=== PATIENT | male | born 1935 | race Caucasian/White ===

== ENCOUNTER 2018-08-07 18:49 | Inpatient (IN) | payer MEDICARE, OTHER ==
[2018-08-07] MEDS ORDERED: IPRATROPIUM/ALBUTEROL 0.5-2.5 MG/3 ML AMPUL NEB ONE (19:18)
--- NOTE | 2018-08-07 19:20 | ER Document Report ---
ED General - General Mode of Arrival: Ambulatory Information source: Patient TRAVEL OUTSIDE OF THE [place] IN LAST 30 DAYS: No <ZULMA NEW - Last Filed: 08/07/18 19:23> <HUGH CORTES - Last Filed: 08/07/18 23:58> - General Stated Complaint: DIFFICULTY BREATHING Time Seen by Provider: 08/07/18 19:13 Notes: Patient is an 83 year old male with COPD, CAD, hypertension, neurogenic bladder (self-cath) presents to the emergency department via EMS complaining of difficulty breathing onset a few days ago worsening yesterday. Patient also complains of a small amount of nonproductive coughing. EMS captured a fever of 101 en route to the emergency department and proceeded to give the patient Tylenol, Solu-Medrol and a DuoNeb. Patient states the DuoNeb has helped his breathing. (ZULMA NEW) - Related Data Allergies/Adverse Reactions: Daliresp Tabs Allergy (Uncoded 04/25/13 07:49) Past Medical History - General Information source: Patient, Emergency Med Personnel - Social History Smoking Status: Former Smoker Cigarette use (# per day): No Chew tobacco use (# tins/day): No Smoking Education Provided: No Frequency of alcohol use: None Family History: Reviewed & Not Pertinent - Past Medical History Cardiac Medical History: Reports: Hx Coronary Artery Disease, Hx Hypercholesterolemia, Hx Hypertension Pulmonary Medical History: Reports: Hx Asthma, Hx Bronchitis, Hx COPD, Hx Pneumonia, Hx Respiratory Failure Past Surgical History: Reports: Hx Herniorrhaphy - nov 2007 - Immunizations Hx Diphtheria, Pertussis, Tetanus Vaccination: Yes Hx Pneumococcal Vaccination: 11/12/11 <ZULMA NEW - Last Filed: 08/07/18 19:23> Review of Systems - Review of Systems Constitutional: No symptoms reported EENT: No symptoms reported Cardiovascular: No symptoms reported Respiratory: See HPI, Cough, Short of breath Gastrointestinal: No symptoms reported Genitourinary: No symptoms reported Male Genitourinary: No symptoms reported Musculoskeletal: No symptoms reported Skin: No symptoms reported Hematologic/Lymphatic: No symptoms reported Neurological/Psychological: No symptoms reported -: Yes All other systems reviewed and negative <ZULMA NEW - Last Filed: 08/07/18 19:23> Physical Exam <ZULMA NEW - Last Filed: 08/07/18 19:23> <HUGH CORTES - Last Filed: 08/07/18 23:58> - Vital signs Vitals: Pulse Ox 97 08/07/18 18:59 - Notes Notes: GENERAL: Alert, interacts well. No acute distress. HEAD: Normocephalic, atraumatic. EYES: Pupils equal, round, and reactive to light. Extraocular movements intact. ENT: Oral mucosa moist, tongue midline. NECK: Full range of motion. Supple. Trachea midline. LUNGS: Tachypneic, pursed lip breathing. No respiratory distress. HEART: Tachycardic. No murmurs, gallops, or rubs. ABDOMEN: Soft, non-tender. Non-distended. Bowel sounds present in all 4 quadrants. EXTREMITIES: Moves all 4 extremities spontaneously. Bilateral edema to the lower extremities, left greater than right however patient states that this is chronic. NEUROLOGICAL: Alert and oriented x3. Normal speech. PSYCH: Normal affect, normal mood. SKIN: Warm, dry, normal turgor. No rashes or lesions noted. (ZULMA NEW) Course - Laboratory Result Diagrams: 08/07/18 18:51 08/07/18 18:51 <[email or web address] - Last Filed: 08/07/18 19:23> - Laboratory Result Diagrams: 08/07/18 18:51 08/07/18 18:51 - Diagnostic Test Radiology reviewed: Image reviewed, Reports reviewed - Chest x-ray shows chronic lung changes with no acute infiltrates - EKG Interpretation by Ma EKG shows normal: Sinus rhythm, Tynan, Intervals, QRS Complexes. abnormal: ST-T Waves - Diffuse nonspecific T abnormalities Rate: Normal - 94 Rhythm: NSR Tynan/QRS: Right axis deviation Voltage: Decreased voltage When compared to previous EKG there are: Changes noted - Diffuse T-wave flattening which is new compared to 04/25/2013 - Consults Dr. Bowling Time consulted: 23:55 <HUGH CORTES - Last Filed: 08/07/18 23:58> - Vital Signs Vital signs: Temp Pulse Resp BP Pulse Ox 99.5 F 28 H 134/62 H 93 08/07/18 19:22 08/07/18 22:01 08/07/18 22:01 08/07/18 22:01 - Laboratory Laboratory results interpreted by me: 08/07/18 08/07/18 08/07/18 18:51 18:51 20:15 WBC 12.4 H Seg Neuts % (Manual) 91 H Lymphocytes % (Manual) 2 L Abs Neuts (Manual) 11.3 H Abs Lymphs (Manual) 0.2 L VBG pH VBG HCO3 Sodium 134.5 L Chloride 89 L Carbon Dioxide 38 H Glucose 128 H Direct Bilirubin 0.5 H Creatine Kinase 49 L Ur Leukocyte Esterase TRACE H 08/07/18 20:50 WBC Seg Neuts % (Manual) Lymphocytes % (Manual) Abs Neuts (Manual) Abs Lymphs (Manual) VBG pH 7.43 H VBG HCO3 33.9 H Sodium Chloride Carbon Dioxide Glucose Direct Bilirubin Creatine Kinase Ur Leukocyte Esterase Discharge <ZULMA NEW - Last Filed: 08/07/18 19:23> - Discharge Admitting Provider: Hospitalist Unit Admitted: Telemetry <HUGH CORTES - Last Filed: 08/07/18 23:58> - Discharge Clinical Impression: Acute exacerbation of chronic obstructive pulmonary disease (COPD) Fever Qualifiers: Fever type: unspecified Qualified Code(s): R50.9 - Fever, unspecified Condition: Stable Disposition: ADMITTED INPATIENT Referrals: LAYO GAMEZ MD [Primary Care Provider] - Follow up as needed Scribe Attestation: 08/07/18 19:46 I personally performed the services described in the documentation, reviewed and edited the documentation which was dictated to the scribe in my presence, and it accurately records my words and actions. (HUGH CORTES) Scribe Documentation - Scribe Written by Mercedesibe:: Anand Anderson, 08/07/2018 19:26 acting as scribe for :: Constantino <ZULMA NEW - Last Filed: 08/07/18 19:23>
[2018-08-07 19:22] LABS: HEMATOCRIT 43.5 % (37.9-51.0); HEMOGLOBIN 14.3 g/dL (13.5-17.0); MEAN CORPUSCULAR HEMOGLOBIN 30.7 pg (27.0-33.4); MEAN CORPUSCULAR HGB CONC 32.9 g/dL (32.0-36.0); MEAN CORPUSCULAR VOLUME 93 fl (80-97); PLATELET COUNT 217 10^3/uL (150-450); RED BLOOD COUNT 4.67 10^6/uL (4.35-5.55); RED CELL DISTRIBUTION WIDTH 13.9 % (11.5-14.0); WHITE BLOOD COUNT 12.4 10^3/uL (4.0-10.5)
[2018-08-07 19:25] LABS: INTERNATIONAL RATION (INR) 0.85
[2018-08-07 19:39] LABS: ABSOLUTE LYMPHOCYTES# (MANUAL) 0.2 10^3/uL (0.5-4.7); ABSOLUTE MONOCYTES # (MANUAL) 0.7 10^3/uL (0.1-1.4); ABSOLUTE NEUTROPHILS# (MANUAL) 11.3 10^3/uL (1.7-8.2); BASOPHILS % (MANUAL) 0 % (0-2); EOSINOPHILS % (MANUAL) 1 % (0-6); LYMPHOCYTES % (MANUAL) 2 % (13-45); MONOCYTES % (MANUAL) 6 % (3-13); SEGMENTED NEUTROPHILS % (MAN) 91 % (42-78); TOTAL CELLS COUNTED 100
[2018-08-07 19:40] LABS: PLATELET COMMENT ADEQUATE; RBC MORPHOLOGY COMMENT NORMO-CYTIC/CHROMIC
[2018-08-07] MEDS ORDERED: LEVOFLOXACIN 750 MG/D5W RTU 750 MG/150 ML RTUPB IV ONE (19:45)
[2018-08-07 19:55] LABS: ALANINE AMINOTRANSFERASE 30 U/L (21-72); ALBUMIN 4.3 g/dL (3.5-5.0); ALKALINE PHOSPHATASE 70 U/L (38-126); ANION GAP 8 (5-19); ASPARTATE AMINO TRANSFERASE 26 U/L (17-59); BILIRUBIN,DIRECT 0.5 mg/dL (0.0-0.4); BILIRUBIN,TOTAL 1.3 mg/dL (0.2-1.3); BLOOD UREA NITROGEN 20 mg/dL (7-20); CALCIUM 10.1 mg/dL (8.4-10.2); CARBON DIOXIDE 38 mmol/L (22-30); CHLORIDE 89 mmol/L (98-107); CREATINE KINASE 49 U/L (55-170); GLUCOSE 128 mg/dL (75-110); POTASSIUM 4.5 mmol/L (3.6-5.0); SODIUM 134.5 mmol/L (137-145)
[2018-08-07 20:02] LABS: CREATINE KINASE MB 1.12 ng/mL (<4.55)
[2018-08-07 20:11] LABS: TROPONIN I < 0.012 ng/mL
--- NOTE | 2018-08-07 20:11 | RADIOLOGY REPORT (SQ) ---
EXAM DESCRIPTION: CHEST SINGLE VIEW COMPLETED DATE/TIME: 08/07/2018 7:43 pm REASON FOR STUDY: bed 9 sob sepsis protocol COMPARISON: 04/25/2013 EXAM PARAMETERS: NUMBER OF VIEWS: One view. TECHNIQUE: Single frontal radiographic view of the chest acquired. RADIATION DOSE: NA LIMITATIONS: None. FINDINGS: LUNGS AND PLEURA: Emphysematous changes seen the upper lobes. Chronic interstitial change s are seen. No acute infiltrate or effusion. MEDIASTINUM AND HILAR STRUCTURES: No masses. Contour normal. HEART AND VASCULAR STRUCTURES: Heart normal in size. Normal vasculature. BONES: No acute findings. HARDWARE: None in the chest. OTHER: No other significant finding. IMPRESSION: Chronic lung changes with no acute cardiopulmonary disease. TECHNICAL DOCUMENTATION: JOB ID: [id number] [employer]- All Rights Reserved Reading location - IP/workstation name: [email or web address]
[2018-08-07 20:33] LABS: APPEARANCE,URINE CLEAR; BILIRUBIN,URINE NEGATIVE (NEGATIVE); COLOR,URINE YELLOW; GLUCOSE, URINE NEGATIVE (NEGATIVE); KETONES,URINE NEGATIVE (NEGATIVE); LEUKOCYTE ESTERASE,URINE TRACE (NEGATIVE); NITRITE,URINE NEGATIVE (NEGATIVE); PROTEIN,URINE NEGATIVE (NEGATIVE); URINE SPECIFIC GRAVITY 1.015; UROBILINOGEN,URINE NEGATIVE mg/dL (<2.0)
[2018-08-07] MEDS ORDERED: ALBUTEROL SULFATE 0.083% NEB 2.5 MG/3 ML AMPUL NEB ONE ×2 (20:52→22:34)
[2018-08-07 21:04] LABS: VENOUS BLOOD HCO3 33.9 mmol/L (20-32); VENOUS BLOOD PCO2 51.9 mmHg (35-63); VENOUS BLOOD PH 7.43 (7.30-7.42)
[2018-08-08] MEDS ORDERED: DILTIAZEM HCL 60 MG TABLET PO ONE (00:04)
[2018-08-08] MEDS ORDERED: IPRATROPIUM/ALBUTEROL 0.5-2.5 MG/3 ML AMPUL NEB PRN (00:15)
[2018-08-08] MEDS ORDERED: GUAIFENESIN SYRP 200 MG/10 ML UDC PO PRN (00:15)
[2018-08-08] MEDS ORDERED: ACETAMINOPHEN 325 MG TABLET PO PRN (00:15)
[2018-08-08] MEDS: LEVALBUTEROL HCL NEB 1.25 MG/3 ML AMPUL NEB SCH ×4 (02:10→20:47)
[2018-08-08] MEDS: IPRATROPIUM BROMIDE 0.02% NEB 0.5 MG/2.5 ML AMPUL NEB SCH ×4 (02:10→20:47)
[2018-08-08] MEDS: HEPARIN SOD (PORCINE) 5,000 UNIT/ML 1 ML SYRINGE SUBCUT SCH ×3 (05:41→21:43)
[2018-08-08 06:28] LABS: HEMATOCRIT 41.4 % (37.9-51.0); HEMOGLOBIN 13.8 g/dL (13.5-17.0); MEAN CORPUSCULAR HGB CONC 33.2 g/dL (32.0-36.0); MEAN CORPUSCULAR VOLUME 93 fl (80-97); PLATELET COUNT 181 10^3/uL (150-450); RED BLOOD COUNT 4.44 10^6/uL (4.35-5.55); RED CELL DISTRIBUTION WIDTH 13.8 % (11.5-14.0); WHITE BLOOD COUNT 7.4 10^3/uL (4.0-10.5)
[2018-08-08 06:41] LABS: ANION GAP 13 (5-19); BLOOD UREA NITROGEN 23 mg/dL (7-20); CALCIUM 10.4 mg/dL (8.4-10.2); CARBON DIOXIDE 30 mmol/L (22-30); CHLORIDE 91 mmol/L (98-107); GLUCOSE 189 mg/dL (75-110); POTASSIUM 4.5 mmol/L (3.6-5.0); SODIUM 133.6 mmol/L (137-145)
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
[2018-08-08 06:56] LABS: ABSOLUTE LYMPHOCYTES# (MANUAL) 0.1 10^3/uL (0.5-4.7); ABSOLUTE NEUTROPHILS# (MANUAL) 7.3 10^3/uL (1.7-8.2); BASOPHILS % (MANUAL) 0 % (0-2); EOSINOPHILS % (MANUAL) 0 % (0-6); LYMPHOCYTES % (MANUAL) 2 % (13-45); MONOCYTES % (MANUAL) 0 % (3-13); SEGMENTED NEUTROPHILS % (MAN) 98 % (42-78); TOTAL CELLS COUNTED 100
[2018-08-08 06:57] LABS: ANISOCYTOSIS SLIGHT; BURR CELLS 1+; OVALOCYTES 1+; PLATELET COMMENT ADEQUATE; POIKILOCYTOSIS 1+; SCHISTOCYTES SLIGHT; TOXIC GRANULATION SLIGHT
[2018-08-08] MEDS ORDERED: GUAIFENESIN 600 MG TABLET.SA PO SCH (10:00)
[2018-08-08] MEDS ORDERED: PREDNISONE 20 MG TABLET PO SCH (10:00)
[2018-08-08] MEDS ORDERED: DILTIAZEM HCL 240 MG CAPSULE.CR PO SCH (10:00)
[2018-08-08] MEDS ORDERED: ATORVASTATIN CALCIUM 10 MG TABLET PO SCH (10:00)
[2018-08-08] MEDS ORDERED: BUDESONIDE/FORMOTEROL 160-4.5 MCG 60 PUFF/6 GM MDI IH SCH ×2 (10:00)
[2018-08-08] MEDS: ASPIRIN 81 MG TABLET, ENT COATED PO SCH (10:04)
[2018-08-08] MEDS: GUAIFENESIN 600 MG TABLET.SA PO SCH ×2 (10:04→21:43)
[2018-08-08] MEDS: LORATADINE 10 MG TABLET PO SCH (10:04)
--- NOTE | 2018-08-08 14:39 | EKG REPORT ---
SEVERITY:- ABNORMAL ECG - SINUS RHYTHM RIGHT AXIS DEVIATION LOW VOLTAGE IN FRONTAL LEADS NONSPECIFIC T ABNORMALITIES, DIFFUSE LEADS : Confirmed by: Susan Munguia MD 08-Aug-2018 14:38:40
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
[2018-08-08] MEDS ORDERED: AZITHROMYCIN INJ 500 MG VIAL IV SCH (16:00)
[2018-08-08] MEDS ORDERED: LEVOFLOXACIN 750 MG/D5W RTU 750 MG/150 ML RTUPB IV SCH (18:00)
[2018-08-08] MEDS: AZITHROMYCIN 500 MG in DEXTROSE 5%-WATER 250 ML IV SCH (18:34)
[2018-08-08] MEDS: MONTELUKAST SODIUM 10 MG TABLET PO SCH (21:43)
[2018-08-08] MEDS: ATORVASTATIN CALCIUM 10 MG TABLET PO SCH (21:43)
[2018-08-08] MEDS: METHYLPREDNISOLONE INJ 40 MG/1 ML SDV IV SCH (21:44)
[2018-08-09] MEDS: IPRATROPIUM BROMIDE 0.02% NEB 0.5 MG/2.5 ML AMPUL NEB SCH ×4 (01:23→20:01)
[2018-08-09] MEDS: LEVALBUTEROL HCL NEB 1.25 MG/3 ML AMPUL NEB SCH ×4 (01:23→20:01)
[2018-08-09] MEDS: METHYLPREDNISOLONE INJ 40 MG/1 ML SDV IV SCH ×3 (05:32→22:08)
[2018-08-09] MEDS: HEPARIN SOD (PORCINE) 5,000 UNIT/ML 1 ML SYRINGE SUBCUT SCH ×3 (05:32→22:08)
[2018-08-09 06:58] LABS: HEMATOCRIT 37.6 % (37.9-51.0); HEMOGLOBIN 12.5 g/dL (13.5-17.0); MEAN CORPUSCULAR HEMOGLOBIN 30.8 pg (27.0-33.4); MEAN CORPUSCULAR HGB CONC 33.3 g/dL (32.0-36.0); MEAN CORPUSCULAR VOLUME 92 fl (80-97); PLATELET COUNT 187 10^3/uL (150-450); RED BLOOD COUNT 4.07 10^6/uL (4.35-5.55); RED CELL DISTRIBUTION WIDTH 13.7 % (11.5-14.0); WHITE BLOOD COUNT 13.9 10^3/uL (4.0-10.5)
[2018-08-09 07:20] LABS: ANION GAP 5 (5-19); BLOOD UREA NITROGEN 29 mg/dL (7-20); CALCIUM 9.3 mg/dL (8.4-10.2); CARBON DIOXIDE 37 mmol/L (22-30); CHLORIDE 95 mmol/L (98-107); GLUCOSE 154 mg/dL (75-110); POTASSIUM 4.4 mmol/L (3.6-5.0); SODIUM 136.7 mmol/L (137-145)
[2018-08-09 07:47] LABS: ABSOLUTE MONOCYTES # (MANUAL) 0.1 10^3/uL (0.1-1.4); ABSOLUTE NEUTROPHILS# (MANUAL) 13.8 10^3/uL (1.7-8.2); BASOPHILS % (MANUAL) 0 % (0-2); EOSINOPHILS % (MANUAL) 0 % (0-6); LYMPHOCYTES % (MANUAL) 0 % (13-45); MONOCYTES % (MANUAL) 1 % (3-13); SEGMENTED NEUTROPHILS % (MAN) 99 % (42-78); TOTAL CELLS COUNTED 100
[2018-08-09 07:49] LABS: OVALOCYTES 1+; PLATELET COMMENT ADEQUATE; POIKILOCYTOSIS 1+
[2018-08-09] MEDS ORDERED: (PENDING PHARMACY ID) (Diltiazem Hcl [Diltiazem 24hr Er] 360 MG) PO SCH (10:00)
[2018-08-09] MEDS: ASPIRIN 81 MG TABLET, ENT COATED PO SCH (10:44)
[2018-08-09] MEDS: GUAIFENESIN 600 MG TABLET.SA PO SCH ×2 (10:44→22:07)
[2018-08-09] MEDS: LORATADINE 10 MG TABLET PO SCH (10:44)
[2018-08-09] MEDS: DILTIAZEM HCL 180 MG CAPSULE.CR PO SCH (10:44)
--- NOTE | 2018-08-09 15:27 | PDOC PROGRESS REPORT ---
Subjective Progress Note for:: 08/09/18 Subjective:: 83-year-old with COPD. Patient's oxygen requirements now down to 3-4 L and is moving air better and having some wheezing still has conversational dyspnea and use of accessory muscles. Reason For Visit: COPD EXACERBATION ACUTE ON CHRONIC BRONCHITIS Physical Exam Vital Signs: Temp Pulse Resp BP Pulse Ox 98.0 F 76 14 131/56 H 96 08/09/18 11:25 08/09/18 14:16 08/09/18 14:16 08/09/18 11:25 08/09/18 14:16 Pulse Oximeter Continuous Start: 08/08/18 00: 15 Freq: RTQ4 Status: Active Document 08/09/18 14:16 [facility]Rec: 08/09/18 14:29 [facility] [id number] Pulse Oximetry Assessment Oxygen Saturation (92-100) 96 Oxygen Flow Rate (L/min) 4 Oxygen Delivery Method Nasal Cannula Fraction of Inspired Oxygen (FIO2) 36 Equipment Usage Equipment in Use Continuous SpO2 Machine # N 10 Intake & Output 08/08/18 08/09/18 08/10/18 06:59 06:59 06:59 Intake Total 320 1480 Output Total 300 1850 Balance 20 -370 Weight 70.3 kg 70.7 kg General appearance: PRESENT: no acute distress, well-developed, well-nourished Neck exam: ABSENT: carotid bruit, JVD, lymphadenopathy, thyromegaly Respiratory exam: PRESENT: accessory muscle use, clear to auscultation eboni, wheezes. ABSENT: rales, rhonchi Cardiovascular exam: PRESENT: RRR. ABSENT: diastolic murmur, rubs, systolic murmur GI/Abdominal exam: PRESENT: normal bowel sounds, soft. ABSENT: distended, guarding, mass, organolmegaly, rebound, tenderness Extremities exam: PRESENT: full ROM. ABSENT: calf tenderness, clubbing, pedal edema Results Laboratory Results: 08/09/18 06:41 08/09/18 06:41 08/09/18 08/09/18 06:41 06:41 WBC 13.9 H RBC 4.07 L Hgb 12.5 L Hct 37.6 L MCV 92 MCH 30.8 MCHC 33.3 RDW 13.7 Plt Count 187 Seg Neutrophils % Not Reportable Lymphocytes % Not Reportable Monocytes % Not Reportable Eosinophils % Not Reportable Basophils % Not Reportable Absolute Neutrophils Not Reportable Absolute Lymphocytes Not Reportable Absolute Monocytes Not Reportable Absolute Eosinophils Not Reportable Absolute Basophils Not Reportable Sodium 136.7 L Potassium 4.4 Chloride 95 L Carbon Dioxide 37 H Anion Gap 5 BUN 29 H Creatinine 0.94 Est GFR ( Amer) > 60 Est GFR (Non-Af Amer) > 60 Glucose 154 H Calcium 9.3 Impressions: Chest X-Ray 08/07/18 18:52 IMPRESSION: Chronic lung changes with no acute cardiopulmonary disease. Assessment & Plan - Diagnosis (1) Acute and chronic respiratory failure with hypoxia Is this a current diagnosis for this admission?: Yes Plan: Patient not actively wheezing but having some mild breathing. Continue IV Solu- Medrol for his acute on chronic exacerbation. (2) Acute exacerbation of chronic obstructive pulmonary disease (COPD) Is this a current diagnosis for this admission?: Yes Plan: As needed nebulizing treatments. Will transition back to his home inhalers at the time of discharge. (3) Bronchitis Is this a current diagnosis for this admission?: Yes Plan: We will transition to p.o. azithromycin and. (4) Hypertension Is this a current diagnosis for this admission?: Yes Plan: Normotensive continue present medications continue to monitor (5) Hyperlipidemia Is this a current diagnosis for this admission?: Yes Plan: Continue atorvastatin (6) CAD (coronary artery disease) Is this a current diagnosis for this admission?: Yes Plan: No anginal complaints stable - Time Time Spent with patient: 25-34 minutes
[2018-08-09] MEDS: AZITHROMYCIN 500 MG in DEXTROSE 5%-WATER 250 ML IV SCH (18:59)
[2018-08-09] MEDS ORDERED: MAG HYDROX/AL HYDROX/SIMETH SUSP 30 ML UDCUP PO PRN (19:05)
[2018-08-09] MEDS ORDERED: CALCIUM CARBONATE 500 MG TAB.CHEW PO PRN (20:13)
[2018-08-09] MEDS: FAMOTIDINE 20 MG TABLET PO SCH (22:07)
[2018-08-09] MEDS: MONTELUKAST SODIUM 10 MG TABLET PO SCH (22:07)
[2018-08-09] MEDS: ATORVASTATIN CALCIUM 10 MG TABLET PO SCH (22:07)
[2018-08-10] MEDS: IPRATROPIUM BROMIDE 0.02% NEB 0.5 MG/2.5 ML AMPUL NEB SCH ×4 (02:11→20:45)
[2018-08-10] MEDS: LEVALBUTEROL HCL NEB 1.25 MG/3 ML AMPUL NEB SCH ×4 (02:12→20:45)
[2018-08-10] MEDS: HEPARIN SOD (PORCINE) 5,000 UNIT/ML 1 ML SYRINGE SUBCUT SCH ×3 (06:28→21:28)
[2018-08-10] MEDS: METHYLPREDNISOLONE INJ 40 MG/1 ML SDV IV SCH ×2 (06:28→17:13)
[2018-08-10] MEDS: DILTIAZEM HCL 180 MG CAPSULE.CR PO SCH (10:06)
[2018-08-10] MEDS: ASPIRIN 81 MG TABLET, ENT COATED PO SCH (10:06)
[2018-08-10] MEDS: GUAIFENESIN 600 MG TABLET.SA PO SCH ×2 (10:06→21:28)
[2018-08-10] MEDS: LORATADINE 10 MG TABLET PO SCH (10:06)
[2018-08-10] MEDS: FAMOTIDINE 20 MG TABLET PO SCH ×2 (10:07→21:28)
--- NOTE | 2018-08-10 10:57 | PDOC PROGRESS REPORT ---
Subjective Progress Note for:: 08/10/18 Subjective:: 83-year-old with COPD. Patient's oxygen requirements now down to 3 L and is moving air better and having some wheezing still has no conversational dyspnea and no use of accessory muscles. Reason For Visit: COPD EXACERBATION ACUTE ON CHRONIC BRONCHITIS Physical Exam Vital Signs: Temp Pulse Resp BP Pulse Ox 97.9 F 87 20 136/61 H 95 08/10/18 08:47 08/10/18 08:47 08/10/18 08:47 08/10/18 08:47 08/10/18 08:47 Pulse Oximeter Continuous Start: 08/08/18 00: 15 Freq: RTQ4 Status: Active Document 08/10/18 07:45 TPO (Rec: 08/10/18 08:00 TPO [email or web address]) Pulse Oximetry Assessment Oxygen Saturation (92-100) 94 Oxygen Flow Rate (L/min) 3 Oxygen Delivery Method Nasal Cannula Fraction of Inspired Oxygen (FIO2) 32 Equipment Usage Equipment in Use Continuous SpO2 Machine # 10 Intake & Output 08/09/18 08/10/18 08/11/18 06:59 06:59 06:59 Intake Total 1730 1737 Output Total 1850 800 Balance -120 937 Weight 70.7 kg 70.5 kg General appearance: PRESENT: no acute distress, well-developed, well-nourished Neck exam: ABSENT: carotid bruit, JVD, lymphadenopathy, thyromegaly Respiratory exam: PRESENT: clear to auscultation eboni - Breath sounds throughout. ABSENT: accessory muscle use, rales, rhonchi, wheezes Cardiovascular exam: PRESENT: RRR. ABSENT: diastolic murmur, rubs, systolic murmur GI/Abdominal exam: PRESENT: normal bowel sounds, soft. ABSENT: distended, guarding, mass, organolmegaly, rebound, tenderness Extremities exam: PRESENT: full ROM. ABSENT: calf tenderness, clubbing, pedal edema Results Laboratory Results: 08/09/18 06:41 08/09/18 06:41 Impressions: Chest X-Ray 08/07/18 18:52 IMPRESSION: Chronic lung changes with no acute cardiopulmonary disease. Assessment & Plan - Diagnosis (1) Acute and chronic respiratory failure with hypoxia Is this a current diagnosis for this admission?: Yes Plan: Patient not actively wheezing no use of accessory muscles. Patient beginning to achieve his baseline respiratory status. Still on 3 L. Decrease Solu- Medrol to 40 mg every 12 hours change azithromycin to p.o. (2) Acute exacerbation of chronic obstructive pulmonary disease (COPD) Is this a current diagnosis for this admission?: Yes Plan: As needed nebulizing treatments. Will transition back to his home inhalers at the time of discharge. Decrease IV Solu-Medrol. (3) Bronchitis Is this a current diagnosis for this admission?: Yes Plan: We will transition to p.o. azithromycin (4) Hypertension Is this a current diagnosis for this admission?: Yes Plan: Normotensive continue present medications continue to monitor (5) Hyperlipidemia Is this a current diagnosis for this admission?: Yes Plan: Continue atorvastatin (6) CAD (coronary artery disease) Is this a current diagnosis for this admission?: Yes Plan: No anginal complaints stable - Time Time Spent with patient: 15-24 minutes Anticipated discharge: Home Within: within 48 hours
[2018-08-10] MEDS: MONTELUKAST SODIUM 10 MG TABLET PO SCH (21:28)
[2018-08-10] MEDS: ATORVASTATIN CALCIUM 10 MG TABLET PO SCH (21:28)
[2018-08-11] MEDS: IPRATROPIUM BROMIDE 0.02% NEB 0.5 MG/2.5 ML AMPUL NEB SCH ×4 (02:25→19:58)
[2018-08-11] MEDS: LEVALBUTEROL HCL NEB 1.25 MG/3 ML AMPUL NEB SCH ×4 (02:25→19:58)
[2018-08-11] MEDS: HEPARIN SOD (PORCINE) 5,000 UNIT/ML 1 ML SYRINGE SUBCUT SCH ×3 (06:31→21:21)
[2018-08-11] MEDS: METHYLPREDNISOLONE INJ 40 MG/1 ML SDV IV SCH (06:31)
--- NOTE | 2018-08-11 10:10 | PDOC PROGRESS REPORT ---
Subjective Progress Note for:: 08/11/18 Subjective:: 83-year-old with COPD. Patient's oxygen requirements now down to 3 L and is moving air better and having some wheezing still has no conversational dyspnea and no use of accessory muscles. Clinically improved over yesterday. Patient has better air movement today but has not been ambulating due to the severity of his bronchospasm. Patient has no new complaints feeling better close to baseline. Reason For Visit: COPD EXACERBATION ACUTE ON CHRONIC BRONCHITIS Physical Exam Vital Signs: Temp Pulse Resp BP Pulse Ox 97.6 F 75 18 125/60 96 08/11/18 07:30 08/11/18 07:56 08/11/18 07:56 08/11/18 07:30 08/11/18 07:56 Pulse Oximeter Continuous Start: 08/08/18 00: 15 Freq: RTQ4 Status: Active Document 08/11/18 07:56 TPO (Rec: 08/11/18 08:16 TPO [email or web address]) Pulse Oximetry Assessment Oxygen Saturation (92-100) 96 Oxygen Flow Rate (L/min) 3 Oxygen Delivery Method Nasal Cannula Fraction of Inspired Oxygen (FIO2) 32 Equipment Usage Equipment in Use Continuous Pulse Oximeter 24 Hour Charge Charge Now Continuous SpO2 Machine # 10 Intake & Output 08/10/18 08/11/18 08/12/18 06:59 06:59 06:59 Intake Total 1737 459 Output Total 800 500 Balance 937 -41 Weight 70.5 kg 71.2 kg General appearance: PRESENT: no acute distress Neck exam: ABSENT: carotid bruit, JVD, lymphadenopathy, thyromegaly Respiratory exam: PRESENT: clear to auscultation eboni - Breath sounds throughout. ABSENT: rales, rhonchi, wheezes Cardiovascular exam: PRESENT: RRR. ABSENT: diastolic murmur, rubs, systolic murmur GI/Abdominal exam: PRESENT: normal bowel sounds, soft. ABSENT: distended, guarding, mass, organolmegaly, rebound, tenderness Extremities exam: PRESENT: full ROM. ABSENT: calf tenderness, clubbing, pedal edema Results Laboratory Results: 08/09/18 06:41 08/09/18 06:41 Impressions: Chest X-Ray 08/07/18 18:52 IMPRESSION: Chronic lung changes with no acute cardiopulmonary disease. Assessment & Plan - Diagnosis (1) Acute and chronic respiratory failure with hypoxia Is this a current diagnosis for this admission?: Yes Plan: Continue to wean oxygen to his baseline of 2. Ambulate today on pulse oximetry to confirm patient's ambulatory oxygen requirements. Anticipate discharge in 24 hours (2) Acute exacerbation of chronic obstructive pulmonary disease (COPD) Is this a current diagnosis for this admission?: Yes Plan: Continue nebulizing treatments Taper steroids (3) Bronchitis Is this a current diagnosis for this admission?: Yes Plan: Continue p.o. azithromycin (4) Hypertension Is this a current diagnosis for this admission?: Yes Plan: Normotensive continue present medications continue to monitor (5) Hyperlipidemia Is this a current diagnosis for this admission?: Yes Plan: Continue atorvastatin (6) CAD (coronary artery disease) Is this a current diagnosis for this admission?: Yes Plan: No anginal complaints stable - Time Time Spent with patient: 15-24 minutes Anticipated discharge: Home Within: within 24 hours
[2018-08-11] MEDS: DILTIAZEM HCL 180 MG CAPSULE.CR PO SCH (10:15)
[2018-08-11] MEDS: AZITHROMYCIN 250 MG TABLET PO SCH (10:15)
[2018-08-11] MEDS: GUAIFENESIN 600 MG TABLET.SA PO SCH ×2 (10:16→21:21)
[2018-08-11] MEDS: LORATADINE 10 MG TABLET PO SCH (10:16)
[2018-08-11] MEDS: FAMOTIDINE 20 MG TABLET PO SCH ×2 (10:16→21:21)
[2018-08-11] MEDS: ASPIRIN 81 MG TABLET, ENT COATED PO SCH (10:16)
[2018-08-11] MEDS: PREDNISONE 20 MG TABLET PO SCH (17:55)
[2018-08-11] MEDS: ATORVASTATIN CALCIUM 10 MG TABLET PO SCH (21:21)
[2018-08-11] MEDS: MONTELUKAST SODIUM 10 MG TABLET PO SCH (21:22)
[2018-08-12] MEDS: IPRATROPIUM BROMIDE 0.02% NEB 0.5 MG/2.5 ML AMPUL NEB SCH ×3 (02:45→13:42)
[2018-08-12] MEDS: LEVALBUTEROL HCL NEB 1.25 MG/3 ML AMPUL NEB SCH ×3 (02:45→13:42)
[2018-08-12] MEDS: HEPARIN SOD (PORCINE) 5,000 UNIT/ML 1 ML SYRINGE SUBCUT SCH ×2 (05:38→15:02)
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
[2018-08-12] MEDS: GUAIFENESIN 600 MG TABLET.SA PO SCH (09:33)
[2018-08-12] MEDS: AZITHROMYCIN 250 MG TABLET PO SCH (09:33)
[2018-08-12] MEDS: ASPIRIN 81 MG TABLET, ENT COATED PO SCH (09:33)
[2018-08-12] MEDS: DILTIAZEM HCL 180 MG CAPSULE.CR PO SCH (09:33)
[2018-08-12] MEDS: FAMOTIDINE 20 MG TABLET PO SCH (09:34)
[2018-08-12] MEDS: LORATADINE 10 MG TABLET PO SCH (09:34)
[2018-08-12] MEDS: PREDNISONE 20 MG TABLET PO SCH ×2 (09:34→16:22)
[2018-08-12 15:46] VITALS: BP 126/67
== END 2018-08-12 17:32 | disposition home or self-care (01) | DRG 190 ==
LOC: ER 18:49 → EH 08-08 00:29 → 4S 08-08 01:50
PROVIDERS: ADMIT Internal Medicine; ATTEND Internal Medicine
PROC: 3E0F73Z Introduction of Anti-inflammatory into Respiratory Tract, Via Natural or Artificial Opening (ICD-10-PCS; principal; 2018-08-08)
DX: J44.1 Chronic obstructive pulmonary disease with (acute) exacerbation (principal); J96.21 Acute and chronic respiratory failure with hypoxia; J20.9 Acute bronchitis, unspecified; J44.0 Chronic obstructive pulmonary disease with (acute) lower respiratory infection; I10 Essential (primary) hypertension; E78.00 Pure hypercholesterolemia, unspecified; I25.10 Atherosclerotic heart disease of native coronary artery without angina pectoris; R33.9 Retention of urine, unspecified; X37.0XXA Hurricane, initial encounter; Z79.899 Other long term (current) drug therapy; Z99.81 Dependence on supplemental oxygen; Z87.891 Personal history of nicotine dependence; Z79.82 Long term (current) use of aspirin; Z88.8 Allergy status to other drugs, medicaments and biological substances; Z83.6 Family history of other diseases of the respiratory system; Z82.49 Family history of ischemic heart disease and other diseases of the circulatory system
CPT/HCPCS: 36415; 51701; 71045; 80048; 80053; 81001; 82550; 82553; 82803; 83605; 83880; 84484; 85025; 85610; 87040; 87086; 90471; 90686; 93005; 93010; 94640; 94667; 94762; 94799; 96365; 96366; 99285; C1758; G0008; J0456; J1644; J1956; J2920; J3490; J7060; J7512; J7620

== ENCOUNTER 2019-01-11 12:53 | Inpatient (IN) | payer MEDICARE, OTHER ==
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
[2019-01-11] MEDS ORDERED: ALBUTEROL SULFATE 0.083% NEB 2.5 MG/3 ML AMPUL NEB ONE (13:15)
[2019-01-11] MEDS ORDERED: METHYLPREDNISOLONE INJ 125 MG/2 ML SDV IV ONE (13:15)
[2019-01-11 13:33] LABS: APPEARANCE,URINE CLEAR; BILIRUBIN,URINE NEGATIVE (NEGATIVE); COLOR,URINE YELLOW; GLUCOSE, URINE NEGATIVE (NEGATIVE); KETONES,URINE NEGATIVE (NEGATIVE); LEUKOCYTE ESTERASE,URINE NEGATIVE (NEGATIVE); NITRITE,URINE NEGATIVE (NEGATIVE); PROTEIN,URINE NEGATIVE (NEGATIVE); URINE SPECIFIC GRAVITY 1.013; UROBILINOGEN,URINE NEGATIVE mg/dL (<2.0)
[2019-01-11 13:36] LABS: HEMATOCRIT 41.7 % (37.9-51.0); MEAN CORPUSCULAR HGB CONC 33.7 g/dL (32.0-36.0); MEAN CORPUSCULAR VOLUME 92 fl (80-97); PLATELET COUNT 164 10^3/uL (150-450); RED BLOOD COUNT 4.53 10^6/uL (4.35-5.55); RED CELL DISTRIBUTION WIDTH 13.8 % (11.5-14.0); WHITE BLOOD COUNT 7.8 10^3/uL (4.0-10.5)
--- NOTE | 2019-01-11 13:44 | RADIOLOGY REPORT (SQ) ---
EXAM DESCRIPTION: CHEST SINGLE VIEW COMPLETED DATE/TIME: 01/11/2019 1:34 pm REASON FOR STUDY: SOB COMPARISON: 08/07/2018. EXAM PARAMETERS: NUMBER OF VIEWS: One view. TECHNIQUE: Single frontal radiographic view of the chest acquired. RADIATION DOSE: NA LIMITATIONS: None. FINDINGS: LUNGS AND PLEURA: Diffuse interstitial changes. Focal density in the lateral right lung. No pleural effusion. No pneumothorax. MEDIASTINUM AND HILAR STRUCTURES: No masses. Contour normal. HEART AND VASCULAR STRUCTURES: Heart normal in size. Normal vasculature. BONES: No acute findings. HARDWARE: None in the chest. OTHER: No other significant finding. IMPRESSION: FOCAL DENSITY IN THE LATERAL RIGHT LUNG, POSSIBLY DUE TO PNEUMONIA. CANNOT EXCLUDE UNDE RLYING MASS. TECHNICAL DOCUMENTATION: JOB ID: [id number] [employer]- All Rights Reserved Reading location - IP/workstation name: [email or web address]
[2019-01-11 13:52] LABS: ALANINE AMINOTRANSFERASE 28 U/L (21-72); ALBUMIN 3.7 g/dL (3.5-5.0); ALKALINE PHOSPHATASE 56 U/L (38-126); ANION GAP 11 (5-19); ASPARTATE AMINO TRANSFERASE 26 U/L (17-59); BILIRUBIN,DIRECT 0.3 mg/dL (0.0-0.4); BILIRUBIN,TOTAL 1.2 mg/dL (0.2-1.3); BLOOD UREA NITROGEN 34 mg/dL (7-20); CALCIUM 9.3 mg/dL (8.4-10.2); CARBON DIOXIDE 32 mmol/L (22-30); CHLORIDE 94 mmol/L (98-107); CREATINE KINASE 46 U/L (55-170); GLUCOSE 138 mg/dL (75-110); POTASSIUM 4.8 mmol/L (3.6-5.0); SODIUM 136.8 mmol/L (137-145); TOTAL PROTEIN 6.1 g/dL (6.3-8.2)
[2019-01-11 14:03] LABS: CREATINE KINASE MB 1.74 ng/mL (<4.55); TROPONIN I 0.013 ng/mL
[2019-01-11 14:04] LABS: ABSOLUTE LYMPHOCYTES# (MANUAL) 1.4 10^3/uL (0.5-4.7); ABSOLUTE MONOCYTES # (MANUAL) 0.9 10^3/uL (0.1-1.4); ABSOLUTE NEUTROPHILS# (MANUAL) 5.5 10^3/uL (1.7-8.2); BASOPHILS % (MANUAL) 0 % (0-2); EOSINOPHILS % (MANUAL) 0 % (0-6); LYMPHOCYTES % (MANUAL) 18 % (13-45); MONOCYTES % (MANUAL) 12 % (3-13); SEGMENTED NEUTROPHILS % (MAN) 49 % (42-78); TOTAL CELLS COUNTED 100
[2019-01-11 14:07] LABS: PLATELET CLUMPS PRESENT; PLATELET COMMENT ADEQUATE; PLATELET GIANT PRESENT; PLATELET LARGE PRESENT; TOXIC GRANULATION 1+; TOXIC VACUOLATION PRESENT
[2019-01-11 14:08] LABS: BAND NEUTROPHILS % (MANUAL) 21 % (3-5)
[2019-01-11] MEDS ORDERED: AZITHROMYCIN INJ 500 MG VIAL IV ONE (14:33)
[2019-01-11] MEDS ORDERED: CEFTRIAXONE INJ 1000 MG VIAL IV ONE (14:33)
[2019-01-11 15:13] LABS: INTERNATIONAL RATION (INR) 1.11; PROTHROMBIN TIME 14.9 SEC (11.4-15.4)
[2019-01-11 15:13] LABS: ARTERIAL BLOOD BASE EXCESS 3.7 mmol/L; ARTERIAL BLOOD H2CO3 1.59 mmol/L (1.05-1.35); ARTERIAL BLOOD HCO3 30.2 mmol/L (20-24); ARTERIAL BLOOD O2 SATURATION 74.9 % (94-98); ARTERIAL BLOOD PCO2 52.7 mmHg (35-45); ARTERIAL BLOOD PH 7.38 (7.35-7.45); ARTERIAL BLOOD PO2 41.4 mmHg (80-100); ARTERIAL BLOOD TOTAL CO2 31.8 mmol/L (23-27)
[2019-01-11 15:14] LABS: ARTERIAL BLOOD FIO2 5L
[2019-01-11] MEDS ORDERED: ACETAMINOPHEN 325 MG TABLET PO PRN (15:23)
--- NOTE | 2019-01-11 15:36 | PDOC H&P ---
History of Present Illness Admission Date/PCP: LAYO GAMEZ MD Patient complains of: SOB, cough History of Present Illness: MARY HAWKINS is a 83 year old male with a PMH of COPD on 3 lpm of home O2, hypoactive urinary bladder-does intermittent self catheterizatons, and hyperlipidemia who presented with productive cough, fever and SOB. Daughter and (surrogate decision maker) are on bedside. Patient apparently has been having progressive SOB in the past 2 days. This was associated with productive cough with greenish sputum. Yesterday, he started having fever with a temp of 100.2. He had worsening SOB and EMS noted his sats went down to as low as 60% and he was noted to be very tachypneic. In the ER, he was placed on BIPAP and sats improved to 95% and his tachypnea did improve. He was noted to have decreased BS and wheezes in the ER. Chest x-ray shows possible right lung mass. 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 Past Medical History Cardiac Medical History: Reports: Coronary Artery Disease, Hyperlipidema, Hypertension Denies: Atrial Fibrillation, Congestive Heart Failure, Myocardial Infarction, Peripheral Vascular Disease, Pulmonary Embolism, Heart Murmur Pulmonary Medical History: Reports: Asthma, Bronchitis, Chronic Obstructive Pulmonary Disease (COPD), Pneumonia, Respiratory Failure Denies: Sleep Apnea, Tuberculosis Neurological Medical History: Denies: Seizures Renal/ Medical History: Denies: End Stage Renal Disease Malignancy Medical History: Denies: Lung Cancer GI Medical History: Denies: Hepatitis, Hiatal Hernia Musculoskeltal Medical History: Denies: Arthritis, Fibromyalgia Psychiatric Medical History: Denies: Depression Hematology: Denies: Anemia, Sickle Cell Disease Past Surgical History Past Surgical History: Reports: Herniorrhaphy - nov 2007 Denies: Appendectomy, Cholecystectomy, Coronary Artery Bypass Graft, Gastric Bypass Surgery, Pacemaker, Tonsillectomy Social History Lives with: Family Smoking Status: Unknown if Ever Smoked Frequency of Alcohol Use: None Hx Recreational Drug Use: No Hx Prescription Drug Abuse: No Family History Family History: COPD, Hypertension Parental Family History Reviewed: Yes - no premature CAD Children Family History Reviewed: No Sibling(s) Family History Reviewed.: No Medication/Allergy Home Medications: Aspirin [Aspirin EC] 81 mg PO DAILY 12/12/12 Atorvastatin Calcium [Lipitor 10 mg Tablet] 10 mg PO DAILY 12/12/12 Calcium Citrate/Vitamin D3 [Calcium Cit-Vit D 250-200 Tab] 1 each PO DAILY 12/12/12 Fexofenadine HCl [Catrachita Allergy] 180 mg PO DAILY 04/25/13 Guaifenesin [Mucinex] 600 mg PO BID 04/07/15 Albuterol Sulfate [Proair HFA Inhalation Aerosol 8.5 gm MDI] 2 puff IH Q4HP PRN 08/08/18 Albuterol Sulfate [Ventolin 0.083% Neb 2.5 mg/3 mL Ampul] 1 vial NEB DAILY@1400 08/08/18 Albuterol Sulfate [Ventolin 0.083% Neb 2.5 mg/3 mL Ampul] 1 vial NEB RTQ6HP PRN 08/08/18 Arformoterol Tartrate [Brovana Inhalation Solution 15 mcg/2 mL] 15 mcg IH BID 08/08/18 Budesonide [Pulmicort Neb 0.5 mg/2 ml Ampul] 0.5 mg NEB RTQ12 08/08/18 Diltiazem HCl [Diltiazem 24Hr ER] 360 mg PO DAILY 08/08/18 Ergocalciferol (Vitamin D2) [Drisdol 50,000 unit (1.25MG) Capsule] 50,000 unit PO . & 08/08/18 Furosemide [Lasix 20 mg Tablet] 20 mg PO QAM 08/08/18 Montelukast Sodium [Singulair 10 mg Tablet] 10 mg PO QHS 08/08/18 Nitrofurantoin Monohyd/M-Cryst [Nitrofurantoin [place]-Mcr 100 mg] 100 mg PO Q12 MDD FILLED 08/05 FOR 7 DAY SUPPLY 08/08/18 Acetaminophen [Tylenol 325 mg Tablet] 650 mg PO Q4HP PRN tablet 08/12/18 Prednisone [Deltasone 20 mg Tablet] 20 mg PO BID #8 tablet 08/12/18 Allergies/Adverse Reactions: roflumilast Allergy (Unknown, Verified 08/08/18 07:05) Review of Systems All systems: reviewed and no additional remarkable complaints except as stated - as mentioned in HPI Physical Exam Vital Signs: Temp Pulse Resp BP Pulse Ox 101.4 F H 38 H 135/59 H 95 01/11/19 13:04 01/11/19 14:35 01/11/19 13:20 01/11/19 14:35 Intake & Output 01/10/19 01/11/19 01/12/19 06:59 06:59 06:59 Weight 155 lb General appearance: PRESENT: no acute distress, well-developed, well-nourished Head exam: PRESENT: atraumatic, normocephalic Eye exam: PRESENT: conjunctiva pink, EOMI, PERRLA. ABSENT: scleral icterus Ear exam: PRESENT: normal external ear exam Mouth exam: PRESENT: moist, tongue midline Neck exam: ABSENT: carotid bruit, JVD, lymphadenopathy, thyromegaly Respiratory exam: PRESENT: rhonchi, wheezes. ABSENT: rales Cardiovascular exam: PRESENT: RRR. ABSENT: diastolic murmur, rubs, systolic murmur Pulses: PRESENT: normal dorsalis pedis pul GI/Abdominal exam: PRESENT: normal bowel sounds, soft. ABSENT: distended, guarding, mass, organolmegaly, rebound, tenderness Rectal exam: PRESENT: deferred Neurological exam: PRESENT: alert, awake, oriented to person, oriented to place, oriented to time, oriented to situation, CN II-XII grossly intact. ABSENT: mo tor sensory deficit Results Laboratory Results: 01/11/19 13:02 01/11/19 13:02 01/11/19 01/11/19 01/11/19 13:02 13:02 13:02 WBC 7.8 RBC 4.53 Hgb 14.0 Hct 41.7 MCV 92 MCH 31.0 MCHC 33.7 RDW 13.8 Plt Count 164 Seg Neutrophils % Not Reportable Lymphocytes % Not Reportable Monocytes % Not Reportable Eosinophils % Not Reportable Basophils % Not Reportable Absolute Neutrophils Not Reportable Absolute Lymphocytes Not Reportable Absolute Monocytes Not Reportable Absolute Eosinophils Not Reportable Absolute Basophils Not Reportable Carbonic Acid HCO3/H2CO3 Ratio ABG pH ABG pCO2 ABG pO2 ABG HCO3 ABG O2 Saturation ABG Base Excess FiO2 Sodium 136.8 L Potassium 4.8 Chloride 94 L Carbon Dioxide 32 H Anion Gap 11 BUN 34 H Creatinine 1.16 Est GFR ( Amer) > 60 Est GFR (Non-Af Amer) > 60 Glucose 138 H Lactic Acid 2.5 H Calcium 9.3 Total Bilirubin 1.2 AST 26 ALT 28 Alkaline Phosphatase 56 Total Protein 6.1 L Albumin 3.7 Urine Color Urine Appearance Urine pH Ur Specific Riner Urine Protein Urine Glucose (UA) Urine Ketones Urine Blood Urine Nitrite Ur Leukocyte Esterase Urine WBC (Auto) 01/11/19 01/11/19 13:02 14:40 WBC RBC Hgb Hct MCV MCH MCHC RDW Plt Count Seg Neutrophils % Lymphocytes % Monocytes % Eosinophils % Basophils % Absolute Neutrophils Absolute Lymphocytes Absolute Monocytes Absolute Eosinophils Absolute Basophils Carbonic Acid 1.59 H HCO3/H2CO3 Ratio 18:1 ABG pH 7.38 ABG pCO2 52.7 H ABG pO2 41.4 L ABG HCO3 30.2 H ABG O2 Saturation 74.9 L ABG Base Excess 3.7 FiO2 5L Sodium Potassium Chloride Carbon Dioxide Anion Gap BUN Creatinine Est GFR ( Amer) Est GFR (Non-Af Amer) Glucose Lactic Acid Calcium Total Bilirubin AST ALT Alkaline Phosphatase Total Protein Albumin Urine Color YELLOW Urine Appearance CLEAR Urine pH 6.0 Ur Specific Riner 1.013 Urine Protein NEGATIVE Urine Glucose (UA) NEGATIVE Urine Ketones NEGATIVE Urine Blood NEGATIVE Urine Nitrite NEGATIVE Ur Leukocyte Esterase NEGATIVE Urine WBC (Auto) 1 01/11/19 01/11/19 13:02 13:02 Creatine Kinase 46 L CK-MB (CK-2) 1.74 Troponin I 0.013 NT-Pro-B Natriuret Pep 2870 H Impressions: Chest X-Ray 01/11/19 13:04 IMPRESSION: FOCAL DENSITY IN THE LATERAL RIGHT LUNG, POSSIBLY DUE TO PNEUMONIA. CANNOT EXCLUDE UNDERLYING MASS. Assessment & Plan - Diagnosis (1) Acute on chronic respiratory failure with hypoxia and hypercapnia Is this a current diagnosis for this admission?: Yes Plan: Secondary to COPD exacerbation. Currently comfortable and saturating well on BIPAP. (2) Acute exacerbation of chronic obstructive pulmonary disease (COPD) Is this a current diagnosis for this admission?: Yes Plan: Start IV solumedrol. Scheduled breathing treatments and Levaquin. Will check for flu as well. (3) Pneumonia Is this a current diagnosis for this admission?: Yes Plan: Start IV Levaquin. Will order sputum culture. (4) Lactic acidosis Is this a current diagnosis for this admission?: Yes Plan: LA is mildly elevated. Will recheck lactic acid. (5) Mass of right lung Is this a current diagnosis for this admission?: Yes Plan: Chest CT ordered to further assess right lung lesion.
[2019-01-11] MEDS ORDERED: METHYLPREDNISOLONE INJ 40 MG/1 ML SDV IV ONE (16:00)
[2019-01-11] MEDS: IPRATROPIUM/ALBUTEROL 0.5-2.5 MG/3 ML AMPUL NEB SCH ×3 (16:31→23:41)
[2019-01-11 16:38] LABS: A TYPE INFLUENZA AG NEGATIVE (NEGATIVE); B INFLUENZA AG NEGATIVE (NEGATIVE)
[2019-01-11] MEDS: NORMAL SALINE 1000 ML 1,000 ML IV PRN (17:15)
[2019-01-11] MEDS: LEVOFLOXACIN 750 MG/D5W RTU 750 MG/150 ML RTUPB IV SCH (17:16)
--- NOTE | 2019-01-11 17:39 | Progress Note ---
Provider Note Provider Note: ACP Discussion: Discussed prison goals with patient including code status with his surrogate decision maker- on bedside. He says he is a Full Code at this time and wants full resuscitation for now if he needs it including chest compressions, defibrillation and mechanical intubation.
--- NOTE | 2019-01-11 19:17 | EKG REPORT ---
SEVERITY:- ABNORMAL ECG - SINUS RHYTHM PROBABLE ANTEROSEPTAL INFARCT, AGE INDETERM : Confirmed by: Demetrice Ontiveros 11-Jan-2019 19:16:54
[2019-01-11] MEDS: ATORVASTATIN CALCIUM 10 MG TABLET PO SCH (21:59)
[2019-01-12] MEDS: IPRATROPIUM/ALBUTEROL 0.5-2.5 MG/3 ML AMPUL NEB SCH ×6 (04:19→23:37)
[2019-01-12] MEDS: FONDAPARINUX SODIUM INJ 2.5 MG/0.5 ML DISP.SYRIN SUBCUT SCH (09:32)
[2019-01-12] MEDS: ASPIRIN 81 MG TABLET, ENT COATED PO SCH (09:33)
[2019-01-12] MEDS: NORMAL SALINE 1000 ML 1,000 ML IV PRN (12:27)
--- NOTE | 2019-01-12 15:33 | PDOC PROGRESS REPORT ---
Subjective Progress Note for:: 01/12/19 Subjective:: No adverse events overnight. No new complaints. Says he is feeling better. Still on BiPAP while he is on BiPAP he is able to be quite talkative. No fevers. No productive cough. Reason For Visit: ACUTE RESPIRATORY FAILURE,COPD EXACERBATION Physical Exam Vital Signs: Temp Pulse Resp BP Pulse Ox 97.7 F 93 35 H 119/68 94 01/12/19 12:06 01/12/19 15:13 01/12/19 15:13 01/12/19 12:06 01/12/19 15:13 Intake & Output 01/11/19 01/12/19 01/13/19 06:59 06:59 06:59 Intake Total 1060 960 Output Total 500 Balance 560 960 Weight 70.8 kg General appearance: PRESENT: no acute distress, cooperative, disheveled Respiratory exam: PRESENT: decreased breath sounds, prolonged expiratory phas, rhonchi, symmetrical, unlabored, wheezes. ABSENT: accessory muscle use, crackles, rales, tachypnea Cardiovascular exam: PRESENT: RRR, +S1, +S2 Pulses: PRESENT: normal carotid pulses Vascular exam: PRESENT: normal capillary refill GI/Abdominal exam: PRESENT: normal bowel sounds, soft. ABSENT: distended, guarding, rebound, tenderness Extremities exam: ABSENT: clubbing, pedal edema Musculoskeletal exam: PRESENT: normal inspection. ABSENT: deformity Neurological exam: PRESENT: alert, awake, oriented to person, oriented to place, oriented to situation Psychiatric exam: PRESENT: appropriate affect, normal mood Skin exam: PRESENT: dry, warm Results Laboratory Results: 01/11/19 13:02 01/11/19 13:02 01/11/19 18:55 Lactic Acid 2.4 H 01/11/19 01/11/19 13:02 13:02 Creatine Kinase 46 L CK-MB (CK-2) 1.74 Troponin I 0.013 NT-Pro-B Natriuret Pep 2870 H Impressions: Chest X-Ray 01/11/19 13:04 IMPRESSION: FOCAL DENSITY IN THE LATERAL RIGHT LUNG, POSSIBLY DUE TO PNEUMONIA. CANNOT EXCLUDE UNDERLYING MASS. Assessment & Plan - Diagnosis (1) Acute on chronic respiratory failure with hypoxia and hypercapnia Is this a current diagnosis for this admission?: Yes Plan: Continue BiPAP and supplemental O2 as needed. He said he is on 3 L at home per nasal cannula. (2) COPD (chronic obstructive pulmonary disease) Qualifiers: COPD type: COPD with acute lower respiratory infection Qualified Code(s): J44.0 - Chronic obstructive pulmonary disease with acute lower respiratory infection Is this a current diagnosis for this admission?: Yes Plan: Continue steroids and bronchodilators (3) Mass of right lung Is this a current diagnosis for this admission?: Yes Plan: We will follow-up outpatient with oncology. - Time Time Spent with patient: 25-34 minutes
[2019-01-12] MEDS: LEVOFLOXACIN 750 MG/D5W RTU 750 MG/150 ML RTUPB IV SCH (17:08)
[2019-01-12] MEDS: ATORVASTATIN CALCIUM 10 MG TABLET PO SCH (21:39)
--- NOTE | 2019-01-12 22:52 | EKG REPORT ---
SEVERITY:- ABNORMAL ECG - SINUS RHYTHM PROBABLE ANTEROSEPTAL INFARCT, AGE INDETERM : Confirmed by: Demetrice Ontiveros 12-Jan-2019 22:51:46
[2019-01-13] MEDS: IPRATROPIUM/ALBUTEROL 0.5-2.5 MG/3 ML AMPUL NEB SCH ×5 (04:00→19:26)
[2019-01-13] MEDS ORDERED: DILTIAZEM HCL/D5W 125 MG/125 ML RTUINJ IV PRN ×2 (05:37→05:47)
[2019-01-13] MEDS ORDERED: DILTIAZEM HCL INJ 25 MG/5 ML VIAL IV ONE ×2 (05:37→06:00)
[2019-01-13] MEDS ORDERED: DILTIAZEM HCL/D5W 125 MG/125 ML RTUINJ IV ONE (05:47)
--- NOTE | 2019-01-13 06:58 | EKG REPORT ---
SEVERITY:- ABNORMAL ECG - ATRIAL FIBRILLATION PROBABLE ANTEROSEPTAL INFARCT, AGE INDETERM : Confirmed by: Demetrice Ontiveros 13-Jan-2019 06:57:59
[2019-01-13 07:42] LABS: CREATINE KINASE MB 3.9 ng/mL (<4.55); TROPONIN I 0.013 ng/mL
[2019-01-13] MEDS: FONDAPARINUX SODIUM INJ 2.5 MG/0.5 ML DISP.SYRIN SUBCUT SCH (08:19)
[2019-01-13] MEDS ORDERED: VANCOMYCIN HCL 0 MG in DEXTROSE 5%-WATER 250 ML IV NR (08:45)
[2019-01-13] MEDS: BUDESONIDE NEB 0.5 MG/2 ML AMPUL NEB SCH ×2 (09:10→19:26)
[2019-01-13] MEDS ORDERED: FUROSEMIDE 20 MG TABLET PO SCH (09:30)
[2019-01-13] MEDS ORDERED: (PENDING PHARMACY ID) (Diltiazem Hcl [Diltiazem 24hr Er] 360 MG) PO SCH (10:00)
[2019-01-13] MEDS ORDERED: DILTIAZEM HCL 180 MG CAPSULE.CR PO SCH (10:30)
[2019-01-13] MEDS: ASPIRIN 81 MG TABLET, ENT COATED PO SCH (10:41)
[2019-01-13] MEDS ORDERED: FUROSEMIDE 40 MG TABLET PO ONE (10:45)
[2019-01-13] MEDS: NORMAL SALINE 1000 ML 1,000 ML IV PRN (11:19)
[2019-01-13] MEDS ORDERED: VANCOMYCIN HCL 1,500 MG in DEXTROSE 5%-WATER 250 ML IV SCH (12:00)
[2019-01-13 13:37] LABS: CREATINE KINASE MB 4.08 ng/mL (<4.55); TROPONIN I 0.012 ng/mL
[2019-01-13] MEDS: FLUTICASONE NASAL SPRAY 50 MCG/SPRY 120 SPRAY/16 GM NASL SCH ×2 (13:56→21:11)
[2019-01-13 15:36] LABS: PATH REVIEW PATHOLOGIST REVIEWED
--- NOTE | 2019-01-13 17:17 | PDOC PROGRESS REPORT ---
Subjective Progress Note for:: 01/13/19 Subjective:: Because he did not get his home Cardizem yesterday, and because he is acutely ill, his atrial fibrillation went into RVR overnight. He was well controlled on a Cardizem drip, and we restarted his home Cardizem this morning and his rate is now well controlled off the drip. He still on BiPAP, and his oxygen saturations drop into the mid 80s whenever he gets on the nasal cannula. Reason For Visit: ACUTE RESPIRATORY FAILURE,COPD EXACERBATION Physical Exam Vital Signs: Temp Pulse Resp BP Pulse Ox 98.5 F 80 22 H 116/61 92 01/13/19 15:24 01/13/19 16:00 01/13/19 16:00 01/13/19 15:24 01/13/19 16:03 Intake & Output 01/12/19 01/13/19 01/14/19 06:59 06:59 06:59 Intake Total 1060 2473 1375 Output Total 500 1900 1150 Balance 560 573 225 Weight 70.8 kg 71.9 kg General appearance: PRESENT: no acute distress, cooperative, disheveled Respiratory exam: PRESENT: decreased breath sounds, prolonged expiratory phas, rhonchi, symmetrical, unlabored, wheezes. ABSENT: accessory muscle use, crackles, rales, tachypnea Cardiovascular exam: PRESENT: Irregularly irregular, +S1, +S2 Pulses: PRESENT: normal carotid pulses Vascular exam: PRESENT: normal capillary refill GI/Abdominal exam: PRESENT: normal bowel sounds, soft. ABSENT: distended, guarding, rebound, tenderness Extremities exam: ABSENT: clubbing, pedal edema Musculoskeletal exam: PRESENT: normal inspection. ABSENT: deformity Neurological exam: PRESENT: alert, awake, oriented to person, oriented to place, oriented to situation Psychiatric exam: PRESENT: appropriate affect, normal mood Skin exam: PRESENT: dry, warm Results Laboratory Results: 01/11/19 13:02 01/11/19 13:02 01/12/19 03:55 Sputum Gram Stain - Final 01/12/19 03:55 Sputum Sputum Culture - Final 01/11/19 01/11/19 01/13/19 13:02 13:02 06:47 Creatine Kinase 46 L 420 H CK-MB (CK-2) 1.74 Troponin I 0.013 NT-Pro-B Natriuret Pep 2870 H 01/13/19 01/13/19 01/13/19 06:47 12:44 12:44 Creatine Kinase 372 H CK-MB (CK-2) 3.90 4.08 Troponin I 0.013 0.012 NT-Pro-B Natriuret Pep Impressions: Chest X-Ray 01/11/19 13:04 IMPRESSION: FOCAL DENSITY IN THE LATERAL RIGHT LUNG, POSSIBLY DUE TO PNEUMONIA. CANNOT EXCLUDE UNDERLYING MASS. Assessment & Plan - Diagnosis (1) Acute on chronic respiratory failure with hypoxia and hypercapnia Is this a current diagnosis for this admission?: Yes Plan: Continue BiPAP and supplemental O2 as needed. He said he is on 3 L at home per nasal cannula. Still BiPAP dependent. (2) Bacteremia due to Streptococcus pneumoniae Is this a current diagnosis for this admission?: Yes Plan: On Levaquin and vancomycin. Sensitivities are pending. (3) COPD (chronic obstructive pulmonary disease) Qualifiers: COPD type: COPD with acute lower respiratory infection Qualified Code(s): J44.0 - Chronic obstructive pulmonary disease with acute lower respiratory infection Is this a current diagnosis for this admission?: Yes Plan: Continue steroids and bronchodilators (4) Mass of right lung Is this a current diagnosis for this admission?: Yes Plan: We will follow-up outpatient with oncology. - Time Time Spent with patient: 25-34 minutes
[2019-01-13] MEDS: LEVOFLOXACIN 750 MG/D5W RTU 750 MG/150 ML RTUPB IV SCH (18:09)
[2019-01-13 18:34] LABS: CREATINE KINASE MB 3.16 ng/mL (<4.55); TROPONIN I 0.016 ng/mL
[2019-01-13] MEDS: GUAIFENESIN 600 MG TABLET.SA PO SCH (21:10)
[2019-01-13] MEDS: ATORVASTATIN CALCIUM 10 MG TABLET PO SCH (21:10)
[2019-01-14] MEDS: IPRATROPIUM/ALBUTEROL 0.5-2.5 MG/3 ML AMPUL NEB SCH ×7 (00:36→23:40)
[2019-01-14] MEDS: BUDESONIDE NEB 0.5 MG/2 ML AMPUL NEB SCH ×2 (07:49→19:42)
[2019-01-14] MEDS ORDERED: DIGOXIN INJ 0.5 MG/2 ML AMPULE ONE ×2 (08:42→08:53)
[2019-01-14] MEDS: FONDAPARINUX SODIUM INJ 2.5 MG/0.5 ML DISP.SYRIN SUBCUT SCH (08:47)
[2019-01-14] MEDS: FUROSEMIDE 40 MG TABLET PO SCH (08:47)
[2019-01-14 09:09] LABS: ANION GAP 10 (5-19); BLOOD UREA NITROGEN 36 mg/dL (7-20); CALCIUM 8.5 mg/dL (8.4-10.2); CARBON DIOXIDE 27 mmol/L (22-30); CHLORIDE 102 mmol/L (98-107); GLUCOSE 112 mg/dL (75-110); SODIUM 139.2 mmol/L (137-145)
[2019-01-14] MEDS ORDERED: DILTIAZEM HCL INJ 25 MG/5 ML VIAL IV ONE (09:30)
[2019-01-14] MEDS: GUAIFENESIN 600 MG TABLET.SA PO SCH ×2 (10:06→21:11)
[2019-01-14] MEDS: FLUTICASONE NASAL SPRAY 50 MCG/SPRY 120 SPRAY/16 GM NASL SCH ×2 (10:06→21:11)
[2019-01-14] MEDS: ASPIRIN 81 MG TABLET, ENT COATED PO SCH (10:06)
[2019-01-14] MEDS: DILTIAZEM HCL 90 MG TABLET PO SCH ×2 (12:30→18:32)
--- NOTE | 2019-01-14 13:09 | PDOC PROGRESS REPORT ---
Subjective Progress Note for:: 01/14/19 Subjective:: Patient still with a very congested cough. Staff reports tachycardia. Reason For Visit: ACUTE RESPIRATORY FAILURE,COPD EXACERBATION Atrial fibrillation with rapid ventricular response Physical Exam Vital Signs: Temp Pulse Resp BP Pulse Ox 97.8 F 102 H 26 H 113/69 95 01/14/19 11:30 01/14/19 11:44 01/14/19 11:44 01/14/19 11:30 01/14/19 11:44 Intake & Output 01/13/19 01/14/19 01/15/19 06:59 06:59 06:59 Intake Total 2473 1875 Output Total 1900 3050 100 Balance 573 -1175 -100 Weight 71.9 kg 70.7 kg Exam: Well-developed but frail-appearing 83-year-old patient with very congested cough. Currently on nasal cannula. Head exam: PRESENT: normocephalic Eye exam: PRESENT: conjunctiva pale. ABSENT: scleral icterus Mouth exam: PRESENT: moist Respiratory exam: PRESENT: rhonchi, symmetrical, other - Breath sounds altered by constant coughing. ABSENT: rales Cardiovascular exam: PRESENT: irregular rhythm GI/Abdominal exam: PRESENT: normal bowel sounds, soft. ABSENT: tenderness Rectal exam: PRESENT: deferred Extremities exam: ABSENT: pedal edema Neurological exam: PRESENT: alert, awake, oriented to person, oriented to place, oriented to situation Psychiatric exam: PRESENT: agitated - From the coughing, flat affect Focused psych exam: ABSENT: delusional, restlessness Results Laboratory Results: 01/11/19 13:02 01/14/19 06:05 01/14/19 01/14/19 06:05 06:05 Sodium 139.2 Cancelled Potassium 4.0 Cancelled Chloride 102 Cancelled Carbon Dioxide 27 Cancelled Anion Gap 10 Cancelled BUN 36 H Cancelled Creatinine 0.83 Cancelled Est GFR ( Amer) > 60 Cancelled Est GFR (Non-Af Amer) > 60 Cancelled Glucose 112 H Cancelled Calcium 8.5 Cancelled Magnesium 2.0 01/14/19 00:25 Sputum Gram Stain - Final 01/14/19 00:25 Sputum Sputum Culture - Final 01/11/19 13:02 Blood Blood Culture - Final Streptococcus Pneumoniae 01/11/19 13:02 Blood Blood Culture - Final Streptococcus Pneumoniae 01/12/19 03:55 Sputum Gram Stain - Final 01/12/19 03:55 Sputum Sputum Culture - Final 01/11/19 01/11/19 01/13/19 13:02 13:02 06:47 Creatine Kinase 46 L 420 H CK-MB (CK-2) 1.74 Troponin I 0.013 NT-Pro-B Natriuret Pep 2870 H 01/13/19 01/13/19 01/13/19 06:47 12:44 12:44 Creatine Kinase 372 H CK-MB (CK-2) 3.90 4.08 Troponin I 0.013 0.012 NT-Pro-B Natriuret Pep 01/13/19 01/13/19 01/14/19 17:45 17:45 06:05 Creatine Kinase 373 H CK-MB (CK-2) 3.16 Troponin I 0.016 NT-Pro-B Natriuret Pep 2490 H Impressions: Chest X-Ray 01/11/19 13:04 IMPRESSION: FOCAL DENSITY IN THE LATERAL RIGHT LUNG, POSSIBLY DUE TO PNEUMONIA. CANNOT EXCLUDE UNDERLYING MASS. Assessment & Plan - Diagnosis (1) Atrial fibrillation with rapid ventricular response Is this a current diagnosis for this admission?: Yes Plan: The patient was just weaned from a diltiazem drip. He is quite tachycardic this morning. Likely irritated by the cough. Instead of long-acting diltiazem I changed him to short acting 90 mg every 6 hours and also administer 10 mg of diltiazem IV x1 dose. We will need to monitor his medications closely and adjust his medications based on his clinical response. (2) Acute on chronic respiratory failure with hypoxia and hypercapnia Is this a current diagnosis for this admission?: Yes Plan: Continues to use BiPAP intermittently. He is also on inhaler/nebulizer treatments. He requires supplemental oxygen. (3) Pneumonia Qualifiers: Pneumonia type: due to Pneumococcus Laterality: right Lung location: lower lobe of lung Qualified Code(s): J13 - Pneumonia due to Streptococcus pneumoniae Is this a current diagnosis for this admission?: Yes Plan: Patient with positive blood cultures for strep pneumonia. A sputum culture was obtained and sent to the lab. It may likely be affected by the patient having been on antibiotics. With the Streptococcus pneumoniae in his blood it is most likely that the Streptococcus pneumoniae is the causative agent for his pneumon ia. (4) Bacteremia due to Streptococcus pneumoniae Is this a current diagnosis for this admission?: Yes Plan: Final culture results for the strep indicate sensitivity to all medications tested. I have discontinued vancomycin and will continue the levofloxacin as he is tolerating it without difficulty. - Time Time Spent with patient: 25-34 minutes Medications reviewed and adjusted accordingly: Yes
--- NOTE | 2019-01-14 14:21 | RADIOLOGY REPORT (SQ) ---
EXAM DESCRIPTION: CHEST SINGLE VIEW COMPLETED DATE/TIME: 01/14/2019 2:06 pm REASON FOR STUDY: pneumonia COMPARISON: Chest films 12/15/2012, 08/07/2018, 01/11/2019 EXAM PARAMETERS: NUMBER OF VIEWS: One view. TECHNIQUE: Single frontal radiographic view of the chest acquired. RADIATION DOSE: NA LIMITATIONS: None. FINDINGS: LUNGS AND PLEURA: Partial clearing of the right sided airspace disease along the right min or fissure. Remainder of the lungs demonstrate hyperinflation and hyperlucency from obstructive disease with reno-sparks ding of bronchovascular markings at both lung bases. No pleural effusion. No pneumothorax. MEDIASTINUM AND HILAR STRUCTURES: No masses. Contour normal. HEART AND VASCULAR STRUCTURES: No cardiomegaly BONES: No acute findings. HARDWARE: None in the chest. OTHER: No other significant finding. IMPRESSION: Partial clearing of the right-sided airspace disease along the right minor fissure Obstructive lung disease with crowded bronchovascular markings at both bases. TECHNICAL DOCUMENTATION: JOB ID: [id number] [employer]- All Rights Reserved Reading location - IP/workstation name: [email or web address]
[2019-01-14] MEDS: LEVOFLOXACIN 750 MG/D5W RTU 750 MG/150 ML RTUPB IV SCH (18:32)
[2019-01-14] MEDS: ATORVASTATIN CALCIUM 10 MG TABLET PO SCH (21:11)
[2019-01-15] MEDS: DILTIAZEM HCL 90 MG TABLET PO SCH ×4 (00:31→17:22)
[2019-01-15] MEDS: IPRATROPIUM/ALBUTEROL 0.5-2.5 MG/3 ML AMPUL NEB SCH ×6 (05:05→23:47)
[2019-01-15 05:52] LABS: HEMATOCRIT 36.6 % (37.9-51.0); HEMOGLOBIN 12.3 g/dL (13.5-17.0); MEAN CORPUSCULAR HEMOGLOBIN 30.5 pg (27.0-33.4); MEAN CORPUSCULAR HGB CONC 33.6 g/dL (32.0-36.0); MEAN CORPUSCULAR VOLUME 91 fl (80-97); PLATELET COUNT 158 10^3/uL (150-450); RED BLOOD COUNT 4.04 10^6/uL (4.35-5.55); RED CELL DISTRIBUTION WIDTH 13.6 % (11.5-14.0); WHITE BLOOD COUNT 14.8 10^3/uL (4.0-10.5)
[2019-01-15 06:06] LABS: ANION GAP 10 (5-19); BLOOD UREA NITROGEN 31 mg/dL (7-20); CALCIUM 9.2 mg/dL (8.4-10.2); CARBON DIOXIDE 30 mmol/L (22-30); CHLORIDE 98 mmol/L (98-107); GLUCOSE 127 mg/dL (75-110); POTASSIUM 3.9 mmol/L (3.6-5.0); SODIUM 138.2 mmol/L (137-145)
[2019-01-15 07:03] LABS: ABSOLUTE LYMPHOCYTES# (MANUAL) 0.4 10^3/uL (0.5-4.7); ABSOLUTE MONOCYTES # (MANUAL) 0.9 10^3/uL (0.1-1.4); ABSOLUTE NEUTROPHILS# (MANUAL) 13.5 10^3/uL (1.7-8.2); BAND NEUTROPHILS % (MANUAL) 2 % (3-5); BASOPHILS % (MANUAL) 0 % (0-2); EOSINOPHILS % (MANUAL) 0 % (0-6); LYMPHOCYTES % (MANUAL) 3 % (13-45); METAMYELOCYTES % (MANUAL) 1 % (0); MONOCYTES % (MANUAL) 6 % (3-13); SEGMENTED NEUTROPHILS % (MAN) 88 % (42-78); TOTAL CELLS COUNTED 100
[2019-01-15 07:06] LABS: TOXIC GRANULATION 2+
[2019-01-15 07:07] LABS: PLATELET CLUMPS PRESENT; PLATELET COMMENT ADEQUATE; RBC MORPHOLOGY COMMENT N; TOXIC VACUOLATION PRESENT
[2019-01-15] MEDS: BUDESONIDE NEB 0.5 MG/2 ML AMPUL NEB SCH ×2 (08:28→19:25)
[2019-01-15] MEDS: ASPIRIN 81 MG TABLET, ENT COATED PO SCH (09:25)
[2019-01-15] MEDS: FONDAPARINUX SODIUM INJ 2.5 MG/0.5 ML DISP.SYRIN SUBCUT SCH (09:26)
[2019-01-15] MEDS: FUROSEMIDE 40 MG TABLET PO SCH (09:26)
[2019-01-15] MEDS: FLUTICASONE NASAL SPRAY 50 MCG/SPRY 120 SPRAY/16 GM NASL SCH ×2 (09:26→21:35)
[2019-01-15] MEDS: GUAIFENESIN 600 MG TABLET.SA PO SCH ×2 (09:27→21:35)
[2019-01-15] MEDS: LEVOFLOXACIN 750 MG/D5W RTU 750 MG/150 ML RTUPB IV SCH (17:22)
--- NOTE | 2019-01-15 20:30 | PDOC PROGRESS REPORT ---
Subjective Progress Note for:: 01/15/19 Subjective:: Feelins better than yesterday. Better rate control regarding atrial fibrillation. Still with very congested cough. Reason For Visit: ACUTE RESPIRATORY FAILURE,COPD EXACERBATION Pneumonia Atrial fibrillation with rapid ventricular response Physical Exam Vital Signs: Temp Pulse Resp BP Pulse Ox 98.8 F 84 18 132/52 H 92 01/15/19 12:07 01/15/19 12:08 01/15/19 12:08 01/15/19 12:07 01/15/19 12:08 Intake & Output 01/14/19 01/15/19 01/16/19 06:59 06:59 06:59 Intake Total 2125 1150 Output Total 3050 1550 Balance -925 -400 Weight 70.7 kg 71.4 kg General appearance: PRESENT: cooperative, mild distress - With episodes of congested cough, well-developed - But frail appearing 83-year-old patient resting in the chair Head exam: PRESENT: normocephalic Eye exam: PRESENT: conjunctiva pink. ABSENT: scleral icterus Ear exam: PRESENT: normal external ear exam Mouth exam: PRESENT: moist, tongue midline Neck exam: ABSENT: carotid bruit, lymphadenopathy, tracheostomy Respiratory exam: PRESENT: prolonged expiratory phas, rhonchi - On the right, symmetrical. ABSENT: rales, unlabored - He does exhibit slightly labored breathing but he is tolerating nasal cannula, wheezes Cardiovascular exam: PRESENT: irregular rhythm GI/Abdominal exam: PRESENT: normal bowel sounds, soft. ABSENT: distended, tenderness Rectal exam: PRESENT: deferred Extremities exam: PRESENT: pedal edema Neurological exam: PRESENT: alert, awake, oriented to person, oriented to place, oriented to situation Psychiatric exam: PRESENT: appropriate affect. ABSENT: agitated - Apparently yesterday afternoon the patient was somewhat agitated., anxious Focused psych exam: ABSENT: delusional, restlessness Results Laboratory Results: 01/15/19 04:41 01/15/19 04:41 01/15/19 01/15/19 04:41 04:41 WBC 14.8 H RBC 4.04 L Hgb 12.3 L Hct 36.6 L MCV 91 MCH 30.5 MCHC 33.6 RDW 13.6 Plt Count 158 Seg Neutrophils % Not Reportable Lymphocytes % Not Reportable Monocytes % Not Reportable Eosinophils % Not Reportable Basophils % Not Reportable Absolute Neutrophils Not Reportable Absolute Lymphocytes Not Reportable Absolute Monocytes Not Reportable Absolute Eosinophils Not Reportable Absolute Basophils Not Reportable Sodium 138.2 Potassium 3.9 Chloride 98 Carbon Dioxide 30 Anion Gap 10 BUN 31 H Creatinine 0.98 Est GFR ( Amer) > 60 Est GFR (Non-Af Amer) > 60 Glucose 127 H Calcium 9.2 Magnesium 2.0 01/14/19 00:25 Sputum Gram Stain - Final 01/14/19 00:25 Sputum Sputum Culture - Final 01/11/19 01/11/19 01/13/19 13:02 13:02 06:47 Creatine Kinase 46 L 420 H CK-MB (CK-2) 1.74 Troponin I 0.013 NT-Pro-B Natriuret Pep 2870 H 01/13/19 01/13/19 01/13/19 06:47 12:44 12:44 Creatine Kinase 372 H CK-MB (CK-2) 3.90 4.08 Troponin I 0.013 0.012 NT-Pro-B Natriuret Pep 01/13/19 01/13/19 01/14/19 17:45 17:45 06:05 Creatine Kinase 373 H CK-MB (CK-2) 3.16 Troponin I 0.016 NT-Pro-B Natriuret Pep 2490 H Impressions: Chest X-Ray 01/14/19 00:00 IMPRESSION: Partial clearing of the right-sided airspace disease along the right minor fissure Obstructive lung disease with crowded bronchovascular markings at both bases. Assessment & Plan - Diagnosis (1) Atrial fibrillation with rapid ventricular response Is this a current diagnosis for this admission?: Yes Plan: He now exhibits much better control with multiple doses of short acting diltiazem. Currently receiving 90 mg of short acting diltiazem every 6 hours. Consider changing to long-acting tomorrow. (2) Acute on chronic respiratory failure with hypoxia and hypercapnia Is this a current diagnosis for this admission?: Yes Plan: Tolerating nasal cannula today. Continue to wean from BiPAP. He is still on 6 L of oxygen but is normally on approximately 2 L at home. (3) Pneumonia Qualifiers: Pneumonia type: due to Pneumococcus Laterality: right Lung location: lower lobe of lung Qualified Code(s): J13 - Pneumonia due to Streptococcus pne umoniae Is this a current diagnosis for this admission?: Yes Plan: Still with rhonchi on the right. Still with a productive cough. I observe that he still swallows mucus. I am trying to encourage expectoration. He is on guaifenesin. Complete levofloxacin as ordered. (4) Bacteremia due to Streptococcus pneumoniae Is this a current diagnosis for this admission?: Yes Plan: Sensitive to levofloxacin. Complete levofloxacin as ordered. (5) Physical deconditioning Is this a current diagnosis for this admission?: Yes Plan: Secondary to the acute illnesses. I have asked physical therapy to assess. He lives with his at home. Consideration for aggressive home health therapy versus group home placement. - Time Time Spent with patient: 25-34 minutes Medications reviewed and adjusted accordingly: Yes
[2019-01-15] MEDS: ATORVASTATIN CALCIUM 10 MG TABLET PO SCH (21:35)
[2019-01-16] MEDS: DILTIAZEM HCL 90 MG TABLET PO SCH ×5 (00:13→23:45)
[2019-01-16] MEDS: IPRATROPIUM/ALBUTEROL 0.5-2.5 MG/3 ML AMPUL NEB SCH ×5 (04:40→20:17)
[2019-01-16 05:49] LABS: HEMATOCRIT 35.1 % (37.9-51.0); HEMOGLOBIN 11.7 g/dL (13.5-17.0); MEAN CORPUSCULAR HGB CONC 33.4 g/dL (32.0-36.0); MEAN CORPUSCULAR VOLUME 90 fl (80-97); PLATELET COUNT 185 10^3/uL (150-450); RED BLOOD COUNT 3.91 10^6/uL (4.35-5.55); RED CELL DISTRIBUTION WIDTH 13.5 % (11.5-14.0); WHITE BLOOD COUNT 16.7 10^3/uL (4.0-10.5)
[2019-01-16 06:26] LABS: ABSOLUTE MONOCYTES # (MANUAL) 0.8 10^3/uL (0.1-1.4); ABSOLUTE NEUTROPHILS# (MANUAL) 14.9 10^3/uL (1.7-8.2); BASOPHILS % (MANUAL) 0 % (0-2); EOSINOPHILS % (MANUAL) 0 % (0-6); LYMPHOCYTES % (MANUAL) 6 % (13-45); MONOCYTES % (MANUAL) 5 % (3-13); SEGMENTED NEUTROPHILS % (MAN) 89 % (42-78); TOTAL CELLS COUNTED 100
[2019-01-16 06:27] LABS: ANISOCYTOSIS 1+; HYPOCHROMASIA SLIGHT; PLATELET COMMENT ADEQUATE
[2019-01-16] MEDS: BUDESONIDE NEB 0.5 MG/2 ML AMPUL NEB SCH ×2 (08:58→20:17)
[2019-01-16] MEDS: FONDAPARINUX SODIUM INJ 2.5 MG/0.5 ML DISP.SYRIN SUBCUT SCH (09:27)
[2019-01-16] MEDS: ASPIRIN 81 MG TABLET, ENT COATED PO SCH (09:33)
[2019-01-16] MEDS: FLUTICASONE NASAL SPRAY 50 MCG/SPRY 120 SPRAY/16 GM NASL SCH ×2 (09:33→21:12)
[2019-01-16] MEDS: GUAIFENESIN 600 MG TABLET.SA PO SCH ×2 (09:33→21:13)
[2019-01-16] MEDS: FUROSEMIDE 40 MG TABLET PO SCH (09:33)
[2019-01-16] MEDS: LEVOFLOXACIN 750 MG/D5W RTU 750 MG/150 ML RTUPB IV SCH (17:37)
[2019-01-16] MEDS: ATORVASTATIN CALCIUM 10 MG TABLET PO SCH (21:13)
--- NOTE | 2019-01-16 23:01 | PDOC PROGRESS REPORT ---
Subjective Progress Note for:: 01/16/19 Subjective:: Sleeping on BiPAP. Awakens with some verbal encouragement. Reason For Visit: ACUTE RESPIRATORY FAILURE,COPD EXACERBATION Physical Exam Vital Signs: Temp Pulse Resp BP Pulse Ox 99.7 F 75 18 124/58 L 90 L 01/16/19 19:41 01/16/19 20:17 01/16/19 20:17 01/16/19 19:41 01/16/19 20:17 Intake & Output 01/15/19 01/16/19 01/17/19 06:59 06:59 06:59 Intake Total 1150 1374 537 Output Total 1550 1875 300 Balance -400 -501 237 Weight 71.4 kg 72.7 kg General appearance: PRESENT: no acute distress, cooperative, other - On BiPAP Head exam: PRESENT: normocephalic Ear exam: PRESENT: normal external ear exam Mouth exam: PRESENT: other - Dentures are loose Respiratory exam: PRESENT: prolonged expiratory phas, rhonchi, symmetrical. ABSENT: rales, wheezes Cardiovascular exam: PRESENT: RRR, +S1, +S2 GI/Abdominal exam: PRESENT: normal bowel sounds, soft. ABSENT: distended, tenderness Extremities exam: ABSENT: pedal edema Neurological exam: PRESENT: alert, awake, oriented to person, oriented to place, oriented to situation Psychiatric exam: PRESENT: appropriate affect, normal mood. ABSENT: agitated, anxious Focused psych exam: ABSENT: delusional, restlessness Results Laboratory Results: 01/16/19 04:41 01/15/19 04:41 01/16/19 04:41 WBC 16.7 H RBC 3.91 L Hgb 11.7 L Hct 35.1 L MCV 90 MCH 30.0 MCHC 33.4 RDW 13.5 Plt Count 185 Seg Neutrophils % Not Reportable Lymphocytes % Not Reportable Monocytes % Not Reportable Eosinophils % Not Reportable Basophils % Not Reportable Absolute Neutrophils Not Reportable Absolute Lymphocytes Not Reportable Absolute Monocytes Not Reportable Absolute Eosinophils Not Reportable Absolute Basophils Not Reportable 01/11/19 01/11/19 01/13/19 13:02 13:02 06:47 Creatine Kinase 46 L 420 H CK-MB (CK-2) 1.74 Troponin I 0.013 NT-Pro-B Natriuret Pep 2870 H 01/13/19 01/13/19 01/13/19 06:47 12:44 12:44 Creatine Kinase 372 H CK-MB (CK-2) 3.90 4.08 Troponin I 0.013 0.012 NT-Pro-B Natriuret Pep 01/13/19 01/13/19 01/14/19 17:45 17:45 06:05 Creatine Kinase 373 H CK-MB (CK-2) 3.16 Troponin I 0.016 NT-Pro-B Natriuret Pep 2490 H Impressions: Chest X-Ray 01/14/19 00:00 IMPRESSION: Partial clearing of the right-sided airspace disease along the right minor fissure Obstructive lung disease with crowded bronchovascular markings at both bases. Assessment & Plan - Diagnosis (1) Atrial fibrillation with rapid ventricular response Is this a current diagnosis for this admission?: Yes Plan: Continue current regimen. Good rate control. (2) Acute on chronic respiratory failure with hypoxia and hypercapnia Is this a current diagnosis for this admission?: Yes Plan: White blood cell count is up slightly and the patient is requiring BiPAP. I will recheck a chest x-ray. (3) Pneumonia Qualifiers: Pneumonia type: due to Pneumococcus Laterality: right Lung location: lower lobe of lung Qualified Code(s): J13 - Pneumonia due to Streptococcus pneumoniae Is this a current diagnosis for this admission?: Yes Plan: 2 more days of levofloxacin. Check chest x-ray. (4) Bacteremia due to Streptococcus pneumoniae Is this a current diagnosis for this admission?: Yes Plan: 2 more days of antibiotic therapy. (5) Physical deconditioning Is this a current diagnosis for this admission?: Yes Plan: The patient may require a alf care after discharge considering his ongoing need for BiPAP. - Time Time Spent with patient: 15-24 minutes Medications reviewed and adjusted accordingly: Yes
[2019-01-17] MEDS: IPRATROPIUM/ALBUTEROL 0.5-2.5 MG/3 ML AMPUL NEB SCH ×6 (00:07→19:57)
[2019-01-17 05:49] LABS: HEMATOCRIT 33.6 % (37.9-51.0); HEMOGLOBIN 11.5 g/dL (13.5-17.0); MEAN CORPUSCULAR HEMOGLOBIN 30.6 pg (27.0-33.4); MEAN CORPUSCULAR HGB CONC 34.2 g/dL (32.0-36.0); MEAN CORPUSCULAR VOLUME 90 fl (80-97); PLATELET COUNT 213 10^3/uL (150-450); RED BLOOD COUNT 3.76 10^6/uL (4.35-5.55); RED CELL DISTRIBUTION WIDTH 13.4 % (11.5-14.0); WHITE BLOOD COUNT 16.6 10^3/uL (4.0-10.5)
[2019-01-17] MEDS ORDERED: DILTIAZEM HCL 90 MG TABLET ONE (06:01)
[2019-01-17] MEDS: DILTIAZEM HCL 90 MG TABLET PO SCH ×3 (06:11→19:40)
[2019-01-17] MEDS: BUDESONIDE NEB 0.5 MG/2 ML AMPUL NEB SCH ×2 (08:36→19:57)
[2019-01-17] MEDS: FONDAPARINUX SODIUM INJ 2.5 MG/0.5 ML DISP.SYRIN SUBCUT SCH (08:50)
[2019-01-17] MEDS: FUROSEMIDE 40 MG TABLET PO SCH (08:50)
--- NOTE | 2019-01-17 09:46 | RADIOLOGY REPORT (SQ) ---
EXAM DESCRIPTION: CHEST SINGLE VIEW COMPLETED DATE/TIME: 01/17/2019 9:27 am REASON FOR STUDY: Pneumonia COMPARISON: Chest films 04/25/2013, 08/07/2018, 01/11/2019, 01/14/2019 EXAM PARAMETERS: NUMBER OF VIEWS: One view. TECHNIQUE: Single frontal radiographic view of the chest acquired. RADIATION DOSE: NA LIMITATIONS: None. FINDINGS: LUNGS AND PLEURA: Partial clearing of the airspace disease in the lateral aspect right upp er lobe. Persistent increased interstitial markings at the bases, with crowded bronchovascular markings from u pper lobe hyperinflation. Bilateral Manuel lines are present. Trace bilateral pleural effusions. No pneumothorax. MEDIASTINUM AND HILAR STRUCTURES: No masses. Contour normal. HEART AND VASCULAR STRUCTURES: No cardiomegaly BONES: No acute findings. HARDWARE: None in the chest. OTHER: No other significant finding. IMPRESSION: Obstructive lung disease with crowded bronchovascular markings at the bases. There are trace bilateral pleural effusions with Manuel lines worrisome for mild fluid overload or co ngestive failure. Findings are more prominent than on 01/14/2019. TECHNICAL DOCUMENTATION: JOB ID: [id number] [employer]- All Rights Reserved Reading location - IP/workstation name: [email or web address]
[2019-01-17] MEDS: GUAIFENESIN 600 MG TABLET.SA PO SCH ×2 (10:00→21:53)
[2019-01-17] MEDS: FLUTICASONE NASAL SPRAY 50 MCG/SPRY 120 SPRAY/16 GM NASL SCH ×2 (10:00→21:51)
[2019-01-17] MEDS: ASPIRIN 81 MG TABLET, ENT COATED PO SCH (10:00)
--- NOTE | 2019-01-17 15:47 | Progress Note ---
Provider Note Provider Note: ID Consult Note Asked to review patient's chart by Pharmacy. Pt not seem or examined. Pt is a 83 year old man with PMH including CHF and COPD on home oxygen 3L who was admitted on 01/11/19 with acute onset fever, cough productive of purulent sputum, SOB over past 2 days. Found to have worsened hypoxia compared to baseline, tachypnea, fever 101.4 F on presentation. He was noted to have rhonchi and wheezing. Required Bipap. Pt had normal WBC count at presentation but with 21% bands. AP view CXR on presentation was read as showing diffuse interstitial changes but also a focal density in the R lateral lung. Pt received a dose of Rocpehin and azithromycin before being admitted and continued on levofloxacin instead. Blood culture grew Streptococcus pneumoniae. During his admission he also has had AF with RVR that required a Cardizem drip initially. WBC count was 15k on 01/15 and 17k yesterday and today. No fever since admission. O2 flow rate has been able to come down since admission. Over the past several days, pt still had congested cough but reported feeling better. Impression/Recommendations Sepsis due to bacteremic pneumococcal pneumonia - Although traditionally treated for 10-14 days, this is not always necessary for otherwise uncomplicated pneumococcal bacteremia. A number of studies that examined shorter vs longer duration of therapy for CAP included patients with bacteremia, and a similar percentage of bacteremic patients achieved clinical cure with shorter compared to longer durations of treatment. Generally, CAP can be treated with 7 days of antibiotics, irrespective of the presence of bacteremia. - If the patient has improved clinically, a short duration of treatment 7 days should be sufficient. Otherwise treatment could potentially be extended to 10 days. Johnathan Judd MD [facility] Infectious Diseases pager [phone]
[2019-01-17] MEDS: LEVOFLOXACIN 750 MG/D5W RTU 750 MG/150 ML RTUPB IV SCH (17:46)
--- NOTE | 2019-01-17 21:34 | PDOC PROGRESS REPORT ---
Subjective Progress Note for:: 01/17/19 Subjective:: Eating dinner on nasal cannula. The BiPAP is off. He still has a very congested cough. Reason For Visit: ACUTE RESPIRATORY FAILURE,COPD EXACERBATION Physical Exam Vital Signs: Temp Pulse Resp BP Pulse Ox 98.2 F 78 25 H 130/58 H 98 01/17/19 15:50 01/17/19 15:59 01/17/19 15:59 01/17/19 15:50 01/17/19 15:59 Intake & Output 01/16/19 01/17/19 01/18/19 06:59 06:59 06:59 Intake Total 1374 787 360 Output Total 1875 1300 400 Balance -501 -513 -40 Weight 72.7 kg 71.8 kg General appearance: PRESENT: no acute distress, cooperative Head exam: PRESENT: normocephalic Ear exam: PRESENT: normal external ear exam Respiratory exam: PRESENT: prolonged expiratory phas, rales - Faint, symmetrical. ABSENT: rhonchi, wheezes Cardiovascular exam: PRESENT: irregular rhythm GI/Abdominal exam: PRESENT: normal bowel sounds, soft. ABSENT: distended, tenderness Rectal exam: PRESENT: deferred Gentrourinary exam: PRESENT: indwelling catheter Neurological exam: PRESENT: alert, awake, oriented to person, oriented to place, oriented to situation Psychiatric exam: PRESENT: flat affect. ABSENT: agitated, anxious Results Laboratory Results: 01/17/19 04:43 01/15/19 04:41 01/17/19 04:43 WBC 16.6 H RBC 3.76 L Hgb 11.5 L Hct 33.6 L MCV 90 MCH 30.6 MCHC 34.2 RDW 13.4 Plt Count 213 01/11/19 01/11/19 01/13/19 13:02 13:02 06:47 Creatine Kinase 46 L 420 H CK-MB (CK-2) 1.74 Troponin I 0.013 NT-Pro-B Natriuret Pep 2870 H 01/13/19 01/13/19 01/13/19 06:47 12:44 12:44 Creatine Kinase 372 H CK-MB (CK-2) 3.90 4.08 Troponin I 0.013 0.012 NT-Pro-B Natriuret Pep 01/13/19 01/13/19 01/14/19 17:45 17:45 06:05 Creatine Kinase 373 H CK-MB (CK-2) 3.16 Troponin I 0.016 NT-Pro-B Natriuret Pep 2490 H Impressions: Chest X-Ray 01/17/19 06:00 IMPRESSION: Obstructive lung disease with crowded bronchovascular markings at the bases. There are trace bilateral pleural effusions with Manuel lines worrisome for mild fluid overload or congestive failure. Findings are more prominent than on 01/14/2019. Assessment & Plan - Diagnosis (1) Atrial fibrillation with rapid ventricular response Is this a current diagnosis for this admission?: Yes Plan: Good rate control on current regimen. Currently on aspirin. High risk for full anticoagulation. Very high full risk. (2) Acute on chronic respiratory failure with hypoxia and hypercapnia Is this a current diagnosis for this admission?: Yes Plan: Continue to try and wean off of BiPAP. (3) Pneumonia Qualifiers: Pneumonia type: due to Pneumococcus Laterality: right Lung location: lower lobe of lung Qualified Code(s): J13 - Pneumonia due to Streptococcus pneumoniae Is this a current diagnosis for this admission?: Yes Plan: Antibiotic therapy is finished tomorrow. (4) Bacteremia due to Streptococcus pneumoniae Is this a current diagnosis for this admission?: Yes Plan: Antibiotic therapy is finished tomorrow. (5) Physical deconditioning Is this a current diagnosis for this admission?: Yes Plan: The plan is for snf facility. The patient, although agreeable when his was present, now is reconsidering. He is far too ill to go directly home. - Time Time Spent with patient: 25-34 minutes Medications reviewed and adjusted accordingly: Yes Anticipated discharge: SNF Within: within 24 hours
[2019-01-17] MEDS: ATORVASTATIN CALCIUM 10 MG TABLET PO SCH (21:53)
[2019-01-18] MEDS: IPRATROPIUM/ALBUTEROL 0.5-2.5 MG/3 ML AMPUL NEB SCH ×7 (00:28→23:38)
[2019-01-18] MEDS: DILTIAZEM HCL 90 MG TABLET PO SCH ×4 (05:23→18:41)
[2019-01-18] MEDS: BUDESONIDE NEB 0.5 MG/2 ML AMPUL NEB SCH ×2 (08:14→19:36)
[2019-01-18] MEDS: GUAIFENESIN 600 MG TABLET.SA PO SCH ×2 (09:23→22:22)
[2019-01-18] MEDS: FUROSEMIDE 40 MG TABLET PO SCH (09:23)
[2019-01-18] MEDS: ASPIRIN 81 MG TABLET, ENT COATED PO SCH (09:23)
[2019-01-18] MEDS: FONDAPARINUX SODIUM INJ 2.5 MG/0.5 ML DISP.SYRIN SUBCUT SCH (09:24)
[2019-01-18] MEDS: FLUTICASONE NASAL SPRAY 50 MCG/SPRY 120 SPRAY/16 GM NASL SCH ×2 (09:24→22:22)
--- NOTE | 2019-01-18 19:09 | PDOC PROGRESS REPORT ---
Subjective Progress Note for:: 01/18/19 - Bed offered by [facility] this afternoon Subjective:: The patient actually looks quite comfortable. His daughter is visiting. He is in good spirits and very interactive. He still has a very congested cough. Reason For Visit: ACUTE RESPIRATORY FAILURE,COPD EXACERBATION Physical Exam Vital Signs: Temp Pulse Resp BP Pulse Ox 97.9 F 81 18 118/53 L 89 L 01/18/19 15:41 01/18/19 15:41 01/18/19 15:41 01/18/19 15:41 01/18/19 15:41 Intake & Output 01/17/19 01/18/19 01/19/19 06:59 06:59 07:59 Intake Total 787 910 Output Total 1300 1325 975 Balance -513 -415 -975 Weight 71.8 kg 71.1 kg General appearance: PRESENT: no acute distress, cooperative, well-developed - Frail 83-year-old patient Head exam: PRESENT: normocephalic, other - Foam dressings on the bridge of his nose and forehead Eye exam: PRESENT: conjunctiva pale Ear exam: PRESENT: normal external ear exam Mouth exam: PRESENT: moist, neck supple, tongue midline Respiratory exam: PRESENT: rhonchi - Still with slight rhonchi in the right, symmetrical, unlabored. ABSENT: rales, wheezes Cardiovascular exam: PRESENT: RRR, +S1, +S2 GI/Abdominal exam: PRESENT: normal bowel sounds, soft. ABSENT: distended, tenderness Rectal exam: PRESENT: deferred Neurological exam: PRESENT: alert, awake, oriented to person, oriented to place, oriented to situation Psychiatric exam: PRESENT: appropriate affect, normal mood. ABSENT: agitated, anxious Focused psych exam: ABSENT: delusional, restlessness Results Laboratory Results: 01/17/19 04:43 01/15/19 04:41 01/16/19 09:55 Sputum Gram Stain - Final 01/16/19 09:55 Sputum Sputum Culture - Final C.albicans/C.dubliniensis Normal [place] 01/11/19 01/11/19 01/13/19 13:02 13:02 06:47 Creatine Kinase 46 L 420 H CK-MB (CK-2) 1.74 Troponin I 0.013 NT-Pro-B Natriuret Pep 2870 H 03/02/2801/13/19 01/13/19 06:47 12:44 12:44 Creatine Kinase 372 H CK-MB (CK-2) 3.90 4.08 Troponin I 0.013 0.012 NT-Pro-B Natriuret Pep 01/13/19 01/13/19 01/14/19 17:45 17:45 06:05 Creatine Kinase 373 H CK-MB (CK-2) 3.16 Troponin I 0.016 NT-Pro-B Natriuret Pep 2490 H Impressions: Chest X-Ray 01/17/19 06:00 IMPRESSION: Obstructive lung disease with crowded bronchovascular markings at the bases. There are trace bilateral pleural effusions with Manuel lines worrisome for mild fluid overload or congestive failure. Findings are more prominent than on 01/14/2019. Assessment & Plan - Diagnosis (1) Atrial fibrillation with rapid ventricular response Is this a current diagnosis for this admission?: Yes Plan: He has been stable with good rate control. Anticipate transferring to the correction facility tomorrow so I will not change him to long-acting diltiazem yet. This is something they can start once he is there. Because he is frail and high risk for fall chronic anticoagulation would be a judgment tamar l. I will keep him on his aspirin for now. (2) Acute on chronic respiratory failure with hypoxia and hypercapnia Is this a current diagnosis for this admission?: Yes Plan: He has done well off of BiPAP for several days. He is still on more oxygen by nasal cannula than he is at home. I believe he is still on 5 L when at home he is on 2 L/min. He still has a congested cough. His daughter was present. Emphasized that he has to use the flutter valve multiple times a day and he needs to cough out the mucus and not swallow it. Eyes were sitting there he coughed and swallowed mucus so this is not quite registering. He is on Mucinex daily as well. Hopefully with increased activity, use of the flutter valve and more mobilization the secretions will clear soon. (3) Pneumonia Qualifiers: Pneumonia type: due to Pneumococcus Laterality: right Lung location: lower lobe of lung Qualified Code(s): J13 - Pneumonia due to Streptococcus pneumoniae Is this a current diagnosis for this admission?: Yes Plan: Antibiotic therapy completed. We discussed that after he graduates from the correction facility he should strongly consider a pulmonary rehab program. (4) Bacteremia due to Streptococcus pneumoniae Is this a current diagnosis for this admission?: Yes Plan: Resolved (5) Physical deconditioning Is this a current diagnosis for this admission?: Yes Plan: Transitioning to correction facility tomorrow. - Time Time Spent with patient: 15-24 minutes Medications reviewed and adjusted accordingly: Yes Anticipated discharge: SNF Within: within 24 hours
[2019-01-18] MEDS: ATORVASTATIN CALCIUM 10 MG TABLET PO SCH (22:22)
[2019-01-19] MEDS: IPRATROPIUM/ALBUTEROL 0.5-2.5 MG/3 ML AMPUL NEB SCH ×6 (03:08→23:56)
[2019-01-19] MEDS: DILTIAZEM HCL 90 MG TABLET PO SCH ×5 (03:11→23:14)
[2019-01-19] MEDS: BUDESONIDE NEB 0.5 MG/2 ML AMPUL NEB SCH ×2 (08:06→19:57)
[2019-01-19] MEDS: FONDAPARINUX SODIUM INJ 2.5 MG/0.5 ML DISP.SYRIN SUBCUT SCH (10:11)
[2019-01-19] MEDS: GUAIFENESIN 600 MG TABLET.SA PO SCH ×2 (10:11→21:41)
[2019-01-19] MEDS: ASPIRIN 81 MG TABLET, ENT COATED PO SCH (10:11)
[2019-01-19] MEDS: FUROSEMIDE 40 MG TABLET PO SCH (10:11)
[2019-01-19] MEDS: FLUTICASONE NASAL SPRAY 50 MCG/SPRY 120 SPRAY/16 GM NASL SCH ×2 (10:11→21:41)
--- NOTE | 2019-01-19 12:36 | PDOC PROGRESS REPORT ---
Subjective Progress Note for:: 01/19/19 Subjective:: The patient has a bed at [facility] but with hemoptysis discovered today I will delay transfer. Reason For Visit: ACUTE RESPIRATORY FAILURE,COPD EXACERBATION Physical Exam Vital Signs: Temp Pulse Resp BP Pulse Ox 98.3 F 81 22 H 129/51 H 89 L 01/19/19 11:28 01/19/19 11:28 01/19/19 11:28 01/19/19 11:28 01/19/19 11:28 Intake & Output 01/18/19 01/19/19 01/20/19 05:59 06:59 06:59 Intake Total Output Total 475 Balance -475 Weight General appearance: PRESENT: no acute distress, cooperative, well-developed - But frail 83-year-old patient resting comfortably in bed Head exam: PRESENT: other - Temporal wasting Eye exam: PRESENT: conjunctiva pink. ABSENT: scleral icterus Ear exam: PRESENT: normal external ear exam Mouth exam: PRESENT: moist, tongue midline Respiratory exam: PRESENT: prolonged expiratory phas, rales - Faint rales at bases. ABSENT: accessory muscle use, symmetrical, wheezes Cardiovascular exam: PRESENT: irregular rhythm GI/Abdominal exam: PRESENT: normal bowel sounds, soft. ABSENT: distended, tenderness Rectal exam: PRESENT: deferred Extremities exam: ABSENT: pedal edema Musculoskeletal exam: PRESENT: other - Decreased muscle mass Neurological exam: PRESENT: alert, awake, oriented to person, oriented to place, oriented to situation Psychiatric exam: PRESENT: appropriate affect, normal mood. ABSENT: agitated, anxious Focused psych exam: ABSENT: delusional, restlessness Skin exam: PRESENT: other - Multiple ecchymotic lesions on the upper extremities. Abrasion on the bridge of his nose from BiPAP mask. Results Laboratory Results: 01/17/19 04:43 01/15/19 04:41 01/16/19 09:55 Sputum Gram Stain - Final 01/16/19 09:55 Sputum Sputum Culture - Final C.albicans/C.dubliniensis Normal [place] 01/11/19 01/11/19 01/13/19 13:02 13:02 06:47 Creatine Kinase 46 L 420 H CK-MB (CK-2) 1.74 Troponin I 0.013 NT-Pro-B Natriuret Pep 2870 H 01/13/19 01/13/19 01/13/19 06:47 12:44 12:44 Creatine Kinase 372 H CK-MB (CK-2) 3.90 4.08 Troponin I 0.013 0.012 NT-Pro-B Natriuret Pep 01/13/19 01/13/19 01/14/19 17:45 17:45 06:05 Creatine Kinase 373 H CK-MB (CK-2) 3.16 Troponin I 0.016 NT-Pro-B Natriuret Pep 2490 H Impressions: Chest X-Ray 01/17/19 06:00 IMPRESSION: Obstructive lung disease with crowded bronchovascular markings at the bases. There are trace bilateral pleural effusions with Manuel lines worrisome for mild fluid overload or congestive failure. Findings are more prominent than on 01/14/2019. Assessment & Plan - Diagnosis (1) Atrial fibrillation with rapid ventricular response Is this a current diagnosis for this admission?: Yes Plan: Will convert to long-acting diltiazem tomorrow. Currently with hemoptysis so I will discontinue Arixtra. (2) Acute on chronic respiratory failure with hypoxia and hypercapnia Is this a current diagnosis for this admission?: Yes Plan: Continue nebulizer treatments with a goal of discontinuing BiPAP completely and weaning back to his 2 L nasal cannula oxygen that he uses at home. (3) Pneumonia Qualifiers: Pneumonia type: due to Pneumococcus Laterality: right Lung location: lower lobe of lung Qualified Code(s): J13 - Pneumonia due to Streptococcus pneumoniae Is this a current diagnosis for this admission?: Yes Plan: Antibiotic therapy completed. Most likely pneumococcus as that was the organism identified for his bacteremia. (4) Bacteremia due to Streptococcus pneumoniae Is this a current diagnosis for this admission?: Yes Plan: Treated with levofloxacin and resolved. (5) Physical deconditioning Is this a current diagnosis for this admission?: Yes Plan: [facility] for continued physical and occupational therapy. Consider pulmonary rehab after discharge from the penitentiary facility. (6) Mass of right lung Is this a current diagnosis for this admission?: Yes Plan: The patient has hemoptysis today. He reports it was red yesterday but evidently he did not notify the staff. With the question of mass in his right lung we will obtain a CT scan of the chest. - Time Time Spent with patient: 25-34 minutes Medications reviewed and adjusted accordingly: Yes Anticipated discharge: SNF
--- NOTE | 2019-01-19 15:40 | RADIOLOGY REPORT (SQ) ---
EXAM DESCRIPTION: CT CHEST WITH COMPLETED DATE/TIME: 01/19/2019 2:45 pm REASON FOR STUDY: New hemoptysis, possible mass right lung, pneumoni COMPARISON: None. TECHNIQUE: CT scan of the chest performed using helical scanning technique with dynamic intravenous contrast injection. Images reviewed with lung, soft tissue and bone windows. Reconstructed coronal and sagittal MPR and MIP images reviewed. All images stored on PACS. All CT scanners at this facility use dose modulation, iterative reconstruction, and/or weight based d osing when appropriate to reduce radiation dose to as low as reasonably achievable (ALARA). [facility]: Dose Right [facility]: CareDose [facility]: Dose Right [facility]: Teradose 4D [facility]: Last.fm CONTRAST TYPE AND DOSE: contrast/concentration: Isovue 350.00 mg/ml; Total Contrast Delivered: 80.0 ml; Total Saline Delivered: 55.0 ml RENAL FUNCTION: GFR > 60. RADIATION DOSE: CT Rad equipment meets quality standard of care and radiation dose reduction techniq ues were employed. CTDIvol: 13.4 mGy. DLP: 540 mGy-cm. . LIMITATIONS: Motion. FINDINGS: LUNGS AND PLEURA: Severe centrilobular and paraseptal emphysema. Segmental honeycombing i n the right lower lobe. Bilateral small pleural effusions. Consolidation in the right lower lobe. Dependent airspace disease left lower lobe. Subsegmental airspace disease in the lingula. At least 1 nodule in the left upper lobe measuring 5 mm on image 20. HILAR AND MEDIASTINAL STRUCTURES: No identified masses or abnormal nodes. HEART AND VASCULAR STRUCTURES: No aneurysm or dissection. No central pulmonary emboli. No pericardi al effusion. HARDWARE: None in the chest. UPPER ABDOMEN: Mild gastric distention. Cholelithiasis. Limited exam. THYROID AND OTHER SOFT TISSUES: Enlarged substernal right thyroid lobe. BONES: Nothing acute. OTHER: No other significant finding. IMPRESSION: COPD. Pulmonary nodules. Bilateral pneumonia. No obvious underlying mass. Follow-up to resolution is recommended. TECHNICAL DOCUMENTATION: JOB ID: [id number] Quality ID # [id number]: Final reports with documentation of one or more dose reduction techniques (e.g., Au tomated exposure control, adjustment of the mA and/or kV according to patient size, use of iterative reconstruction technique) 2010 [employer]- All Rights Reserved Reading location - IP/workstation name: [email or web address]
[2019-01-19] MEDS ORDERED: BISACODYL 10 MG SUPP.RECT PR PRN (19:05)
[2019-01-19] MEDS ORDERED: MAGNESIUM CITRATE 296 ML BOTTLE PO ONE (20:00)
[2019-01-19] MEDS: ATORVASTATIN CALCIUM 10 MG TABLET PO SCH (21:41)
[2019-01-20] MEDS: IPRATROPIUM/ALBUTEROL 0.5-2.5 MG/3 ML AMPUL NEB SCH ×4 (04:15→15:54)
[2019-01-20 04:58] LABS: HEMOGLOBIN 10.4 g/dL (13.5-17.0); MEAN CORPUSCULAR HEMOGLOBIN 30.4 pg (27.0-33.4); MEAN CORPUSCULAR HGB CONC 33.6 g/dL (32.0-36.0); MEAN CORPUSCULAR VOLUME 91 fl (80-97); PLATELET COUNT 298 10^3/uL (150-450); RED BLOOD COUNT 3.43 10^6/uL (4.35-5.55); RED CELL DISTRIBUTION WIDTH 13.6 % (11.5-14.0); WHITE BLOOD COUNT 18.8 10^3/uL (4.0-10.5)
[2019-01-20] MEDS: DILTIAZEM HCL 90 MG TABLET PO SCH (05:52)
[2019-01-20 06:11] LABS: ANION GAP 6 (5-19); BLOOD UREA NITROGEN 22 mg/dL (7-20); CALCIUM 9.2 mg/dL (8.4-10.2); CARBON DIOXIDE 35 mmol/L (22-30); CHLORIDE 92 mmol/L (98-107); GLUCOSE 106 mg/dL (75-110); POTASSIUM 3.6 mmol/L (3.6-5.0); SODIUM 132.5 mmol/L (137-145)
[2019-01-20] MEDS: BUDESONIDE NEB 0.5 MG/2 ML AMPUL NEB SCH (07:44)
[2019-01-20] MEDS: FUROSEMIDE 40 MG TABLET PO SCH (09:59)
[2019-01-20] MEDS: ASPIRIN 81 MG TABLET, ENT COATED PO SCH (09:59)
[2019-01-20] MEDS: GUAIFENESIN 600 MG TABLET.SA PO SCH (10:00)
[2019-01-20] MEDS: FLUTICASONE NASAL SPRAY 50 MCG/SPRY 120 SPRAY/16 GM NASL SCH (10:00)
[2019-01-20] MEDS ORDERED: DILTIAZEM HCL 180 MG CAPSULE.CR PO SCH (10:00)
--- NOTE | 2019-01-20 15:08 | PDOC TRANSFER SUMMARY ---
General - Admit/Disc Date/PCP Admission Date/Primary Care Provider: 01/11/19 15:38 LAYO GAMEZ MD Discharge Date: 01/20/19 - Discharge Diagnosis (1) Atrial fibrillation with rapid ventricular response Is this a current diagnosis for this admission?: Yes Summary: The patient has been doing much better. I will convert him to the long-acting 360 mg of extended release diltiazem. His rate has been well controlled. As he gets more active I would monitor his heart rate in the event that adjustments are needed. He will be quite unsteady on his feet initially. His age could also be a contraindication. Consider long-term anticoagulation based on his recovery. (2) Acute on chronic respiratory failure with hypoxia and hypercapnia Is this a current diagnosis for this admission?: Yes Summary: The patient is much improved and his pneumonia is resolved. We are trying to wean him from BiPAP. He still needs BiPAP occasionally. We are also weaning his nebulizer treatments in an effort to get him back on his baseline regimen at home. His home oxygen is 2 L/min and he does not use BiPAP at home. (3) Pneumonia Is this a current diagnosis for this admission?: Yes Summary: The patient completed his antibiotic therapy. The pneumonia was likely pneumococcal since he had pneumococcus in his blood. The most recent sputum culture showed normal pooja and 2 variance of Tiffany. Ongoing antibiotic therapy is not required. (4) Bacteremia due to Streptococcus pneumoniae Is this a current diagnosis for this admission?: Yes Summary: Treated with levofloxacin and resolved. (5) Physical deconditioning Is this a current diagnosis for this admission?: Yes Summary: The patient is markedly debilitated with critical illness myopathy. He will need physical therapy and likely occupational therapy. At the time of discharge also consider pulmonary rehab. (6) Mass of right lung Is this a current diagnosis for this admission?: Yes Summary: On initial chest x-ray there was question of a mass in the right lung versus just pneumonia. When the patient is improved and more stable consider CT scan of the chest. - Additional Information Resuscitation Status: Full Code Discharge Diet: Cardiac Discharge Activity: Activity As Tolerated - Patient will need physical therapy. Consider pulmonary rehab at discharge. Home Medications: Aspirin [Aspirin EC] 81 mg PO DAILY 12/12/12 Atorvastatin Calcium [Lipitor 10 mg Tablet] 10 mg PO DAILY 12/12/12 Calcium Citrate/Vitamin D3 [Calcium Cit-Vit D 250-200 Tab] 1 each PO DAILY 12/12/12 Arformoterol Tartrate [Brovana Inhalation Solution 15 mcg/2 mL] 15 mcg IH BID Diltiazem HCl [Diltiazem 24Hr ER] 360 mg PO DAILY 08/08/18 Ergocalciferol (Vitamin D2) [Drisdol 50,000 unit (1.25MG) Capsule] 50,000 unit PO . & 08/08/18 Furosemide [Lasix 20 mg Tablet] 40 mg PO QAM 08/08/18 Montelukast Sodium [Singulair 10 mg Tablet] 10 mg PO QHS 08/08/18 Guaifenesin [Mucinex] 1,200 mg PO BID 01/12/19 Multivitamin [Daily Multiple Vitamin] 1 tab PO DAILY 01/12/19 Acetaminophen [Tylenol 325 mg Tablet] 650 mg PO Q4HP PRN tablet 01/19/19 Budesonide [Pulmicort Neb 0.5 mg/2 ml Ampul] 0.5 mg NEB RTQ12 #0 01/19/19 Fluticasone Propionate [Flonase Nasal [place] 50 Mcg/[place] 16 gm] 2 spray NASL Q12 spray.pump 01/19/19 Ipratropium/Albuterol Sulfate [Duoneb 3 ml Ampul] 3 ml NEB RTQ4 vial.neb 01/19/19 Bisacodyl [Dulcolax 10 mg Supp.rect] 10 mg MS DAILYP PRN supp.rect 01/20/19 Diltiazem HCl [Cardizem Cd 180 mg Capsule] 360 mg PO DAILY capsule.cr 01/20/19 History of Present Illness Admission Date/PCP: 01/11/19 15:38 LAYO GAMEZ MD History of Present Illness: MARY HAWKINS is a 83 year old male Physical Exam Vital Signs: Temp Pulse Resp BP Pulse Ox 98.3 F 81 22 H 129/51 H 89 L 01/19/19 11:28 01/19/19 11:28 01/19/19 11:28 01/19/19 11:28 01/19/19 11:28 Intake & Output 01/18/19 01/19/19 01/20/19 05:59 06:59 06:59 Intake Total Output Total 475 Balance -475 Weight General appearance: PRESENT: no acute distress, cooperative, well-developed - Very frail-appearing 83-year-old patient resting comfortably in bed. Head exam: PRESENT: normocephalic Eye exam: PRESENT: conjunctiva pink. ABSENT: scleral icterus Ear exam: PRESENT: normal external ear exam Mouth exam: PRESENT: moist, tongue midline Neck exam: ABSENT: carotid bruit, lymphadenopathy Respiratory exam: PRESENT: prolonged expiratory phas, rhonchi - Possible faint rhonchi on the right, symmetrical. ABSENT: rales, stridor Cardiovascular exam: PRESENT: irregular rhythm GI/Abdominal exam: PRESENT: normal bowel sounds, soft. ABSENT: distended, tenderness Rectal exam: PRESENT: deferred Extremities exam: ABSENT: pedal edema Musculoskeletal exam: PRESENT: other - Decreased muscle mass Neurological exam: PRESENT: alert, awake, oriented to person, oriented to place, oriented to situation Psychiatric exam: PRESENT: appropriate affect, normal mood. ABSENT: agitated, anxious Focused psych exam: ABSENT: delusional, restlessness Skin exam: PRESENT: abrasion - On the bridge of the nose from the BiPAP mask. Results Laboratory Results: 01/17/19 04:43 01/15/19 04:41 01/16/19 09:55 Sputum Gram Stain - Final 01/16/19 09:55 Sputum Sputum Culture - Final C.albicans/C.dubliniensis Normal Pooja 01/11/19 01/11/19 01/13/19 13:02 13:02 06:47 Creatine Kinase 46 L 420 H CK-MB (CK-2) 1.74 Troponin I 0.013 NT-Pro-B Natriuret Pep 2870 H 01/13/19 01/13/19 01/13/19 06:47 12:44 12:44 Creatine Kinase 372 H CK-MB (CK-2) 3.90 4.08 Troponin I 0.013 0.012 NT-Pro-B Natriuret Pep 01/13/19 01/13/19 01/14/19 17:45 17:45 06:05 Creatine Kinase 373 H CK-MB (CK-2) 3.16 Troponin I 0.016 NT-Pro-B Natriuret Pep 2490 H Impressions: Chest X-Ray 01/17/19 06:00 IMPRESSION: Obstructive lung disease with crowded bronchovascular markings at the bases. There are trace bilateral pleural effusions with Manuel lines worrisome for mild fluid overload or congestive failure. Findings are more prominent than on 01/14/2019. Transfer Plan - Disposition Transfer Plan: The patient is extremely debilitated. He has not needed BiPAP today. Our goal is to wean him from BiPAP altogether. He is on oxygen 2 L/min continuously at home. He has a history of atrial fibrillation. He has had episodes of rapid ve ntricular response but is currently under good control. He is not on anticoagulation currently as he has had episodes of hemoptysis. These appear to be resolving. This is most likely from his pneumonia. A CT scan was obtained and he does have small pulmonary nodules (less than 1 cm) and should likely follow-up with a liquor runner. Upon discharge consider referral to outpatient pulmonary rehab as well. - Time Spent with Patient Time spent with patient: Greater than 30 Minutes Qualifiers - * PATIENT BEING DISCHARGED WITH ANY OF THE FOLLOWING DIAGNOSIS: No
[2019-01-20 16:15] VITALS: BP 130/51
== END 2019-01-20 18:07 | DRG 871 ==
LOC: ER 12:53 → EH 15:38 → 3N 17:00
PROVIDERS: ADMIT Internal Medicine; ATTEND Internal Medicine
DX: A40.3 Sepsis due to Streptococcus pneumoniae (principal); J13 Pneumonia due to Streptococcus pneumoniae; J96.21 Acute and chronic respiratory failure with hypoxia; J96.22 Acute and chronic respiratory failure with hypercapnia; J44.1 Chronic obstructive pulmonary disease with (acute) exacerbation; J44.0 Chronic obstructive pulmonary disease with (acute) lower respiratory infection; R04.2 Hemoptysis; Z99.81 Dependence on supplemental oxygen; I48.91 Unspecified atrial fibrillation; N31.9 Neuromuscular dysfunction of bladder, unspecified; R33.9 Retention of urine, unspecified; R91.8 Other nonspecific abnormal finding of lung field; I25.10 Atherosclerotic heart disease of native coronary artery without angina pectoris; E78.5 Hyperlipidemia, unspecified; I10 Essential (primary) hypertension; Z79.899 Other long term (current) drug therapy; Z79.82 Long term (current) use of aspirin; Z82.49 Family history of ischemic heart disease and other diseases of the circulatory system; Z83.6 Family history of other diseases of the respiratory system
CPT/HCPCS: 36415; 71045; 71260; 80048; 80053; 81001; 82550; 82553; 82803; 83605; 83735; 83880; 84484; 85025; 85027; 85610; 85730; 87040; 87070; 87077; 87186; 87205; 87804; 93005; 93010; 94660; 94667; 96365; 96368; 99285; C1758; J0456; J0696; J1160; J1652; J1956; J3370; J3490; J7030; J7060; J7620

== ENCOUNTER 2019-01-20 19:58 | Inpatient (IN) | payer MEDICARE, OTHER ==
[2019-01-20] MEDS ORDERED: IPRATROPIUM/ALBUTEROL 0.5-2.5 MG/3 ML AMPUL NEB ONE ×2 (20:15→20:40)
--- NOTE | 2019-01-20 20:36 | RADIOLOGY REPORT (SQ) ---
EXAM DESCRIPTION: XR CHEST 1 VIEW COMPLETED DATE/TME: 01/20/2019 20:01 CLINICAL HISTORY: 83 years, Male, shortness of breath Compared to chest radiograph dated 01/17/2019. Findings: Heart is mildly enlarged. No pneumothorax. Small bilateral pleural effusions. Right lower lobe airspace disease is noted. Appears worsened compared to prior study. Mild left basilar airspace disease/atelectatic changes. IMPRESSION: Findings consistent with CHF. Right lower lobe pneumonia is also suspected, appears worse.
[2019-01-20] MEDS ORDERED: METHYLPREDNISOLONE INJ 125 MG/2 ML SDV IV ONE (20:40)
--- NOTE | 2019-01-20 21:06 | ER Document Report ---
ED Respiratory Problem - General Chief Complaint: Shortness Of Breath Stated Complaint: SHORTNESS OF BREATH Time Seen by Provider: 01/20/19 21:05 Mode of Arrival: Medic Information source: Patient, Emergency Med Personnel Cannot obtain history due to: Other Notes: HISTORY OF PRESENT ILLNESS: Patient is a 83-year-old male with a past medical history of chronic conditions including COPD on 2 L of supplemental oxygen by nasal cannula at home and recent admission to the hospital for COPD exacerbation with pneumonia discharged today at approximately 6 PM who presents with worsening shortness of breath. Location: Chest Onset: 1 hour prior to arrival Alleviation: None Provocation: Unknown Quality: Tightness, cough, dyspneic Radiation: None Severity: Moderate to severe Timing: Constant History of CAD: Yes Associated symptoms: Increased cough with sputum production, no fever REVIEW OF SYSTEMS: CONSTITUTIONAL : Denies fever or chills, no sweats. Denies recent illness. EENT: Denies eye, ear, throat, or mouth pain or symptoms. Denies nasal or sinus congestion. CARDIOVASCULAR: Denies chest pain. Denies swelling of the legs. RESPIRATORY: Positive for productive cough and moderate shortness of breath. GASTROINTESTINAL: Denies abdominal pain. Denies nausea, vomiting, or diarrhea. Denies constipation. GENITOURINARY: Denies difficulty urinating, painful urination, burning, frequency, or blood in urine. MUSCULOSKELETAL: Denies neck or back pain or joint pain or swelling. SKIN: Denies rash or skin lesions. HEMATOLOGIC : Denies easy bruising or bleeding. LYMPHATIC: Denies swollen, enlarged glands. NEUROLOGICAL: Denies altered mental status or loss of consciousness. Denies headache. Denies weakness or paralysis or loss of use of either side. Denies problems with gait or speech. Denies sensory or motor loss. PSYCHIATRIC: Denies anxiety or stress or depression. All other systems reviewed and negative. PHYSICAL EXAMINATION: GENERAL: Tired and weak-appearing, well-nourished and in mild respiratory distress. HEAD: Atraumatic, normocephalic. No scalp deformity, depression, or crepitance. EYES: Pupils are 3 mm and equal/round/reactive to light, extraocular movements intact, sclera anicteric, conjunctiva are normal. ENT: Nares patent bilaterally, oropharynx. Moist mucous membranes. No tonsil hypertrophy. NECK: Normal range of motion, supple without lymphadenopathy. LUNGS: Breath sounds are distant but present bilaterally with faint crackles and wheezes bilaterally. HEART: Tachycardia without murmurs, rubs, or gallops. 2+ peripheral pulses. Normal capillary refill. ABDOMEN: Soft, nontender, nondistended. Normoactive bowel sounds. No guarding, no rebound. No masses appreciated. BACK: Normal contour, no midline tenderness. Rectal exam deferred. GENITAL/PELVIC: Deferred. EXTREMITIES: Normal range of motion, no pitting or edema. No cyanosis. NEUROLOGICAL: No focal neurological deficits. Moves all extremities spon taneously and on command. PSYCH: Normal mood, normal affect. No suicidal thoughts/ideations. No ho mocidal thoughts/ideations. No hallucinations. SKIN: Warm, dry, normal turgor, no rashes or lesions noted. ASSESSMENT AND PLAN: This patient is a 83-year-old male who presents with likely COPD exacerbation versus pneumonia versus acute MN versus CHF exacerbation. 1. Will obtain repeat labs, chest x-ray, EKG, cardiac enzymes, and placed on BiPAP. 2. Will give empiric antibiotics and admit to the hospital. TRAVEL OUTSIDE OF THE [place] IN LAST 30 DAYS: No - Related Data Allergies/Adverse Reactions: roflumilast Allergy (Unknown, Verified 08/08/18 07:05) Past Medical History - General Information source: Patient, Emergency Med Personnel - Social History Smoking Status: Former Smoker Chew tobacco use (# tins/day): No Frequency of alcohol use: None Drug Abuse: None Lives with: Family Family History: COPD, Hypertension - Past Medical History Cardiac Medical History: Reports: Hx Coronary Artery Disease, Hx Hypercholesterolemia, Hx Hypertension Denies: Hx Atrial Fibrillation, Hx Congestive Heart Failure, Hx Heart Attack, Hx Peripheral Vascular Disease, Hx Pulmonary Embolism, Hx Heart Murmur Pulmonary Medical History: Reports: Hx Asthma, Hx Bronchitis, Hx COPD, Hx Pneumonia, Hx Respiratory Failure Denies: Hx Sleep Apnea, Hx Tuberculosis EENT Medical History: Reports: None Neurological Medical History: Denies: Hx Cerebrovascular Accident - heat exhaustion in 1992, Hx Seizures Endocrine Medical History: Reports: None Renal/ Medical History: Reports: None. Denies: Hx Benign Prostatic Hyperplasia, Hx End Stage Renal Disease, Hx Kidney Stones, Hx Peritoneal Dialysis Malignancy Medical History: Reports None, Denies Hx Lung Cancer GI Medical History: Reports: None. Denies: Hx Hepatitis, Hx Hiatal Hernia, Hx Ulcer Musculoskeletal Medical History: Reports None, Denies Hx Arthritis, Denies Hx Fibromyalgia, Denies Hx Muscular Dystrophy Skin Medical History: Reports None Psychiatric Medical History: Reports: None Denies: Hx Depression Traumatic Medical History: Reports: None. Denies: Hx Fractures Infectious Medical History: Reports: None. Denies: Hx Hepatitis Past Surgical History: Reports: Hx Herniorrhaphy - nov 2007. Denies: Hx Appendectomy, Hx Bowel Surgery, Hx Cholecystectomy, Hx Coronary Artery Bypass Graft, Hx Gastric Bypass Surgery, Hx Open Heart Surgery, Hx Pacemaker, Hx Tonsillectomy - Immunizations Hx Diphtheria, Pertussis, Tetanus Vaccination: Yes Hx Pneumococcal Vaccination: 11/12/11 Physical Exam - Vital signs Vitals: Resp Pulse Ox 19 98 01/20/19 20:04 01/20/19 20:04 Course - Re-evaluation Re-evalutation: 01/20/19 23:05 Patient has likely worsening right-sided pneumonia with pulmonary edema on his chest x-ray. Patient is tolerating BiPAP well. He will be given empiric antibiotics and is admitted to the hospitalist. - Vital Signs Vital signs: Temp Pulse Resp BP Pulse Ox 98.0 F 86 22 H 126/55 H 94 01/21/19 01:36 01/21/19 02:54 01/21/19 01:36 01/21/19 01:36 01/21/19 01:36 - Laboratory Result Diagrams: 01/20/19 20:51 01/20/19 20:51 Laboratory results interpreted by me: 01/20/19 01/20/19 01/20/19 20:51 20:51 20:51 WBC 20.7 H RBC 3.69 L Hgb 11.2 L Hct 33.1 L Seg Neuts % (Manual) 96 H Lymphocytes % (Manual) 3 L Monocytes % (Manual) 0 L Abs Neuts (Manual) 19.9 H Abs Monocytes (Manual) 0.0 L Sodium 132.0 L Chloride 87 L Carbon Dioxide 39 H BUN 27 H Glucose 145 H NT-Pro-B Natriuret Pep 699 H Total Protein 5.0 L Albumin 2.7 L Urine Blood 01/20/19 23:07 WBC RBC Hgb Hct Seg Neuts % (Manual) Lymphocytes % (Manual) Monocytes % (Manual) Abs Neuts (Manual) Abs Monocytes (Manual) Sodium Chloride Carbon Dioxide BUN Glucose NT-Pro-B Natriuret Pep Total Protein Albumin Urine Blood MODERATE H - Diagnostic Test Radiology reviewed: Image reviewed, Reports reviewed - EKG Interpretation by Me EKG shows normal: Sinus rhythm Rate: Normal Rhythm: NSR [place]/QRS: No: Right axis deviation, Left axis deviation, RBBB, LBBB, IVCD, LAHB/LAFB, LPHB/LPFB, Bifasicular block Voltage: No: Increased voltage, Consistant with LVH, Decreased voltage, Throughout, Limb leads P Waves: No: EDWAR, LAE, Absent, AV Dissociation, Other Heart block present: No: 1st Degree, Mobitz 1, Mobitz 2, CHB (3rd degree block) When compared to previous EKG there are: No significant change - Consults Dr. Bowling Time consulted: 23:03 - will admit, give IV fluid bolus Consulted provider: will come to ER Discharge - Discharge Clinical Impression: COPD exacerbation Pneumonia Qualifiers: Pneumonia type: due to unspecified organism Laterality: right Lung location: lower lobe of lung Qualified Code(s): J18.1 - Lobar pneumonia, unspecified organism Condition: Stable Disposition: ADMITTED INPATIENT Unit Admitted: Telemetry
[2019-01-20 21:17] LABS: HEMATOCRIT 33.1 % (37.9-51.0); HEMOGLOBIN 11.2 g/dL (13.5-17.0); MEAN CORPUSCULAR HEMOGLOBIN 30.2 pg (27.0-33.4); MEAN CORPUSCULAR HGB CONC 33.7 g/dL (32.0-36.0); MEAN CORPUSCULAR VOLUME 90 fl (80-97); PLATELET COUNT 384 10^3/uL (150-450); RED BLOOD COUNT 3.69 10^6/uL (4.35-5.55); RED CELL DISTRIBUTION WIDTH 13.7 % (11.5-14.0); WHITE BLOOD COUNT 20.7 10^3/uL (4.0-10.5)
[2019-01-20] MEDS ORDERED: ONDANSETRON HCL INJ/PF 4 MG/2 ML SDV IV PRN (21:20)
[2019-01-20 21:35] LABS: ABSOLUTE LYMPHOCYTES# (MANUAL) 0.6 10^3/uL (0.5-4.7); ABSOLUTE NEUTROPHILS# (MANUAL) 19.9 10^3/uL (1.7-8.2); BASOPHILS % (MANUAL) 0 % (0-2); EOSINOPHILS % (MANUAL) 1 % (0-6); LYMPHOCYTES % (MANUAL) 3 % (13-45); MONOCYTES % (MANUAL) 0 % (3-13); PLATELET CLUMPS PRESENT; PLATELET COMMENT ADEQUATE; SEGMENTED NEUTROPHILS % (MAN) 96 % (42-78); TOTAL CELLS COUNTED 100
[2019-01-20 21:36] LABS: ALANINE AMINOTRANSFERASE 49 U/L (21-72); ALBUMIN 2.7 g/dL (3.5-5.0); ALKALINE PHOSPHATASE 89 U/L (38-126); ANION GAP 6 (5-19); ASPARTATE AMINO TRANSFERASE 37 U/L (17-59); BILIRUBIN,DIRECT 0.4 mg/dL (0.0-0.4); BILIRUBIN,TOTAL 0.8 mg/dL (0.2-1.3); BLOOD UREA NITROGEN 27 mg/dL (7-20); CALCIUM 10.1 mg/dL (8.4-10.2); CARBON DIOXIDE 39 mmol/L (22-30); CHLORIDE 87 mmol/L (98-107); GLUCOSE 145 mg/dL (75-110); POTASSIUM 4.5 mmol/L (3.6-5.0)
[2019-01-20] MEDS ORDERED: MAGNESIUM OXIDE 400 MG TABLET PO ONE (21:45)
[2019-01-20] MEDS: ALBUTEROL SULFATE 0.083% NEB 2.5 MG/3 ML AMPUL NEB SCH (22:18)
[2019-01-20] MEDS ORDERED: NORMAL SALINE 1000 ML 1,000 ML IV ONE (23:00)
[2019-01-20] MEDS ORDERED: IPRATROPIUM/ALBUTEROL 0.5-2.5 MG/3 ML AMPUL NEB PRN (23:08)
[2019-01-20] MEDS ORDERED: GUAIFENESIN SYRP 200 MG/10 ML UDC PO PRN (23:08)
[2019-01-20] MEDS ORDERED: ACETAMINOPHEN 325 MG TABLET PO PRN (23:11)
[2019-01-20] MEDS ORDERED: AZITHROMYCIN INJ 500 MG VIAL IV PRN (23:25)
[2019-01-20] MEDS ORDERED: FLUTICASONE NASAL SPRAY 50 MCG/SPRY 120 SPRAY/16 GM NASL ONE (23:59)
[2019-01-20] MEDS ORDERED: ATORVASTATIN CALCIUM 10 MG TABLET PO ONE (23:59)
[2019-01-21] MEDS ORDERED: CEFTRIAXONE 1 GM/D5W RTU 1 GM/50 ML RTUPB IV ONE
[2019-01-21 00:30] LABS: APPEARANCE,URINE CLEAR; BILIRUBIN,URINE NEGATIVE (NEGATIVE); COLOR,URINE YELLOW; GLUCOSE, URINE NEGATIVE (NEGATIVE); KETONES,URINE NEGATIVE (NEGATIVE); LEUKOCYTE ESTERASE,URINE NEGATIVE (NEGATIVE); NITRITE,URINE NEGATIVE (NEGATIVE); PROTEIN,URINE NEGATIVE (NEGATIVE); URINE SPECIFIC GRAVITY 1.012; UROBILINOGEN,URINE NEGATIVE mg/dL (<2.0)
[2019-01-21] MEDS ORDERED: ALBUTEROL SULFATE 0.083% NEB 2.5 MG/3 ML AMPUL NEB ONE (00:33)
[2019-01-21] MEDS: ALBUTEROL SULFATE 0.083% NEB 2.5 MG/3 ML AMPUL NEB SCH (00:39)
[2019-01-21] MEDS ORDERED: AZITHROMYCIN 500 MG in DEXTROSE 5%-WATER 250 ML IV ONE (01:00)
[2019-01-21] MEDS ORDERED: FLUTICASONE NASAL SPRAY 50 MCG/SPRY 120 SPRAY/16 GM ONE (02:38)
--- NOTE | 2019-01-21 04:33 | PDOC H&P ---
History of Present Illness Admission Date/PCP: 01/20/19 23:10 LAYO GAMEZ MD Patient complains of: Shortness of breath History of Present Illness: MARY HAWKINS is a 83 year old male With a past medical history of chronic respiratory failure, COPD, chronic bronchitis, dyslipidemia, atrial fibrillation without anticoagulation secondary to recurrent hemoptysis and neurogenic bladder requiring self-catheterization. He was just discharged 8 hours ago following an admission for Streptococcus pneumonia pneumonia with bacteremia, acute on chronic respiratory failure with hypoxia and hypercapnia, urinary tract infection and physical deconditioning complicated by a mass of the right lung. [facility] he is found to have an oxygen saturation of only 70% he is return to the emergency department where he does indeed have hypoxia of 76% on room air requiring BiPAP, leukocytosis and significant contraction alkalosis. Patient denies rhinorrhea sore throat acid reflux or fever. He complains of thirst. He receives empiric antibiotics, BiPAP and referred to the hospitalist for admission. Past Medical History Cardiac Medical History: Reports: Coronary Artery Disease, Hyperlipidema, Hypertension Denies: Atrial Fibrillation, Congestive Heart Failure, Myocardial Infarction, Peripheral Vascular Disease, Pulmonary Embolism, Heart Murmur Pulmonary Medical History: Reports: Asthma, Bronchitis, Chronic Obstructive Pulmonary Disease (COPD), Pneumonia, Respiratory Failure Denies: Sleep Apnea, Tuberculosis EENT Medical History: Reports: None Neurological Medical History: Denies: Seizures Endocrine Medical History: Reports: None Renal/ Medical History: Reports: None Denies: End Stage Renal Disease Malignancy Medical History: Reports: None Denies: Lung Cancer GI Medical History: Reports: None Denies: Hepatitis, Hiatal Hernia Musculoskeltal Medical History: Reports: None Denies: Arthritis, Fibromyalgia Skin Medical History: Reports: None Psychiatric Medical History: Reports: None Denies: Depression Traumatic Medical History: Reports: None Hematology: Denies: Anemia, Sickle Cell Disease Infectious Medical History: Reports: None Past Surgical History Past Surgical History: Reports: Herniorrhaphy - nov 2007 Denies: Appendectomy, Cholecystectomy, Coronary Artery Bypass Graft, Gastric Bypass Surgery, Pacemaker, Tonsillectomy Social History Information Source: Patient, Emergency Med Personnel, [facility] Records Lives with: Family Smoking Status: Former Smoker Frequency of Alcohol Use: None Hx Recreational Drug Use: No Drugs: None Hx Prescription Drug Abuse: No - Advance Directive Resuscitation Status: Full Code Family History Family History: COPD, Hypertension Parental Family History Reviewed: Yes Children Family History Reviewed: Yes Sibling(s) Family History Reviewed.: Yes Medication/Allergy Home Medications: Aspirin [Aspirin EC] 81 mg PO DAILY 12/12/12 Atorvastatin Calcium [Lipitor 10 mg Tablet] 10 mg PO DAILY 12/12/12 Calcium Citrate/Vitamin D3 [Calcium Cit-Vit D 250-200 Tab] 1 each PO DAILY 12/12 Arformoterol Tartrate [Brovana Inhalation Solution 15 mcg/2 mL] 15 mcg IH BID 08/08/18 Diltiazem HCl [Diltiazem 24Hr ER] 360 mg PO DAILY 08/08/18 Ergocalciferol (Vitamin D2) [Drisdol 50,000 unit (1.25MG) Capsule] 50,000 unit PO . & 08/08/18 Furosemide [Lasix 20 mg Tablet] 40 mg PO QAM 08/08/18 Montelukast Sodium [Singulair 10 mg Tablet] 10 mg PO QHS 08/08/18 Guaifenesin [Mucinex] 1,200 mg PO BID 01/12/19 Multivitamin [Daily Multiple Vitamin] 1 tab PO DAILY 01/12/19 Acetaminophen [Tylenol 325 mg Tablet] 650 mg PO Q4HP PRN tablet 01/19/19 Budesonide [Pulmicort Neb 0.5 mg/2 ml Ampul] 0.5 mg NEB RTQ12 #0 01/19/19 Fluticasone Propionate [Flonase Nasal Mears 50 Mcg/Mears 16 gm] 2 spray NASL Q12 spray.pump 01/19/19 Ipratropium/Albuterol Sulfate [Duoneb 3 ml Ampul] 3 ml NEB RTQ4 vial.neb 01/19/19 Bisacodyl [Dulcolax 10 mg Supp.rect] 10 mg AR DAILYP PRN supp.rect 01/20/19 Diltiazem HCl [Cardizem Cd 180 mg Capsule] 360 mg PO DAILY capsule.cr 01/20/19 Allergies/Adverse Reactions: roflumilast Allergy (Unknown, Verified 08/08/18 07:05) Review of Systems Constitutional: ABSENT: chills, fever(s), headache(s), weight gain, weight loss Eyes: ABSENT: visual disturbances Ears: ABSENT: hearing changes Cardiovascular: ABSENT: chest pain, dyspnea on exertion, edema, orthropnea, palpitations Respiratory: PRESENT: as per HPI, cough, dyspnea. ABSENT: hemoptysis, sputum Gastrointestinal: ABSENT: abdominal pain, constipation, diarrhea, hematemesis, hematochezia, nausea, vomiting Genitourinary: ABSENT: dysuria, hematuria Musculoskeletal: ABSENT: joint swelling Integumentary: ABSENT: rash, wounds Neurological: ABSENT: abnormal gait, abnormal speech, confusion, dizziness, focal weakness, syncope Psychiatric: ABSENT: anxiety, depression, homidical ideation, suicidal ideation Endocrine: ABSENT: cold intolerance, heat intolerance, polydipsia, polyuria Hematologic/Lymphatic: ABSENT: easy bleeding, easy bruising Physical Exam Vital Signs: Temp Pulse Resp BP Pulse Ox 98.0 F 86 22 H 126/55 H 94 01/21/19 01:36 01/21/19 02:54 01/21/19 01:36 01/21/19 01:36 01/21/19 01:36 Intake & Output 01/19/19 01/20/19 01/21/19 11:59 11:59 11:59 Intake Total 1050 Balance 1050 Weight 70.5 kg General appearance: PRESENT: cooperative, mild distress. ABSENT: hard of hearing Head exam: PRESENT: atraumatic, normocephalic Eye exam: PRESENT: conjunctiva pink, EOMI, PERRLA. ABSENT: scleral icterus Ear exam: PRESENT: normal external ear exam Mouth exam: PRESENT: moist, tongue midline Neck exam: ABSENT: carotid bruit, JVD, lymphadenopathy, thyromegaly Respiratory exam: PRESENT: accessory muscle use, decreased breath sounds, prolonged expiratory phas, retraction, symmetrical, tachypnea. ABSENT: rhonchi, stridor Cardiovascular exam: PRESENT: irregular rhythm, tachycardia. ABSENT: diastolic murmur, rubs, systolic murmur Pulses: PRESENT: normal dorsalis pedis pul Vascular exam: PRESENT: normal capillary refill GI/Abdominal exam: PRESENT: normal bowel sounds, soft. ABSENT: distended, guarding, mass, organolmegaly, rebound, tenderness Rectal exam: PRESENT: deferred Extremities exam: PRESENT: full ROM. ABSENT: calf tenderness, clubbing, pedal edema Neurological exam: PRESENT: alert, awake, oriented to person, oriented to place, oriented to time, oriented to situation, CN II-XII grossly intact. ABSENT: motor sensory deficit Psychiatric exam: PRESENT: appropriate affect, normal mood. ABSENT: homicidal ideation, suicidal ideation Skin exam: PRESENT: dry, intact, warm. ABSENT: cyanosis, rash Results Laboratory Results: 01/20/19 20:51 01/20/19 20:51 01/20/19 01/20/19 01/20/19 20:51 20:51 23:07 WBC 20.7 H RBC 3.69 L Hgb 11.2 L Hct 33.1 L MCV 90 MCH 30.2 MCHC 33.7 RDW 13.7 Plt Count 384 Seg Neutrophils % Not Reportable Lymphocytes % Not Reportable Monocytes % Not Reportable Eosinophils % Not Reportable Basophils % Not Reportable Absolute Neutrophils Not Reportable Absolute Lymphocytes Not Reportable Absolute Monocytes Not Reportable Absolute Eosinophils Not Reportable Absolute Basophils Not Reportable Sodium 132.0 L Potassium 4.5 Chloride 87 L Carbon Dioxide 39 H Anion Gap 6 BUN 27 H Creatinine 0.81 Est GFR ( Amer) > 60 Est GFR (Non-Af Amer) > 60 Glucose 145 H Calcium 10.1 Total Bilirubin 0.8 AST 37 ALT 49 Alkaline Phosphatase 89 Total Protein 5.0 L Albumin 2.7 L Urine Color YELLOW Urine Appearance CLEAR Urine pH 7.0 Ur Specific [place] 1.012 Urine Protein NEGATIVE Urine Glucose (UA) NEGATIVE Urine Ketones NEGATIVE Urine Blood MODERATE H Urine Nitrite NEGATIVE Ur Leukocyte Esterase NEGATIVE Urine WBC (Auto) 1 Urine RBC (Auto) 24 01/20/19 01/20/19 20:51 20:51 Troponin I 0.014 NT-Pro-B Natriuret Pep 699 H Impressions: Chest X-Ray 01/20/19 20:01 IMPRESSION: Findings consistent with CHF. Right lower lobe pneumonia is also suspected, appears worse. Assessment & Plan - Diagnosis (1) Streptococcal pneumonia Is this a current diagnosis for this admission?: Yes Plan: Given severity of recent streptococcal pneumonia with bacteremia and leukocytosis sensitive to Rocephin he is restarted on Rocephin. Incentive spirometry, flutter valve, oxygen and BiPAP support. Follow-up blood culture. (2) Alkalosis Is this a current diagnosis for this admission?: Yes Plan: Very likely contributing to acute hypoxia given evidence of volume contraction with hypochloremic alkalosis. Trial normal saline initiated. Follow-up mike pineda consider ABG (3) Acute exacerbation of chronic obstructive pulmonary disease (COPD) Is this a current diagnosis for this admission?: Yes Plan: Complicated by lung nodules and recent pneumonia, aggressive pulmonary toilet, PEEP with flutter valve, incentive spirometry - Time Time Spent: 50 to 70 Minutes - Inpatient Certification Medical Necessity: Need Close Monitoring Due to Risk of Patient Decompensation
[2019-01-21] MEDS ORDERED: AZITHROMYCIN INJ 500 MG VIAL IV ONE (04:47)
[2019-01-21] MEDS: NORMAL SALINE 1000 ML 1,000 ML IV PRN ×2 (05:21→09:29)
[2019-01-21 05:31] LABS: HEMATOCRIT 30.7 % (37.9-51.0); HEMOGLOBIN 10.4 g/dL (13.5-17.0); MEAN CORPUSCULAR HEMOGLOBIN 30.6 pg (27.0-33.4); MEAN CORPUSCULAR VOLUME 90 fl (80-97); PLATELET COUNT 317 10^3/uL (150-450); RED CELL DISTRIBUTION WIDTH 13.4 % (11.5-14.0); WHITE BLOOD COUNT 15.1 10^3/uL (4.0-10.5)
[2019-01-21 05:51] LABS: ANION GAP 6 (5-19); BLOOD UREA NITROGEN 26 mg/dL (7-20); CALCIUM 9.4 mg/dL (8.4-10.2); CARBON DIOXIDE 36 mmol/L (22-30); CHLORIDE 90 mmol/L (98-107); GLUCOSE 187 mg/dL (75-110); POTASSIUM 4.6 mmol/L (3.6-5.0); SODIUM 132.3 mmol/L (137-145)
[2019-01-21] MEDS ORDERED: HEPARIN SOD (PORCINE) 5,000 UNIT/ML 1 ML SYRINGE SUBCUT SCH (06:00)
[2019-01-21] MEDS: IPRATROPIUM/ALBUTEROL 0.5-2.5 MG/3 ML AMPUL NEB SCH ×4 (06:30→19:32)
[2019-01-21 06:35] LABS: ABSOLUTE LYMPHOCYTES# (MANUAL) 0.3 10^3/uL (0.5-4.7); ABSOLUTE MONOCYTES # (MANUAL) 0.2 10^3/uL (0.1-1.4); ABSOLUTE NEUTROPHILS# (MANUAL) 14.5 10^3/uL (1.7-8.2); BASOPHILS % (MANUAL) 1 % (0-2); EOSINOPHILS % (MANUAL) 0 % (0-6); LYMPHOCYTES % (MANUAL) 2 % (13-45); MONOCYTES % (MANUAL) 1 % (3-13); SEGMENTED NEUTROPHILS % (MAN) 96 % (42-78); TOTAL CELLS COUNTED 100
[2019-01-21 06:38] LABS: TOXIC GRANULATION 1+
[2019-01-21 06:39] LABS: POIKILOCYTOSIS 1+
[2019-01-21 06:41] LABS: OVALOCYTES 1+; PLATELET COMMENT ADEQUATE; SCHISTOCYTES 1+; TEAR DROP CELLS SLIGHT
--- NOTE | 2019-01-21 07:15 | EKG REPORT ---
SEVERITY:- ABNORMAL ECG - SINUS OR ECTOPIC ATRIAL RHYTHM LOW VOLTAGE IN FRONTAL LEADS BORDERLINE T ABNORMALITIES, DIFFUSE LEADS : Confirmed by: Daniel Roman MD 21-Jan-2019 07:14:21
[2019-01-21] MEDS: ASPIRIN 81 MG TABLET, ENT COATED PO SCH (09:25)
[2019-01-21] MEDS: DILTIAZEM HCL 180 MG CAPSULE.CR PO SCH (09:25)
[2019-01-21] MEDS: FLUTICASONE NASAL SPRAY 50 MCG/SPRY 120 SPRAY/16 GM NASL SCH ×2 (09:26→22:17)
[2019-01-21 11:00] LABS: ARTERIAL BLOOD BASE EXCESS 7.1 mmol/L; ARTERIAL BLOOD O2 SATURATION 89.8 % (94-98); ARTERIAL BLOOD PCO2 53.2 mmHg (35-45); ARTERIAL BLOOD PH 7.41 (7.35-7.45); ARTERIAL BLOOD PO2 57.7 mmHg (80-100); ARTERIAL BLOOD TOTAL CO2 34.7 mmol/L (23-27)
[2019-01-21 11:02] LABS: ARTERIAL BLOOD FIO2 3.5L
--- NOTE | 2019-01-21 13:41 | RADIOLOGY REPORT (SQ) ---
EXAM DESCRIPTION: CT CHEST WITHOUT COMPLETED DATE/TIME: 01/21/2019 1:21 pm REASON FOR STUDY: ?worsening PNA on cxr COMPARISON: 01/19/2019 TECHNIQUE: CT scan performed of the chest without intravenous contrast. Images reviewed with lung, soft tissue and bone windows. Reconstructed coronal and sagittal MPR images reviewed. All images st ored on PACS. All CT scanners at this facility use dose modulation, iterative reconstruction, and/or weight based d osing when appropriate to reduce radiation dose to as low as reasonably achievable (ALARA). [facility]: Dose Right [facility]: CareDose [facility]: Dose Right [facility]: Teradose 4D [facility]: Smart RPost RADIATION DOSE: CT Rad equipment meets quality standard of care and radiation dose reduction techniq ues were employed. CTDIvol: 7.0 mGy. DLP: 252 mGy-cm. mGy. LIMITATIONS: No technical limitations. FINDINGS: LUNGS AND PLEURA: Extensive centrilobular emphysematous changes. Moderate right pleural e ffusion. Larger left pleural effusion. Extensive airspace disease in the right lower lobe. What ap pear to be atelectatic changes is seen along the minor fissure. Mild atelectatic changes in the left lower lobe. HILAR AND MEDIASTINAL STRUCTURES: There are some nonspecific mediastinal nodes. No mediastinal clifton s. HEART AND VASCULAR STRUCTURES: No aneurysm. No pericardial effusion. UPPER ABDOMEN: No significant findings. Limited exam. THYROID AND OTHER SOFT TISSUES: Low-density lesion in the right lobe of the thyroid gland. BONES: Compression changes in the midthoracic spine. HARDWARE: None in the chest. OTHER: No other significant findings. IMPRESSION: Right lower lobe pneumonia. Bilateral pleural effusions. Pulmonary emphysema. Atelect atic changes bilaterally as described. Low-density lesion in the right lobe of the thyroid gland. TECHNICAL DOCUMENTATION: JOB ID: [id number] Quality ID # [id number]: Final reports with documentation of one or more dose reduction techniques (e.g., Au tomated exposure control, adjustment of the mA and/or kV according to patient size, use of iterative reconstruction technique) 2010 [employer]- All Rights Reserved Reading location - IP/workstation name: [email or web address]
[2019-01-21] MEDS: PREDNISONE 10 MG TABLET PO SCH ×2 (14:41→17:09)
--- NOTE | 2019-01-21 16:10 | PDOC PROGRESS REPORT ---
Subjective Progress Note for:: 01/21/19 Subjective:: MARY HAWKINS is a 83 year old male with a PMH of COPD on 3 lpm of home O2, hypoactive urinary bladder-does intermittent self catheterizatons, and hyperlipidemia who initially presented with productive cough, fever and SOB on 01/11/19 and was admitted for a right lower lobe pneumonia. He was found to be bacteremic with 2/2 bottles of blood cultures growing S. pneumonia. He was discharged yesterday 01/20/19 to [facility]. He reportedly had recurrence of SOB and hypoxia and was brought back to the hospital from the senior care. No acute event overnight. Upon encounter this morning, he denies worsening of his SOB. Per RN, he did have desaturation to 85-87% on 4 lpm via NC. He had blood tinged sputum but this has been less compared the day prior to discharge when he had more grossly bloody sputum. Reason For Visit: PNEUMOMNIA,CONTRACTION ALKALOSIS Physical Exam Vital Signs: Temp Pulse Resp BP Pulse Ox 97.5 F 83 18 120/59 L 95 01/21/19 08:00 01/21/19 08:30 01/21/19 08:30 01/21/19 08:00 01/21/19 08:30 Intake & Output 01/20/19 01/21/19 01/22/19 06:59 06:59 06:59 Intake Total 1300 1000 Balance 1300 1000 Weight 164 lb 0.383 oz General appearance: PRESENT: no acute distress, well-developed, well-nourished Head exam: PRESENT: atraumatic, normocephalic Eye exam: PRESENT: conjunctiva pink, EOMI, PERRLA. ABSENT: scleral icterus Ear exam: PRESENT: normal external ear exam Mouth exam: PRESENT: moist, tongue midline Neck exam: ABSENT: carotid bruit, JVD, lymphadenopathy, thyromegaly Respiratory exam: PRESENT: rales, rhonchi. ABSENT: wheezes Cardiovascular exam: PRESENT: RRR. ABSENT: diastolic murmur, rubs, systolic mur mur Pulses: PRESENT: normal dorsalis pedis pul GI/Abdominal exam: PRESENT: normal bowel sounds, soft. ABSENT: distended, guarding, mass, organolmegaly, rebound, tenderness Rectal exam: PRESENT: deferred - [id number] Neurological exam: PRESENT: alert, awake, oriented to person, oriented to place, oriented to time, CN II-XII grossly intact. ABSENT: motor sensory deficit Results Laboratory Results: 01/21/19 05:00 01/21/19 05:00 01/20/19 01/20/19 01/20/19 20:51 20:51 23:07 WBC 20.7 H RBC 3.69 L Hgb 11.2 L Hct 33.1 L MCV 90 MCH 30.2 MCHC 33.7 RDW 13.7 Plt Count 384 Seg Neutrophils % Not Reportable Lymphocytes % Not Reportable Monocytes % Not Reportable Eosinophils % Not Reportable Basophils % Not Reportable Absolute Neutrophils Not Reportable Absolute Lymphocytes Not Reportable Absolute Monocytes Not Reportable Absolute Eosinophils Not Reportable Absolute Basophils Not Reportable Sodium 132.0 L Potassium 4.5 Chloride 87 L Carbon Dioxide 39 H Anion Gap 6 BUN 27 H Creatinine 0.81 Est GFR ( Amer) > 60 Est GFR (Non-Af Amer) > 60 Glucose 145 H Calcium 10.1 Total Bilirubin 0.8 AST 37 ALT 49 Alkaline Phosphatase 89 Total Protein 5.0 L Albumin 2.7 L Urine Color YELLOW Urine Appearance CLEAR Urine pH 7.0 Ur Specific [place] 1.012 Urine Protein NEGATIVE Urine Glucose (UA) NEGATIVE Urine Ketones NEGATIVE Urine Blood MODERATE H Urine Nitrite NEGATIVE Ur Leukocyte Esterase NEGATIVE Urine WBC (Auto) 1 Urine RBC (Auto) 24 01/21/19 01/21/19 05:00 05:00 WBC 15.1 H RBC 3.40 L Hgb 10.4 L Hct 30.7 L MCV 90 MCH 30.6 MCHC 34.0 RDW 13.4 Plt Count 317 Seg Neutrophils % Not Reportable Lymphocytes % Not Reportable Monocytes % Not Reportable Eosinophils % Not Reportable Basophils % Not Reportable Absolute Neutrophils Not Reportable Absolute Lymphocytes Not Reportable Absolute Monocytes Not Reportable Absolute Eosinophils Not Reportable Absolute Basophils Not Reportable Sodium 132.3 L Potassium 4.6 Chloride 90 L Carbon Dioxide 36 H Anion Gap 6 BUN 26 H Creatinine 0.81 Est GFR ( Amer) > 60 Est GFR (Non-Af Amer) > 60 Glucose 187 H Calcium 9.4 Total Bilirubin AST ALT Alkaline Phosphatase Total Protein Albumin Urine Color Urine Appearance Urine pH Ur Specific [place] Urine Protein Urine Glucose (UA) Urine Ketones Urine Blood Urine Nitrite Ur Leukocyte Esterase Urine WBC (Auto) Urine RBC (Auto) 01/20/19 01/20/19 20:51 20:51 Troponin I 0.014 NT-Pro-B Natriuret Pep 699 H Impressions: Chest X-Ray 01/20/19 20:01 IMPRESSION: Findings consistent with CHF. Right lower lobe pneumonia is also suspected, appears worse. Assessment & Plan - Diagnosis (1) Acute on chronic respiratory failure with hypoxia and hypercapnia Is this a current diagnosis for this admission?: Yes Plan: Secondary to Streptococcal pneumonia. Currently on Rocephin. Will order a chest CT for further reassessment. (2) COPD exacerbation Is this a current diagnosis for this admission?: Yes Plan: Improved. Continue prednisone and breathing treatments. - Time Time Spent with patient: 15-24 minutes
[2019-01-21] MEDS: CEFTRIAXONE 1 GM/D5W RTU 1 GM/50 ML RTUPB IV SCH (17:09)
[2019-01-21] MEDS: ATORVASTATIN CALCIUM 10 MG TABLET PO SCH (22:17)
[2019-01-21] MEDS: AZITHROMYCIN 500 MG in DEXTROSE 5%-WATER 250 ML IV SCH (22:17)
[2019-01-22] MEDS: IPRATROPIUM/ALBUTEROL 0.5-2.5 MG/3 ML AMPUL NEB SCH ×4 (01:46→19:19)
[2019-01-22] MEDS: BISACODYL 10 MG SUPP.RECT PR PRN (03:10)
[2019-01-22 07:46] LABS: HEMATOCRIT 28.5 % (37.9-51.0); HEMOGLOBIN 9.6 g/dL (13.5-17.0); MEAN CORPUSCULAR HEMOGLOBIN 30.4 pg (27.0-33.4); MEAN CORPUSCULAR HGB CONC 33.7 g/dL (32.0-36.0); MEAN CORPUSCULAR VOLUME 90 fl (80-97); PLATELET COUNT 393 10^3/uL (150-450); RED BLOOD COUNT 3.15 10^6/uL (4.35-5.55); RED CELL DISTRIBUTION WIDTH 13.7 % (11.5-14.0)
[2019-01-22 08:12] LABS: ABSOLUTE LYMPHOCYTES# (MANUAL) 0.5 10^3/uL (0.5-4.7); ABSOLUTE MONOCYTES # (MANUAL) 0.9 10^3/uL (0.1-1.4); ABSOLUTE NEUTROPHILS# (MANUAL) 21.6 10^3/uL (1.7-8.2); BASOPHILS % (MANUAL) 0 % (0-2); EOSINOPHILS % (MANUAL) 0 % (0-6); LYMPHOCYTES % (MANUAL) 2 % (13-45); METAMYELOCYTES % (MANUAL) 1 % (0); MONOCYTES % (MANUAL) 4 % (3-13); SEGMENTED NEUTROPHILS % (MAN) 93 % (42-78); TOTAL CELLS COUNTED 100
[2019-01-22 08:13] LABS: OVALOCYTES 1+; PLATELET COMMENT ADEQUATE; POIKILOCYTOSIS 1+; TOXIC GRANULATION 1+
[2019-01-22 08:15] LABS: BLOOD UREA NITROGEN 26 mg/dL (7-20); CALCIUM 8.9 mg/dL (8.4-10.2); CARBON DIOXIDE 35 mmol/L (22-30); CHLORIDE 96 mmol/L (98-107); GLUCOSE 126 mg/dL (75-110); POTASSIUM 4.3 mmol/L (3.6-5.0); SODIUM 135.3 mmol/L (137-145)
[2019-01-22 08:17] LABS: ANION GAP 4 (5-19)
[2019-01-22] MEDS: DILTIAZEM HCL 180 MG CAPSULE.CR PO SCH (11:03)
[2019-01-22] MEDS: PREDNISONE 10 MG TABLET PO SCH ×2 (11:04→17:19)
[2019-01-22] MEDS: ASPIRIN 81 MG TABLET, ENT COATED PO SCH (11:04)
[2019-01-22] MEDS: FLUTICASONE NASAL SPRAY 50 MCG/SPRY 120 SPRAY/16 GM NASL SCH ×2 (11:05→21:13)
--- NOTE | 2019-01-22 16:49 | PDOC PROGRESS REPORT ---
Subjective Progress Note for:: 01/22/19 Subjective:: MARY HAWKINS is a 83 year old male with a PMH of COPD on 3 lpm of home O2, hypoactive urinary bladder-does intermittent self catheterizatons, and hyperlipidemia who initially presented with productive cough, fever and SOB on 01/11/19 and was admitted for a right lower lobe pneumonia. He was found to be bacteremic with 2/2 bottles of blood cultures growing S. pneumonia. He was discharged yesterday 01/20/19 to [facility]. He reportedly had recurrence of SOB and hypoxia and was brought back to the hospital from the long-term. 01/21: Upon encounter this morning, he denies worsening of his SOB. Per RN, he did have desaturation to 85-87% on 4 lpm via NC. He had blood tinged sputum but this has been less compared the day prior to discharge when he had more grossly bloody sputum. 01/22: Patient reportedly desaturated to the high 80s on 4 lpm via NC overnight. Upon encounter, he appears comfortable and is saturating well on BIPAP. Denies chest pain. He says there is less blood streak on the sputum now. Reason For Visit: PNEUMOMNIA,CONTRACTION ALKALOSIS Physical Exam Vital Signs: Temp Pulse Resp BP Pulse Ox 97.7 F 66 22 H 116/39 L 89 L 01/22/19 15:35 01/22/19 15:35 01/22/19 15:35 01/22/19 15:35 01/22/19 16:10 Pulse Oximeter Continuous Start: 01/21/19 09:22 Freq: RTQ4 Status: Active Protocol: Document 01/22/19 16:10 [facility] (Rec: 01/22/19 16:15 [facility] [id number]) Pulse Oximetry Assessment Oxygen Saturation (92-100) 89 Oxygen Flow Rate (L/min) 6 Oxygen Delivery Method Nasal Cannula Fraction of Inspired Oxygen (FIO2) 44 Equipment Usage Equipment in Use Continuous SpO2 Machine # 1 Intake & Output 01/21/19 01/22/19 01/23/19 06:59 06:59 06:59 Intake Total 1300 3388 799 Output Total 1125 400 Balance 1300 2263 399 Weight 164 lb 0.383 oz 167 lb 8.821 oz General appearance: PRESENT: no acute distress, well-developed, well-nourished Head exam: PRESENT: atraumatic, normocephalic Eye exam: PRESENT: conjunctiva pink, EOMI, PERRLA. ABSENT: scleral icterus Ear exam: PRESENT: normal external ear exam Mouth exam: PRESENT: moist, tongue midline Neck exam: ABSENT: carotid bruit, JVD, lymphadenopathy, thyromegaly Respiratory exam: PRESENT: decreased breath sounds - bases, rales, rhonchi. ABSENT: wheezes Cardiovascular exam: PRESENT: RRR. ABSENT: diastolic murmur, rubs, systolic murmur Pulses: PRESENT: normal dorsalis pedis pul GI/Abdominal exam: PRESENT: normal bowel sounds, soft. ABSENT: distended, guarding, mass, organolmegaly, rebound, tenderness Rectal exam: PRESENT: deferred Neurological exam: PRESENT: alert, awake, oriented to person, oriented to place, oriented to time, oriented to situation, CN II-XII grossly intact. ABSENT: motor sensory deficit Results Laboratory Results: 01/22/19 06:47 01/22/19 06:47 01/22/19 01/22/19 06:47 06:47 WBC 23.0 H RBC 3.15 L Hgb 9.6 L Hct 28.5 L MCV 90 MCH 30.4 MCHC 33.7 RDW 13.7 Plt Count 393 Seg Neutrophils % Not Reportable Lymphocytes % Not Reportable Monocytes % Not Reportable Eosinophils % Not Reportable Basophils % Not Reportable Absolute Neutrophils Not Reportable Absolute Lymphocytes Not Reportable Absolute Monocytes Not Reportable Absolute Eosinophils Not Reportable Absolute Basophils Not Reportable Sodium 135.3 L Potassium 4.3 Chloride 96 L Carbon Dioxide 35 H Anion Gap 4 L BUN 26 H Creatinine 0.78 Est GFR ( Amer) > 60 Est GFR (Non-Af Amer) > 60 Glucose 126 H Calcium 8.9 01/21/19 12:20 Sputum Gram Stain - Final 01/21/19 12:20 Sputum Sputum Culture - Final GREATLY REDUCED NORMAL JU 01/20/19 01/20/19 20:51 20:51 Troponin I 0.014 NT-Pro-B Natriuret Pep 699 H Impressions: Chest X-Ray 01/20/19 20:01 IMPRESSION: Findings consistent with CHF. Right lower lobe pneumonia is also suspected, appears worse. Chest CT 01/21/19 00:00 IMPRESSION: Right lower lobe pneumonia. Bilateral pleural effusions. Pulmon erwin emphysema. Atelectatic changes bilaterally as described. Low-density lesion in the right lobe of the thyroid gland. Assessment & Plan - Diagnosis (1) Acute on chronic respiratory failure with hypoxia and hypercapnia Is this a current diagnosis for this admission?: Yes Plan: Secondary to Streptococcal pneumonia. Currently on BIPAP. (2) Streptococcal pneumonia Is this a current diagnosis for this admission?: Yes Plan: Continue Rocephin. Chest CT shows persistent right lobe consolidation with bilateral effusions likely parapneumonic in nature. Discussed case with Dr. Solis who will evaluate the patient tomorrow morning. (3) COPD exacerbation Is this a current diagnosis for this admission?: Yes Plan: Improved. Continue prednisone and breathing treatments. - Time Time Spent with patient: 25-34 minutes
[2019-01-22] MEDS: CEFTRIAXONE 1 GM/D5W RTU 1 GM/50 ML RTUPB IV SCH (17:19)
[2019-01-22] MEDS: ATORVASTATIN CALCIUM 10 MG TABLET PO SCH (21:13)
[2019-01-22] MEDS: AZITHROMYCIN 500 MG in DEXTROSE 5%-WATER 250 ML IV SCH (21:13)
[2019-01-23] MEDS: IPRATROPIUM/ALBUTEROL 0.5-2.5 MG/3 ML AMPUL NEB SCH ×4 (02:16→19:26)
[2019-01-23] MEDS: DILTIAZEM HCL 180 MG CAPSULE.CR PO SCH (10:35)
[2019-01-23] MEDS: ASPIRIN 81 MG TABLET, ENT COATED PO SCH (10:35)
[2019-01-23] MEDS: PREDNISONE 10 MG TABLET PO SCH ×2 (10:35→17:12)
[2019-01-23] MEDS: FLUTICASONE NASAL SPRAY 50 MCG/SPRY 120 SPRAY/16 GM NASL SCH ×2 (10:36→22:58)
[2019-01-23 11:00] LABS: INTERNATIONAL RATION (INR) 0.97; PROTHROMBIN TIME 13.4 SEC (11.4-15.4)
[2019-01-23 11:01] LABS: HEMATOCRIT 27.9 % (37.9-51.0); HEMOGLOBIN 9.6 g/dL (13.5-17.0); MEAN CORPUSCULAR HEMOGLOBIN 30.8 pg (27.0-33.4); MEAN CORPUSCULAR HGB CONC 34.3 g/dL (32.0-36.0); MEAN CORPUSCULAR VOLUME 90 fl (80-97); PARTIAL THROMBOPLASTIN TIME 28.5 SEC (23.5-35.8); PLATELET COUNT 403 10^3/uL (150-450); RED CELL DISTRIBUTION WIDTH 14.1 % (11.5-14.0); WHITE BLOOD COUNT 16.9 10^3/uL (4.0-10.5)
[2019-01-23 11:23] LABS: ARTERIAL BLOOD BASE EXCESS 10.4 mmol/L; ARTERIAL BLOOD H2CO3 1.57 mmol/L (1.05-1.35); ARTERIAL BLOOD HCO3 35.7 mmol/L (20-24); ARTERIAL BLOOD O2 SATURATION 98.8 % (94-98); ARTERIAL BLOOD PH 7.46 (7.35-7.45); ARTERIAL BLOOD PO2 139.6 mmHg (80-100); ARTERIAL BLOOD TOTAL CO2 37.3 mmol/L (23-27)
[2019-01-23 11:25] LABS: ARTERIAL BLOOD FIO2 100%
[2019-01-23 11:42] LABS: ABSOLUTE LYMPHOCYTES# (MANUAL) 1.4 10^3/uL (0.5-4.7); ABSOLUTE MONOCYTES # (MANUAL) 0.2 10^3/uL (0.1-1.4); ABSOLUTE NEUTROPHILS# (MANUAL) 15.4 10^3/uL (1.7-8.2); BASOPHILS % (MANUAL) 0 % (0-2); EOSINOPHILS % (MANUAL) 0 % (0-6); LYMPHOCYTES % (MANUAL) 8 % (13-45); MONOCYTES % (MANUAL) 1 % (3-13); RBC MORPHOLOGY COMMENT NORMO-CYTIC/CHROMIC; SEGMENTED NEUTROPHILS % (MAN) 91 % (42-78); TOTAL CELLS COUNTED 100
[2019-01-23 11:43] LABS: PLATELET COMMENT ADEQUATE
--- NOTE | 2019-01-23 13:16 | PDOC CONSULTATION ---
Consultation Consult Date: 01/22/19 Attending physician:: ANGELA CRESPO Consult reason:: HEMOPTSIS/PNA/COPD/PLEURAL EFFUSIONS History of Present Illness Admission Date/PCP: 01/20/19 23:10 LAYO GAMEZ MD History of Present Illness: MARY HAWKINS is a 83 year old male, this is the first encounter from [facility] to the pulmonary associates for Mr. Hawknis who states multiple recurrent admissions for pneumonia dyspnea and hypoxia. 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 He sleeps on 2 pillows occasional PND but no edema. Aware of any snoring or restless sleep nocturia 1 time per night ; however he admits to restless sleep and daytime somnolence Past Medical History Cardiac Medical History: Reports: Coronary Artery Disease, Hyperlipidema, Hyp ertension Denies: Atrial Fibrillation, Congestive Heart Failure, Myocardial Infarction, Peripheral Vascular Disease, Pulmonary Embolism, Heart Murmur Pulmonary Medical History: Reports: Asthma, Bronchitis, Chronic Obstructive Pulmonary Disease (COPD), Pneumonia, Respiratory Failure Denies: Sleep Apnea, Tuberculosis EENT Medical History: Reports: None Neurological Medical History: Denies: Seizures Endocrine Medical History: Reports: None Renal/ Medical History: Reports: None Denies: End Stage Renal Disease Malignancy Medical History: Reports: None Denies: Lung Cancer GI Medical History: Reports: None Denies: Hepatitis, Hiatal Hernia Musculoskeltal Medical History: Reports: None Denies: Arthritis, Fibromyalgia Skin Medical History: Reports: None Psychiatric Medical History: Reports: None Denies: Depression Traumatic Medical History: Denies: Traumatic Brain Injury Hematology: Denies: Anemia, Sickle Cell Disease Infectious Medical History: Denies: HIV Past Surgical History Past Surgical History: Reports: Herniorrhaphy - nov 2007 Denies: Appendectomy, Cholecystectomy, Coronary Artery Bypass Graft, Gastric Bypass Surgery, Pacemaker, Tonsillectomy Social History Information Source: Patient, [facility] Records Lives with: Family Smoking Status: Former Smoker Cigarettes Packs Per Day: 2 Number of Years Smokin Passive smoke exposure as: Both Frequency of Alcohol Use: None Hx Recreational Drug Use: No Drugs: None Hx Prescription Drug Abuse: No Do you have pets?: Yes Have you had any respiratory illnesses as a child?: No Have you been exposed to any sick contacts recently?: No Have you had any recent respiratory illnesses?: No Have you travelled outside of [place] in the past 12 months?: No - Advance Directive Resuscitation Status: Full Code Family History Family History: COPD, Hypertension Parental Family History Reviewed: Yes Children Family History Reviewed: Yes Sibling(s) Family History Reviewed.: Yes Medication/Allergy Home Medications: Atorvastatin Calcium [Lipitor 10 mg Tablet] 10 mg PO DAILY 12/12/12 Arformoterol Tartrate [Brovana Inhalation Solution 15 mcg/2 mL] 1 puff IH BID 08/08/18 Diltiazem HCl [Diltiazem 24Hr ER] 360 mg PO DAILY 08/08/18 Furosemide [Lasix 20 mg Tablet] 40 mg PO BID 08/08/18 Montelukast Sodium [Singulair 10 mg Tablet] 10 mg PO QHS 08/08/18 Budesonide [Pulmicort Neb 0.5 mg/2 ml Ampul] 0.5 mg NEB RTQ12 #0 01/19/19 Albuterol Sulfate [Ventolin 0.083% Neb 2.5 mg/3 ml Ampul] 1 vial NEB RTDAILY 01/21/19 Aspirin [Ecotrin 81 mg EC Tablet] 81 mg PO DAILY 01/21/19 Calcium Carbonate/Vitamin D3 [Calcium 250-D Tablet] 2 tab PO DAILY 01/21/19 Cetirizine HCl [Zyrtec 10 mg Tablet] 10 mg PO DAILY 01/21/19 Guaifenesin [Mucinex] 600 mg PO DAILY 01/21/19 Potassium Chloride [Klor-Con 10 Meq Capsule ER] 10 meq PO DAILY 01/21/19 Allergies/Adverse Reactions: roflumilast Allergy (Unknown, Verified 08/08/18 07:05) Review of Systems Constitutional: PRESENT: anorexia, fatigue, weakness. ABSENT: chills, night sweats Eyes: ABSENT: visual disturbances Ears: ABSENT: hearing changes Nose, Mouth, and Throat: ABSENT: sore throat Cardiovascular: PRESENT: dyspnea on exertion. ABSENT: chest pain, orthropnea, palpitations Respiratory: PRESENT: cough, dyspnea, hemoptysis Gastrointestinal: ABSENT: abdominal pain, bloating, coffee ground emesis, constipation, dysphagia, heartburn, hematemesis, hematochezia, melena Genitourinary: ABSENT: dysuria, hematuria Musculoskeletal: ABSENT: deformity, joint swelling Integumentary: ABSENT: pruritus, rash Neurological: ABSENT: abnormal gait, abnormal movements, abnormal speech, confusion, focal weakness, frequent falls, lack of coordination, memory loss, numbness Psychiatric: ABSENT: hallucinations, homidical ideation, suicidal ideation Endocrine: ABSENT: cold intolerance, heat intolerance, polydipsia, polyuria Hematologic/Lymphatic: PRESENT: easy bruising Allergic/Immunologic: ABSENT: seasonal rhinorrhea Physical Exam Vital Signs: Temp Pulse Resp BP Pulse Ox 97.7 F 66 22 H 116/39 L 89 L 01/22/19 15:35 01/22/19 15:35 01/22/19 15:35 01/22/19 15:35 01/22/19 16:10 Pulse Oximeter Continuous Start: 01/21/19 09:22 Freq: RTQ4 Status: Active Protocol: Document 01/22/19 16:10 [facility] (Rec: 01/22/19 16:15 [facility] [id number]) Pulse Oximetry Assessment Oxygen Saturation (92-100) 89 Oxygen Flow Rate (L/min) 6 Oxygen Delivery Method Nasal Cannula Fraction of Inspired Oxygen (FIO2) 44 Equipment Usage Equipment in Use Continuous SpO2 Machine # 1 Intake & Output 01/21/19 01/22/19 01/23/19 06:59 06:59 06:59 Intake Total 1300 3388 799 Output Total 1125 400 Balance 1300 2263 399 Weight 74.4 kg 76 kg General appearance: PRESENT: no acute distress, cooperative, disheveled, obese Head exam: PRESENT: atraumatic, normocephalic Eye exam: PRESENT: conjunctiva pale, EOMI. ABSENT: nystagmus Mouth exam: PRESENT: dry mucosa, neck supple, tongue midline Teeth exam: PRESENT: edentulous Neck exam: ABSENT: carotid bruit, full ROM, JVD, lymphadenopathy, meningismus, tenderness, thyromegaly, tracheal deviation, tracheostomy, other Respiratory exam: PRESENT: decreased breath sounds, prolonged expiratory phas, rales, rhonchi, unlabored. ABSENT: retraction, stridor Cardiovascular exam: PRESENT: RRR, +S1, +S2 Pulses: PRESENT: normal radial pulses GI/Abdominal exam: PRESENT: soft. ABSENT: tenderness Extremities exam: PRESENT: pedal edema. ABSENT: calf tenderness, clubbing, joint swelling Musculoskeletal exam: ABSENT: deformity Neurological exam: PRESENT: alert, awake Psychiatric exam: PRESENT: appropriate affect Skin exam: PRESENT: dry, warm Results Laboratory Results: 01/22/19 06:47 01/22/19 06:47 01/22/19 01/22/19 06:47 06:47 WBC 23.0 H RBC 3.15 L Hgb 9.6 L Hct 28.5 L MCV 90 MCH 30.4 MCHC 33.7 RDW 13.7 Plt Count 393 Seg Neutrophils % Not Reportable Lymphocytes % Not Reportable Monocytes % Not Reportable Eosinophils % Not Reportable Basophils % Not Reportable Absolute Neutrophils Not Reportable Absolute Lymphocytes Not Reportable Absolute Monocytes Not Reportable Absolute Eosinophils Not Reportable Absolute Basophils Not Reportable Sodium 135.3 L Potassium 4.3 Chloride 96 L Carbon Dioxide 35 H Anion Gap 4 L BUN 26 H Creatinine 0.78 Est GFR ( Amer) > 60 Est GFR (Non-Af Amer) > 60 Glucose 126 H Calcium 8.9 01/21/19 12:20 Sputum Gram Stain - Final 01/21/19 12:20 Sputum Sputum Culture - Final GREATLY REDUCED NORMAL JU 01/20/19 01/20/19 20:51 20:51 Troponin I 0.014 NT-Pro-B Natriuret Pep 699 H Impressions: Chest X-Ray 01/20/19 20:01 IMPRESSION: Findings consistent with CHF. Right lower lobe pneumonia is also suspected, appears worse. Chest CT 01/21/19 00:00 IMPRESSION: Right lower lobe pneumonia. Bilateral pleural effusions. Pulmonary emphysema. Atelectatic changes bilaterally as described. Low-density lesion in the right lobe of the thyroid gland. Assessment & Plan - Diagnosis (1) Pleural effusion Is this a current diagnosis for this admission?: Yes Plan: chest tube pleural fluid for labs (2) Acute and chronic respiratory failure with hypoxia Is this a current diagnosis for this admission?: Yes Plan: Supplemental oxygen at home and in the hospital requires BiPAP (3) Atrial fibrillation with rapid ventricular response Is this a current diagnosis for this admission?: Yes Plan: stable at this time (4) Hypertension Is this a current diagnosis for this admission?: Yes Plan: stable
--- NOTE | 2019-01-23 13:21 | PDOC PROGRESS REPORT ---
Subjective Progress Note for:: 01/23/19 Subjective:: Short of breath Reason For Visit: PNEUMOMNIA,CONTRACTION ALKALOSIS Physical Exam Vital Signs: Temp Pulse Resp BP Pulse Ox 98.0 F 69 16 121/41 L 96 01/22/19 18:00 01/23/19 08:06 01/23/19 08:06 01/22/19 18:00 01/23/19 08:06 Pulse Oximeter Continuous Start: 01/21/19 09:22 Freq: RTQ4 Status: Active Protocol: Document 01/23/19 08:06 [facility] (Rec: 01/23/19 08:13 [facility] [id number]) Pulse Oximetry Assessment Oxygen Saturation (92-100) 96 Oxygen Delivery Method Partial-Rebreather Fraction of Inspired Oxygen (FIO2) 60 Equipment Usage Equipment in Use Continuous SpO2 Machine # 1 Intake & Output 01/22/19 01/23/19 01/24/19 06:59 06:59 06:59 Intake Total 3388 2301 Output Total 1125 1100 Balance 2263 1201 Weight 76 kg 76.9 kg General appearance: PRESENT: no acute distress, cooperative, disheveled, obese Head exam: PRESENT: atraumatic, normocephalic Eye exam: PRESENT: conjunctiva pale, EOMI. ABSENT: nystagmus Mouth exam: PRESENT: dry mucosa, neck supple, tongue midline Neck exam: ABSENT: carotid bruit, JVD, lymphadenopathy, thyromegaly, tracheal deviation, tracheostomy Respiratory exam: PRESENT: decreased breath sounds, prolonged expiratory phas, rhonchi, wheezes. ABSENT: retraction, stridor Cardiovascular exam: PRESENT: irregular rhythm Pulses: PRESENT: normal radial pulses GI/Abdominal exam: PRESENT: soft. ABSENT: tenderness Extremities exam: PRESENT: pedal edema. ABSENT: calf tenderness, clubbing, joint swelling Musculoskeletal exam: ABSENT: deformity, dislocation Neurological exam: PRESENT: alert, awake Psychiatric exam: PRESENT: appropriate affect Skin exam: PRESENT: dry, warm Results Laboratory Results: 01/22/19 06:47 01/22/19 06:47 01/21/19 12:20 Sputum Gram Stain - Final 01/21/19 12:20 Sputum Sputum Culture - Final GREATLY REDUCED NORMAL JU 01/20/19 01/20/19 20:51 20:51 Troponin I 0.014 NT-Pro-B Natriuret Pep 699 H Impressions: Chest X-Ray 01/20/19 20:01 IMPRESSION: Findings consistent with CHF. Right lower lobe pneumonia is also suspected, appears worse. Chest CT 01/21/19 00:00 IMPRESSION: Right lower lobe pneumonia. Bilateral pleural effusions. Pulmonary emphysema. Atelectatic changes bilaterally as described. Low-density lesion in the right lobe of the thyroid gland. Assessment & Plan - Diagnosis (1) Pleural effusion Is this a current diagnosis for this admission?: Yes Plan: Rather than thoracentesis will consult surgery for a right chest tube (2) Acute and chronic respiratory failure with hypoxia Is this a current diagnosis for this admission?: Yes Plan: Supplemental oxygen at home and in the hospital requires BiPAP (3) Atrial fibrillation with rapid ventricular response Is this a current diagnosis for this admission?: Yes Plan: stable at this time (4) COPD (chronic obstructive pulmonary disease) Qualifiers: COPD type: COPD with acute lower respiratory infection Qualified Code(s): J44.0 - Chronic obstructive pulmonary disease with acute lower respiratory infection Is this a current diagnosis for this admission?: Yes Plan: Generic Name Dose Route Start Last Admin Trade Name Freq PRN Reason Stop Dose Admin Albuterol/Ipratropium 3 ml 01/20/19 23:08 Duoneb 3 Ml Ampul NEB 02/19/19 23:07 [id number] PRN SHORTNESS OF BREATH Acetaminophen 650 mg 01/20/19 23:11 Tylenol 325 Mg Tablet PO 02/19/19 23:10 Q4HP PRN FOR PAIN OR TEMP Albuterol/Ipratropium 3 ml 01/21/19 02:00 01/23/19 08:00 Duoneb 3 Ml Ampul NEB 02/20/19 01:59 3 ml RTQ6 JIMMY Fluticasone Propionate 2 spray 01/21/19 10:00 01/23/19 10:36 Flonase Nasal [place] 50 Mcg/[place] 16 Gm NASL 02/20/19 09:59 2 spr Q12 JIMMY Guaifenesin 200 mg 01/20/19 23:08 Robitussin Syrup 200 Mg/10 Ml Ud Cup PO 02/19/19 23:07 Q4HP PRN COUGH
[2019-01-23] MEDS ORDERED: TUBERCULIN,PURIF.PROT.DERIV. 5 TU/0.1 ML TEST 1 ML VIAL ID ONE (14:30)
--- NOTE | 2019-01-23 15:33 | PDOC PROGRESS REPORT ---
Subjective Progress Note for:: 01/23/19 Subjective:: MARY HAWKINS is a 83 year old male with a PMH of COPD on 3 lpm of home O2, hypoactive urinary bladder-does intermittent self catheterizatons, and hyperlipidemia who initially presented with productive cough, fever and SOB on 01/11/19 and was admitted for a right lower lobe pneumonia. He was found to be bacteremic with 2/2 bottles of blood cultures growing S. pneumonia. He was discharged yesterday 01/20/19 to [facility]. He reportedly had recurrence of SOB and hypoxia and was brought back to the hospital from the senior living. 01/21: Upon encounter this morning, he denies worsening of his SOB. Per RN, he did have desaturation to 85-87% on 4 lpm via NC. He had blood tinged sputum but this has been less compared the day prior to discharge when he had more grossly bloody sputum. 01/22: Patient reportedly desaturated to the high 80s on 4 lpm via NC overnight. Upon encounter, he appears comfortable and is saturating well on BIPAP. Denies chest pain. He says there is less blood streak on the sputum now. 01/23: Patient had an episode of coughing out a bloody sputum. He was weaned off BIPAP last night, placed on 4 lpm of NC but had an episode of desaturation down to 82% and was put back on a nonrebreather. Upon encounter, he is not in distress. Discussed with pulmonology and reviewed recent CT which showed increasing pleural effusions. Pulm recommends chest tube insertion by surgery. Reason For Visit: PNEUMOMNIA,CONTRACTION ALKALOSIS Physical Exam Vital Signs: Temp Pulse Resp BP Pulse Ox 97.5 F 65 16 125/51 L 95 01/23/19 08:15 01/23/19 13:37 01/23/19 13:37 01/23/19 08:15 01/23/19 13:37 Pulse Oximeter Continuous Start: 01/21/19 09:22 Freq: RTQ4 Status: Active Protocol: Document 01/23/19 13:37 [facility] (Rec: 01/23/19 13:48 [facility] [id number]) Pulse Oximetry Assessment Oxygen Saturation (92-100) 94 Oxygen Flow Rate (L/min) 4 Oxygen Delivery Method Nasal Cannula Fraction of Inspired Oxygen (FIO2) 36 Equipment Usage Equipment in Use Continuous SpO2 Machine # 1 Intake & Output 01/22/19 01/23/19 01/24/19 06:59 06:59 06:59 Intake Total 3388 2301 300 Output Total 1125 1100 Balance 2263 1201 300 Weight 167 lb 8.821 oz 169 lb 8.568 oz General appearance: PRESENT: no acute distress, well-developed, well-nourished Head exam: PRESENT: atraumatic, normocephalic Eye exam: PRESENT: conjunctiva pink, EOMI, PERRLA. ABSENT: scleral icterus Ear exam: PRESENT: normal external ear exam Mouth exam: PRESENT: moist, tongue midline Neck exam: ABSENT: carotid bruit, JVD, lymphadenopathy, thyromegaly Respiratory exam: PRESENT: decreased breath sounds - on the bases, rhonchi. ABSENT: rales, wheezes Cardiovascular exam: PRESENT: RRR. ABSENT: diastolic murmur, rubs, systolic murmur Pulses: PRESENT: normal dorsalis pedis pul GI/Abdominal exam: PRESENT: normal bowel sounds, soft. ABSENT: distended, guarding, mass, organolmegaly, rebound, tenderness Neurological exam: PRESENT: alert, awake, oriented to person, oriented to place, CN II-XII grossly intact. ABSENT: motor sensory deficit Results Laboratory Results: 01/23/19 10:40 01/22/19 06:47 01/23/19 01/23/19 01/23/19 10:40 10:40 11:00 WBC 16.9 H RBC 3.10 L Hgb 9.6 L Hct 27.9 L MCV 90 MCH 30.8 MCHC 34.3 RDW 14.1 H Plt Count 403 Seg Neutrophils % Not Reportable Lymphocytes % Not Reportable Monocytes % Not Reportable Eosinophils % Not Reportable Basophils % Not Reportable Absolute Neutrophils Not Reportable Absolute Lymphocytes Not Reportable Absolute Monocytes Not Reportable Absolute Eosinophils Not Reportable Absolute Basophils Not Reportable Carbonic Acid 1.57 H HCO3/H2CO3 Ratio 22:1 ABG pH 7.46 H ABG pCO2 52.0 H ABG pO2 139.6 H ABG HCO3 35.7 H ABG O2 Saturation 98.8 H ABG Base Excess 10.4 FiO2 100% Total Protein 4.5 L 01/20/19 01/20/19 20:51 20:51 Troponin I 0.014 NT-Pro-B Natriuret Pep 699 H Impressions: Chest X-Ray 01/20/19 20:01 IMPRESSION: Findings consistent with CHF. Right lower lobe pneumonia is also suspected, appears worse. Chest CT 01/21/19 00:00 IMPRESSION: Right lower lobe pneumonia. Bilateral pleural effusions. Pulmonary emphysema. Atelectatic changes bilaterally as described. Low-density lesion in the right lobe of the thyroid gland. Assessment & Plan - Diagnosis (1) Acute on chronic respiratory failure with hypoxia and hypercapnia Is this a current diagnosis for this admission?: Yes Plan: Secondary to Streptococcal pneumonia. Currently on BIPAP. (2) Streptococcal pneumonia Is this a current diagnosis for this admission?: Yes Plan: Continue Rocephin. Chest CT shows persistent right lobe consolidation with bilateral effusions likely parapneumonic in nature. 01/22: Discussed case with Dr. Solis who will evaluate the patient tomorrow morning. 01/23: Discussed with pulmonology and reviewed recent chest CT results which showed increasing pleural effusions. Pulm recommends chest tube insertion by surgery. (3) COPD exacerbation Is this a current diagnosis for this admission?: Yes Plan: Improved. Continue prednisone and breathing treatments. - Time Time Spent with patient: 25-34 minutes
[2019-01-23] MEDS: CEFTRIAXONE 1 GM/D5W RTU 1 GM/50 ML RTUPB IV SCH (17:12)
[2019-01-23] MEDS: ATORVASTATIN CALCIUM 10 MG TABLET PO SCH (22:58)
[2019-01-23] MEDS: AZITHROMYCIN 500 MG in DEXTROSE 5%-WATER 250 ML IV SCH (22:58)
[2019-01-24] MEDS: IPRATROPIUM/ALBUTEROL 0.5-2.5 MG/3 ML AMPUL NEB SCH ×4 (02:20→20:17)
[2019-01-24 06:40] LABS: ARTERIAL BLOOD BASE EXCESS 11.8 mmol/L; ARTERIAL BLOOD H2CO3 1.75 mmol/L (1.05-1.35); ARTERIAL BLOOD HCO3 37.8 mmol/L (20-24); ARTERIAL BLOOD O2 SATURATION 92.1 % (94-98); ARTERIAL BLOOD PCO2 58.2 mmHg (35-45); ARTERIAL BLOOD PH 7.43 (7.35-7.45); ARTERIAL BLOOD PO2 62.9 mmHg (80-100); ARTERIAL BLOOD TOTAL CO2 39.6 mmol/L (23-27)
[2019-01-24 06:41] LABS: ARTERIAL BLOOD FIO2 40%
[2019-01-24 08:21] LABS: ABSOLUTE LYMPHOCYTES (AUTO) 0.8 10^3/uL (0.5-4.7); ABSOLUTE MONOCYTES (AUTO) 0.9 10^3/uL (0.1-1.4); ABSOLUTE NEUT (AUTO) 10.1 10^3/uL (1.7-8.2); BASOPHILS % (AUTO) 0.2 % (0-2); EOSINOPHILS % (AUTO) 0.2 % (0-6); HEMATOCRIT 27.9 % (37.9-51.0); HEMOGLOBIN 9.4 g/dL (13.5-17.0); LYMPHOCYTES % (AUTO) 6.9 % (13-45); MEAN CORPUSCULAR HEMOGLOBIN 30.2 pg (27.0-33.4); MEAN CORPUSCULAR HGB CONC 33.7 g/dL (32.0-36.0); MEAN CORPUSCULAR VOLUME 90 fl (80-97); PLATELET COUNT 428 10^3/uL (150-450); RED BLOOD COUNT 3.11 10^6/uL (4.35-5.55); RED CELL DISTRIBUTION WIDTH 13.8 % (11.5-14.0); SEGMENTED NEUTROPHILS % (AUTO) 84.7 % (42-78); TOTAL CELLS COUNTED % (AUTO) 100 %; WHITE BLOOD COUNT 11.9 10^3/uL (4.0-10.5)
[2019-01-24 08:37] LABS: ANION GAP 6 (5-19); BLOOD UREA NITROGEN 30 mg/dL (7-20); CARBON DIOXIDE 32 mmol/L (22-30); CHLORIDE 96 mmol/L (98-107); GLUCOSE 91 mg/dL (75-110); SODIUM 133.5 mmol/L (137-145)
[2019-01-24] MEDS: FLUTICASONE NASAL SPRAY 50 MCG/SPRY 120 SPRAY/16 GM NASL SCH ×2 (09:38→23:18)
[2019-01-24] MEDS: PREDNISONE 10 MG TABLET PO SCH ×2 (09:38→18:35)
[2019-01-24] MEDS: DILTIAZEM HCL 180 MG CAPSULE.CR PO SCH (09:40)
--- NOTE | 2019-01-24 12:43 | PDOC PROGRESS REPORT ---
Subjective Progress Note for:: 01/24/19 Subjective:: MARY HAWKINS is a 83 year old male with a PMH of COPD on 3 lpm of home O2, hypoactive urinary bladder-does intermittent self catheterizatons, and hyperlipidemia who initially presented with productive cough, fever and SOB on 01/11/19 and was admitted for a right lower lobe pneumonia. He was found to be bacteremic with 2/2 bottles of blood cultures growing S. pneumonia. He was discharged yesterday 01/20/19 to [place]. He reportedly had recurrence of SOB and hypoxia and was brought back to the hospital from the assisted. 01/21: Upon encounter this morning, he denies worsening of his SOB. Per RN, he did have desaturation to 85-87% on 4 lpm via NC. He had blood tinged sputum but this has been less compared the day prior to discharge when he had more grossly bloody sputum. 01/22: Patient reportedly desaturated to the high 80s on 4 lpm via NC overnight. Upon encounter, he appears comfortable and is saturating well on BIPAP. Denies chest pain. He says there is less blood streak on the sputum now. 01/23: Patient had an episode of coughing out a bloody sputum. He was weaned off BIPAP last night, placed on 4 lpm of NC but had an episode of desaturation down to 82% and was put back on a nonrebreather. Upon encounter, he is not in distress. Discussed with pulmonology and reviewed recent CT which showed increasing pleural effusions. Pulm recommends chest tube insertion by surgery. 01/24: No acute event overnight. No recurrence of hemoptysis so far. Currently saturating at 92% on 4 lpm via NC. Discussed with surgicalist this morning, Dr. Quiroz who has discussed with Dr. Strong and they have recommended with holding off on chest tube placement and pursuing thoracentesis by radiology first. Rediscussed with patient who requested undergoing the procedure at [facility]. Apparently, he is anxious as he was presented in the ER in 2012 with a pneumothorax, had a chest tube placed and was sent to [facility] from the ER. He claims he some complication from that chest tube. I did call [facility] who denied the transfer as they are not acknowledging transfer per patient request as they are at full capacity. Rediscussed with patient including indication, risks and benefits of thoracentesis and he is amenable now to pursuing thoracentesis here. Discussed with radiology who has scheduled patient for thoracentesis today. Reason For Visit: PNEUMOMNIA,CONTRACTION ALKALOSIS Physical Exam Vital Signs: Temp Pulse Resp BP Pulse Ox 97.6 F 72 22 H 109/43 L 91 L 01/24/19 12:30 01/24/19 12:30 01/24/19 12:30 01/24/19 12:30 01/24/19 12:30 Pulse Oximeter Continuous Start: 01/21/19 09:22 Freq: RTQ4 Status: Active Protocol: Document 01/24/19 08:23 NSM (Rec: 01/24/19 08:25 NSM [id number]) Pulse Oximetry Assessment Oxygen Saturation (92-100) 93 Oxygen Flow Rate (L/min) 5 Oxygen Delivery Method Nasal Cannula Fraction of Inspired Oxygen (FIO2) 40 Equipment Usage Equipment in Use Continuous SpO2 Machine # N1 Intake & Output 01/23/19 01/24/19 01/25/19 06:59 06:59 06:59 Intake Total 2301 1160 Output Total 1100 850 Balance 1201 310 Weight 169 lb 8.568 oz 171 lb 8.314 oz General appearance: PRESENT: no acute distress, well-developed, well-nourished Head exam: PRESENT: atraumatic, normocephalic Eye exam: PRESENT: conjunctiva pink, EOMI, PERRLA. ABSENT: scleral icterus Ear exam: PRESENT: normal external ear exam Mouth exam: PRESENT: moist, tongue midline Neck exam: ABSENT: carotid bruit, JVD, lymphadenopathy, thyromegaly Respiratory exam: PRESENT: decreased breath sounds - bases, rales, rhonchi. ABSENT: wheezes Pulses: PRESENT: normal dorsalis pedis pul GI/Abdominal exam: PRESENT: normal bowel sounds, soft. ABSENT: distended, guarding, mass, organolmegaly, rebound, tenderness Rectal exam: PRESENT: deferred Neurological exam: PRESENT: alert, awake, oriented to person, oriented to place, oriented to time, oriented to situation, CN II-XII grossly intact. ABSENT: motor sensory deficit Results Laboratory Results: 01/24/19 06:36 01/24/19 06:36 01/23/19 01/24/19 01/24/19 10:40 06:20 06:36 WBC 16.9 H 11.9 H RBC 3.10 L 3.11 L Hgb 9.6 L 9.4 L Hct 27.9 L 27.9 L MCV 90 90 MCH 30.8 30.2 MCHC 34.3 33.7 RDW 14.1 H 13.8 Plt Count 403 428 Seg Neutrophils % 84.7 H Lymphocytes % 6.9 L Monocytes % 8.0 Eosinophils % 0.2 Basophils % 0.2 Absolute Neutrophils 10.1 H Absolute Lymphocytes 0.8 Absolute Monocytes 0.9 Absolute Eosinophils 0.0 Absolute Basophils 0.0 Carbonic Acid 1.75 H HCO3/H2CO3 Ratio 21:1 ABG pH 7.43 ABG pCO2 58.2 H ABG pO2 62.9 L ABG HCO3 37.8 H ABG O2 Saturation 92.1 L ABG Base Excess 11.8 FiO2 40% Sodium Potassium Chloride Carbon Dioxide Anion Gap BUN Creatinine Est GFR ( Amer) Est GFR (Non-Af Amer) Glucose Calcium Magnesium 01/24/19 06:36 WBC RBC Hgb Hct MCV MCH MCHC RDW Plt Count Seg Neutrophils % Lymphocytes % Monocytes % Eosinophils % Basophils % Absolute Neutrophils Absolute Lymphocytes Absolute Monocytes Absolute Eosinophils Absolute Basophils Carbonic Acid HCO3/H2CO3 Ratio ABG pH ABG pCO2 ABG pO2 ABG HCO3 ABG O2 Saturation ABG Base Excess FiO2 Sodium 133.5 L Potassium 5.0 Chloride 96 L Carbon Dioxide 32 H Anion Gap 6 BUN 30 H Creatinine 0.63 Est GFR ( Amer) > 60 Est GFR (Non-Af Amer) > 60 Glucose 91 Calcium 9.0 Magnesium 2.5 H 01/20/19 01/20/19 20:51 20:51 Troponin I 0.014 NT-Pro-B Natriuret Pep 699 H Impressions: Chest X-Ray 01/20/19 20:01 IMPRESSION: Findings consistent with CHF. Right lower lobe pneumonia is also suspected, appears worse. Chest CT 01/21/19 00:00 IMPRESSION: Right lower lobe pneumonia. Bilateral pleural effusions. Pulmonary emphysema. Atelectatic changes bilaterally as described. Low-density lesion in the right lobe of the thyroid gland. Assessment & Plan - Diagnosis (1) Acute on chronic respiratory failure with hypoxia and hypercapnia Is this a current diagnosis for this admission?: Yes Plan: Secondary to Streptococcal pneumonia. On/off BIPAP. Currently saturating well on 4 lpm via NC. (2) Streptococcal pneumonia Is this a current diagnosis for this admission?: Yes Plan: Continue Rocephin. Chest CT shows persistent right lobe consolidation with bilateral effusions likely parapneumonic in nature. 01/22: Discussed case with Dr. Solis who will evaluate the patient tomorrow morning. 01/23: Discussed with pulmonology and reviewed recent chest CT results which domenic wed increasing pleural effusions. Pulm recommends chest tube insertion by surgery. 01/24: No recurrence of hemoptysis so far. Currently saturating at 92% on 4 lpm via NC. Discussed with surgicalist this morning, Dr. Quiroz who has discussed with Dr. Strong and they have recommended with holding off on chest tube placement and pursuing thoracentesis by radiology first. Rediscussed with patient who requested undergoing the procedure at [facility]. Apparently, he is anxious as he was presented in the ER in 2012 with a pneumothorax, had a chest tube placed and was sent to [facility] from the ER. I did call [facility] who denied the transfer as they are not acknowledging transfer per patient request as they are at full capacity. Rediscussed with patient including indication, risks and benefits of thoracentesis and he is amenable now to pursuing thoracentesis here. (3) Pleural effusion Is this a current diagnosis for this admission?: Yes Plan: As per number 2. (4) COPD exacerbation Is this a current diagnosis for this admission?: Yes Plan: Improved. Continue prednisone and breathing treatments.
--- NOTE | 2019-01-24 15:38 | RADIOLOGY REPORT (SQ) ---
EXAM DESCRIPTION: CHEST SINGLE VIEW COMPLETED DATE/TIME: 01/24/2019 3:28 pm REASON FOR STUDY: POST THORA BILATERAL PLEURAL EFFUSION COMPARISON: 01/20/2019. NUMBER OF VIEWS: One view. TECHNIQUE: Single frontal radiographic image of the chest acquired. LIMITATIONS: None. FINDINGS: LUNGS AND PLEURA: Interval placement of left pleural drainage catheter left costophrenic a ngle. No pneumothorax. Right lower lobe airspace disease not significantly changed. MEDIASTINUM AND HEART: Stable heart size and mediastinal structures. SUPPORT DEVICES: Appropriate location without change. BONY STRUCTURES: No acute findings. HARDWARE: None. OTHER: No other significant finding. IMPRESSION: No pneumothorax status post left thoracentesis. Reading location - IP/workstation name: [email or web address]
--- NOTE | 2019-01-24 16:17 | RADIOLOGY REPORT (SQ) ---
EXAM DESCRIPTION: U/S THORACENTESIS WITH IMAGING COMPLETED DATE/TIME: 01/24/2019 3:57 pm REASON FOR STUDY: bilateral pleural effusion COMPARISON: None FLUORO TIME: None. None. Images saved to PACS. TECHNIQUE: Image guided chest tube placement using sterile technique. LIMITATIONS: None FINDINGS: After written consent was obtained and explaining the risks and benefits of conscious edy tion , the patient was placed upright. A time out was then called for site verification. An entry si te was then marked using ultrasound guidance. The posterior left wall was then prepped and draped in a sterile fashion. The site was then anesthetized using 3.0 ml of 1% lidocaine solution. An 11 blad e scalpel was used to make a small skin incision. A 18g -7cm needle was advanced into the chest wall . A.038 guidewire was passed through the needle. The tract was then dilated using a 10 [place] dilat or. A 10 fraying fr drain was then placed over the wire. The catheter was then attached to the [employer] ection device. The entry site was covered with a sterile bandage. IMPRESSION: SUCCESSFUL PLACEMENT OF A LEFT SIDED CHEST TUBE USING ULTRASOUND GUIDANCE. COMMENT: Patient medication list reviewed: Yes- Quality ID# 130:Eligible professional attests to do cumenting in the medical record they obtained, updated, or reviewed the patient's current medications . Quality ID 145: Final reports for procedures using fluoroscopy that document radiation exposure roberta chen, or exposure time and number of fluorographic images (if radiation exposure indices are not avail able) TECHNICAL DOCUMENTATION: JOB ID: [id number] [email or web address]- All Rights Reserved rev Reading location - IP/workstation name: [email or web address]
[2019-01-24] MEDS: CEFTRIAXONE 1 GM/D5W RTU 1 GM/50 ML RTUPB IV SCH (18:36)
[2019-01-24] MEDS: ASPIRIN 81 MG TABLET, ENT COATED PO SCH (18:36)
[2019-01-24 18:44] LABS: FLUID APPEARANCE SLIGHTLY HAZY; FLUID COLOR YELLOW; FLUID SOURCE LUNG; FLUID TYPE PLEURAL; FLUID VISCOSITY SLIGHTLY VISCOUS
[2019-01-24] MEDS: ACETYLCYSTEINE 10% NEB 400 MG/4 ML VIAL NEB SCH (20:17)
[2019-01-24] MEDS: AZITHROMYCIN 500 MG in DEXTROSE 5%-WATER 250 ML IV SCH (23:17)
[2019-01-24] MEDS: ATORVASTATIN CALCIUM 10 MG TABLET PO SCH (23:17)
[2019-01-25] MEDS: IPRATROPIUM/ALBUTEROL 0.5-2.5 MG/3 ML AMPUL NEB SCH ×4 (02:00→19:58)
[2019-01-25] MEDS: ACETYLCYSTEINE 10% NEB 400 MG/4 ML VIAL NEB SCH ×4 (02:00→19:58)
[2019-01-25] MEDS: DILTIAZEM HCL 180 MG CAPSULE.CR PO SCH (10:12)
[2019-01-25] MEDS: ASPIRIN 81 MG TABLET, ENT COATED PO SCH (10:13)
[2019-01-25] MEDS: PREDNISONE 10 MG TABLET PO SCH ×2 (10:13→18:04)
[2019-01-25] MEDS: FLUTICASONE NASAL SPRAY 50 MCG/SPRY 120 SPRAY/16 GM NASL SCH ×2 (10:13→21:54)
--- NOTE | 2019-01-25 12:38 | PDOC PROGRESS REPORT ---
Subjective Progress Note for:: 01/25/19 Subjective:: MARY HAWKINS is a 83 year old male with a PMH of COPD on 3 lpm of home O2, hypoactive urinary bladder-does intermittent self catheterizatons, and hyperlipidemia who initially presented with productive cough, fever and SOB on 01/11/19 and was admitted for a right lower lobe pneumonia. He was found to be bacteremic with 2/2 bottles of blood cultures growing S. pneumonia. He was discharged yesterday 01/20/19 to [place]. He reportedly had recurrence of SOB and hypoxia and was brought back to the hospital from the senior living. 01/21: Upon encounter this morning, he denies worsening of his SOB. Per RN, he did have desaturation to 85-87% on 4 lpm via NC. He had blood tinged sputum but this has been less compared the day prior to discharge when he had more grossly bloody sputum. 01/22: Patient reportedly desaturated to the high 80s on 4 lpm via NC overnight. Upon encounter, he appears comfortable and is saturating well on BIPAP. Denies chest pain. He says there is less blood streak on the sputum now. 01/23: Patient had an episode of coughing out a bloody sputum. He was weaned off BIPAP last night, placed on 4 lpm of NC but had an episode of desaturation down to 82% and was put back on a nonrebreather. Upon encounter, he is not in distress. Discussed with pulmonology and reviewed recent CT which showed increasing pleural effusions. Pulm recommends chest tube insertion by surgery. 01/24: No recurrence of hemoptysis so far. Currently saturating at 92% on 4 lpm via NC. Discussed with surgicalist this morning, Dr. Quiroz who has discussed with Dr. Cruz and they have recommended with holding off on chest tube placement and pursuing thoracentesis by radiology first. Rediscussed with patient who requested undergoing the procedure at [facility]. Apparently, he is anxious as he presented in the ER in 2012 with a pneumothorax, had a chest tube placed and was sent to [facility] from the ER. He claims he some complication from that chest tube. I did call [facility] who denied the transfer as they are not acknowledging transfer per patient request as they are at full capacity. Rediscussed with patient including indication, risks and benefits of thoracentesis and he is amenable now to pursuing thoracentesis here. Discussed with radiology who has scheduled patient for thoracentesis today. 01/25: No acute event overnight. He underwent left sided chest tube placement yesterday by radiology which he tolerated well. Discussed with radiology, there is minimal right sided effusion and that it's mostly consolidation on the right. Patient did express he feels better placement of chest tube. He had 130 cc of output from the chest tube overnight. He has not required BIPAP overnight and has been saturating well on 4 lpm via NC. Pleural fluid studies are pending. Reason For Visit: PNEUMOMNIA,CONTRACTION ALKALOSIS Physical Exam Vital Signs: Temp Pulse Resp BP Pulse Ox 98.1 F 72 21 H 126/43 H 92 01/25/19 11:30 01/25/19 11:30 01/25/19 11:30 01/25/19 11:30 01/25/19 11:30 Pulse Oximeter Continuous Start: 01/21/19 0 9:22 Freq: RTQ4 Status: Active Protocol: Document 01/25/19 07:52 CBR (Rec: 01/25/19 09:48 CBR [id number]) Pulse Oximetry Assessment Oxygen Saturation (92-100) 96 Oxygen Flow Rate (L/min) 5 Oxygen Delivery Method Nasal Cannula Fraction of Inspired Oxygen (FIO2) 40 Equipment Usage Equipment in Use Continuous SpO2 Machine # 2 Intake & Output 01/24/19 01/25/19 01/26/19 06:59 06:59 06:59 Intake Total 1160 500 250 Output Total 850 75 Balance 310 425 250 Weight 171 lb 8.314 oz 162 lb 0.636 oz General appearance: PRESENT: no acute distress, well-developed, well-nourished Head exam: PRESENT: atraumatic, normocephalic Eye exam: PRESENT: conjunctiva pink, EOMI, PERRLA. ABSENT: scleral icterus Ear exam: PRESENT: normal external ear exam Mouth exam: PRESENT: moist, tongue midline Neck exam: ABSENT: carotid bruit, JVD, lymphadenopathy, thyromegaly Respiratory exam: PRESENT: decreased breath sounds, rales, rhonchi. ABSENT: wheezes Cardiovascular exam: PRESENT: RRR. ABSENT: diastolic murmur, rubs, systolic murmur Pulses: PRESENT: normal dorsalis pedis pul GI/Abdominal exam: PRESENT: normal bowel sounds, soft. ABSENT: distended, guarding, mass, organolmegaly, rebound, tenderness Rectal exam: PRESENT: deferred Neurological exam: PRESENT: alert, awake, oriented to person, oriented to place, oriented to time, oriented to situation, CN II-XII grossly intact. ABSENT: odessa r sensory deficit Results Laboratory Results: 01/24/19 06:36 01/24/19 06:36 01/24/19 15:30 Fluid Type PLEURAL Fluid Source LUNG Fluid Color YELLOW Fluid Appearance SLIGHTLY HAZY Fluid Viscosity SLIGHTLY VISCOUS Fluid WBC 272 Fluid RBC 848 01/20/19 01/20/19 20:51 20:51 Troponin I 0.014 NT-Pro-B Natriuret Pep 699 H Impressions: Chest CT 01/21/19 00:00 IMPRESSION: Right lower lobe pneumonia. Bilateral pleural effusions. Pulmonary emphysema. Atelectatic changes bilaterally as described. Low-density lesion in the right lobe of the thyroid gland. Thoracentesis Ultrasound 01/24/19 00:00 IMPRESSION: SUCCESSFUL PLACEMENT OF A LEFT SIDED CHEST TUBE USING ULTRASOUND GUIDANCE. Assessment & Plan - Diagnosis (1) Acute on chronic respiratory failure with hypoxia and hypercapnia Is this a current diagnosis for this admission?: Yes Plan: Secondary to Streptococcal pneumonia. On/off BIPAP. Currently saturating well on 4 lpm via NC. S/P left sided chest tube placement on 01/24. (2) Streptococcal pneumonia Is this a current diagnosis for this admission?: Yes Plan: Continue Rocephin. Chest CT shows persistent right lobe consolidation with bilateral effusions likely parapneumonic in nature. 01/22: Discussed case with Dr. Solis who will evaluate the patient tomorrow morning. 01/23: Discussed with pulmonology and reviewed recent chest CT results which showed increasing pleural effusions. Pulm recommends chest tube insertion by surgery. 01/24: No recurrence of hemoptysis so far. Currently saturating at 92% on 4 lpm via NC. Discussed with surgicalist this morning, Dr. Quiroz who has discussed with Dr. Strong and they have recommended with holding off on chest tube placement and pursuing thoracentesis by radiology first. Rediscussed with patient who requested undergoing the procedure at [facility]. Apparently, he is anxious as he was presented in the ER in 2012 with a pneumothorax, had a chest tube placed and was sent to [place] from the ER. I did call [facility] who denied the transfer as they are not acknowledging transfer per patient request as they are at full capacity. Rediscussed with patient including indication, risks and benef its of thoracentesis and he is amenable now to pursuing thoracentesis here. S/P left sided chest tube placement on 01/24. (3) Pleural effusion Is this a current diagnosis for this admission?: Yes Plan: As per number 2. S/P left sided chest tube placement on 01/24. Pleural fluid studies pending. (4) COPD exacerbation Is this a current diagnosis for this admission?: Yes Plan: Improved. Continue prednisone and breathing treatments. - Time Time Spent with patient: 25-34 minutes
--- NOTE | 2019-01-25 12:47 | RADIOLOGY REPORT (SQ) ---
EXAM DESCRIPTION: CHEST SINGLE VIEW COMPLETED DATE/TIME: 01/25/2019 7:22 am REASON FOR STUDY: POST THORA BILATERAL PLEURAL EFFUSION-DO ON 01/25/19 COMPARISON: 01/24/2019 EXAM PARAMETERS: NUMBER OF VIEWS: One view. TECHNIQUE: Single frontal radiographic view of the chest acquired. RADIATION DOSE: NA LIMITATIONS: None. FINDINGS: LUNGS AND PLEURA: Improved aeration of the right lung base. No new focal consolidation. Stable right-sided pleural effusion. No pneumothorax. MEDIASTINUM AND HILAR STRUCTURES: Stable. HEART AND VASCULAR STRUCTURES: Stable. BONES: No acute findings. HARDWARE: Left lung base pleural drain demonstrating appropriate positioning. OTHER: No other significant finding. IMPRESSION: Improved aeration of the right lung base. Otherwise stable radiographic appearance of t he chest. TECHNICAL DOCUMENTATION: JOB ID: [id number] [employer]- All Rights Reserved Reading location - IP/workstation name: [email or web address]
[2019-01-25] MEDS: CEFTRIAXONE 1 GM/D5W RTU 1 GM/50 ML RTUPB IV SCH (18:04)
[2019-01-25] MEDS: AZITHROMYCIN 500 MG in DEXTROSE 5%-WATER 250 ML IV SCH (21:54)
[2019-01-25] MEDS: ATORVASTATIN CALCIUM 10 MG TABLET PO SCH (21:54)
[2019-01-26] MEDS: IPRATROPIUM/ALBUTEROL 0.5-2.5 MG/3 ML AMPUL NEB SCH ×4 (01:24→20:31)
[2019-01-26] MEDS: ACETYLCYSTEINE 10% NEB 400 MG/4 ML VIAL NEB SCH ×4 (01:24→20:31)
[2019-01-26] MEDS: DILTIAZEM HCL 180 MG CAPSULE.CR PO SCH (10:57)
[2019-01-26] MEDS: PREDNISONE 10 MG TABLET PO SCH ×2 (10:58→19:02)
[2019-01-26] MEDS: ASPIRIN 81 MG TABLET, ENT COATED PO SCH (10:58)
[2019-01-26] MEDS: FLUTICASONE NASAL SPRAY 50 MCG/SPRY 120 SPRAY/16 GM NASL SCH ×2 (10:58→21:16)
--- NOTE | 2019-01-26 12:15 | PDOC PROGRESS REPORT ---
Subjective Progress Note for:: 01/26/19 Subjective:: MARY HAWKINS is a 83 year old male with a PMH of COPD on 3 lpm of home O2, hypoactive urinary bladder-does intermittent self catheterizatons, and hyperlipidemia who initially presented with productive cough, fever and SOB on 01/11/19 and was admitted for a right lower lobe pneumonia. He was found to be bacteremic with 2/2 bottles of blood cultures growing S. pneumonia. He was discharged yesterday 01/20/19 to [place]. He reportedly had recurrence of SOB and hypoxia and was brought back to the hospital from the long term. 01/21: Upon encounter this morning, he denies worsening of his SOB. Per RN, he did have desaturation to 85-87% on 4 lpm via NC. He had blood tinged sputum but this has been less compared the day prior to discharge when he had more grossly bloody sputum. 01/22: Patient reportedly desaturated to the high 80s on 4 lpm via NC overnight. Upon encounter, he appears comfortable and is saturating well on BIPAP. Denies chest pain. He says there is less blood streak on the sputum now. 01/23: Patient had an episode of coughing out a bloody sputum. He was weaned off BIPAP last night, placed on 4 lpm of NC but had an episode of desaturation down to 82% and was put back on a nonrebreather. Upon encounter, he is not in distress. Discussed with pulmonology and reviewed recent CT which showed increasing pleural effusions. Pulm recommends chest tube insertion by surgery. 01/24: No recurrence of hemoptysis so far. Currently saturating at 92% on 4 lpm via NC. Discussed with surgicalist this morning, Dr. Quiroz who has discussed with Dr. Cruz and they have recommended with holding off on chest tube placement and pursuing thoracentesis by radiology first. Rediscussed with patient who requested undergoing the procedure at [facility]. Apparently, he is anxious as he presented in the ER in 2012 with a pneumothorax, had a chest tube placed and was sent to [facility] from the ER. He claims he some complication from that chest tube. I did call [facility] who denied the transfer as they are not acknowledging transfer per patient request as they are at full capacity. Rediscussed with patient including indication, risks and benefits of thoracentesis and he is amenable now to pursuing thoracentesis here. Discussed with radiology who has scheduled patient for thoracentesis today. 01/25: He underwent left sided chest tube placement yesterday by radiology which he tolerated well. Discussed with radiology, there is minimal right sided effusion and that it's mostly consolidation on the right. Patient did express he feels better placement of chest tube. He had 135 cc of output from the chest tube overnight. He has not required BIPAP overnight and has been saturating well on 4 lpm via NC. Pleural fluid studies are pending. 01/26: No acute event overnight. No hemoptysis overnight. He is saturating at 92% on 4 lpm via NC. He had 100 cc of output from the chest tube overnight. Pleural fluid studies are still pending. Will repeat chest CT today. Reason For Visit: PNEUMOMNIA,CONTRACTION ALKALOSIS Physical Exam Vital Signs: Temp Pulse Resp BP Pulse Ox 97.6 F 91 20 117/57 L 97 01/26/19 03:45 01/26/19 08:32 01/26/19 08:32 01/26/19 03:45 01/26/19 08:32 Pulse Oximeter Continuous Start: 01/21/19 09:2 2 Freq: RTQ4 Status: Active Protocol: Document 01/26/19 08:32 CBR (Rec: 01/26/19 08:55 CBR [email or web address]) Pulse Oximetry Assessment Oxygen Saturation (92-100) 97 Oxygen Flow Rate (L/min) 5 Oxygen Delivery Method Nasal Cannula Fraction of Inspired Oxygen (FIO2) 40 Equipment Usage Equipment in Use Continuous SpO2 Machine # 2 Intake & Output 01/25/19 01/26/19 01/27/19 06:59 06:59 06:59 Intake Total 500 550 Output Total 75 3160 100 Balance 425 -2610 -100 Weight 162 lb 0.636 oz 162 lb 11.218 oz General appearance: PRESENT: no acute distress, well-developed, well-nourished Head exam: PRESENT: atraumatic, normocephalic Eye exam: PRESENT: conjunctiva pink, EOMI, PERRLA. ABSENT: scleral icterus Ear exam: PRESENT: normal external ear exam Mouth exam: PRESENT: moist, tongue midline Neck exam: ABSENT: carotid bruit, JVD, lymphadenopathy, thyromegaly Respiratory exam: PRESENT: decreased breath sounds, rhonchi. ABSENT: rales, wheezes Cardiovascular exam: PRESENT: RRR. ABSENT: diastolic murmur, rubs, systolic murmur Pulses: PRESENT: normal dorsalis pedis pul GI/Abdominal exam: PRESENT: normal bowel sounds, soft. ABSENT: distended, guarding, mass, organolmegaly, rebound, tenderness Rectal exam: PRESENT: deferred Neurological exam: PRESENT: alert, awake, oriented to person, oriented to place, oriented to time, oriented to situation, CN II-XII grossly intact. ABSENT: mot or sensory deficit Results Laboratory Results: 01/24/19 06:36 01/24/19 06:36 01/21/19 10:55 Blood Blood Culture - Final NO GROWTH IN 5 DAYS 01/21/19 11:08 Blood Blood Culture - Final NO GROWTH IN 5 DAYS 01/20/19 01/20/19 20:51 20:51 Troponin I 0.014 NT-Pro-B Natriuret Pep 699 H Impressions: Chest CT 01/21/19 00:00 IMPRESSION: Right lower lobe pneumonia. Bilateral pleural effusions. Pulmonary emphysema. Atelectatic changes bilaterally as described. Low-density lesion in the right lobe of the thyroid gland. Thoracentesis Ultrasound 01/24/19 00:00 IMPRESSION: SUCCESSFUL PLACEMENT OF A LEFT SIDED CHEST TUBE USING ULTRASOUND GUIDANCE. Chest X-Ray 01/25/19 00:00 IMPRESSION: Improved aeration of the right lung base. Otherwise stable radiographic appearance of the chest. Assessment & Plan - Diagnosis (1) Acute on chronic respiratory failure with hypoxia and hypercapnia Is this a current diagnosis for this admission?: Yes Plan: Secondary to Streptococcal pneumonia. On/off BIPAP. Currently saturating well on 4 lpm via NC. S/P left sided chest tube placement on 01/24. (2) Streptococcal pneumonia Is this a current diagnosis for this admission?: Yes Plan: Continue Rocephin. Chest CT shows persistent right lobe consolidation with bilateral effusions likely parapneumonic in nature. 01/22: Discussed case with Dr. Solis who will evaluate the patient tomorrow morning. 01/23: Discussed with pulmonology and reviewed recent chest CT results which showed increasing pleural effusions. Pulm recommends chest tube insertion by surgery. 01/24: No recurrence of hemoptysis so far. Currently saturating at 92% on 4 lpm via NC. Discussed with surgicalist this morning, Dr. Quiroz who has discussed w ith Dr. Strong and they have recommended with holding off on chest tube placement and pursuing thoracentesis by radiology first. Rediscussed with patient who requested undergoing the procedure at [facility]. Apparently, he is anxious as he was presented in the ER in 2012 with a pneumothorax, had a chest tube placed and was sent to [facility] from the ER. I did call [facility] who denied the transfer as they are not acknowledging transfer per patient request as they are at full capacity. Rediscussed with patient including indication, risks and benefits of thoracentesis and he is amenable now to pursuing thoracentesis here. S/P left sided chest tube placement on 01/24. (3) Pleural effusion Is this a current diagnosis for this admission?: Yes Plan: As per number 2. S/P left sided chest tube placement on 01/24. Pleural fluid studies pending. 01/25: He had 135 cc of output from the chest tube overnight. He has not required BIPAP overnight and has been saturating well on 4 lpm via NC. Pleural fluid studies are pending. 01/26: He is saturating at 92% on 4 lpm via NC. He had 100 cc of output from the chest tube overnight. Pleural fluid studies are still pending. Will repeat chest CT today. (4) COPD exacerbation Is this a current diagnosis for this admission?: Yes Plan: Improved. Continue prednisone and breathing treatments. - Time Time Spent with patient: 25-34 minutes
--- NOTE | 2019-01-26 17:23 | RADIOLOGY REPORT (SQ) ---
EXAM DESCRIPTION: CT CHEST WITHOUT COMPLETED DATE/TIME: 01/26/2019 5:06 pm REASON FOR STUDY: reassess consolidation, effusion COMPARISON: 01/21/2019 and 01/19/2019 TECHNIQUE: CT scan performed of the chest without intravenous contrast. Images reviewed with lung, soft tissue and bone windows. Reconstructed coronal and sagittal MPR images reviewed. All images st ored on PACS. All CT scanners at this facility use dose modulation, iterative reconstruction, and/or weight based d osing when appropriate to reduce radiation dose to as low as reasonably achievable (ALARA). [facility]: Dose Right [facility]: CareDose [facility]: Dose Right [facility]: Teradose 4D [facility]: Smart Pollen - [employer] Platform RADIATION DOSE: CT Rad equipment meets quality standard of care and radiation dose reduction techniq ues were employed. CTDIvol: 10.6 mGy. DLP: 447 mGy-cm. mGy. LIMITATIONS: No technical limitations. FINDINGS: LUNGS AND PLEURA: Again seen are extensive centrilobular emphysematous changes throughout. Significant improvement of the bilateral pleural effusions with small right greater than left resid ual pleural effusions. Interval improvement in airspace consolidation in the right lower lobe when c ompared to prior exam. Some residual atelectatic changes are still present within the bilateral lowe r lobes as well as the right middle lobe. No obvious pulmonary mass at this time. HILAR AND MEDIASTINAL STRUCTURES: No identified masses or abnormal nodes. No obvious aneurysm. HEART AND VASCULAR STRUCTURES: No aneurysm. No pericardial effusion. UPPER ABDOMEN: There is a low-density mass lesion within the superior pole of the left kidney that is not completely evaluated on this noncontrast examination but measures at least 4 cm in diameter. Th ere is a smaller hyperdense lesion exophytic from the superior pole right kidney that likely represen ts a cyst, but again is not completely evaluated on this noncontrast examination. THYROID AND OTHER SOFT TISSUES: Again seen is a low-density lesion in the inferior pole of the right lobe of the thyroid. BONES: Stable compression deformity in the midthoracic spine. HARDWARE: None in the chest. OTHER: There is a small pigtail catheter within the pleural space in the base of the left lung. IMPRESSION: 1. Significant improvement of bilateral pleural effusions with small residual right gre ater than left pleural effusions. 2. Significant improvement in the right lower lobe airspace consolidation/ pneumonia seen on prior e xam. No definite mass lesions are identified, however recommend follow-up to resolution to ensure no underlying mass is present. 3. Mass lesion within the superior pole of the left kidney. This is incompletely evaluated on this examination but neoplasm is not excluded. Recommend clinical correlation and comparison with any rianna or imaging if available. 4. Extensive centrilobular emphysematous changes TECHNICAL DOCUMENTATION: JOB ID: [id number] Quality ID # [id number]: Final reports with documentation of one or more dose reduction techniques (e.g., Au tomated exposure control, adjustment of the mA and/or kV according to patient size, use of iterative reconstruction technique) 2010 [email or web address]- All Rights Reserved Reading location - IP/workstation name: [email or web address]
[2019-01-26] MEDS: CEFTRIAXONE 1 GM/D5W RTU 1 GM/50 ML RTUPB IV SCH (19:03)
--- NOTE | 2019-01-26 19:33 | RADIOLOGY REPORT (SQ) ---
EXAM DESCRIPTION: CHEST SINGLE VIEW COMPLETED DATE/TIME: 01/26/2019 7:06 pm REASON FOR STUDY: Accidental Removal of Chest Tube COMPARISON: 01/25/2018 and earlier EXAM PARAMETERS: NUMBER OF VIEWS: One view. TECHNIQUE: Single frontal radiographic view of the chest acquired. RADIATION DOSE: NA LIMITATIONS: None. FINDINGS: LUNGS AND PLEURA: Unchanged left basilar opacity with associated left pleural effusion. I mproved right basilar opacity with associated right pleural effusion. No pneumothorax visualized on this exam. MEDIASTINUM AND HILAR STRUCTURES: Unchanged narrowing of the superior thoracic trachea due to the sub sternal thyroid. HEART AND VASCULAR STRUCTURES: Heart normal in size. Normal vasculature. BONES: No acute findings. HARDWARE: Interval removal of the left-sided pigtail chest tube. OTHER: No other significant finding. IMPRESSION: 1. Interval removal of the left-sided chest tube. Unchanged small left basilar opacity with associat ed trace left pleural effusion. 2. Improved appearance of the right basilar opacity with associated pleural effusion. TECHNICAL DOCUMENTATION: JOB ID: [id number] [employer]- All Rights Reserved Reading location - IP/workstation name: [email or web address]
--- NOTE | 2019-01-26 21:13 | EKG REPORT ---
SEVERITY:- ABNORMAL ECG - SINUS RHYTHM RIGHT AXIS DEVIATION LOW VOLTAGE IN FRONTAL LEADS CONSIDER ANTEROSEPTAL INFARCT NONSPECIFIC T ABNORMALITIES, LATERAL LEADS , UNCHANGED : Confirmed by: Daniel Roman MD 26-Jan-2019 21:13:26
[2019-01-26] MEDS: ATORVASTATIN CALCIUM 10 MG TABLET PO SCH (21:16)
[2019-01-26] MEDS: AZITHROMYCIN 500 MG in DEXTROSE 5%-WATER 250 ML IV SCH (21:16)
[2019-01-27] MEDS: ACETYLCYSTEINE 10% NEB 400 MG/4 ML VIAL NEB SCH ×4 (02:11→19:36)
[2019-01-27] MEDS: IPRATROPIUM/ALBUTEROL 0.5-2.5 MG/3 ML AMPUL NEB SCH ×4 (02:12→19:36)
[2019-01-27 05:10] LABS: HEMATOCRIT 27.2 % (37.9-51.0); HEMOGLOBIN 9.2 g/dL (13.5-17.0); MEAN CORPUSCULAR HEMOGLOBIN 30.6 pg (27.0-33.4); MEAN CORPUSCULAR HGB CONC 33.9 g/dL (32.0-36.0); MEAN CORPUSCULAR VOLUME 90 fl (80-97); PLATELET COUNT 406 10^3/uL (150-450); RED BLOOD COUNT 3.01 10^6/uL (4.35-5.55); RED CELL DISTRIBUTION WIDTH 13.8 % (11.5-14.0); WHITE BLOOD COUNT 11.2 10^3/uL (4.0-10.5)
[2019-01-27 05:33] LABS: ABSOLUTE LYMPHOCYTES# (MANUAL) 0.8 10^3/uL (0.5-4.7); ABSOLUTE MONOCYTES # (MANUAL) 0.6 10^3/uL (0.1-1.4); ABSOLUTE NEUTROPHILS# (MANUAL) 9.9 10^3/uL (1.7-8.2); BASOPHILS % (MANUAL) 0 % (0-2); EOSINOPHILS % (MANUAL) 0 % (0-6); LYMPHOCYTES % (MANUAL) 7 % (13-45); MONOCYTES % (MANUAL) 5 % (3-13); SEGMENTED NEUTROPHILS % (MAN) 88 % (42-78); TOTAL CELLS COUNTED 100
[2019-01-27 05:35] LABS: PLATELET COMMENT ADEQUATE; SCHISTOCYTES SLIGHT
[2019-01-27 05:36] LABS: BLOOD UREA NITROGEN 28 mg/dL (7-20); GLUCOSE 122 mg/dL (75-110); POTASSIUM 4.7 mmol/L (3.6-5.0)
[2019-01-27 05:42] LABS: CARBON DIOXIDE 36 mmol/L (22-30); CHLORIDE 96 mmol/L (98-107); SODIUM 134.9 mmol/L (137-145)
[2019-01-27 06:12] LABS: ANION GAP 3 (5-19)
[2019-01-27] MEDS: DILTIAZEM HCL 180 MG CAPSULE.CR PO SCH (10:30)
[2019-01-27] MEDS: PREDNISONE 10 MG TABLET PO SCH ×2 (10:31→17:33)
[2019-01-27] MEDS: ASPIRIN 81 MG TABLET, ENT COATED PO SCH (10:31)
[2019-01-27] MEDS: FLUTICASONE NASAL SPRAY 50 MCG/SPRY 120 SPRAY/16 GM NASL SCH ×2 (10:31→21:58)
--- NOTE | 2019-01-27 14:12 | PDOC PROGRESS REPORT ---
Subjective Progress Note for:: 01/27/19 Subjective:: MARY HAWKINS is a 83 year old male with a PMH of COPD on 3 lpm of home O2, hypoactive urinary bladder-does intermittent self catheterizatons, and hyperlipidemia who initially presented with productive cough, fever and SOB on 01/11/19 and was admitted for a right lower lobe pneumonia. He was found to be bacteremic with 2/2 bottles of blood cultures growing S. pneumonia. He was discharged yesterday 01/20/19 to [facility]. He reportedly had recurrence of SOB and hypoxia and was brought back to the hospital from the custodial. 01/21: Upon encounter this morning, he denies worsening of his SOB. Per RN, he did have desaturation to 85-87% on 4 lpm via NC. He had blood tinged sputum but this has been less compared the day prior to discharge when he had more grossly bloody sputum. 01/22: Patient reportedly desaturated to the high 80s on 4 lpm via NC overnight. Upon encounter, he appears comfortable and is saturating well on BIPAP. Denies chest pain. He says there is less blood streak on the sputum now. 01/23: Patient had an episode of coughing out a bloody sputum. He was weaned off BIPAP last night, placed on 4 lpm of NC but had an episode of desaturation down to 82% and was put back on a nonrebreather. Upon encounter, he is not in distress. Discussed with pulmonology and reviewed recent CT which showed increasing pleural effusions. Pulm recommends chest tube insertion by surgery. 01/24: No recurrence of hemoptysis so far. Currently saturating at 92% on 4 lpm via NC. Discussed with surgicalist this morning, Dr. Quiroz who has discussed with Dr. Cruz and they have recommended with holding off on chest tube placement and pursuing thoracentesis by radiology first. Rediscussed with patient who requested undergoing the procedure at [facility]. Apparently, he is anxious as he presented in the ER in 2012 with a pneumothorax, had a chest tube placed and was sent to [facility] from the ER. He claims he had some complication from that chest tube then. I did call [facility] who denied the transfer as they are not acknowledging transfer per patient request as they are at full capacity. Rediscussed with patient including indication, risks and benefits of thor acentesis and he is amenable now to pursuing thoracentesis here. Discussed with radiology who has scheduled patient for thoracentesis today. 01/25: He underwent left sided chest tube placement yesterday by radiology which he tolerated well. Discussed with radiology, there is minimal right sided effu bladimir and that it's mostly consolidation on the right. Patient did express he feels better placement of chest tube. He had 135 cc of output from the chest tube overnight. He has not required BIPAP overnight and has been saturating well on 4 lpm via NC. Pleural fluid studies are pending. 01/26: No hemoptysis overnight. He is saturating at 92% on 4 lpm via NC. He had 100 cc of output from the chest tube overnight. Pleural fluid studies are still pending. Will repeat chest CT today. 01/27: Patient's chest tube was accidentally pulled out last night down in radiology when he went for a chest CT. Chest x-ray was negative for pneumothorax. No recurrence of hemoptysis. He says his breathing continues to improve. He has not required BIPAP in the past 48 hrs and has been saturating well on 5 lpm via NC. No indication for reinsertion of chest tube at this time. Repeat chest CT last night shows significant improvement of pleural effusions and also improvement of the right lobe consolidation. Plan to continue aggressive pulmonary toilette (mucomist nebs and CPT) IV antibiotics in the next 2-3 days before switching to oral antibiotics. Patient is anticipated to be discharged to [facility] if he continues to show clinical improvement. Reason For Visit: PNEUMOMNIA,CONTRACTION ALKALOSIS Physical Exam Vital Signs: Temp Pulse Resp BP Pulse Ox 98.1 F 63 17 111/53 L 96 01/27/19 11:11 01/27/19 11:11 01/27/19 11:11 01/27/19 11:11 01/27/19 11:32 Pulse Oximeter Continuous Start: 01/21/19 09:22 Freq: RTQ4 Status: Active Protocol: Document 01/27/19 11:32 DBE (Rec: 01/27/19 11:34 DBE [id number]) Pulse Oximetry Assessment Oxygen Saturation (92-100) 96 Oxygen Flow Rate (L/min) 5 Oxygen Delivery Method Nasal Cannula Fraction of Inspired Oxygen (FIO2) 40 Equipment Usage Equipment in Use Continuous SpO2 Machine # 2 Intake & Output 01/26/19 01/27/19 01/28/19 06:59 06:59 06:59 Intake Total 550 566 Output Total 3163 8591 Balance -2610 -1764 Weight 162 lb 11.218 oz 160 lb 7.944 oz General appearance: PRESENT: no acute distress, well-developed, well-nourished Head exam: PRESENT: atraumatic, normocephalic Eye exam: PRESENT: conjunctiva pink, EOMI, PERRLA. ABSENT: scleral icterus Ear exam: PRESENT: normal external ear exam Mouth exam: PRESENT: moist, tongue midline Neck exam: ABSENT: carotid bruit, JVD, lymphadenopathy, thyromegaly Respiratory exam: PRESENT: rales, rhonchi. ABSENT: wheezes Cardiovascular exam: PRESENT: RRR. ABSENT: diastolic murmur, rubs, systolic murmur Pulses: PRESENT: normal dorsalis pedis pul GI/Abdominal exam: PRESENT: normal bowel sounds, soft. ABSENT: distended, guarding, mass, organolmegaly, rebound, tenderness Rectal exam: PRESENT: deferred Neurological exam: PRESENT: alert, awake, oriented to person, oriented to place, oriented to time, oriented to situation, CN II-XII grossly intact. ABSENT: motor sensory deficit Results Laboratory Results: 01/27/19 04:13 01/27/19 04:13 01/24/19 01/24/19 01/24/19 15:30 15:30 15:30 WBC RBC Hgb Hct MCV MCH MCHC RDW Plt Count Seg Neutrophils % Lymphocytes % Monocytes % Eosinophils % Basophils % Absolute Neutrophils Absolute Lymphocytes Absolute Monocytes Absolute Eosinophils Absolute Basophils Sodium Potassium Chloride Carbon Dioxide Anion Gap BUN Creatinine Est GFR ( Amer) Est GFR (Non-Af Amer) Glucose Calcium TSH Fluid Total Protein 1.4 Fluid LDH 70 Fluid Amylase 14 01/27/19 01/27/19 01/27/19 04:13 04:13 04:13 WBC 11.2 H RBC 3.01 L Hgb 9.2 L Hct 27.2 L MCV 90 MCH 30.6 MCHC 33.9 RDW 13.8 Plt Count 406 Seg Neutrophils % Not Reportable Lymphocytes % Not Reportable Monocytes % Not Reportable Eosinophils % Not Reportable Basophils % Not Reportable Absolute Neutrophils Not Reportable Absolute Lymphocytes Not Reportable Absolute Monocytes Not Reportable Absolute Eosinophils Not Reportable Absolute Basophils Not Reportable Sodium 134.9 L Potassium 4.7 Chloride 96 L Carbon Dioxide 36 H Anion Gap 3 L BUN 28 H Creatinine 0.70 Est GFR ( Amer) > 60 Est GFR (Non-Af Amer) > 60 Glucose 122 H Calcium 9.0 TSH 0.99 Fluid Total Protein Fluid LDH Fluid Amylase 01/24/19 15:30 Pleural Fluid - Left Pleural Effusion Gram Stain - Final 01/21/19 10:55 Blood Blood Culture - Final NO GROWTH IN 5 DAYS 01/21/19 11:08 Blood Blood Culture - Final NO GROWTH IN 5 DAYS 01/20/19 01/20/19 20:51 20:51 Troponin I 0.014 NT-Pro-B Natriuret Pep 699 H Impressions: Thoracentesis Ultrasound 01/24/19 00:00 IMPRESSION: SUCCESSFUL PLACEMENT OF A LEFT SIDED CHEST TUBE USING ULTRASOUND GUIDANCE. Chest X-Ray 01/26/19 00:00 IMPRESSION: 1. Interval removal of the left-sided chest tube. Unchanged small left basilar opacity with associated trace left pleural effusion. 2. Improved appearance of the right basilar opacity with associated pleural effusion. Chest CT 01/26/19 10:52 IMPRESSION: 1. Significant improvement of bilateral pleural effusions with sma ll residual right greater than left pleural effusions. 2. Significant improvement in the right lower lobe airspace consolidation/ pneumonia seen on prior exam. No definite mass lesions are identified, however recommend follow-up to resolution to ensure no underlying mass is present. 3. Mass lesion within the superior pole of the left kidney. This is incompletely evaluated on this examination but neoplasm is not excluded. Recommend clinical correlation and comparison with any prior imaging if available. 4. Extensive centrilobular emphysematous changes Assessment & Plan - Diagnosis (1) Acute on chronic respiratory failure with hypoxia and hypercapnia Is this a current diagnosis for this admission?: Yes Plan: Secondary to Streptococcal pneumonia. On/off BIPAP. Currently saturating well on 4 lpm via NC. S/P left sided chest tube placement on 01/24. 01/27: Patient's chest tube was accidentally pulled out last night down in radiology when he went for a chest CT. Chest x-ray was negative for pneumothorax. No recurrence of hemoptysis. He says his breathing continues to improve. He has not required BIPAP in the past 48 hrs and has been saturating well on 5 lpm via NC. No indication for reinsertion of chest tube at this time. Repeat chest CT last night shows significant improvement of pleural effusions and also improvement of the right lobe consolidation. Plan to continue IV antibiotics, aggressive pulmonary toilette in the next 2-3 days before switching to oral antibiotics. Patient is anticipated to be discharged to [facility] if he continues to show clinical improvement. (2) Streptococcal pneumonia Is this a current diagnosis for this admission?: Yes Plan: Continue Rocephin. Chest CT shows persistent right lobe consolidation with bilateral effusions likely parapneumonic in nature. 01/22: Discussed case with Dr. Solis who will evaluate the patient tomorrow morning. 01/23: Discussed with pulmonology and reviewed recent chest CT results which showed increasing pleural effusions. Pulm recommends chest tube insertion by surgery. 01/24: No recurrence of hemoptysis so far. Currently saturating at 92% on 4 lpm via NC. Discussed with surgicalist this morning, Dr. Quiroz who has discussed with Dr. Strong and they have recommended with holding off on chest tube placement and pursuing thoracentesis by radiology first. Rediscussed with patient who requested undergoing the procedure at [facility]. Apparently, he is anxious as he was presented in the ER in 2012 with a pneumothorax, had a chest tube placed and was sent to [facility] from the ER. I did call [facility] who denied the transfer as they are not acknowledging transfer per patient request as they are at full capacity. Rediscussed with patient including indication, risks and benefits of thoracentesis and he is amenable now to pursuing thoracentesis here. S/P left sided chest tube placement on 01/24. (3) Pleural effusion Is this a current diagnosis for this admission?: Yes Plan: As per number 2. S/P left sided chest tube placement on 01/24. Pleural fluid studies pending. 01/25: He had 135 cc of output from the chest tube overnight. He has not required BIPAP overnight and has been saturating well on 4 lpm via NC. Pleural fluid studies are pending. 01/26: He is saturating at 92% on 4 lpm via NC. He had 100 cc of output from the chest tube overnight. Pleural fluid studies are still pending. Will repeat chest CT today. (4) COPD exacerbation Is this a current diagnosis for this admission?: Yes Plan: Improved. Continue prednisone and breathing treatments. (5) Neurogenic bladder Is this a current diagnosis for this admission?: Yes Plan: Patient does self catheterizations at home and says he has been doing it for 4 years now. As he is showing clinical improvement respiratory-chappell now, will discontinue Ramirez cath and continue intermittent straight catheterizations. - Time Time Spent with patient: 25-34 minutes
[2019-01-27] MEDS: CEFTRIAXONE 1 GM/D5W RTU 1 GM/50 ML RTUPB IV SCH (17:33)
[2019-01-27] MEDS: ATORVASTATIN CALCIUM 10 MG TABLET PO SCH (21:58)
[2019-01-27] MEDS: AZITHROMYCIN 500 MG in DEXTROSE 5%-WATER 250 ML IV SCH (21:59)
[2019-01-28] MEDS: ACETYLCYSTEINE 10% NEB 400 MG/4 ML VIAL NEB SCH ×4 (02:06→19:36)
[2019-01-28] MEDS: IPRATROPIUM/ALBUTEROL 0.5-2.5 MG/3 ML AMPUL NEB SCH ×4 (02:06→19:36)
[2019-01-28] MEDS: DILTIAZEM HCL 180 MG CAPSULE.CR PO SCH (11:05)
[2019-01-28] MEDS: FLUTICASONE NASAL SPRAY 50 MCG/SPRY 120 SPRAY/16 GM NASL SCH ×2 (11:05→21:57)
[2019-01-28] MEDS: PREDNISONE 10 MG TABLET PO SCH ×2 (11:05→17:52)
[2019-01-28] MEDS: ASPIRIN 81 MG TABLET, ENT COATED PO SCH (11:05)
[2019-01-28] MEDS: ATORVASTATIN CALCIUM 10 MG TABLET PO SCH (21:56)
--- NOTE | 2019-01-28 22:45 | PDOC PROGRESS REPORT ---
Subjective Progress Note for:: 01/28/19 Subjective:: MARY HAWKINS is a 83 year old male with a PMH of COPD on 3 lpm of home O2, hypoactive urinary bladder-does intermittent self catheterizatons, and hyperlipidemia who initially presented with productive cough, fever and SOB on 01/11/19 and was admitted for a right lower lobe pneumonia. He was found to be bacteremic with 2/2 bottles of blood cultures growing S. pneumonia. He was discharged 01/20/19 to [facility]. He reportedly had recurrence of SOB and hypoxia and was brought right back to the hospital from the senior care that same day. The patient was seen this afternoon on rounds. He stated he 'wasnt breathing good,'tachypnea ~40s. Placed on BIPAP. Lungs were clear, diminished in the bases. Reason For Visit: PNEUMOMNIA,CONTRACTION ALKALOSIS Physical Exam Vital Signs: Temp Pulse Resp BP Pulse Ox 98.4 F 62 16 118/51 L 96 01/28/19 19:00 01/28/19 19:36 01/28/19 19:36 01/28/19 19:00 01/28/19 19:36 Pulse Oximeter Continuous Start: 01/21/19 09:22 Freq: RTQ4 Status: Active Protocol: Document 01/28/19 19:36 LDA (Rec: 01/28/19 19:41 LDA [id number]) Pulse Oximetry Assessment Oxygen Saturation (92-100) 96 Oxygen Flow Rate (L/min) 5 Oxygen Delivery Method Nasal Cannula Fraction of Inspired Oxygen (FIO2) 40 Equipment Usage Equipment in Use Continuous SpO2 Machine # 2 Intake & Output 01/27/19 01/28/19 01/29/19 06:59 06:59 06:59 Intake Total 566 300 Output Total 2330 1300 Balance -1764 -1000 Weight 72.8 kg 72.4 kg Results Laboratory Results: 01/27/19 04:13 01/27/19 04:13 01/24/19 15:30 Pleural Fluid - Left Pleural Effusion Gram Stain - Final 01/24/19 15:30 Pleural Fluid - Left Pleural Effusion Body Fluid Culture - Final NO AEROBIC OR ANAEROBIC ORGANISMS RECOVERED 01/20/19 01/20/19 20:51 20:51 Troponin I 0.014 NT-Pro-B Natriuret Pep 699 H Impressions: Thoracentesis Ultrasound 01/24/19 00:00 IMPRESSION: SUCCESSFUL PLACEMENT OF A LEFT SIDED CHEST TUBE USING ULTRASOUND GUIDANCE. Chest X-Ray 01/26/19 00:00 IMPRESSION: 1. Interval removal of the left-sided chest tube. Unchanged small left basilar opacity with associated trace left pleural effusion. 2. Improved appearance of the right basilar opacity with associated pleural ef fusion. Chest CT 01/26/19 10:52 IMPRESSION: 1. Significant improvement of bilateral pleural effusions with small residual right greater than left pleural effusions. 2. Significant improvement in the right lower lobe airspace consolidation/ pneumonia seen on prior exam. No definite mass lesions are identified, however recommend follow-up to resolution to ensure no underlying mass is present. 3. Mass lesion within the superior pole of the left kidney. This is in completely evaluated on this examination but neoplasm is not excluded. Recommend clinical correlation and comparison with any prior imaging if available. 4. Extensive centrilobular emphysematous changes Assessment and Plan - Diagnosis (1) Acute and chronic respiratory failure with hypoxia Is this a current diagnosis for this admission?: Yes Plan: Secondary to Streptococcal pneumonia. On/off BIPAP. Currently saturating well on 4 lpm via NC. S/P left sided chest tube placement on 01/24. On 01/27Patient's chest tube was accidentally pulled out last night down in radiology when he went for a chest CT. No re-accumulation of pleural effusion Plan for CXR in AM (2) Pleural effusion Is this a current diagnosis for this admission?: Yes Plan: Continue Rocephin. Chest CT shows persistent right lobe consolidation with bilateral effusions likely parapneumonic in nature. Chest tube insertion on 01/24, unexpectedly removed on 01/27 - follow up assessments since then have been fine (3) Neurogenic bladder Is this a current diagnosis for this admission?: Yes Plan: Patient does self catheterizations at home and says he has been doing it for 4 y ears now. As he is showing clinical improvement respiratory-chappell now, will discontinue Ramirez cath and continue intermittent straight catheterizations. - Time Time Spent with patient: 15-24 minutes Medications reviewed and adjusted accordingly: Yes Anticipated discharge: Home Within: within 24 hours - Inpatient Certification Based on my medical assessment, after consideration of the patient's comorbidities, presenting symptoms, or acuity I expect that the services needed warrant INPATIENT care.: Yes I certify that my determination is in accordance with my understanding of Medicare's requirements for reasonable and necessary INPATIENT services [42 CFR 412.3e].: Yes Medical Necessity: Need for IV Antibiotics
[2019-01-29] MEDS: ACETYLCYSTEINE 10% NEB 400 MG/4 ML VIAL NEB SCH ×4 (01:52→19:49)
[2019-01-29] MEDS: IPRATROPIUM/ALBUTEROL 0.5-2.5 MG/3 ML AMPUL NEB SCH ×4 (01:52→19:49)
[2019-01-29] MEDS: FLUTICASONE NASAL SPRAY 50 MCG/SPRY 120 SPRAY/16 GM NASL SCH ×2 (09:05→22:28)
[2019-01-29] MEDS: ASPIRIN 81 MG TABLET, ENT COATED PO SCH (09:06)
[2019-01-29] MEDS: PREDNISONE 10 MG TABLET PO SCH ×2 (09:06→17:22)
[2019-01-29] MEDS: DILTIAZEM HCL 180 MG CAPSULE.CR PO SCH (09:06)
[2019-01-29] MEDS: ATORVASTATIN CALCIUM 10 MG TABLET PO SCH (22:28)
[2019-01-30] MEDS: IPRATROPIUM/ALBUTEROL 0.5-2.5 MG/3 ML AMPUL NEB SCH ×4 (01:49→20:30)
[2019-01-30] MEDS: ACETYLCYSTEINE 10% NEB 400 MG/4 ML VIAL NEB SCH ×4 (02:32→20:30)
--- NOTE | 2019-01-30 09:23 | RADIOLOGY REPORT (SQ) ---
EXAM DESCRIPTION: CHEST SINGLE VIEW COMPLETED DATE/TIME: 01/30/2019 8:44 am REASON FOR STUDY: EVAL PNA COMPARISON: Chest films 12/01/2011, 12/12/2012, 04/25/2013, 01/11/2019 EXAM PARAMETERS: NUMBER OF VIEWS: One view. TECHNIQUE: Single frontal radiographic view of the chest acquired. RADIATION DOSE: NA LIMITATIONS: None. FINDINGS: LUNGS AND PLEURA: No pneumothorax. No acute infiltrates. No pleural effusion. Lung pare nchyma is hyperlucent from obstructive disease. There is bandlike scarring in the right upper lobe along the minor fissure, stable. Bandlike scarrin g is present in the left retrocardiac region, stable. MEDIASTINUM AND HILAR STRUCTURES: No masses. Contour normal. HEART AND VASCULAR STRUCTURES: Heart normal in size. Normal vasculature. BONES: No acute findings. HARDWARE: None in the chest. OTHER: No other significant finding. IMPRESSION: COPD with chronic bandlike scarring in the right upper lobe near the minor fissure and l eft retrocardiac region. TECHNICAL DOCUMENTATION: JOB ID: [id number] [employer]- All Rights Reserved Reading location - IP/workstation name: [email or web address]
[2019-01-30] MEDS: ASPIRIN 81 MG TABLET, ENT COATED PO SCH (10:21)
[2019-01-30] MEDS: PREDNISONE 10 MG TABLET PO SCH (10:21)
[2019-01-30] MEDS: FLUTICASONE NASAL SPRAY 50 MCG/SPRY 120 SPRAY/16 GM NASL SCH ×2 (10:21→21:19)
[2019-01-30] MEDS: DILTIAZEM HCL 180 MG CAPSULE.CR PO SCH (10:21)
[2019-01-30] MEDS ORDERED: LEVALBUTEROL HCL NEB 1.25 MG/3 ML AMPUL NEB PRN (12:52)
[2019-01-30] MEDS: BUDESONIDE NEB 0.5 MG/2 ML AMPUL NEB SCH ×2 (13:58→20:30)
[2019-01-30] MEDS ORDERED: METHYLPREDNISOLONE INJ 125 MG/2 ML SDV IV ONE (14:00)
[2019-01-30] MEDS: BISACODYL 10 MG SUPP.RECT PR PRN (14:59)
--- NOTE | 2019-01-30 15:58 | PDOC PROGRESS REPORT ---
Subjective Progress Note for:: 01/30/19 Subjective:: MARY HAWKINS is a 83 year old male with a PMH of COPD on 3 lpm of home O2, hypoactive urinary bladder-does intermittent self catheterizatons, and hyperlipidemia who initially presented with productive cough, fever and SOB on 01/11/19 and was admitted for a right lower lobe pneumonia. He was found to be bacteremic with 2/2 bottles of blood cultures growing S. pneumonia. He was discharged 01/20/19 to [facility]. He reportedly had recurrence of SOB and hypoxia and was brought right back to the hospital from the snf that same day. The patient was seen this afternoon on rounds. Resting in bed on supplemental O2 via nasal cannula. He is able to speak in full sentences but needs to pause frequently to catch his breath. Patient endorses dyspnea at rest. Lungs are clear, no adventitious sounds. No peripheral or central cyanosis. SPO2 on nasal cannula was >93%. Notified by RT that the patient's SPO2 dropped to the low 80s this morning during chest PT. Unfortunately, the patient has not improved despite a week and a half of inpatient treatment. Plan to increase steroids and nebulizer treatments. Will consult pulmonary. Reason For Visit: PNEUMOMNIA,CONTRACTION ALKALOSIS Physical Exam Vital Signs: Temp Pulse Resp BP Pulse Ox 97.9 F 67 24 H 125/51 L 95 01/30/19 15:27 01/30/19 15:27 01/30/19 15:27 01/30/19 15:27 01/30/19 15:27 Pulse Oximeter Continuous Start: 01/21/19 09:22 Freq: RTQ4 Status: Active Protocol: Document 01/30/19 12:00 [facility] (Rec: 01/30/19 12:02 [facility] [id number]) Pulse Oximetry Assessment Oxygen Saturation (92-100) 88 Oxygen Flow Rate (L/min) 4 Oxygen Delivery Method Nasal Cannula Equipment Usage Equipment in Use Continuous SpO2 Machine # 1 Intake & Output 01/29/19 01/30/19 01/31/19 06:59 06:59 06:59 Intake Total 840 1029 Output Total 2400 1100 Balance -2400 -260 1029 Weight 72.7 kg 70.9 kg General appearance: PRESENT: mild distress Eye exam: PRESENT: conjunctiva pink, PERRLA Mouth exam: PRESENT: moist, tongue midline Neck exam: PRESENT: full ROM Respiratory exam: PRESENT: clear to auscultation eboni, symmetrical, tachypnea. ABSENT: rhonchi, wheezes Cardiovascular exam: PRESENT: RRR Pulses: PRESENT: normal radial pulses GI/Abdominal exam: PRESENT: soft. ABSENT: distended, tenderness Rectal exam: PRESENT: deferred Extremities exam: PRESENT: full ROM. ABSENT: pedal edema Musculoskeletal exam: PRESENT: full ROM, normal inspection. ABSENT: ambulatory - PATIENT BECOMES VERY SOB. TOO MUCH TO AMBULATE Neurological exam: PRESENT: alert, awake, oriented to person, oriented to place, oriented to time, oriented to situation Psychiatric exam: PRESENT: appropriate affect Skin exam: PRESENT: dry, erythema, normal color Results Laboratory Results: 01/27/19 04:13 01/27/19 04:13 01/20/19 01/20/19 20:51 20:51 Troponin I 0.014 NT-Pro-B Natriuret Pep 699 H Impressions: Thoracentesis Ultrasound 01/24/19 00:00 IMPRESSION: SUCCESSFUL PLACEMENT OF A LEFT SIDED CHEST TUBE USING ULTRASOUND GUIDANCE. Chest CT 01/26/19 10:52 IMPRESSION: 1. Significant improvement of bilateral pleural effusions with small residual right greater than left pleural effusions. 2. Significant improvement in the right lower lobe airspace consolidation/ pneumonia seen on prior exam. No definite mass lesions are identified, however recommend follow-up to resolution to ensure no underlying mass is present. 3. Mass lesion within the superior pole of the left kidney. This is incompletely evaluated on this examination but neoplasm is not excluded. Recommend clinical correlation and comparison with any prior imaging if available. 4. Extensive centrilobular emphysematous changes Chest X-Ray 01/30/19 07:00 IMPRESSION: COPD with chronic bandlike scarring in the right upper lobe near the minor fissure and left retrocardiac region. Status: Imported from PACS Assessment and Plan - Diagnosis (1) Acute and chronic respiratory failure with hypoxia Is this a current diagnosis for this admission?: Yes Plan: Secondary to Streptococcal pneumonia. On/off BIPAP. Currently saturating well on 4 lpm via NC. S/P left sided chest tube placement on 01/24. On 01/27 Patient's chest tube was accidentally pulled out while in radiology for a chest CT. No re-accumulation of pleural effusion CXR this AM shows COPD with band like scarring along the RUL minor fissue and L retrocardiac region Consult pulmonary, appreciate their expertise (2) COPD (chronic obstructive pulmonary disease) Qualifiers: COPD type: COPD with acute lower respiratory infection Qualified Code(s): J44.0 - Chronic obstructive pulmonary disease with acute lower respiratory infection Is this a current diagnosis for this admission?: Yes Plan: see plan above (3) Pleural effusion Is this a current diagnosis for this admission?: Yes Plan: Completed Rocephin. Chest CT shows persistent right lobe consolidation with bilateral effusions likely parapneumonic in nature. Chest tube insertion on 01/24, unexpectedly removed on 01/27 - follow up assessments since then have been fine (4) Neurogenic bladder Is this a current diagnosis for this admission?: Yes Plan: Patient does self catheterizations at home and says he has been doing it for 4 years now. Patient is requesting NOT to d/c the Ramirez catheter, it is easier to maintain t zamna to constantly self-cath or ask nursing staff to I&O cath - Time Time Spent with patient: 15-24 minutes Medications reviewed and adjusted accordingly: Yes Anticipated discharge: SNF - Inpatient Certification Based on my medical assessment, after consideration of the patient's co morbidities, presenting symptoms, or acuity I expect that the services needed warrant INPATIENT care.: Yes I certify that my determination is in accordance with my understanding of Medicare's requirements for reasonable and necessary INPATIENT services [42 CFR 412.3e].: Yes Medical Necessity: Risk of Complication if Not Cared For in Hospital
[2019-01-30] MEDS: MONTELUKAST SODIUM 10 MG TABLET PO SCH (21:19)
[2019-01-30] MEDS: GUAIFENESIN 600 MG TABLET.SA PO SCH (21:19)
[2019-01-30] MEDS: METHYLPREDNISOLONE INJ 40 MG/1 ML SDV IV SCH (21:19)
[2019-01-30] MEDS: ATORVASTATIN CALCIUM 10 MG TABLET PO SCH (21:19)
[2019-01-31] MEDS: IPRATROPIUM/ALBUTEROL 0.5-2.5 MG/3 ML AMPUL NEB SCH ×6 (00:04→20:06)
[2019-01-31] MEDS: MAG HYDROX/AL HYDROX/SIMETH SUSP 30 ML UDCUP PO PRN ×2 (01:22→05:47)
[2019-01-31] MEDS: ACETYLCYSTEINE 10% NEB 400 MG/4 ML VIAL NEB SCH ×3 (01:59→14:22)
[2019-01-31] MEDS: METHYLPREDNISOLONE INJ 40 MG/1 ML SDV IV SCH ×3 (05:47→22:43)
[2019-01-31] MEDS: BUDESONIDE NEB 0.5 MG/2 ML AMPUL NEB SCH ×2 (08:31→20:05)
[2019-01-31] MEDS: POTASSIUM CHLORIDE 10 MEQ CAPSULE.ER PO SCH (11:19)
[2019-01-31] MEDS: CALCIUM CARBONATE 250 MG/VITAMIN D3 125 UNIT TABLET PO SCH (11:19)
[2019-01-31] MEDS: DILTIAZEM HCL 180 MG CAPSULE.CR PO SCH (11:19)
[2019-01-31] MEDS: ASPIRIN 81 MG TABLET, ENT COATED PO SCH (11:20)
[2019-01-31] MEDS: CETIRIZINE 10 MG TABLET PO SCH (11:20)
[2019-01-31] MEDS: FLUTICASONE NASAL SPRAY 50 MCG/SPRY 120 SPRAY/16 GM NASL SCH ×2 (11:20→22:44)
[2019-01-31] MEDS: GUAIFENESIN 600 MG TABLET.SA PO SCH ×2 (11:20→22:43)
--- NOTE | 2019-01-31 18:01 | PDOC PROGRESS REPORT ---
Subjective Progress Note for:: 01/31/19 Subjective:: MARY HAWKINS is a 83 year old male with a PMH of COPD on 3 lpm of home O2, hypoactive urinary bladder-does intermittent self catheterizatons, and hyperlipidemia who initially presented with productive cough, fever and SOB on 01/11/19 and was admitted for a right lower lobe pneumonia. He was found to be bacteremic with 2/2 bottles of blood cultures growing S. pneumonia. He was discharged 01/20/[facility]. He reportedly had recurrence of SOB and hypoxia and was [facility] The patient was seen this afternoon on rounds. Resting in bed on supplemental O2 via nasal cannula. He is able to speak in full sentences but needs to pause frequently to catch his breath. The patient appears to be more comfortable today compared to previous 72 hours. He states that he feels better today compared to the previous days. Lungs are clear, no adventitious sounds. No peripheral or central cyanosis. SPO2 on nasal cannula was >93%. Mucomyst nebulizer treatments d/c'd, non-productive cough. If patient continues to improve, will consider discharge home with home health. Reason For Visit: PNEUMOMNIA,CONTRACTION ALKALOSIS Physical Exam Vital Signs: Temp Pulse Resp BP Pulse Ox 98.1 F 83 17 126/56 H 94 01/31/19 15:23 01/31/19 16:00 01/31/19 16:00 01/31/19 15:23 01/31/19 16:00 Pulse Oximeter Continuous Start: 01/21/19 09:22 Freq: RTQ4 Status: Active Protocol: Document 01/31/19 16:00 [facility]: 01/31/19 16:08 [id number] Pulse Oximetry Assessment Oxygen Saturation (92-100) 94 Oxygen Flow Rate (L/min) 4 Oxygen Delivery Method Nasal Cannula Fraction of Inspired Oxygen (FIO2) 36 Equipment Usage Equipment in Use Continuous SpO2 Machine # N 1 Intake & Output 01/30/19 01/31/19 02/01/19 06:59 06:59 06:59 Intake Total 840 2423 Output Total 1100 1530 875 Balance -260 893 -875 Weight 70.9 kg 71.2 kg General appearance: PRESENT: well-developed, well-nourished Eye exam: PRESENT: conjunctiva pink, PERRLA Mouth exam: PRESENT: moist, tongue midline Neck exam: PRESENT: full ROM Respiratory exam: PRESENT: clear to auscultation eboni, symmetrical, unlabored, wheezes, other - Requires 2 pause and take a breath in between sentences Cardiovascular exam: PRESENT: RRR Pulses: PRESENT: normal radial pulses, normal dorsalis pedis pul Vascular exam: PRESENT: normal capillary refill GI/Abdominal exam: PRESENT: soft. ABSENT: tenderness Rectal exam: PRESENT: deferred Extremities exam: PRESENT: full ROM Musculoskeletal exam: PRESENT: ambulatory - Can ambulate from bed to bathroom. Patient endorses SANCHEZ, full ROM Neurological exam: PRESENT: alert, awake, oriented to person, oriented to place, oriented to time, oriented to situation Psychiatric exam: PRESENT: appropriate affect Skin exam: PRESENT: dry, intact, normal color Results Laboratory Results: 01/27/19 04:13 01/27/19 04:13 01/20/19 01/20/19 20:51 20:51 Troponin I 0.014 NT-Pro-B Natriuret Pep 699 H Impressions: Thoracentesis Ultrasound 01/24/19 00:00 IMPRESSION: SUCCESSFUL PLACEMENT OF A LEFT SIDED CHEST TUBE USING ULTRASOUND GUIDANCE. Chest CT 01/26/19 10:52 IMPRESSION: 1. Significant improvement of bilateral pleural effusions with small residual right greater than left pleural effusions. 2. Significant improvement in the right lower lobe airspace consolidation/ pneumonia seen on prior exam. No definite mass lesions are identified, however recommend follow-up to resolution to ensure no underlying mass is present. 3. Mass lesion within the superior pole of the left kidney. This is incompletely evaluated on this examination but neoplasm is not excluded. Recommend clinical correlation and comparison with any prior imaging if available. 4. Extensive centrilobular emphysematous changes Chest X-Ray 01/30/19 07:00 IMPRESSION: COPD with chronic bandlike scarring in the right upper lobe near the minor fissure and left retrocardiac region. Status: Imported from PACS Assessment and Plan - Diagnosis (1) Acute and chronic respiratory failure with hypoxia Is this a current diagnosis for this admission?: Yes Plan: Improving Patient states he feels better today Secondary to Streptococcal pneumonia. On/off BIPAP. Currently saturating well on 4 lpm via NC. S/P left sided chest tube placement on 01/24. On 01/27 Patient's chest tube was accidentally pulled out while in radiology for a chest CT. No re-accumulation of pleural effusion CXR this AM shows COPD with band like scarring along the RUL minor fissue and L retrocardiac region Supplemental oxygen via nasal cannula for SPO2>90% Consult pulmonary, appreciate their expertise (2) COPD (chronic obstructive pulmonary disease) Qualifiers: COPD type: COPD with acute lower respiratory infection Qualified Code(s): J44.0 - Chronic obstructive pulmonary disease with acute lower respiratory infection Is this a current diagnosis for this admission?: Yes Plan: Scheduled and as needed nebulizer treatments Scheduled Solu-Medrol IV Twice daily Mucinex (3) Pleural effusion Is this a current diagnosis for this admission?: Yes Plan: Completed Rocephin. Chest CT shows persistent right lobe consolidation with bilateral effusions likely parapneumonic in nature. Chest tube insertion on 01/24, unexpectedly removed on 01/27 - follow up assessments since then have been fine (4) Neurogenic bladder Is this a current diagnosis for this admission?: Yes Plan: Patient does self catheterizations at home and says he has been doing it for 4 years now. Patient is requesting NOT to d/c the Ramirez catheter, it is easier to maintain than to constantly self-cath or ask nursing staff to I&O cath - Time Time Spent with patient: 15-24 minutes Medications reviewed and adjusted accordingly: Yes Anticipated discharge: Home with Homehealth Within: within 36 hours - Inpatient Certification Based on my medical assessment, after consideration of the patient's comor bidities, presenting symptoms, or acuity I expect that the services needed warrant INPATIENT care.: Yes I certify that my determination is in accordance with my understanding of Medicare's requirements for reasonable and necessary INPATIENT services [42 CFR 412.3e].: Yes Medical Necessity: Need for Nebulizer Therapy and Monitoring of Response, Risk of Complication if Not Cared For in Hospital - Plan Summary Plan Summary: If patient continues to improve, consider discharge home with home health in the next 48-72 hours
[2019-01-31] MEDS: FAMOTIDINE 20 MG TABLET PO SCH (22:43)
[2019-01-31] MEDS: ATORVASTATIN CALCIUM 10 MG TABLET PO SCH (22:43)
[2019-01-31] MEDS: MONTELUKAST SODIUM 10 MG TABLET PO SCH (22:43)
[2019-02-01] MEDS: IPRATROPIUM/ALBUTEROL 0.5-2.5 MG/3 ML AMPUL NEB SCH ×6 (00:05→20:15)
[2019-02-01] MEDS: METHYLPREDNISOLONE INJ 40 MG/1 ML SDV IV SCH ×3 (05:44→22:07)
[2019-02-01] MEDS: BUDESONIDE NEB 0.5 MG/2 ML AMPUL NEB SCH ×2 (08:25→20:15)
[2019-02-01] MEDS: DILTIAZEM HCL 180 MG CAPSULE.CR PO SCH (10:38)
[2019-02-01] MEDS: CALCIUM CARBONATE 250 MG/VITAMIN D3 125 UNIT TABLET PO SCH (10:38)
[2019-02-01] MEDS: POTASSIUM CHLORIDE 10 MEQ CAPSULE.ER PO SCH (10:39)
[2019-02-01] MEDS: CETIRIZINE 10 MG TABLET PO SCH (10:39)
[2019-02-01] MEDS: GUAIFENESIN 600 MG TABLET.SA PO SCH ×2 (10:39→22:07)
[2019-02-01] MEDS: FAMOTIDINE 20 MG TABLET PO SCH ×2 (10:39→22:07)
[2019-02-01] MEDS: ASPIRIN 81 MG TABLET, ENT COATED PO SCH (10:39)
[2019-02-01] MEDS: FLUTICASONE NASAL SPRAY 50 MCG/SPRY 120 SPRAY/16 GM NASL SCH ×2 (10:39→22:08)
--- NOTE | 2019-02-01 21:42 | PDOC PROGRESS REPORT ---
Subjective Progress Note for:: 02/01/19 Subjective:: MARY HAWKINS is a 83 year old male with a PMH of COPD on 3 lpm of home O2, hypoactive urinary bladder-does intermittent self catheterizatons, and hyperlipidemia who initially presented with productive cough, fever and SOB on 01/11/19 and was admitted for a right lower lobe pneumonia. He was found to be bacteremic with 2/2 bottles of blood cultures growing S. pneumonia. He was discharged 01/20/19 to [place]. He reportedly had recurrence of SOB and hypoxia and was brought right back to the hospital from the longterm that same day. The patient was seen this afternoon on rounds. Resting in bed on supplemental O2 via nasal cannula. He is able to speak in full sentences, pauses intermittently to catch his breath. The patient appears to be more comfortable today compared to previous days. He states that he feels like he is "slowly getting better" Lungs are clear, no adventitious sounds. No peripheral or central cyanosis. SPO2 on nasal cannula was >93%. Plan to get patient OOB today. He has not been mobilized in 3 days. If patient continues to improve and he can ambulate (somewhat) close to his baseline, will consider discharge home with home health. Reason For Visit: PNEUMOMNIA,CONTRACTION ALKALOSIS Physical Exam Vital Signs: Temp Pulse Resp BP Pulse Ox 97.9 F 70 16 117/46 L 92 02/01/19 19:34 02/01/19 20:15 02/01/19 20:15 02/01/19 19:34 02/01/19 20:15 Pulse Oximeter Continuous Start: 01/21/19 09 :22 Freq: RTQ4 Status: Active Protocol: Document 02/01/19 20:15 [facility] (Rec: 02/01/19 21:32 [facility] [id number]) Pulse Oximetry Assessment Oxygen Saturation (92-100) 92 Oxygen Flow Rate (L/min) 4 Oxygen Delivery Method Nasal Cannula Fraction of Inspired Oxygen (FIO2) 36 Equipment Usage Equipment in Use Continuous SpO2 Machine # 1 Intake & Output 01/31/19 02/01/19 02/02/19 06:59 06:59 06:59 Intake Total 8099 332 945 Output Total 4574 1190 430 Balance 893 -6281 515 Weight 71.2 kg 71.2 kg General appearance: PRESENT: well-developed, well-nourished Head exam: PRESENT: atraumatic Eye exam: PRESENT: conjunctiva pink, PERRLA Mouth exam: PRESENT: moist, tongue midline Neck exam: PRESENT: full ROM Respiratory exam: PRESENT: clear to auscultation eboni, decreased breath sounds - bilaterally lower lobes, symmetrical, other - pausing between sentences to catch breath Cardiovascular exam: PRESENT: RRR Pulses: PRESENT: normal radial pulses, normal dorsalis pedis pul Vascular exam: PRESENT: normal capillary refill GI/Abdominal exam: PRESENT: soft. ABSENT: distended, tenderness Rectal exam: PRESENT: deferred Extremities exam: ABSENT: pedal edema Musculoskeletal exam: PRESENT: ambulatory - with assistance, normal inspection Neurological exam: PRESENT: alert, awake, oriented to person, oriented to place, oriented to time, oriented to situation Psychiatric exam: PRESENT: appropriate affect Skin exam: PRESENT: dry, intact, normal color Results Laboratory Results: 01/27/19 04:13 01/27/19 04:13 01/20/19 01/20/19 20:51 20:51 Troponin I 0.014 NT-Pro-B Natriuret Pep 699 H Impressions: Thoracentesis Ultrasound 01/24/19 00:00 IMPRESSION: SUCCESSFUL PLACEMENT OF A LEFT SIDED CHEST TUBE USING ULTRASOUND GUIDANCE. Chest CT 01/26/19 10:52 IMPRESSION: 1. Significant improvement of bilateral pleural effusions with small residual right greater than left pleural effusions. 2. Significant improvement in the right lower lobe airspace consolidation/ pneumonia seen on prior exam. No definite mass lesions are identified, however recommend follow-up to resolution to ensure no underlying mass is present. 3. Mass lesion within the superior pole of the left kidney. This is incompletely evaluated on this examination but neoplasm is not excluded. Recommend clinical correlation and comparison with any prior imaging if available. 4. Extensive centrilobular emphysematous changes Chest X-Ray 01/30/19 07:00 IMPRESSION: COPD with chronic bandlike scarring in the right upper lobe near the minor fissure and left retrocardiac region. Status: Imported from PACS Assessment and Plan - Diagnosis (1) Acute and chronic respiratory failure with hypoxia Is this a current diagnosis for this admission?: Yes Plan: Improving Patient states he feels better today Secondary to Streptococcal pneumonia. On/off BIPAP. Currently saturating well on 4 lpm via NC. S/P left sided chest tube placement on 01/24. On 01/27 Patient's chest tube was accidentally pulled out while in radiology for a chest CT. No re-accumulation of pleural effusion Recent CXR shows COPD with band like scarring along the RUL minor fissue and L retrocardiac region Supplemental oxygen via nasal cannula for SPO2>90% Consult pulmonary, appreciate their expertise (2) COPD (chronic obstructive pulmonary disease) Qualifiers: COPD type: COPD with acute lower respiratory infection Qualified Code(s): J44.0 - Chronic obstructive pulmonary disease with acute lower respiratory infection Is this a current diagnosis for this admission?: Yes Plan: Scheduled and as needed nebulizer treatments Scheduled Solu-Medrol IV Twice daily Mucinex (3) Pleural effusion Is this a current diagnosis for this admission?: Yes Plan: Completed Rocephin. Chest CT shows persistent right lobe consolidation with bilateral effusions likely parapneumonic in nature. Chest tube insertion on 01/24, unexpectedly removed on 01/27 - follow up assessments since then have been fine (4) Neurogenic bladder Is this a current diagnosis for this admission?: Yes Plan: Patient does self catheterizations at home and says he has been doing it for 4 years now. Patient is requesting NOT to d/c the Ramirez catheter, it is easier to maintain than to constantly self-cath or ask nursing staff to I&O cath - Time Time Spent with patient: 15-24 minutes Medications reviewed and adjusted accordingly: Yes Anticipated discharge: Home with Homehealth, Acute Rehab - Inpatient Certification Based on my medical assessment, after consideration of the patient's comorbidities, presenting symptoms, or acuity I expect that the services needed warrant INPATIENT care.: Yes I certify that my determination is in accordance with my understanding of Medicare's requirements for reasonable and necessary INPATIENT services [42 CFR 412.3e].: Yes Medical Necessity: Need For Continuous Telemetry Monitoring, Need for Nebulizer Therapy and Monitoring of Response, Risk of Complication if Not Cared For in Hospital
[2019-02-01] MEDS: ATORVASTATIN CALCIUM 10 MG TABLET PO SCH (22:07)
[2019-02-01] MEDS: MONTELUKAST SODIUM 10 MG TABLET PO SCH (22:07)
[2019-02-02] MEDS: IPRATROPIUM/ALBUTEROL 0.5-2.5 MG/3 ML AMPUL NEB SCH ×6 (00:32→19:45)
[2019-02-02 05:36] LABS: HEMOGLOBIN 10.4 g/dL (13.5-17.0); MEAN CORPUSCULAR HEMOGLOBIN 30.6 pg (27.0-33.4); MEAN CORPUSCULAR HGB CONC 33.4 g/dL (32.0-36.0); MEAN CORPUSCULAR VOLUME 91 fl (80-97); PLATELET COUNT 306 10^3/uL (150-450); RED BLOOD COUNT 3.39 10^6/uL (4.35-5.55); RED CELL DISTRIBUTION WIDTH 14.6 % (11.5-14.0); WHITE BLOOD COUNT 17.7 10^3/uL (4.0-10.5)
[2019-02-02] MEDS: METHYLPREDNISOLONE INJ 40 MG/1 ML SDV IV SCH ×3 (05:37→21:59)
[2019-02-02 05:56] LABS: ALANINE AMINOTRANSFERASE 29 U/L (21-72); ALKALINE PHOSPHATASE 88 U/L (38-126); ANION GAP 7 (5-19); ASPARTATE AMINO TRANSFERASE 25 U/L (17-59); BILIRUBIN,DIRECT 0.3 mg/dL (0.0-0.4); BILIRUBIN,TOTAL 0.7 mg/dL (0.2-1.3); BLOOD UREA NITROGEN 65 mg/dL (7-20); CALCIUM 9.5 mg/dL (8.4-10.2); CARBON DIOXIDE 33 mmol/L (22-30); CHLORIDE 96 mmol/L (98-107); GLUCOSE 173 mg/dL (75-110); SODIUM 136.1 mmol/L (137-145); TOTAL PROTEIN 5.3 g/dL (6.3-8.2)
[2019-02-02] MEDS: BUDESONIDE NEB 0.5 MG/2 ML AMPUL NEB SCH ×2 (07:52→19:45)
[2019-02-02] MEDS: DILTIAZEM HCL 180 MG CAPSULE.CR PO SCH (10:29)
[2019-02-02] MEDS: ASPIRIN 81 MG TABLET, ENT COATED PO SCH (10:29)
[2019-02-02] MEDS: GUAIFENESIN 600 MG TABLET.SA PO SCH ×2 (10:29→21:59)
[2019-02-02] MEDS: FAMOTIDINE 20 MG TABLET PO SCH ×2 (10:29→21:59)
[2019-02-02] MEDS: CALCIUM CARBONATE 250 MG/VITAMIN D3 125 UNIT TABLET PO SCH (10:29)
[2019-02-02] MEDS: CETIRIZINE 10 MG TABLET PO SCH (10:30)
[2019-02-02] MEDS: POTASSIUM CHLORIDE 10 MEQ CAPSULE.ER PO SCH (10:30)
[2019-02-02] MEDS: FLUTICASONE NASAL SPRAY 50 MCG/SPRY 120 SPRAY/16 GM NASL SCH ×2 (10:30→21:58)
--- NOTE | 2019-02-02 21:25 | PDOC PROGRESS REPORT ---
Subjective Progress Note for:: 02/02/19 Subjective:: MARY HAWKINS is a 83 year old male with a PMH of COPD on 3 lpm of home O2, hypoactive urinary bladder-does intermittent self catheterizatons, and hyperlipidemia who initially presented with productive cough, fever and SOB on 01/11/19 and was admitted for a right lower lobe pneumonia. He was found to be bacteremic with 2/2 bottles of blood cultures growing S. pneumonia. He was discharged 01/20/19 to [place]. He reportedly had recurrence of SOB and hypoxia and was brought right back to the hospital from the senior care that same day. The patient was seen this afternoon on rounds. Resting in bedside recliner on supplemental O2 via nasal cannula. He is able to speak in full sentences, pauses intermittently to catch his breath. He states that he would like to go to acute rehab once [facility]. Agree with this plan, PT recommends SNF/Rehab. SPO2 on nasal cannula was >93%. Discharge planning aware of patient's wishes. Reason For Visit: PNEUMOMNIA,CONTRACTION ALKALOSIS Physical Exam Vital Signs: Temp Pulse Resp BP Pulse Ox 98.0 F 80 24 H 153/55 H 90 L 02/02/19 15:59 02/02/19 19:45 02/02/19 19:45 02/02/19 15:59 02/02/19 19:45 Pulse Oximeter Continuous Start: 01/21/19 09:22 Freq: RTQ4 Status: Active Protocol: Document 02/02/19 19:45 [facility] (Rec: 02/02/19 19:57 [facility] [id number]) Pulse Oximetry Assessment Oxygen Saturation (92-100) 90 Oxygen Flow Rate (L/min) 4 Oxygen Delivery Method Nasal Cannula Fraction of Inspired Oxygen (FIO2) 36 Equipment Usage Equipment in Use Continuous SpO2 Machine # 1 Intake & Output 02/01/19 02/02/19 02/03/19 06:59 06:59 06:59 Intake Total 437 1315 772 Output Total 3953 7180 440 Balance -1962 - 332 Weight 71.2 kg 68 kg General appearance: PRESENT: well-developed, well-nourished Head exam: PRESENT: atraumatic Eye exam: PRESENT: conjunctiva pink, PERRLA Mouth exam: PRESENT: moist, tongue midline Respiratory exam: PRESENT: clear to auscultation eboni, decreased breath sounds - bases bilaterally, symmetrical. ABSENT: rhonchi, wheezes Cardiovascular exam: PRESENT: RRR Pulses: PRESENT: normal radial pulses, normal dorsalis pedis pul Vascular exam: PRESENT: normal capillary refill GI/Abdominal exam: PRESENT: normal bowel sounds, soft. ABSENT: distended, tenderness Rectal exam: PRESENT: deferred Gentrourinary exam: PRESENT: indwelling catheter Musculoskeletal exam: PRESENT: ambulatory Neurological exam: PRESENT: alert, awake, oriented to person, oriented to place, oriented to time, oriented to situation Psychiatric exam: PRESENT: appropriate affect Skin exam: PRESENT: dry, intact, normal color Results Laboratory Results: 02/02/19 05:28 02/02/19 05:28 02/02/19 02/02/19 05:28 05:28 WBC 17.7 H RBC 3.39 L Hgb 10.4 L Hct 31.0 L MCV 91 MCH 30.6 MCHC 33.4 RDW 14.6 H Plt Count 306 Sodium 136.1 L Potassium 5.0 Chloride 96 L Carbon Dioxide 33 H Anion Gap 7 BUN 65 H Creatinine 0.85 Est GFR ( Amer) > 60 Est GFR (Non-Af Amer) > 60 Glucose 173 H Calcium 9.5 Magnesium 2.6 H Total Bilirubin 0.7 AST 25 ALT 29 Alkaline Phosphatase 88 Total Protein 5.3 L Albumin 3.0 L 01/20/19 01/20/19 02/02/19 20:51 20:51 05:28 Troponin I 0.014 NT-Pro-B Natriuret Pep 699 H 480 H Impressions: Thoracentesis Ultrasound 01/24/19 00:00 IMPRESSION: SUCCESSFUL PLACEMENT OF A LEFT SIDED CHEST TUBE USING ULTRASOUND GUIDANCE. Chest CT 01/26/19 10:52 IMPRESSION: 1. Significant improvement of bilateral pleural effusions with small residual right greater than left pleural effusions. 2. Significant improvement in the right lower lobe airspace consolidation/ pneumonia seen on prior exam. No definite mass lesions are identified, however recommend follow-up to resolution to ensure no underlying mass is present. 3. Mass lesion within the superior pole of the left kidney. This is incompletely evaluated on this examination but neoplasm is not excluded. Recommend clinical correlation and comparison with any prior imaging if available. 4. Extensive centrilobular emphysematous changes Chest X-Ray 01/30/19 07:00 IMPRESSION: COPD with chronic bandlike scarring in the right upper lobe near the minor fissure and left retrocardiac region. Status: Imported from PACS Assessment and Plan - Diagnosis (1) Acute and chronic respiratory failure with hypoxia Is this a current diagnosis for this admission?: Yes Plan: Improving Patient states he feels better today Secondary to Streptococcal pneumonia. On/off BIPAP. Currently saturating well on 4 lpm via NC. S/P left sided chest tube placement on 01/24. On 01/27 Patient's chest tube was accidentally pulled out while in radiology for a chest CT. No re-accumulation of pleural effusion Recent CXR shows COPD with band like scarring along the RUL minor fissue and L retrocardiac region Supplemental oxygen via nasal cannula for SPO2>90% (2) COPD (chronic obstructive pulmonary disease) Qualifiers: COPD type: COPD with acute lower respiratory infection Qualified Code(s): J44.0 - Chronic obstructive pulmonary disease with acute lower respiratory infection Is this a current diagnosis for this admission?: Yes Plan: Scheduled and as needed nebulizer treatments Scheduled Solu-Medrol IV Twice daily Mucinex, wean from q8 to q12 (3) Pleural effusion Is this a current diagnosis for this admission?: Yes Plan: resolved Completed Rocephin. Chest CT shows persistent right lobe consolidation with bilateral effusions likely parapneumonic in nature. Chest tube insertion on 01/24, unexpectedly removed on 01/27 - follow up assessments since then have been fine (4) Neurogenic bladder Is this a current diagnosis for this admission?: Yes Plan: Patient does self catheterizations at home and says he has been doing it for 4 years now. Patient is requesting NOT to d/c the Ramirez catheter, it is easier to maintain than to constantly self-cath or ask nursing staff to I&O cath - Time Time Spent with patient: 15-24 minutes Medications reviewed and adjusted accordingly: Yes Anticipated discharge: Home - Inpatient Certification Based on my medical assessment, after consideration of the patient's comorbidities, presenting symptoms, or acuity I expect that the services needed warrant INPATIENT care.: Yes I certify that my determination is in accordance with my understanding of Medicare's requirements for reasonable and necessary INPATIENT services [42 CFR 412.3e].: Yes Medical Necessity: Risk of Complication if Not Cared For in Hospital
[2019-02-02] MEDS: ATORVASTATIN CALCIUM 10 MG TABLET PO SCH (21:58)
[2019-02-02] MEDS: MONTELUKAST SODIUM 10 MG TABLET PO SCH (21:59)
[2019-02-03] MEDS: IPRATROPIUM/ALBUTEROL 0.5-2.5 MG/3 ML AMPUL NEB SCH ×6 (00:55→20:14)
[2019-02-03] MEDS: METHYLPREDNISOLONE INJ 40 MG/1 ML SDV IV SCH ×3 (05:12→22:48)
[2019-02-03] MEDS: BUDESONIDE NEB 0.5 MG/2 ML AMPUL NEB SCH ×2 (08:39→20:14)
[2019-02-03] MEDS: FLUTICASONE NASAL SPRAY 50 MCG/SPRY 120 SPRAY/16 GM NASL SCH ×2 (10:20→22:48)
[2019-02-03] MEDS: GUAIFENESIN 600 MG TABLET.SA PO SCH ×2 (10:21→22:48)
[2019-02-03] MEDS: POTASSIUM CHLORIDE 10 MEQ CAPSULE.ER PO SCH (10:21)
[2019-02-03] MEDS: CALCIUM CARBONATE 250 MG/VITAMIN D3 125 UNIT TABLET PO SCH (10:21)
[2019-02-03] MEDS: CETIRIZINE 10 MG TABLET PO SCH (10:21)
[2019-02-03] MEDS: FAMOTIDINE 20 MG TABLET PO SCH ×2 (10:21→22:48)
[2019-02-03] MEDS: ASPIRIN 81 MG TABLET, ENT COATED PO SCH (10:21)
[2019-02-03] MEDS: DILTIAZEM HCL 180 MG CAPSULE.CR PO SCH (10:21)
--- NOTE | 2019-02-03 17:30 | PDOC TRANSFER SUMMARY ---
General - Admit/Disc Date/PCP Admission Date/Primary Care Provider: 01/20/19 23:10 LAYO GAMEZ MD Discharge Date: 02/03/19 - Discharge Diagnosis (1) Acute and chronic respiratory failure with hypoxia Is this a current diagnosis for this admission?: Yes Summary: Secondary to Streptococcal pneumonia. Was initially on/off BIPAP. weaned to 3-4 lpm via NC. Able to tolerate well. Patient was diagnosed with a left-sided loculated pleural effusion, left sided chest tube placement on 01/24. On 01/27 Patient's chest tube was accidentally pulled out while in radiology for a chest CT. No re-accumulation of pleural effusion Follow up CXR showed COPD with band like scarring along the RUL minor fissue and L retrocardiac region No further re-accumulation of effusion. (2) COPD (chronic obstructive pulmonary disease) Is this a current diagnosis for this admission?: Yes Summary: As needed nebulizer treatments Prednisone taper Twice daily Mucinex as needed Spiriva and Serevent Patient currently sees a quality control auditor and [place], would like to switch to Dr. Solis of [place], [place] (3) Pleural effusion Is this a current diagnosis for this admission?: Yes Summary: Patient was diagnosed with a left-sided loculated pleural effusion, left sided chest tube placement on 01/24. On 01/27 Patient's chest tube was accidentally pulled out while in radiology for a chest CT. No re-accumulation of pleural effusion Completed course of Rocephin. Follow up assessments since then have been fine (4) Neurogenic bladder Is this a current diagnosis for this admission?: Yes Summary: Patient does self catheterizations at home and says he has been doing it for 4 years now. Patient had Ramirez catheter while inpatient, states it is easier to maintain than to constantly self-cath or ask nursing staff to I&O cath Ramirez removed prior to discharge, verified that patient could void prior to discharge - Additional Information Resuscitation Status: Full Code Home Medications: Atorvastatin Calcium [Lipitor 10 mg Tablet] 10 mg PO DAILY 12/12/12 Arformoterol Tartrate [Brovana Inhalation Solution 15 mcg/2 mL] 1 puff IH BID 08/08/18 Diltiazem HCl [Diltiazem 24Hr ER] 360 mg PO DAILY 08/08/18 Furosemide [Lasix 20 mg Tablet] 40 mg PO BID 08/08/18 Montelukast Sodium [Singulair 10 mg Tablet] 10 mg PO QHS 08/08/18 Budesonide [Pulmicort Neb 0.5 mg/2 ml Ampul] 0.5 mg NEB RTQ12 #0 01/19/19 Albuterol Sulfate [Ventolin 0.083% Neb 2.5 mg/3 ml Ampul] 1 vial NEB RTDAILY 01/21/19 Aspirin [Ecotrin 81 mg EC Tablet] 81 mg PO DAILY 01/21/19 Calcium Carbonate/Vitamin D3 [Calcium 250-D Tablet] 2 tab PO DAILY 01/21/19 Cetirizine HCl [Zyrtec 10 mg Tablet] 10 mg PO DAILY 01/21/19 Guaifenesin [Mucinex] 600 mg PO DAILY 01/21/19 Potassium Chloride [Klor-Con 10 Meq Capsule ER] 10 meq PO DAILY 01/21/19 History of Present Illness Admission Date/PCP: 01/20/19 23:10 LAYO GAMEZ MD History of Present Illness: MARY HAWKINS is a 83 year old male With a past medical history of chronic re spiratory failure, COPD, chronic bronchitis, dyslipidemia, atrial fibrillation without anticoagulation secondary to recurrent hemoptysis and neurogenic bladder requiring self-catheterization. He was just discharged 8 hours ago following an admission for Streptococcus pneumonia pneumonia with bacteremia, acute on chronic respiratory failure with hypoxia and hypercapnia, urinary tract infection and physical deconditioning complicated by a mass of the right lung. [facility] he is found to have an oxygen saturation of only 70% he is return to the emergency department where he does indeed have hypoxia of 76% on room air requiring BiPAP, leukocytosis and significant contraction alkalosis. Patient denies rhinorrhea sore throat acid reflux or fever. He complains of thirst. He receives empiric antibiotics, BiPAP and referred to the hospitalist for admission. Hospital Course Hospital Course: MARY HAWKINS is a 83 year old male with a PMH of COPD on 3 lpm of home O2, hypoactive urinary bladder-does intermittent self catheterizatons, and hyperlipidemia who initially presented with productive cough, fever and SOB on and was admitted for a right lower lobe pneumonia. He was found to be bacteremic with 2/2 bottles of blood cultures growing S. pneumonia. He was discharged 01/20/19 to [place]. He reportedly had recurrence of SOB and hypoxia and was brought right back to the hospital from the custodial that same day. Remaining plan listed above Physical Exam Vital Signs: Temp Pulse Resp BP Pulse Ox 98.0 F 81 20 151/56 H 92 02/03/19 16:00 02/03/19 16:00 02/03/19 16:00 02/03/19 16:00 02/03/19 16:00 Pulse Oximeter Continuous Start: 01/21/19 09:22 Freq: RTQ4 Status: Active Protocol: Document 02/03/19 12:41 JDR (Rec: 02/03/19 12:51 J [id number]) Pulse Oximetry Assessment Oxygen Saturation (92-100) 99 Oxygen Flow Rate (L/min) 4 Oxygen Delivery Method Nasal Cannula Fraction of Inspired Oxygen (FIO2) 36 Equipment Usage Equipment in Use Continuous SpO2 Machine # 1 Intake & Output 02/02/19 02/03/19 02/04/19 06:59 06:59 06:59 Intake Total 1315 772 Output Total 1330 440 Balance -15 332 Weight 68 kg 68 kg General appearance: PRESENT: no acute distress, well-developed, well-nourished Head exam: PRESENT: atraumatic, normocephalic Eye exam: PRESENT: conjunctiva pink, EOMI, PERRLA. ABSENT: scleral icterus Ear exam: PRESENT: normal external ear exam Mouth exam: PRESENT: moist, tongue midline Neck exam: ABSENT: carotid bruit, JVD, lymphadenopathy, thyromegaly Respiratory exam: PRESENT: clear to auscultation eboni, tachypnea - MILD TACHYPNEA AT BASELINE. ABSENT: rales, rhonchi, wheezes Cardiovascular exam: PRESENT: RRR. ABSENT: diastolic murmur, rubs, systolic murmur Pulses: PRESENT: normal dorsalis pedis pul Vascular exam: PRESENT: normal capillary refill GI/Abdominal exam: PRESENT: normal bowel sounds, soft. ABSENT: distended, guarding, mass, organolmegaly, rebound, tenderness Rectal exam: PRESENT: deferred Extremities exam: PRESENT: full ROM. ABSENT: calf tenderness, clubbing, pedal edema Neurological exam: PRESENT: alert, awake, oriented to person, oriented to place, oriented to time, oriented to situation Psychiatric exam: PRESENT: appropriate affect, normal mood. ABSENT: homicidal ideation, suicidal ideation Skin exam: PRESENT: dry, intact, warm. ABSENT: cyanosis, rash Results Laboratory Results: 02/02/19 05:28 02/02/19 05:28 01/20/19 01/20/19 02/02/19 20:51 20:51 05:28 Troponin I 0.014 NT-Pro-B Natriuret Pep 699 H 480 H Impressions: Thoracentesis Ultrasound 01/24/19 00:00 IMPRESSION: SUCCESSFUL PLACEMENT OF A LEFT SIDED CHEST TUBE USING ULTRASOUND GUIDANCE. Chest CT 01/26/19 10:52 IMPRESSION: 1. Significant improvement of bilateral pleural effusions with small residual right greater than left pleural effusions. 2. Significant improvement in the right lower lobe airspace consolidation/ pneumonia seen on prior exam. No definite mass lesions are identified, however recommend follow-up to resolution to ensure no underlying mass is present. 3. Mass lesion within the superior pole of the left kidney. This is incompletely evaluated on this examination but neoplasm is not excluded. Recommend clinical correlation and comparison with any prior imaging if available. 4. Extensive centrilobular emphysematous changes Chest X-Ray 01/30/19 07:00 IMPRESSION: COPD with chronic bandlike scarring in the right upper lobe near the minor fissure and left retrocardiac region. Status: Imported from PACS Transfer Plan - Time Spent with Patient Time spent with patient: Greater than 30 Minutes Qualifiers - * PATIENT BEING DISCHARGED WITH ANY OF THE FOLLOWING DIAGNOSIS: No Plan Discharge Plan: PATIENT REQUIRED A GREAT DEAL OF ASSISTANCE GETTING OOB AND AMBULATING. PHYSICAL THERAPY RECOMMENDED SNF/REHAB.
[2019-02-03] MEDS: MONTELUKAST SODIUM 10 MG TABLET PO SCH (22:48)
[2019-02-03] MEDS: ATORVASTATIN CALCIUM 10 MG TABLET PO SCH (22:48)
[2019-02-04] MEDS: IPRATROPIUM/ALBUTEROL 0.5-2.5 MG/3 ML AMPUL NEB SCH ×6 (01:02→20:25)
[2019-02-04] MEDS: METHYLPREDNISOLONE INJ 40 MG/1 ML SDV IV SCH (06:05)
[2019-02-04] MEDS: BUDESONIDE NEB 0.5 MG/2 ML AMPUL NEB SCH ×2 (07:39→20:25)
[2019-02-04] MEDS: DILTIAZEM HCL 180 MG CAPSULE.CR PO SCH (09:07)
[2019-02-04] MEDS: FLUTICASONE NASAL SPRAY 50 MCG/SPRY 120 SPRAY/16 GM NASL SCH ×2 (09:07→22:30)
[2019-02-04] MEDS: CETIRIZINE 10 MG TABLET PO SCH (09:08)
[2019-02-04] MEDS: ASPIRIN 81 MG TABLET, ENT COATED PO SCH (09:08)
[2019-02-04] MEDS: FAMOTIDINE 20 MG TABLET PO SCH ×2 (09:08→22:25)
[2019-02-04] MEDS: POTASSIUM CHLORIDE 10 MEQ CAPSULE.ER PO SCH ×2 (09:08→09:13)
[2019-02-04] MEDS: GUAIFENESIN 600 MG TABLET.SA PO SCH ×2 (09:08→22:25)
[2019-02-04] MEDS: CALCIUM CARBONATE 250 MG/VITAMIN D3 125 UNIT TABLET PO SCH (09:08)
[2019-02-04] MEDS ORDERED: LEVALBUTEROL HCL NEB 1.25 MG/3 ML AMPUL NEB PRN (09:30)
--- NOTE | 2019-02-04 12:31 | PDOC PROGRESS REPORT ---
Subjective Progress Note for:: 02/04/19 Subjective:: The patient was scheduled to be transferred back to a skilled facility for subacute rehabilitation today. There were some concerns on the patient's part about removing his Ramirez catheter. I went in to talk to the patient and noted that his oxygen saturations were only about 86-87% on the oxygen he was receiving. He had increased work of breathing. I discussed with the patient the pros and cons of leaving the Ramirez catheter in. For now we will going to leave it and he is going to think about this. I am not going to discharge him today as I want to look further into his respiratory failure. My thoughts will be outlined below. Overall the patient states that he just feels weak. No fever or shaking chills. He is quite short of breath this morning and thinks it is worse than it has been for the past day or 2. No nausea, vomiting or diarrhea. He states he has not eaten a full meal since he has been here because he just does not have any appetite. He remains with a Ramirez catheter in place. Reason For Visit: PNEUMOMNIA,CONTRACTION ALKALOSIS Physical Exam Vital Signs: Temp Pulse Resp BP Pulse Ox 98.5 F 82 21 H 165/70 H 93 02/04/19 08:00 02/04/19 08:00 02/04/19 08:00 02/04/19 08:00 02/04/19 08:00 Pulse Oximeter Continuous Start: 01/21/19 09:22 Freq: RTQ4 Status: Active Protocol: Document 02/04/19 07:40 [facility] (Rec: 02/04/19 07:53 [facility] [id number]) Pulse Oximetry Assessment Oxygen Saturation (92-100) 98 Oxygen Flow Rate (L/min) 4 Oxygen Delivery Method Nasal Cannula Fraction of Inspired Oxygen (FIO2) 36 Equipment Usage Equipment in Use Continuous SpO2 Machine # 1 Intake & Output 02/03/19 02/04/19 02/05/19 06:59 06:59 06:59 Intake Total 772 1632 Output Total 440 3100 Balance 332 -1468 Weight 68 kg 61.2 kg General appearance: PRESENT: no acute distress, other - Chronically ill- appearing Head exam: PRESENT: atraumatic, normocephalic Mouth exam: PRESENT: moist, tongue midline Respiratory exam: PRESENT: accessory muscle use, other - Significantly diminished bilaterally. He seems to have some fine crackles in the lower bases. Cardiovascular exam: PRESENT: RRR. ABSENT: diastolic murmur, rubs, systolic murmur GI/Abdominal exam: PRESENT: normal bowel sounds, soft. ABSENT: distended, guarding, mass, organolmegaly, rebound, tenderness Rectal exam: PRESENT: deferred Extremities exam: PRESENT: full ROM. ABSENT: calf tenderness, clubbing, pedal edema Neurological exam: PRESENT: alert, awake, oriented to person, oriented to place, oriented to time, oriented to situation, CN II-XII grossly intact. ABSENT: motor sensory deficit Psychiatric exam: PRESENT: appropriate affect, normal mood. ABSENT: homicidal ideation, suicidal ideation Skin exam: PRESENT: dry, intact, warm. ABSENT: cyanosis, rash Results Laboratory Results: 02/02/19 05:28 02/02/19 05:28 01/20/19 01/20/19 02/02/19 20:51 20:51 05:28 Troponin I 0.014 NT-Pro-B Natriuret Pep 699 H 480 H Impressions: Thoracentesis Ultrasound 01/24/19 00:00 IMPRESSION: SUCCESSFUL PLACEMENT OF A LEFT SIDED CHEST TUBE USING ULTRASOUND GUIDANCE. Chest CT 01/26/19 10:52 IMPRESSION: 1. Significant improvement of bilateral pleural effusions with small residual right greater than left pleural effusions. 2. Significant improvement in the right lower lobe airspace consolidation/ pneumonia seen on prior exam. No definite mass lesions are identified, however recommend follow-up to resolution to ensure no underlying mass is present. 3. Mass lesion within the superior pole of the left kidney. This is incompletely evaluated on this examination but neoplasm is not excluded. Recommend clinical correlation and comparison with any prior imaging if available. 4. Extensive centrilobular emphysematous changes Chest X-Ray 01/30/19 07:00 IMPRESSION: COPD with chronic bandlike scarring in the right upper lobe near the minor fissure and left retrocardiac region. Assessment and Plan - Diagnosis (1) Acute and chronic respiratory failure with hypoxia Is this a current diagnosis for this admission?: Yes Plan: The patient has been treated for a pneumonia and a COPD exacerbation. Currently he still receiving IV Solu-Medrol. I am going to change him over to prednisone here in the hospital to make sure that he does not decompensate. He is completed a course of therapy for his pneumonia. At this point in regards to his pleural effusion I am quite concerned the patient may have some underlying heart failure. In reviewing the records he has never had an echocardiogram performed. I am going to give him a one-time dose of IV Lasix today. He has not had any labs for 2 days so I am going to obtain labs and be sure to get a BNP. I am going to repeat a chest x-ray. He will continue aggressive breathing treatments. He had to be bumped up to 6 L of oxygen after getting on the bed kent. (2) Acute exacerbation of chronic obstructive pulmonary disease (COPD) Is this a current diagnosis for this admission?: Yes Plan: He really is not wheezing. He has been on IV Solu-Medrol. I will change him over to p.o. prednisone today. Continue bronchodilators and scheduled breathing treatments. (3) Streptococcal pneumonia Is this a current diagnosis for this admission?: Yes Plan: He is completed a course of treatment at this point. I am going to repeat a chest x-ray today in light of his worsening respiratory status. (4) Pleural effusion Is this a current diagnosis for this admission?: Yes Plan: He had a chest x-ray on 01/30/2019 that revealed improvement of his pleural effusions. Pleural fluid analysis by light's criteria is negative for an exudative effusion. It appears to be a transudate which would make me more worried about heart failure. I am going to get a 2D echocardiogram and add a BNP onto his labs. I am going to empirically give him 20 mg of IV Lasix and will see if that helps his respiratory status at all. I will have the nursing staff keep up with strict I's and O's. (5) Hemoptysis Is this a current diagnosis for this admission?: Yes Plan: He has not had this in quite some time. Dr. Solis saw him earlier in the hospitalization. (6) Hyponatremia Is this a current diagnosis for this admission?: Yes Plan: This will be rechecked this morning. (7) Anemia Is this a current diagnosis for this admission?: Yes Plan: This is an anemia of chronic disease and has been stable. (8) Ambulatory dysfunction Is this a current diagnosis for this admission?: Yes Plan: If we can get his respiratory status stabilized he will need to go to a skilled facility for rehabilitation. (9) Full code status Is this a current diagnosis for this admission?: Yes - Time Time Spent with patient: 35 or more minutes - Inpatient Certification Medical Necessity: Other - Inpatient hospitalization remains necessary. The patient is once again acutely hypoxic. I am going to do a quick workup on his heart to see if there is anything we could do to help his respiratory status such as aggressive IV diuresis. We will follow-up with these results. Clearly he is not stable to go to a skilled facility because they would just send him right back if he drops down to 80% just getting on the bedpan. He would not be able to participate with therapy. He has not had a cardiac workup and I believe before we just attributed this to end-stage COPD that we make sure that there is not any heart failure that would be treatable complicating his picture. Timing of disposition will be determined by his clinical course. When I get some of these results back tomorrow I will sit down and discuss goals of care with the patient and we will make some decisions about how to proceed going forward.
[2019-02-04] MEDS ORDERED: FUROSEMIDE INJ/PF 20 MG/2 ML SDV IV ONE (12:45)
--- NOTE | 2019-02-04 12:55 | RADIOLOGY REPORT (SQ) ---
EXAM DESCRIPTION: CHEST SINGLE VIEW COMPLETED DATE/TIME: 02/04/2019 12:45 pm REASON FOR STUDY: sob, f/u pleural effusion COMPARISON: 01/30/2019 NUMBER OF VIEWS: One view. TECHNIQUE: Single frontal radiographic image of the chest acquired. LIMITATIONS: None. FINDINGS: LUNGS AND PLEURA: Stable appearance. MEDIASTINUM AND HILAR STRUCTURES: Stable heart size and mediastinal structures. HEART AND VASCULAR STRUCTURES: Stable appearance. BONES: No acute findings. HARDWARE: None in the chest. OTHER: No other significant finding. IMPRESSION: STABLE APPEARANCE OF THE CHEST. TECHNICAL DOCUMENTATION: JOB ID: [id number] [employer]- All Rights Reserved Reading location - IP/workstation name: [email or web address]
[2019-02-04 13:01] LABS: HEMATOCRIT 31.4 % (37.9-51.0); HEMOGLOBIN 10.6 g/dL (13.5-17.0); MEAN CORPUSCULAR HEMOGLOBIN 30.5 pg (27.0-33.4); MEAN CORPUSCULAR HGB CONC 33.7 g/dL (32.0-36.0); MEAN CORPUSCULAR VOLUME 91 fl (80-97); PLATELET COUNT 231 10^3/uL (150-450); RED BLOOD COUNT 3.47 10^6/uL (4.35-5.55); RED CELL DISTRIBUTION WIDTH 15.1 % (11.5-14.0); WHITE BLOOD COUNT 18.1 10^3/uL (4.0-10.5)
[2019-02-04] MEDS: PREDNISONE 20 MG TABLET PO SCH (13:16)
[2019-02-04 13:23] LABS: ABSOLUTE LYMPHOCYTES# (MANUAL) 0.4 10^3/uL (0.5-4.7); ABSOLUTE MONOCYTES # (MANUAL) 0.4 10^3/uL (0.1-1.4); ABSOLUTE NEUTROPHILS# (MANUAL) 17.4 10^3/uL (1.7-8.2); BASOPHILS % (MANUAL) 0 % (0-2); EOSINOPHILS % (MANUAL) 0 % (0-6); LYMPHOCYTES % (MANUAL) 2 % (13-45); MONOCYTES % (MANUAL) 2 % (3-13); SEGMENTED NEUTROPHILS % (MAN) 96 % (42-78); TOTAL CELLS COUNTED 100
[2019-02-04 13:26] LABS: ANISOCYTOSIS SLIGHT; OVALOCYTES SLIGHT; POIKILOCYTOSIS SLIGHT
[2019-02-04 13:27] LABS: PLATELET COMMENT ADEQUATE
[2019-02-04] MEDS: ATORVASTATIN CALCIUM 10 MG TABLET PO SCH (22:25)
[2019-02-04] MEDS: MONTELUKAST SODIUM 10 MG TABLET PO SCH (22:25)
[2019-02-05] MEDS: IPRATROPIUM/ALBUTEROL 0.5-2.5 MG/3 ML AMPUL NEB SCH ×7 (03:47→23:03)
[2019-02-05 06:06] LABS: ALBUMIN 2.8 g/dL (3.5-5.0); ANION GAP 6 (5-19); BLOOD UREA NITROGEN 57 mg/dL (7-20); CALCIUM 9.2 mg/dL (8.4-10.2); CARBON DIOXIDE 35 mmol/L (22-30); CHLORIDE 94 mmol/L (98-107); GLUCOSE 175 mg/dL (75-110); PHOSPHORUS 3.3 mg/dL (2.5-4.5); POTASSIUM 4.3 mmol/L (3.6-5.0); SODIUM 135.2 mmol/L (137-145)
[2019-02-05] MEDS: BUDESONIDE NEB 0.5 MG/2 ML AMPUL NEB SCH ×2 (08:23→20:07)
[2019-02-05] MEDS: DILTIAZEM HCL 180 MG CAPSULE.CR PO SCH (10:36)
[2019-02-05] MEDS: CALCIUM CARBONATE 250 MG/VITAMIN D3 125 UNIT TABLET PO SCH (10:36)
[2019-02-05] MEDS: PREDNISONE 20 MG TABLET PO SCH (10:37)
[2019-02-05] MEDS: ASPIRIN 81 MG TABLET, ENT COATED PO SCH (10:37)
[2019-02-05] MEDS: FAMOTIDINE 20 MG TABLET PO SCH ×2 (10:37→22:33)
[2019-02-05] MEDS: POTASSIUM CHLORIDE 10 MEQ CAPSULE.ER PO SCH (10:37)
[2019-02-05] MEDS: GUAIFENESIN 600 MG TABLET.SA PO SCH ×2 (10:37→22:33)
[2019-02-05] MEDS: CETIRIZINE 10 MG TABLET PO SCH (10:37)
[2019-02-05] MEDS: FLUTICASONE NASAL SPRAY 50 MCG/SPRY 120 SPRAY/16 GM NASL SCH ×2 (10:37→22:32)
--- NOTE | 2019-02-05 13:48 | PDOC PROGRESS REPORT ---
Subjective Progress Note for:: 02/05/19 Subjective:: The patient was scheduled to be transferred back to a skilled facility for subacute rehabilitation yesterday. There were some concerns on the patient's part about removing his Ramirez catheter. I went in to talk to the patient and noted that his oxygen saturations were only about 86-87% on the oxygen he was receiving. He had increased work of breathing. I discussed with the patient the pros and cons of leaving the Ramirez catheter in. For now we will going to le ave it and he is going to think about this. I am not going to discharge him today as I want to look further into his respiratory failure. My thoughts will be outlined below. Yesterday he was placed on the bed kent and his oxygen saturations dropped into the low 80s. He received 20 mg of IV Lasix today and while he is still short of breath he is improved. 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 His creatinine remained stable. Overall the patient states that he just feels weak. No fever or shaking chills. He is quite short of breath this morning and thinks it is worse than it has been for the past day or 2. No nausea, vomiting or diarrhea. He states he has not eaten a full meal since he has been here because he just does not have any appetite. He remains with a Ramirez catheter in place. Reason For Visit: PNEUMOMNIA,CONTRACTION ALKALOSIS Physical Exam Vital Signs: Temp Pulse Resp BP Pulse Ox 99.1 F 92 19 159/58 H 89 L 02/05/19 11:44 02/05/19 11:44 02/05/19 11:44 02/05/19 11:44 02/05/19 11:44 Pulse Oximeter Continuous Start: 01/21/19 09:22 Freq: RTQ4 Status: Active Protocol: Document 02/05/19 11:11 [facility] (Rec: 02/05/19 11:17 [facility] [id number]) Pulse Oximetry Assessment Oxygen Saturation (92-100) 92 Oxygen Flow Rate (L/min) 4 Oxygen Delivery Method Nasal Cannula Equipment Usage Equipment in Use Continuous SpO2 Machine # 1 Intake & Output 02/04/19 02/05/19 02/06/19 06:59 06:59 06:59 Intake Total 1632 1040 Output Total 3100 2360 Balance -1468 -1320 Weight 61.2 kg 59.1 kg General appearance: PRESENT: other - Chronically ill-appearing Head exam: PRESENT: atraumatic, normocephalic Eye exam: PRESENT: conjunctiva pink, EOMI, PERRLA. ABSENT: scleral icterus Mouth exam: PRESENT: moist, tongue midline Respiratory exam: PRESENT: decreased breath sounds - He is significantly diminished bilaterally and really not moving air well. ABSENT: rales, rhonchi, wheezes Cardiovascular exam: PRESENT: RRR. ABSENT: diastolic murmur, rubs, systolic murmur GI/Abdominal exam: PRESENT: normal bowel sounds, soft. ABSENT: distended, guarding, mass, organolmegaly, rebound, tenderness Rectal exam: PRESENT: deferred Extremities exam: PRESENT: full ROM. ABSENT: calf tenderness, clubbing, pedal edema Neurological exam: PRESENT: alert, awake, oriented to person, oriented to place, oriented to time, oriented to situation, CN II-XII grossly intact. ABSENT: motor sensory deficit Psychiatric exam: PRESENT: appropriate affect, normal mood. ABSENT: homicidal ideation, suicidal ideation Skin exam: PRESENT: dry, intact, warm. ABSENT: cyanosis, rash Results Laboratory Results: 02/04/19 12:48 02/05/19 04:20 02/05/19 02/05/19 04:20 04:20 Sodium 135.2 L Potassium 4.3 Chloride 94 L Carbon Dioxide 35 H Anion Gap 6 BUN 57 H Creatinine 0.76 Est GFR ( Amer) > 60 Est GFR (Non-Af Amer) > 60 Glucose 175 H Calcium 9.2 Phosphorus 3.3 Magnesium 2.4 H Albumin 2.8 L 01/20/19 01/20/19 02/02/19 20:51 20:51 05:28 Troponin I 0.014 NT-Pro-B Natriuret Pep 699 H 480 H 02/04/19 12:48 Troponin I NT-Pro-B Natriuret Pep 763 H Impressions: Thoracentesis Ultrasound 01/24/19 00:00 IMPRESSION: SUCCESSFUL PLACEMENT OF A LEFT SIDED CHEST TUBE USING ULTRASOUND GUIDANCE. Chest CT 01/26/19 10:52 IMPRESSION: 1. Significant improvement of bilateral pleural effusions with small residual right greater than left pleural effusions. 2. Significant improvement in the right lower lobe airspace consolidation/ pneumonia seen on prior exam. No definite mass lesions are identified, however recommend follow-up to resolution to ensure no underlying mass is present. 3. Mass lesion within the superior pole of the left kidney. This is incompletely evaluated on this examination but neoplasm is not excluded. Recommend clinical correlation and comparison with any prior imaging if available. 4. Extensive centrilobular emphysematous changes Chest X-Ray 02/04/19 00:00 IMPRESSION: STABLE APPEARANCE OF THE CHEST. Assessment and Plan - Diagnosis (1) Acute and chronic respiratory failure with hypoxia Is this a current diagnosis for this admission?: Yes Plan: The patient has been treated for a pneumonia and a COPD exacerbation. He was changed from Solu-Medrol to prednisone yesterday and he is not significantly worsened. He has completed a course of therapy for his pneumonia. At this point in regards to his pleural effusion I am quite concerned the patient may have some underlying heart failure. In reviewing the records he has never had an echocardiogram performed. I am going to give him another dose of IV Lasix today. We will add a BNP onto his blood work. I am going to repeat a chest x- ray. He will continue aggressive breathing treatments. He had to be bumped up to 6 L of oxygen after getting on the bed kent yesterday. Today he is able to sit in a chair and his oxygen saturations are above 88% sitting in the chair which is a big improvement. (2) Acute exacerbation of chronic obstructive pulmonary disease (COPD) Is this a current diagnosis for this admission?: Yes Plan: He really is not wheezing. He was transitioned to prednisone yesterday and has not significantly worsened. Continue 60 mg of p.o. Lasix today. (3) Streptococcal pneumonia Is this a current diagnosis for this admission?: Yes Plan: He has completed a course of treatment at this point. Repeat chest x-ray yesterday was stable. (4) Pleural effusion Is this a current diagnosis for this admission?: Yes Plan: He had a chest x-ray on 01/30/2019 that revealed improvement of his pleural effusions. Pleural fluid analysis by light's criteria is negative for an exudative effusion. It appears to be a transudate which would make me more worried about heart failure. A 2D echocardiogram was performed yesterday but has not yet been read I am going to add a BNP onto his morning's labs. He did receive 20 mg of IV Lasix and is able to sit up in a chair today which is an improvement. His renal function stayed normal and I am going to try giving him 40 mg of IV Lasix this morning. Hopefully we can follow up with echocardiogram results. (5) Hemoptysis Is this a current diagnosis for this admission?: Yes Plan: He has not had this in quite some time. Dr. Solis saw him earlier in the hospitalization. (6) Hyponatremia Is this a current diagnosis for this admission?: Yes Plan: This will be rechecked this morning. (7) Anemia Is this a current diagnosis for this admission?: Yes Plan: This is an anemia of chronic disease and has been stable. (8) Ambulatory dysfunction Is this a current diagnosis for this admission?: Yes Plan: If we can get his respiratory status stabilized he will need to go to a skilled facility for rehabilitation. He does have a bed in place. I believe they will send him right back if he drops into the low 80s with any sort of exertion. He is responding to Lasix. We cannot fix his underlying COPD but if we could diurese him with Lasix and improve his respiratory status it might make a difference. (9) Full code status Is this a current diagnosis for this admission?: Yes - Time Time Spent with patient: 35 or more minutes - Inpatient Certification Medical Necessity: Other - Inpatient hospitalization remains necessary. I need to get the echocardiograms back and I want to try a trial of parenteral Lasix today. Timing of disposition will be determined by his clinical course
[2019-02-05] MEDS ORDERED: FUROSEMIDE INJ/PF 20 MG/2 ML SDV IV ONE (15:00)
--- NOTE | 2019-02-05 21:24 | EKG REPORT ---
SEVERITY:- ABNORMAL ECG - SINUS RHYTHM VENTRICULAR PREMATURE COMPLEX BORDERLINE RIGHT AXIS DEVIATION LOW VOLTAGE IN FRONTAL LEADS NONSPECIFIC T ABNORMALITIES, ANT-LAT LEADS : Confirmed by: Susan Munguia MD 05-Feb-2019 21:23:21
--- NOTE | 2019-02-05 21:51 | XCELERA REPORT ---
[address] [address] Transthoracic Echocardiogram Report Name: MARY HAWKINS Age: 83 yrs Gender: Male : 1935 Patient Status: Inpatient Patient Location: [address] [place] [address] Study Date: 02/04/2019 06:05 PM Height: 60 in Weight: 134 lb BSA: 1.6 m2 Procedure: A two-dimensional transthoracic echocardiogram with color flow Doppler was performed. Study Quality: Poor. The study was technically difficult with many images being suboptimal in quality. Reason For Study: sob, elevated bnp History: sob, elevated bnp. Ordering Physician: CESARIO OSMAN Performed By: Charissa Martell Interpretation Summary The left ventricle is normal in size. The left ventricular ejection fraction is within normal limits. There is normal left ventricular wall thickness. LV EF is 65% Doppler measurements suggest impaired left ventricular relaxation, which is associated with grade I/IV or mild diastolic dysfunction The left ventricular wall motion is normal. There is no thrombus. The right ventricle is moderately dilated. There is mild right ventricular hypertrophy. The right ventricular systolic function is normal. The right atrium is borderline dilated. The left atrial size is normal. The interatrial septum is intact with no evidence for an atrial septal defect. There is no Doppler evidence for an interatrial shunt The mitral valve is not well visualized. There is no evidence of mitral valve prolapse. There is no mitral valve stenosis. Probably trace MR. There is no aortic valve stenosis No aortic regurgitation is present. There is no tricuspid stenosis. There is a trace to mild amount of tricuspid regurgitation There is moderate pulmonary hypertension by echo RVSp is 50 to 55 mm of Hg , with RA mean of 5 to 10. There is no pulmonic valvular regurgitation. There is no pulmonic valvular stenosis. The inferior vena cava appeared normal and decreased > 50% with respiration (RAP 5-10 mmHg) There is no pericardial effusion. MMode/2D Measurements & Calculations RVDd: 3.4 cm LVIDd: 4.4 cm FS: 36.6 % Ao root diam: 3.3 cm IVSd: 0.92 cm LVIDs: 2.8 cm EDV(Teich): 87.7 ml Ao root area: 8.3 cm2 LVPWd: 0.89 cm ESV(Teich): 29.3 ml LA dimension: 3.3 cm EF(Teich): 66.6 % Doppler Measurements & Calculations MV E max smita: MV P1/2t max smita: Ao V2 max: LV V1 max P.6 cm/sec 71.6 cm/sec 153.4 cm/sec 5.0 mmHg MV A max smita: MV P1/2t: 55.7 msec Ao max P.4 mmHgLV V1 max: 89.3 cm/sec MVA(P1/2t): 3.9 cm2 112.0 cm/sec MV E/A: 0.81 MV dec slope: 376.1 cm/sec2 MV dec time: 0.25 sec PA V2 max: TR max smita: MV P1/2t-pr_phl: 115.0 cm/sec 334.5 cm/sec 83.8 msec PA max P.3 mmHgTR max P.8 mmHg Left Ventricle The left ventricle is normal in size. There is normal left ventricular wall thickness. The left ventricular ejection fraction is within normal limits. LV EF is 65%. Doppler measurements suggest impaired left ventricular relaxation, which is associated with grade I/IV or mild diastolic dysfunction. The left ventricular wall motion is normal. There is no thrombus. Right Ventricle The right ventricle is moderately dilated. There is mild right ventricular hypertrophy. The right ventricular systolic function is normal. Atria The right atrium is borderline dilated. The left atrial size is normal. The interatrial septum is intact with no evidence for an atrial septal defect. There is no Doppler evidence for an interatrial shunt. Mitral Valve The mitral valve is not well visualized. There is no evidence of mitral valve prolapse. There is no mitral valve stenosis. Probably trace MR. Aortic Valve There is no aortic valve stenosis. No aortic regurgitation is present. Tricuspid Valve There is no tricuspid stenosis. There is a trace to mild amount of tricuspid regurgitation. There is moderate pulmonary hypertension by echo. RVSp is 50 to 55 mm of Hg , with RA mean of 5 to 10. Pulmonic Valve There is no pulmonic valvular stenosis. There is no pulmonic valvular regurgitation. Great Vessels The aortic root is not well visualized. The inferior vena cava appeared normal and decreased > 50% with respiration (RAP 5-10 mmHg). Effusions There is no pericardial effusion. : CESARIO OSMAN > Susan Munguia
[2019-02-05] MEDS: MONTELUKAST SODIUM 10 MG TABLET PO SCH (22:33)
[2019-02-05] MEDS: ATORVASTATIN CALCIUM 10 MG TABLET PO SCH (22:33)
[2019-02-06] MEDS: IPRATROPIUM/ALBUTEROL 0.5-2.5 MG/3 ML AMPUL NEB SCH ×5 (04:19→22:29)
[2019-02-06 05:49] LABS: HEMATOCRIT 30.1 % (37.9-51.0); MEAN CORPUSCULAR HEMOGLOBIN 30.4 pg (27.0-33.4); MEAN CORPUSCULAR HGB CONC 33.1 g/dL (32.0-36.0); MEAN CORPUSCULAR VOLUME 92 fl (80-97); PLATELET COUNT 156 10^3/uL (150-450); RED BLOOD COUNT 3.28 10^6/uL (4.35-5.55); RED CELL DISTRIBUTION WIDTH 15.3 % (11.5-14.0); WHITE BLOOD COUNT 15.1 10^3/uL (4.0-10.5)
[2019-02-06 06:13] LABS: ABSOLUTE LYMPHOCYTES# (MANUAL) 0.6 10^3/uL (0.5-4.7); ABSOLUTE MONOCYTES # (MANUAL) 1.2 10^3/uL (0.1-1.4); ABSOLUTE NEUTROPHILS# (MANUAL) 13.3 10^3/uL (1.7-8.2); BASOPHILS % (MANUAL) 0 % (0-2); EOSINOPHILS % (MANUAL) 0 % (0-6); LYMPHOCYTES % (MANUAL) 4 % (13-45); MONOCYTES % (MANUAL) 8 % (3-13); SEGMENTED NEUTROPHILS % (MAN) 88 % (42-78); TOTAL CELLS COUNTED 100
[2019-02-06 06:14] LABS: ANISOCYTOSIS 1+; PLATELET COMMENT ADEQUATE; TOXIC VACUOLATION PRESENT
[2019-02-06 06:33] LABS: ALBUMIN 2.6 g/dL (3.5-5.0); BLOOD UREA NITROGEN 57 mg/dL (7-20); CALCIUM 8.7 mg/dL (8.4-10.2); GLUCOSE 149 mg/dL (75-110); PHOSPHORUS 3.6 mg/dL (2.5-4.5); POTASSIUM 4.2 mmol/L (3.6-5.0)
[2019-02-06 06:39] LABS: CARBON DIOXIDE 38 mmol/L (22-30); CHLORIDE 94 mmol/L (98-107); SODIUM 135.8 mmol/L (137-145)
[2019-02-06 06:48] LABS: ANION GAP 3 (5-19)
[2019-02-06] MEDS: BUDESONIDE NEB 0.5 MG/2 ML AMPUL NEB SCH ×2 (08:21→22:29)
[2019-02-06] MEDS: CETIRIZINE 10 MG TABLET PO SCH (09:26)
[2019-02-06] MEDS: CALCIUM CARBONATE 250 MG/VITAMIN D3 125 UNIT TABLET PO SCH (09:26)
[2019-02-06] MEDS: PREDNISONE 20 MG TABLET PO SCH (09:26)
[2019-02-06] MEDS: POTASSIUM CHLORIDE 10 MEQ CAPSULE.ER PO SCH (09:26)
[2019-02-06] MEDS: BISACODYL 10 MG SUPP.RECT PR PRN (09:26)
[2019-02-06] MEDS: GUAIFENESIN 600 MG TABLET.SA PO SCH ×2 (09:27→22:48)
[2019-02-06] MEDS: FAMOTIDINE 20 MG TABLET PO SCH ×2 (09:27→22:49)
[2019-02-06] MEDS: ASPIRIN 81 MG TABLET, ENT COATED PO SCH (09:27)
[2019-02-06] MEDS: DILTIAZEM HCL 180 MG CAPSULE.CR PO SCH (09:27)
[2019-02-06] MEDS: FLUTICASONE NASAL SPRAY 50 MCG/SPRY 120 SPRAY/16 GM NASL SCH ×2 (09:31→22:47)
[2019-02-06] MEDS: ATORVASTATIN CALCIUM 10 MG TABLET PO SCH (22:47)
[2019-02-06] MEDS: MONTELUKAST SODIUM 10 MG TABLET PO SCH (22:49)
[2019-02-07] MEDS: IPRATROPIUM/ALBUTEROL 0.5-2.5 MG/3 ML AMPUL NEB SCH ×5 (00:42→16:16)
[2019-02-07] MEDS: BUDESONIDE NEB 0.5 MG/2 ML AMPUL NEB SCH (09:02)
[2019-02-07] MEDS ORDERED: ASPIRIN 81 MG TABLET, ENT COATED PO SCH (10:00)
[2019-02-07] MEDS: FLUTICASONE NASAL SPRAY 50 MCG/SPRY 120 SPRAY/16 GM NASL SCH (10:54)
[2019-02-07] MEDS: GUAIFENESIN 600 MG TABLET.SA PO SCH (10:57)
[2019-02-07] MEDS: CETIRIZINE 10 MG TABLET PO SCH (10:58)
[2019-02-07] MEDS: FAMOTIDINE 20 MG TABLET PO SCH (10:58)
[2019-02-07] MEDS: POTASSIUM CHLORIDE 10 MEQ CAPSULE.ER PO SCH (10:58)
[2019-02-07] MEDS: CALCIUM CARBONATE 250 MG/VITAMIN D3 125 UNIT TABLET PO SCH (10:58)
[2019-02-07] MEDS: PREDNISONE 20 MG TABLET PO SCH (10:58)
[2019-02-07] MEDS: DILTIAZEM HCL 180 MG CAPSULE.CR PO SCH (10:58)
--- NOTE | 2019-02-07 11:49 | PDOC TRANSFER SUMMARY ---
General - Admit/Disc Date/PCP Admission Date/Primary Care Provider: 01/20/19 23:10 LAYO GAMEZ MD Discharge Date: 02/07/19 - Discharge Diagnosis (1) Ambulatory dysfunction Is this a current diagnosis for this admission?: Yes (2) Anemia Is this a current diagnosis for this admission?: Yes (3) COPD exacerbation Is this a current diagnosis for this admission?: Yes (4) Neurogenic bladder Is this a current diagnosis for this admission?: Yes (5) Pleural effusion Is this a current diagnosis for this admission?: Yes (6) Streptococcal pneumonia Is this a current diagnosis for this admission?: Yes (7) Acute on chronic respiratory failure with hypoxia and hypercapnia Is this a current diagnosis for this admission?: Yes (10) Hypertension Is this a current diagnosis for this admission?: Yes (12) Hyponatremia Is this a current diagnosis for this admission?: Yes Summary: Resolved - Additional Information Resuscitation Status: Full Code Discharge Diet: Regular Discharge Activity: Activity As Tolerated, Balance Activity w/Rest Prescriptions: Prednisone [Deltasone 20 mg Tablet] 20 mg PO DAILY #9 tablet Home Medications: Atorvastatin Calcium [Lipitor 10 mg Tablet] 10 mg PO DAILY 12/12/12 Arformoterol Tartrate [Brovana Inhalation Solution 15 mcg/2 mL] 1 puff IH BID 08/08/18 Diltiazem HCl [Diltiazem 24Hr ER] 360 mg PO DAILY 08/08/18 Furosemide [Lasix 20 mg Tablet] 40 mg PO BID 08/08/18 Montelukast Sodium [Singulair 10 mg Tablet] 10 mg PO QHS 08/08/18 Budesonide [Pulmicort Neb 0.5 mg/2 ml Ampul] 0.5 mg NEB RTQ12 #0 01/19/19 Albuterol Sulfate [Ventolin 0.083% Neb 2.5 mg/3 mL Ampul] 1 vial NEB RTDAILY 01/21/19 Aspirin [Ecotrin 81 mg EC Tablet] 81 mg PO DAILY 01/21/19 Calcium Carbonate/Vitamin D3 [Calcium 250-D Tablet] 2 tab PO DAILY 01/21/19 Cetirizine HCl [Zyrtec 10 mg Tablet] 10 mg PO DAILY 01/21/19 Potassium Chloride [Klor-Con 10 Meq Capsule ER] 10 meq PO DAILY 01/21/19 Acetaminophen [Tylenol 325 mg Tablet] 650 mg PO Q4HP PRN tablet 02/03/19 Aspirin [Ecotrin 81 mg EC Tablet] 81 mg PO DAILY tabec 02/03/19 Bisacodyl [Dulcolax 10 mg Supp.rect] 10 mg WI DAILYP PRN supp.rect 02/03/19 Diltiazem HCl [Cardizem Cd 180 mg Capsule] 360 mg PO DAILY capsule.cr 02/03/19 Fluticasone Propionate [Flonase Nasal [place] 50 Mcg/[place] 16 gm] 2 spray NASL Q12 spray.pump 02/03/19 Guaifenesin [Robitussin Syrup 200 mg/10 ml Ud Cup] 200 mg PO Q4HP PRN udc 02/03/19 Ipratropium/Albuterol Sulfate [Duoneb 3 ml Ampul] 3 ml NEB [id number] PRN vial.neb 02/03/19 Levalbuterol HCl [Xopenex Neb 1.25 mg/3 ml Ampul] 1.25 mg NEB RTQ4HP PRN vial.neb 02/03/19 Prednisone [Deltasone 20 mg Tablet] 20 mg PO DAILY #9 tablet 02/03/19 History of Present Illness Admission Date/PCP: 01/20/19 23:10 LAYO GAMEZ MD Patient complains of: Shortness of breath and fever History of Present Illness: MARY HAWKINS is a 83 year old male With a past medical history of chronic respiratory failure, COPD, chronic bronchitis, dyslipidemia, atrial fibrillation without anticoagulation secondary to recurrent hemoptysis and neurogenic bladder requiring self-catheterization. He was just discharged 8 hours ago following an admission for Streptococcus pneumonia pneumonia with bacteremia, acute on chronic respiratory failure with hypoxia and hypercapnia, urinary tract infection and physical deconditioning complicated by a mass of the right lung. Upon arrival to custodial facility he is found to have an oxygen saturation of only 70% he is return to the emergency department where he does indeed have hypoxia of 76% on room air requiring BiPAP, leukocytosis and significant contraction alkalosis. Patient denies rhinorrhea sore throat acid reflux or fever. He complains of thirst. He received empiric antibiotics, BiPAP and referred to the hospitalist for admission. Hospital Course Hospital Course: MARY HAWKINS is a 83 year old male with a PMH of COPD on 3 lpm of home O2, hypoactive urinary bladder-does intermittent self catheterizatons, and hyperlipidemia who initially presented with productive cough, fever and SOB on 01/11/19 and was admitted for a right lower lobe pneumonia. He was found to be bacteremic with 2/2 bottles of blood cultures growing S. pneumonia. He was discharged 01/20/19 to [facility]. He reportedly had recurrence of SOB and hypoxia and was brought right back to the hospital from the retirement that same day. Physical Exam Vital Signs: Temp Pulse Resp BP Pulse Ox 98.3 F 78 118 H 139/60 H 93 02/07/19 07:45 02/07/19 09:04 02/07/19 09:04 02/07/19 07:45 02/07/19 09:04 Pulse Oximeter Continuous Start: 01/21/19 09:22 Freq: RTQ4 Status: Active Protocol: Document 02/07/19 09:04 [facility] (Rec: 02/07/19 09:18 [facility] [id number]) Pulse Oximetry Assessment Oxygen Saturation (92-100) 93 Oxygen Flow Rate (L/min) 6 Oxygen Delivery Method Nasal Cannula Fraction of Inspired Oxygen (FIO2) 40 Equipment Usage Equipment in Use Continuous SpO2 Machine # N 1 Intake & Output 02/06/19 02/07/19 02/08/19 06:59 06:59 06:59 Intake Total 1043 1299 Output Total 1900 2000 Balance -857 -705 Weight 61.1 kg 61.5 kg General appearance: PRESENT: no acute distress, well-developed, well-nourished Head exam: PRESENT: atraumatic, normocephalic Eye exam: PRESENT: conjunctiva pink, EOMI, PERRLA. ABSENT: scleral icterus Ear exam: PRESENT: normal external ear exam Mouth exam: PRESENT: moist, tongue midline Neck exam: ABSENT: carotid bruit, JVD, lymphadenopathy, thyromegaly Respiratory exam: PRESENT: decreased breath sounds, prolonged expiratory phas, symmetrical, unlabored Cardiovascular exam: PRESENT: RRR. ABSENT: diastolic murmur, rubs, systolic murmur Pulses: PRESENT: normal carotid pulses, normal radial pulses Vascular exam: PRESENT: normal capillary refill GI/Abdominal exam: PRESENT: normal bowel sounds, soft. ABSENT: distended, guarding, mass, organolmegaly, rebound, tenderness Rectal exam: PRESENT: deferred Extremities exam: PRESENT: full ROM. ABSENT: calf tenderness, clubbing, pedal edema Musculoskeletal exam: PRESENT: ambulatory, full ROM, tenderness Neurological exam: PRESENT: alert, awake, oriented to person, oriented to place, oriented to time, oriented to situation, CN II-XII grossly intact. ABSENT: motor sensory deficit Psychiatric exam: PRESENT: appropriate affect, normal mood. ABSENT: homicidal ideation, suicidal ideation Skin exam: PRESENT: dry, intact, warm. ABSENT: cyanosis, rash Results Laboratory Results: 02/06/19 04:58 02/06/19 04:58 01/20/19 01/20/19 02/02/19 20:51 20:51 05:28 Troponin I 0.014 NT-Pro-B Natriuret Pep 699 H 480 H 02/04/19 02/05/19 12:48 04:20 Troponin I NT-Pro-B Natriuret Pep 763 H 716 H Impressions: Thoracentesis Ultrasound 01/24/19 00:00 IMPRESSION: SUCCESSFUL PLACEMENT OF A LEFT SIDED CHEST TUBE USING ULTRASOUND GUIDANCE. Chest CT 01/26/19 10:52 IMPRESSION: 1. Significant improvement of bilateral pleural effusions with small residual right greater than left pleural effusions. 2. Significant improvement in the right lower lobe airspace consolidation/ pneumonia seen on prior exam. No definite mass lesions are identified, however recommend follow-up to resolution to ensure no underlying mass is present. 3. Mass lesion within the superior pole of the left kidney. This is incompletely evaluated on this examination but neoplasm is not excluded. Recommend clinical correlation and comparison with any prior imaging if available. 4. Extensive centrilobular emphysematous changes Chest X-Ray 02/04/19 00:00 IMPRESSION: STABLE APPEARANCE OF THE CHEST. Transfer Plan - Disposition Transfer Plan: [facility] - Time Spent with Patient Time spent with patient: Less than 30 Minutes Qualifiers - * PATIENT BEING DISCHARGED WITH ANY OF THE FOLLOWING DIAGNOSIS: No Plan Discharge Plan: SNF at [facility]. He will need BIPAP qhs and prn Time Spent: Less than 30 Minutes
[2019-02-07 12:06] VITALS: BP 126/89
== END 2019-02-07 18:28 | DRG 193 ==
LOC: ER 19:58 → EH 23:10 → 4N 01-21 02:53
PROVIDERS: ADMIT Internal Medicine; ATTEND Internal Medicine
PROC: 5A09357 Assistance with Respiratory Ventilation, Less than 24 Consecutive Hours, Continuous Positive Airway Pressure (ICD-10-PCS; 2019-01-20)
PROC: 3E0F3GC Introduction of Other Therapeutic Substance into Respiratory Tract, Percutaneous Approach (ICD-10-PCS; 2019-01-20)
PROC: 0W9B30Z Drainage of Left Pleural Cavity with Drainage Device, Percutaneous Approach (ICD-10-PCS; principal; 2019-01-24)
DX: J15.4 Pneumonia due to other streptococci (principal); J96.22 Acute and chronic respiratory failure with hypercapnia; J96.21 Acute and chronic respiratory failure with hypoxia; J44.0 Chronic obstructive pulmonary disease with (acute) lower respiratory infection; J91.8 Pleural effusion in other conditions classified elsewhere; E87.1 Hypo-osmolality and hyponatremia; E87.3 Alkalosis; J44.1 Chronic obstructive pulmonary disease with (acute) exacerbation; Z99.81 Dependence on supplemental oxygen; I48.91 Unspecified atrial fibrillation; N31.9 Neuromuscular dysfunction of bladder, unspecified; D63.8 Anemia in other chronic diseases classified elsewhere; R26.9 Unspecified abnormalities of gait and mobility; E78.5 Hyperlipidemia, unspecified; R91.8 Other nonspecific abnormal finding of lung field; I25.10 Atherosclerotic heart disease of native coronary artery without angina pectoris; I10 Essential (primary) hypertension; Z79.82 Long term (current) use of aspirin; Z79.51 Long term (current) use of inhaled steroids; Z79.52 Long term (current) use of systemic steroids; Z87.891 Personal history of nicotine dependence; Z88.8 Allergy status to other drugs, medicaments and biological substances; Z82.49 Family history of ischemic heart disease and other diseases of the circulatory system; Z83.6 Family history of other diseases of the respiratory system
CPT/HCPCS: 32555; 36415; 36600; 71045; 71250; 80048; 80053; 80069; 81001; 82150; 82803; 83615; 83735; 83880; 84155; 84157; 84443; 84484; 85025; 85027; 85610; 85730; 87015; 87040; 87070; 87075; 87101; 87116; 87205; 87206; 89050; 93005; 93010; 93306; 94640; 94660; 94667; 94668; 94762; 94799; 96374; 99285; J0456; J0696; J1644; J1940; J2920; J2930; J3490; J7030; J7060; J7512; J7620

== ENCOUNTER 2019-02-26 11:40 | Inpatient (IN) | payer MEDICARE ==
[2019-02-26] MEDS ORDERED: IPRATROPIUM/ALBUTEROL 0.5-2.5 MG/3 ML AMPUL NEB ONE (12:45)
[2019-02-26 12:55] LABS: ABSOLUTE EOSINOPHILS # (AUTO) 0.1 10^3/uL (0.0-0.6); ABSOLUTE LYMPHOCYTES (AUTO) 1.1 10^3/uL (0.5-4.7); ABSOLUTE MONOCYTES (AUTO) 1.1 10^3/uL (0.1-1.4); ABSOLUTE NEUT (AUTO) 5.6 10^3/uL (1.7-8.2); BASOPHILS % (AUTO) 0.3 % (0-2); EOSINOPHILS % (AUTO) 0.8 % (0-6); HEMATOCRIT 30.2 % (37.9-51.0); HEMOGLOBIN 10.5 g/dL (13.5-17.0); LYMPHOCYTES % (AUTO) 13.7 % (13-45); MEAN CORPUSCULAR HEMOGLOBIN 31.3 pg (27.0-33.4); MEAN CORPUSCULAR HGB CONC 34.7 g/dL (32.0-36.0); MEAN CORPUSCULAR VOLUME 90 fl (80-97); RED BLOOD COUNT 3.34 10^6/uL (4.35-5.55); SEGMENTED NEUTROPHILS % (AUTO) 71.2 % (42-78); TOTAL CELLS COUNTED % (AUTO) 100 %; WHITE BLOOD COUNT 7.9 10^3/uL (4.0-10.5)
[2019-02-26 13:08] LABS: PLATELET COUNT 377 10^3/uL (150-450)
[2019-02-26 13:11] LABS: ALANINE AMINOTRANSFERASE 42 U/L (21-72); ALBUMIN 2.9 g/dL (3.5-5.0); ALKALINE PHOSPHATASE 90 U/L (38-126); ANION GAP 6 (5-19); ASPARTATE AMINO TRANSFERASE 28 U/L (17-59); BILIRUBIN,DIRECT 0.3 mg/dL (0.0-0.4); BILIRUBIN,TOTAL 0.6 mg/dL (0.2-1.3); BLOOD UREA NITROGEN 25 mg/dL (7-20); CALCIUM 8.8 mg/dL (8.4-10.2); CARBON DIOXIDE 38 mmol/L (22-30); CHLORIDE 90 mmol/L (98-107); CREATINE KINASE 28 U/L (55-170); GLUCOSE 135 mg/dL (75-110); POTASSIUM 3.8 mmol/L (3.6-5.0); SODIUM 133.8 mmol/L (137-145); TOTAL PROTEIN 5.4 g/dL (6.3-8.2)
[2019-02-26 13:27] LABS: CREATINE KINASE MB 0.86 ng/mL (<4.55); TROPONIN I 0.015 ng/mL
--- NOTE | 2019-02-26 14:00 | RADIOLOGY REPORT (SQ) ---
EXAM DESCRIPTION: CHEST SINGLE VIEW COMPLETED DATE/TIME: 02/26/2019 1:47 pm REASON FOR STUDY: COPD exacerbation COMPARISON: None. EXAM PARAMETERS: NUMBER OF VIEWS: One view. TECHNIQUE: Single frontal radiographic view of the chest acquired. RADIATION DOSE: NA LIMITATIONS: None. FINDINGS: LUNGS AND PLEURA: Extensive emphysematous and chronic interstitial changes, not significan tly changed from prior. No definite superimposed airspace disease. Bilateral blunting of the costop hrenic angles, likely pleural thickening and stable. No pneumothorax. MEDIASTINUM AND HILAR STRUCTURES: Linear right suprahilar opacities, unchanged and likely scarring. HEART AND VASCULAR STRUCTURES: Normal heart size. Aortic atherosclerosis. BONES: No acute findings. HARDWARE: None in the chest. OTHER: No other significant finding. IMPRESSION: Extensive emphysematous change and parenchymal scarring without definite superimposed ca rdiopulmonary process. TECHNICAL DOCUMENTATION: JOB ID: [id number] [employer]- All Rights Reserved Reading location - IP/workstation name: [email or web address]
[2019-02-26 15:02] LABS: APPEARANCE,URINE CLEAR; BILIRUBIN,URINE NEGATIVE (NEGATIVE); COLOR,URINE YELLOW; GLUCOSE, URINE NEGATIVE (NEGATIVE); KETONES,URINE NEGATIVE (NEGATIVE); LEUKOCYTE ESTERASE,URINE SMALL (NEGATIVE); NITRITE,URINE NEGATIVE (NEGATIVE); PROTEIN,URINE NEGATIVE (NEGATIVE); URINE SPECIFIC GRAVITY 1.008; UROBILINOGEN,URINE NEGATIVE mg/dL (<2.0)
[2019-02-26] MEDS ORDERED: ALBUTEROL SULFATE 0.083% NEB 2.5 MG/3 ML AMPUL NEB ONE (15:02)
[2019-02-26 15:04] LABS: ARTERIAL BLOOD BASE EXCESS 11.5 mmol/L; ARTERIAL BLOOD HCO3 36.5 mmol/L (20-24); ARTERIAL BLOOD O2 SATURATION 93.2 % (94-98); ARTERIAL BLOOD PCO2 49.8 mmHg (35-45); ARTERIAL BLOOD PH 7.48 (7.35-7.45); ARTERIAL BLOOD PO2 62.6 mmHg (80-100)
[2019-02-26 15:06] LABS: ARTERIAL BLOOD FIO2 6L
[2019-02-26] MEDS ORDERED: ONDANSETRON HCL INJ/PF 4 MG/2 ML SDV IV PRN (16:29)
[2019-02-26] MEDS ORDERED: ACETAMINOPHEN 325 MG TABLET PO PRN (16:29)
--- NOTE | 2019-02-26 16:56 | PDOC H&P ---
History of Present Illness Patient complains of: Shortness of breath History of Present Illness: MARY HAWKINS is a 84 year old male with history of COPD on 4 L oxygen at [facility], chronic respiratory failure, chronic bronchitis, atrial fibrillation not on anticoagulation, history of neurogenic bladder requiring ilana f-catheterization brought from the [facility] with acute respiratory distress. Patient was felt found to be in severe respiratory distress EMS was called as per the EMS report pulse ox is 82% on 6 L of oxygen. He was brought to the emergency room for further evaluation in the ER his breathing is improved with oxygen but pulse ox is still around 90-92% on 6 L. Medical consult was called for admission. On examination patient denies any other symptoms except for shortness of breath is also given the history of chronic cough without expectoration. Denies any fever denies any headaches dizzy spells denies any nausea vomiting diarrhea abdominal pains. He wants to be DNR/DNI. pt did agree to be in the hospital for further management. Past Medical History Cardiac Medical History: Reports: Coronary Artery Disease, Hyperlipidema, Hypertension Denies: Atrial Fibrillation, Congestive Heart Failure, Myocardial Infarction, Peripheral Vascular Disease, Pulmonary Embolism, Heart Murmur Pulmonary Medical History: Reports: Asthma, Bronchitis, Chronic Obstructive Pulmonary Disease (COPD), Pneumonia, Respiratory Failure Denies: Sleep Apnea, Tuberculosis Neurological Medical History: Denies: Seizures Renal/ Medical History: Denies: End Stage Renal Disease Malignancy Medical History: Denies: Lung Cancer GI Medical History: Denies: Hepatitis, Hiatal Hernia Musculoskeltal Medical History: Denies: Arthritis, Fibromyalgia Psychiatric Medical History: Denies: Depression Traumatic Medical History: Denies: Traumatic Brain Injury Hematology: Denies: Anemia, Sickle Cell Disease Infectious Medical History: Denies: HIV Past Surgical History Past Surgical History: Reports: Herniorrhaphy - nov 2007 Denies: Appendectomy, Cholecystectomy, Coronary Artery Bypass Graft, Gastric Bypass Surgery, Pacemaker, Tonsillectomy Social History Lives with: Longterm Smoking Status: Former Smoker Frequency of Alcohol Use: None Hx Recreational Drug Use: No Drugs: None Hx Prescription Drug Abuse: No - Advance Directive Resuscitation Status: Do Not Resuscitate Family History Family History: COPD, Hypertension Parental Family History Reviewed: Yes - Family history of heart disease and hypertension. Children Family History Reviewed: Yes Sibling(s) Family History Reviewed.: Yes Medication/Allergy Allergies/Adverse Reactions: roflumilast Allergy (Unknown, Verified 08/08/18 07:05) Review of Systems Constitutional: ABSENT: fatigue, fever(s), headache(s), night sweats, weakness Eyes: ABSENT: visual disturbances Ears: ABSENT: hearing changes Nose, Mouth, and Throat: ABSENT: sore throat Cardiovascular: ABSENT: edema, orthropnea, palpitations Respiratory: PRESENT: cough, dyspnea Gastrointestinal: ABSENT: abdominal pain, constipation, nausea, vomiting Genitourinary: ABSENT: dysuria, hematuria Musculoskeletal: ABSENT: back pain, deformity Neurological: ABSENT: abnormal gait, abnormal speech, confusion, dizziness, focal weakness, syncope Psychiatric: ABSENT: anxiety, depression, homidical ideation, suicidal ideation Physical Exam Vital Signs: Temp Pulse Resp BP Pulse Ox 98.8 F 20 112/59 L 93 02/26/19 15:29 02/26/19 15:01 02/26/19 15:00 02/26/19 15:01 Intake & Output 02/25/19 02/26/19 02/27/19 06:59 06:59 06:59 Weight 70.5 kg General appearance: PRESENT: mild distress, thin Head exam: PRESENT: atraumatic Eye exam: PRESENT: PERRLA Ear exam: PRESENT: normal external ear exam Mouth exam: PRESENT: moist, tongue midline Neck exam: ABSENT: carotid bruit, JVD, lymphadenopathy, thyromegaly Respiratory exam: PRESENT: decreased breath sounds Cardiovascular exam: PRESENT: irregular rhythm, systolic murmur, tachycardia GI/Abdominal exam: PRESENT: normal bowel sounds, soft. ABSENT: distended, guarding, mass, organolmegaly, rebound, tenderness Gentrourinary exam: PRESENT: indwelling catheter Neurological exam: PRESENT: alert, awake, oriented to person, oriented to place, oriented to time, oriented to situation, CN II-XII grossly intact. ABSENT: motor sensory deficit Psychiatric exam: PRESENT: appropriate affect, normal mood. ABSENT: homicidal ideation, suicidal ideation Results Laboratory Results: 02/26/19 12:15 02/26/19 12:15 02/26/19 02/26/19 02/26/19 12:15 12:15 12:15 WBC 7.9 RBC 3.34 L Hgb 10.5 L Hct 30.2 L MCV 90 MCH 31.3 MCHC 34.7 RDW 15.0 H Plt Count 377 Seg Neutrophils % 71.2 Lymphocytes % 13.7 Monocytes % 14.0 H Eosinophils % 0.8 Basophils % 0.3 Absolute Neutrophils 5.6 Absolute Lymphocytes 1.1 Absolute Monocytes 1.1 Absolute Eosinophils 0.1 Absolute Basophils 0.0 Carbonic Acid HCO3/H2CO3 Ratio ABG pH ABG pCO2 ABG pO2 ABG HCO3 ABG O2 Saturation ABG Base Excess FiO2 Sodium 133.8 L Potassium 3.8 Chloride 90 L Carbon Dioxide 38 H Anion Gap 6 BUN 25 H Creatinine 0.72 Est GFR ( Amer) > 60 Est GFR (Non-Af Amer) > 60 Glucose 135 H Lactic Acid 1.5 Calcium 8.8 Total Bilirubin 0.6 AST 28 ALT 42 Alkaline Phosphatase 90 Total Protein 5.4 L Albumin 2.9 L Urine Color Urine Appearance Urine pH Ur Specific [place] Urine Protein Urine Glucose (UA) Urine Ketones Urine Blood Urine Nitrite Ur Leukocyte Esterase Urine WBC (Auto) Urine RBC (Auto) 02/26/19 02/26/19 14:29 14:29 WBC RBC Hgb Hct MCV MCH MCHC RDW Plt Count Seg Neutrophils % Lymphocytes % Monocytes % Eosinophils % Basophils % Absolute Neutrophils Absolute Lymphocytes Absolute Monocytes Absolute Eosinophils Absolute Basophils Carbonic Acid 1.50 H HCO3/H2CO3 Ratio 24:1 ABG pH 7.48 H ABG pCO2 49.8 H ABG pO2 62.6 L ABG HCO3 36.5 H ABG O2 Saturation 93.2 L ABG Base Excess 11.5 FiO2 6L Sodium Potassium Chloride Carbon Dioxide Anion Gap BUN Creatinine Est GFR ( Amer) Est GFR (Non-Af Amer) Glucose Lactic Acid Calcium Total Bilirubin AST ALT Alkaline Phosphatase Total Protein Albumin Urine Color YELLOW Urine Appearance CLEAR Urine pH 8.0 Ur Specific [place] 1.008 Urine Protein NEGATIVE Urine Glucose (UA) NEGATIVE Urine Ketones NEGATIVE Urine Blood NEGATIVE Urine Nitrite NEGATIVE Ur Leukocyte Esterase SMALL H Urine WBC (Auto) 7 Urine RBC (Auto) 1 02/26/19 02/26/19 12:15 12:15 Creatine Kinase 28 L CK-MB (CK-2) 0.86 Troponin I 0.015 Impressions: Chest X-Ray 02/26/19 12:44 IMPRESSION: Extensive emphysematous change and parenchymal scarring without definite superimposed cardiopulmonary process. Assessment and Plan - Diagnosis (1) Acute and chronic respiratory failure with hypoxia Is this a current diagnosis for this admission?: Yes Plan: 02/26/[id number]-old male [facility] with history of worsening shortness of breath. He has chronic respiratory failure on 4-6 L of oxygen at [facility]. EMS recorded the pulse oxes of 82%. Emergency room with oxygen supplementation and breathing treatments pulse ox is improved to 90-90% on 6 L of oxygen. Medical consult was called for admission he wants to be DNR/DNI. Plan to put him in telemetry. Restarted home medications. To start an IV Solu- Medrol 40 mg every 12 hours, Xopenex nebulizations every 6 as needed. GI prophylaxis DVT prophylaxis was provided. To repeat the chest x-ray and ABG tomorrow. Chest physical therapy was requested. X-ray was personally reviewed by me that shows emphysema no evidence of pneumonia. BiPAP requested placed on as-needed basis. Patient was presently on 6 L of oxygen plan to continue the present management. Antibiotics is initiated because of no evidence of any infection or sepsis. (2) Neurogenic bladder Is this a current diagnosis for this admission?: No Plan: 02/26/2019-patient has a neurogenic bladder uses self-catheterization. plan is to continue the management here in the hospital. (3) Atrial fibrillation Qualifiers: Atrial fibrillation type: chronic Qualified Code(s): I48.2 - Chronic atrial fibrillation Is this a current diagnosis for this admission?: No Plan: 02/26/2019-patient has history of chronic atrial fibrillation. He is on dil tiazem 360 mg p.o. daily at [facility]. Which was restarted. Patient is only on aspirin not on anticoagulation. He was placed on Lovenox 40 mg subcu was daily and aspirin is restarted. (4) Anemia Is this a current diagnosis for this admission?: No Plan: 02/26/2019-patient has history of anemia of chronic disease. Hemoglobin is 10.5 stable. Plan is to check the labs on daily basis. (5) CHF (congestive heart failure) Is this a current diagnosis for this admission?: No Plan: 02/26/2019-patient has echocardiogram was done on 02/04/2019 suggested normal left ventricular ejection fraction but the patient has a grade 1/grade 4 mild diastolic dysfunction. Patient on Lasix 40 mg twice daily in the [facility] plan is to resume the medication here in the hospital. Patient is not in fluid overload. (6) Hypertension Is this a current diagnosis for this admission?: No Plan: 02/26/2019-patient has history of hypertension blood pressure is 112/60. Plan is to continue his [facility] medications in the hospital. (7) Hyponatremia Is this a current diagnosis for this admission?: No Plan: 02/26/2019-patient serum sodium level today is 133.8. Hyponatremia may be secondary to diuretics. Recheck the labs tomorrow. (8) DNR (do not resuscitate) Is this a current diagnosis for this admission?: Yes Plan: 02/26/2019-patient wants to be DNR/DNI. Order was placed. - Time Time Spent with patient: 25-34 minutes Medications reviewed and adjusted accordingly: Yes Anticipated discharge: SNF
--- NOTE | 2019-02-26 17:07 | ADVANCED CARE ---
- Diagnosis (2) Neurogenic bladder Diagnosis Current: Yes (3) Atrial fibrillation Diagnosis Current: Yes (4) Anemia Diagnosis Current: Yes (5) CHF (congestive heart failure) Diagnosis Current: Yes (6) Hypertension Diagnosis Current: Yes (7) Hyponatremia Diagnosis Current: Yes (8) DNR (do not resuscitate) Diagnosis Current: Yes Resuscitation Status: Do Not Resuscitate Discussion: Discussed living. Patient states he has a living will. He also wants to be DNR/DNI. Care Planning Goals: Once he gets better [facility] for short stay and he has plans to go back home. Document(s) Completed: DNR/DNI order was placed. Time Spent: More than 20 minutes
[2019-02-26] MEDS: LEVALBUTEROL HCL NEB 0.63 MG/3 ML AMPUL NEB SCH ×3 (17:11→23:49)
[2019-02-26] MEDS: METHYLPREDNISOLONE INJ 40 MG/1 ML SDV IV SCH (17:41)
[2019-02-26] MEDS: FAMOTIDINE 20 MG TABLET PO SCH (17:42)
[2019-02-26] MEDS: DOCUSATE SODIUM 100 MG CAPSULE PO SCH (17:42)
[2019-02-26] MEDS: DILTIAZEM HCL 180 MG CAPSULE.CR PO SCH (17:42)
[2019-02-26] MEDS: ASPIRIN 81 MG TABLET, CHEWABLE PO SCH (17:43)
[2019-02-26] MEDS: FUROSEMIDE 20 MG TABLET PO SCH (17:43)
[2019-02-26] MEDS: BUDESONIDE NEB 0.5 MG/2 ML AMPUL NEB SCH (17:53)
[2019-02-26] MEDS: ENOXAPARIN SODIUM INJ 40 MG/0.4 ML DISP.SYRIN SUBCUT SCH (17:53)
--- NOTE | 2019-02-26 18:22 | ER Document Report ---
Entered by LUPIS REES SCRIBE 02/26/19 1500 Acting as scribe for:HUGH CORTES MD ED Respiratory Problem - General Chief Complaint: Shortness Of Breath Stated Complaint: RESPIRATORY DISTRESS Time Seen by Provider: 02/26/19 12:29 Mode of Arrival: Ambulatory Information source: Patient Notes: 84-year-old male COPD patient sent from [facility] for shortness of breath that is acutely worse this morning. He did spend 28 days in January in the hospital for COPD and pneumonia. I am told he is back at the senior care on 6 L nasal cannula. By history it sounds like his nasal cannula came off and he was found in respiratory distress because there was a pulse ox reading of 82% on room air reported by EMS. He reports that his chronic cough is nonproductive. He is better now on oxygen and following breathing treatments, but still reports that his breathing is much more difficult than normal. His oxygen saturations in the emergency room on 6 L nasal cannula is only 90-92% at its best. He does do a fair amount of mouth breathing. TRAVEL OUTSIDE OF THE [place] IN LAST 30 DAYS: No - Related Data Allergies/Adverse Reactions: roflumilast Allergy (Unknown, Verified 08/08/18 07:05) Past Medical History - General Information source: Patient - Social History Smoking Status: Former Smoker Cigarette use (# per day): No Frequency of alcohol use: None Drug Abuse: None Lives with: Family Family History: Reviewed & Not Pertinent, COPD, Hypertension - Past Medical History Cardiac Medical History: Reports: Hx Coronary Artery Disease, Hx Hypercholesterolemia, Hx Hypertension Pulmonary Medical History: Reports: Hx Asthma, Hx Bronchitis, Hx COPD, Hx Pneumonia, Hx Respiratory Failure Past Surgical History: Reports: Hx Herniorrhaphy - nov 2007 - Immunizations Hx Diphtheria, Pertussis, Tetanus Vaccination: Yes Hx Pneumococcal Vaccination: 11/12/11 Review of Systems - Review of Systems Constitutional: No symptoms reported EENT: No symptoms reported Cardiovascular: No symptoms reported Respiratory: See HPI, Cough, Short of breath, Wheezing Gastrointestinal: No symptoms reported Genitourinary: No symptoms reported Male Genitourinary: No symptoms reported Musculoskeletal: No symptoms reported Skin: No symptoms reported Hematologic/Lymphatic: No symptoms reported Neurological/Psychological: No symptoms reported -: Yes All other systems reviewed and negative Physical Exam - Vital signs Vitals: Resp Pulse Ox 18 94 02/26/19 12:01 02/26/19 12:01 - Notes Notes: Physical Exam: General: Alert, appears in moderate respiratory distress. HEENT: Normocephalic. Atraumatic. PERRL. Extraocular movements intact. Oropharynx clear. Neck: Supple. Non-tender. Respiratory: Moderate respiratory distress. Wheezing and rhonchi bilaterally. R etracting. Open mouth breathing. Cardiovascular: Regular rate and rhythm. Abdominal: Normal Inspection. Non-tender. No distension. Normal Bowel Sounds. Back: Non-tender. No deformity or step off. Extremities: Moves all four extremities. Upper extremities: Normal inspection. Normal ROM. Lower extremities: Normal inspection. No edema. Normal ROM. Neurological: Normal cognition. AAOx4. Normal speech. Psychological: Normal affect. Normal Mood. Skin: Warm. Dry. Normal color. Course - Vital Signs Vital signs: Temp Pulse Resp BP Pulse Ox 98.8 F 20 112/59 L 93 02/26/19 15:29 02/26/19 15:01 02/26/19 15:00 02/26/19 15:01 - Laboratory Result Diagrams: 02/26/19 12:15 02/26/19 12:15 Laboratory results interpreted by me: 02/26/19 02/26/19 02/26/19 12:15 12:15 14:29 RBC 3.34 L Hgb 10.5 L Hct 30.2 L RDW 15.0 H Monocytes % 14.0 H Carbonic Acid 1.50 H ABG pH 7.48 H ABG pCO2 49.8 H ABG pO2 62.6 L ABG HCO3 36.5 H ABG Total CO2 38.0 H ABG O2 Saturation 93.2 L Sodium 133.8 L Chloride 90 L Carbon Dioxide 38 H BUN 25 H Glucose 135 H Creatine Kinase 28 L Total Protein 5.4 L Albumin 2.9 L Ur Leukocyte Esterase 02/26/19 14:29 RBC Hgb Hct RDW Monocytes % Carbonic Acid ABG pH ABG pCO2 ABG pO2 ABG HCO3 ABG Total CO2 ABG O2 Saturation Sodium Chloride Carbon Dioxide BUN Glucose Creatine Kinase Total Protein Albumin Ur Leukocyte Esterase SMALL H - Diagnostic Test Radiology reviewed: Image reviewed, Reports reviewed - Chest x-ray shows extensive events of this edematous change with bilateral pleural thickening - EKG Interpretation by Tx EKG shows normal: Sinus rhythm, [place], Intervals, QRS Complexes. abnormal: ST-T Waves - Borderline anterior T abnormalities Rate: Normal - 75 Rhythm: NSR [place]/QRS: Right axis deviation Voltage: Decreased voltage - Consults Dr. Rod Time consulted: 15:55 Consulted provider: will come to ER Critical Care Note - Critical Care Note Total time excluding time spent on procedures (mins): 35 Discharge - Discharge Clinical Impression: Acute on chronic respiratory failure with hypoxia and hypercapnia, COPD with exacerbation Condition: Good Disposition: ADMITTED INPATIENT Admitting Provider: Viola (Hospitalist) Unit Admitted: Telemetry Scribe Attestation: 02/26/19 12:40 I personally performed the services described in the documentation, reviewed and edited the documentation which was dictated to the scribe in my presence, and it accurately records my words and actions. I personally performed the services described in the documentation, reviewed and edited the documentation which was dictated to the scribe in my presence, and it accurately records my words and actions.
[2019-02-26] MEDS: ATORVASTATIN CALCIUM 10 MG TABLET PO SCH (21:18)
--- NOTE | 2019-02-26 21:50 | EKG REPORT ---
SEVERITY:- ABNORMAL ECG - ACCELERATED JUNCTIONAL RHYTHM BORDERLINE RIGHT AXIS DEVIATION LOW VOLTAGE IN FRONTAL LEADS BORDERLINE T ABNORMALITIES, ANTERIOR LEADS : Confirmed by: uSsan Munguia MD 26-Feb-2019 21:50:23
[2019-02-26] MEDS ORDERED: BUDESONIDE NEB 0.5 MG/2 ML AMPUL NEB SCH (22:00)
[2019-02-26 22:14] LABS: CREATINE KINASE MB 0.67 ng/mL (<4.55); TROPONIN I 0.018 ng/mL
[2019-02-27 03:58] LABS: ABSOLUTE LYMPHOCYTES (AUTO) 0.3 10^3/uL (0.5-4.7); ABSOLUTE MONOCYTES (AUTO) 0.2 10^3/uL (0.1-1.4); ABSOLUTE NEUT (AUTO) 4.1 10^3/uL (1.7-8.2); BASOPHILS % (AUTO) 0.1 % (0-2); HEMATOCRIT 26.4 % (37.9-51.0); HEMOGLOBIN 9.2 g/dL (13.5-17.0); LYMPHOCYTES % (AUTO) 6.8 % (13-45); MEAN CORPUSCULAR HEMOGLOBIN 31.5 pg (27.0-33.4); MEAN CORPUSCULAR HGB CONC 34.7 g/dL (32.0-36.0); MEAN CORPUSCULAR VOLUME 91 fl (80-97); MONOCYTES % (AUTO) 3.3 % (3-13); PLATELET COUNT 349 10^3/uL (150-450); RED BLOOD COUNT 2.91 10^6/uL (4.35-5.55); RED CELL DISTRIBUTION WIDTH 14.6 % (11.5-14.0); SEGMENTED NEUTROPHILS % (AUTO) 89.8 % (42-78); TOTAL CELLS COUNTED % (AUTO) 100 %; WHITE BLOOD COUNT 4.5 10^3/uL (4.0-10.5)
[2019-02-27] MEDS: LEVALBUTEROL HCL NEB 0.63 MG/3 ML AMPUL NEB SCH ×6 (04:18→23:31)
[2019-02-27 04:25] LABS: ALANINE AMINOTRANSFERASE 27 U/L (21-72); ALBUMIN 2.7 g/dL (3.5-5.0); ALKALINE PHOSPHATASE 76 U/L (38-126); ANION GAP 9 (5-19); ASPARTATE AMINO TRANSFERASE 22 U/L (17-59); BILIRUBIN,DIRECT 0.2 mg/dL (0.0-0.4); BILIRUBIN,TOTAL 0.4 mg/dL (0.2-1.3); BLOOD UREA NITROGEN 30 mg/dL (7-20); CALCIUM 8.5 mg/dL (8.4-10.2); CARBON DIOXIDE 31 mmol/L (22-30); CHLORIDE 92 mmol/L (98-107); CHOLESTEROL 92.48 mg/dL (0-200); CREATINE KINASE 34 U/L (55-170); GLUCOSE 259 mg/dL (75-110); POTASSIUM 4.5 mmol/L (3.6-5.0); SODIUM 131.5 mmol/L (137-145); TOTAL PROTEIN 4.9 g/dL (6.3-8.2); TRIGLYCERIDES 58 mg/dL (<150)
[2019-02-27 04:34] LABS: CREATINE KINASE MB 0.68 ng/mL (<4.55); TROPONIN I 0.013 ng/mL
[2019-02-27 04:35] LABS: DIRECT LDL 46 mg/dL (<100)
[2019-02-27] MEDS: FAMOTIDINE 20 MG TABLET PO SCH ×2 (05:28→21:06)
[2019-02-27] MEDS: BUDESONIDE NEB 0.5 MG/2 ML AMPUL NEB SCH ×2 (08:19→22:44)
[2019-02-27 10:47] LABS: CREATINE KINASE MB 0.8 ng/mL (<4.55); TROPONIN I 0.012 ng/mL
--- NOTE | 2019-02-27 11:33 | PDOC PROGRESS REPORT ---
Subjective Progress Note for:: 02/27/19 Subjective:: 84 year old male with history of COPD on 4 L oxygen at retirement, chronic respiratory failure, chronic bronchitis, atrial fibrillation not on anticoagulation, history of neurogenic bladder requiring self-catheterization brought from the retirement with acute respiratory distress. Patient was felt found to be in severe respiratory distress EMS was called as per the EMS report pulse ox is 82% on 6 L of oxygen. He was brought to the emergency room for further evaluation in the ER his breathing is improved with oxygen but pulse ox is still around 90-92% on 6 L. Medical consult was called for admission. On examination patient denies any other symptoms except for shortness of breath is also given the history of chronic cough without expectoration. Denies any fever denies any headaches dizzy spells denies any nausea vomiting diarrhea abdominal pains. He wants to be DNR/DNI. pt did agree to be in the hospital for further management. 02/27/[id number]-uzcj-old male with history of COPD and emphysema admitted for worsening shortness of breath. Chest x-ray was negative for pneumonia. Pulse ox is 92% on 5 L. Patient is still shortness of breath. No acute events in the last 24 hours. Letter of equal oriented communicating well. She does not want to go back to [facility]. He wants to go home tomorrow to stay with his . Reason For Visit: COPD EXACERBATION Physical Exam Vital Signs: Temp Pulse Resp BP Pulse Ox 97.7 F 71 21 H 113/56 L 92 02/27/19 08:20 02/27/19 08:20 02/27/19 08:20 02/27/19 08:20 02/27/19 08:20 Intake & Output 02/26/19 02/27/19 02/28/19 06:59 06:59 06:59 Weight 70.5 kg General appearance: PRESENT: mild distress, thin Head exam: PRESENT: atraumatic Eye exam: PRESENT: PERRLA Mouth exam: PRESENT: moist, tongue midline Teeth exam: PRESENT: edentulous Neck exam: ABSENT: carotid bruit, JVD, lymphadenopathy, thyromegaly Respiratory exam: PRESENT: decreased breath sounds GI/Abdominal exam: PRESENT: normal bowel sounds, soft. ABSENT: distended, guarding, mass, organolmegaly, rebound, tenderness Extremities exam: PRESENT: full ROM. ABSENT: calf tenderness, clubbing, pedal edema Neurological exam: PRESENT: alert, awake, oriented to person, oriented to place, oriented to time, oriented to situation, CN II-XII grossly intact. ABSENT: motor sensory deficit Psychiatric exam: PRESENT: appropriate affect, normal mood. ABSENT: homicidal ideation, suicidal ideation Results Laboratory Results: 02/27/19 03:40 02/27/19 03:40 02/26/19 02/26/19 02/26/19 12:15 12:15 12:15 WBC 7.9 RBC 3.34 L Hgb 10.5 L Hct 30.2 L MCV 90 MCH 31.3 MCHC 34.7 RDW 15.0 H Plt Count 377 Seg Neutrophils % 71.2 Lymphocytes % 13.7 Monocytes % 14.0 H Eosinophils % 0.8 Basophils % 0.3 Absolute Neutrophils 5.6 Absolute Lymphocytes 1.1 Absolute Monocytes 1.1 Absolute Eosinophils 0.1 Absolute Basophils 0.0 Carbonic Acid HCO3/H2CO3 Ratio ABG pH ABG pCO2 ABG pO2 ABG HCO3 ABG O2 Saturation ABG Base Excess FiO2 Sodium 133.8 L Potassium 3.8 Chloride 90 L Carbon Dioxide 38 H Anion Gap 6 BUN 25 H Creatinine 0.72 Est GFR ( Amer) > 60 Est GFR (Non-Af Amer) > 60 Glucose 135 H Lactic Acid 1.5 Calcium 8.8 Magnesium Total Bilirubin 0.6 AST 28 ALT 42 Alkaline Phosphatase 90 Total Protein 5.4 L Albumin 2.9 L Triglycerides Cholesterol LDL Cholesterol Direct VLDL Cholesterol HDL Cholesterol TSH Urine Color Urine Appearance Urine pH Ur Specific [place] Urine Protein Urine Glucose (UA) Urine Ketones Urine Blood Urine Nitrite Ur Leukocyte Esterase Urine WBC (Auto) Urine RBC (Auto) 02/26/19 02/26/19 02/27/19 14:29 14:29 03:40 WBC RBC Hgb Hct MCV MCH MCHC RDW Plt Count Seg Neutrophils % Lymphocytes % Monocytes % Eosinophils % Basophils % Absolute Neutrophils Absolute Lymphocytes Absolute Monocytes Absolute Eosinophils Absolute Basophils Carbonic Acid 1.50 H HCO3/H2CO3 Ratio 24:1 ABG pH 7.48 H ABG pCO2 49.8 H ABG pO2 62.6 L ABG HCO3 36.5 H ABG O2 Saturation 93.2 L ABG Base Excess 11.5 FiO2 6L Sodium 131.5 L Potassium 4.5 Chloride 92 L Carbon Dioxide 31 H Anion Gap 9 BUN 30 H Creatinine 0.77 Est GFR ( Amer) > 60 Est GFR (Non-Af Amer) > 60 Glucose 259 H Lactic Acid Calcium 8.5 Magnesium 2.1 Total Bilirubin 0.4 AST 22 ALT 27 Alkaline Phosphatase 76 Total Protein 4.9 L Albumin 2.7 L Triglycerides 58 Cholesterol 92.48 LDL Cholesterol Direct 46 VLDL Cholesterol 12.0 HDL Cholesterol 43 TSH Urine Color YELLOW Urine Appearance CLEAR Urine pH 8.0 Ur Specific [place] 1.008 Urine Protein NEGATIVE Urine Glucose (UA) NEGATIVE Urine Ketones NEGATIVE Urine Blood NEGATIVE Urine Nitrite NEGATIVE Ur Leukocyte Esterase SMALL H Urine WBC (Auto) 7 Urine RBC (Auto) 1 02/27/19 02/27/19 03:40 03:40 WBC 4.5 RBC 2.91 L Hgb 9.2 L Hct 26.4 L MCV 91 MCH 31.5 MCHC 34.7 RDW 14.6 H Plt Count 349 Seg Neutrophils % 89.8 H Lymphocytes % 6.8 L Monocytes % 3.3 Eosinophils % 0.0 Basophils % 0.1 Absolute Neutrophils 4.1 Absolute Lymphocytes 0.3 L Absolute Monocytes 0.2 Absolute Eosinophils 0.0 Absolute Basophils 0.0 Carbonic Acid HCO3/H2CO3 Ratio ABG pH ABG pCO2 ABG pO2 ABG HCO3 ABG O2 Saturation ABG Base Excess FiO2 Sodium Potassium Chloride Carbon Dioxide Anion Gap BUN Creatinine Est GFR ( Amer) Est GFR (Non-Af Amer) Glucose Lactic Acid Calcium Magnesium Total Bilirubin AST ALT Alkaline Phosphatase Total Protein Albumin Triglycerides Cholesterol LDL Cholesterol Direct VLDL Cholesterol HDL Cholesterol TSH 0.21 L Urine Color Urine Appearance Urine pH Ur Specific [place] Urine Protein Urine Glucose (UA) Urine Ketones Urine Blood Urine Nitrite Ur Leukocyte Esterase Urine WBC (Auto) Urine RBC (Auto) 02/26/19 02/26/19 02/26/19 12:15 12:15 21:26 Creatine Kinase 28 L 38 L CK-MB (CK-2) 0.86 Troponin I 0.015 NT-Pro-B Natriuret Pep 02/26/19 02/27/19 02/27/19 21:26 03:40 03:40 Creatine Kinase 34 L CK-MB (CK-2) 0.67 0.68 Troponin I 0.018 0.013 NT-Pro-B Natriuret Pep 462 H 02/27/19 02/27/19 09:33 09:33 Creatine Kinase 32 L CK-MB (CK-2) 0.80 Troponin I 0.012 NT-Pro-B Natriuret Pep Impressions: Chest X-Ray 02/26/19 12:44 IMPRESSION: Extensive emphysematous change and parenchymal scarring without definite superimposed cardiopulmonary process. Assessment and Plan - Diagnosis (1) Acute and chronic respiratory failure with hypoxia Is this a current diagnosis for this admission?: Yes Plan: 02/26/[id number]-mbxw-old male came from the retirement with history of worsening shortness of breath. He has chronic respiratory failure on 4-6 L of oxygen at retirement. EMS recorded the pulse oxes of 82%. Emergency room with oxygen supplementation and breathing treatments pulse ox is improved to 90-90% on 6 L of oxygen. Medical consult was called for admission he wants to be DNR/DNI. Plan to put him in telemetry. Restarted home medications. To start an IV Solu- Medrol 40 mg every 12 hours, Xopenex nebulizations every 6 as needed. GI prophylaxis DVT prophylaxis was provided. To repeat the chest x-ray and ABG tomorrow. Chest physical therapy was requested. X-ray was personally reviewed by me that shows emphysema no evidence of pneumonia. BiPAP requested placed on as-needed basis. Patient was presently on 6 L of oxygen plan to continue the present management. Antibiotics is initiated because of no evidence of any infection or sepsis. 02/27/2019-no acute events in the last 24 hours. Pulse ox is 92% on 5 L oxygen. Presently on IV Solu-Medrol 40 mg every 8 hours Xopenex nebulizations and albuterol nebulizations also on Pulmicort. Plan is to continue the present management probably discharge back home tomorrow. (2) Neurogenic bladder Is this a current diagnosis for this admission?: No Plan: 02/26/2019-patient has a neurogenic bladder uses self-catheterization. plan is to continue the management here in the hospital. (3) Atrial fibrillation Qualifiers: Atrial fibrillation type: chronic Qualified Code(s): I48.2 - Chronic atrial fibrillation Is this a current diagnosis for this admission?: No Plan: 02/26/2019-patient has history of chronic atrial fibrillation. He is on diltiazem 360 mg p.o. daily at retirement. Which was restarted. Patient is only on aspirin not on anticoagulation. He was placed on Lovenox 40 mg subcu was daily and aspirin is restarted. 02/27/2019-patient has history of atrial fibrillation heart rate is 71 rate controlled. Patient is presently on aspirin and Lovenox for DVT prophylaxis. (4) Anemia Is this a current diagnosis for this admission?: No Plan: 02/26/2019-patient has history of anemia of chronic disease. Hemoglobin is 10.5 stable. Plan is to check the labs on daily basis. 02/27/2019-patient has history of anemia of chronic disease. Hemoglobin is 9.2. Plan is to recheck labs tomorrow. (5) CHF (congestive heart failure) Is this a current diagnosis for this admission?: No Plan: 02/26/2019-patient has echocardiogram was done on 02/04/2019 suggested normal left ventricular ejection fraction but the patient has a grade 1/grade 4 mild diastolic dysfunction. Patient on Lasix 40 mg twice daily in the retirement plan is to resume the medication here in the hospital. Patient is not in fluid overload. 02/27/2019-patient has history of congestive heart failure. Latest echocardiogram suggestive of chronic mild diastolic heart failure. Presently on Lasix 40 mg IV twice a day and no signs of any fluid overload. Pressure is 113/56 plan is to decrease the Lasix to 20 mg twice a day today. (6) Hypertension Is this a current diagnosis for this admission?: No Plan: 02/26/2019-patient has history of hypertension blood pressure is 112/60. Plan is to continue his retirement medications in the hospital. 02/27/2019-patient blood pressure today is 113/56 with heart rate of 71. Stable. Presently on Lasix 40mg p.o. twice a day and the dose is decreased to 20 mg p.o. twice daily. (7) Hyponatremia Is this a current diagnosis for this admission?: No Plan: 02/26/2019-patient serum sodium level today is 133.8. Hyponatremia may be secondary to diuretics. Recheck the labs tomorrow. 02/27/2019-serum sodium is 131.5 today. With the blood sugars of 259. Corrected serum sodium is probably around 134. Borderline hyponatremia may be secondary to diuretic use. (8) DNR (do not resuscitate) Is this a current diagnosis for this admission?: Yes - Time Time Spent with patient: 15-24 minutes Medications reviewed and adjusted accordingly: Yes Anticipated discharge: Home with Homehealth
[2019-02-27] MEDS: ALBUTEROL SULFATE 0.083% NEB 2.5 MG/3 ML AMPUL NEB SCH (12:44)
[2019-02-27] MEDS: ENOXAPARIN SODIUM INJ 40 MG/0.4 ML DISP.SYRIN SUBCUT SCH (13:34)
[2019-02-27] MEDS: METHYLPREDNISOLONE INJ 40 MG/1 ML SDV IV SCH ×2 (13:35→21:06)
[2019-02-27] MEDS: ASPIRIN 81 MG TABLET, CHEWABLE PO SCH (13:35)
[2019-02-27] MEDS: CETIRIZINE 10 MG TABLET PO SCH (13:35)
[2019-02-27] MEDS: DILTIAZEM HCL 180 MG CAPSULE.CR PO SCH (13:36)
[2019-02-27] MEDS: DOCUSATE SODIUM 100 MG CAPSULE PO SCH ×2 (13:36→21:06)
[2019-02-27] MEDS: FUROSEMIDE 20 MG TABLET PO SCH ×3 (13:42→22:09)
--- NOTE | 2019-02-27 15:34 | EKG REPORT ---
SEVERITY:- BORDERLINE ECG - SINUS RHYTHM ATRIAL PREMATURE COMPLEX LOW VOLTAGE IN FRONTAL LEADS BORDERLINE T ABNORMALITIES, ANTERIOR LEADS : Confirmed by: Susan Munguia MD 27-Feb-2019 15:32:52
[2019-02-27] MEDS: ATORVASTATIN CALCIUM 10 MG TABLET PO SCH (22:09)
[2019-02-28] MEDS: LEVALBUTEROL HCL NEB 0.63 MG/3 ML AMPUL NEB SCH ×5 (04:22→20:10)
[2019-02-28] MEDS: FAMOTIDINE 20 MG TABLET PO SCH ×2 (06:23→19:03)
[2019-02-28 07:02] LABS: ABSOLUTE LYMPHOCYTES (AUTO) 0.6 10^3/uL (0.5-4.7); ABSOLUTE MONOCYTES (AUTO) 0.4 10^3/uL (0.1-1.4); ABSOLUTE NEUT (AUTO) 7.8 10^3/uL (1.7-8.2); BASOPHILS % (AUTO) 0.3 % (0-2); HEMATOCRIT 25.4 % (37.9-51.0); HEMOGLOBIN 8.7 g/dL (13.5-17.0); LYMPHOCYTES % (AUTO) 6.8 % (13-45); MEAN CORPUSCULAR HEMOGLOBIN 30.9 pg (27.0-33.4); MEAN CORPUSCULAR HGB CONC 34.4 g/dL (32.0-36.0); MEAN CORPUSCULAR VOLUME 90 fl (80-97); MONOCYTES % (AUTO) 4.7 % (3-13); PLATELET COUNT 369 10^3/uL (150-450); RED BLOOD COUNT 2.83 10^6/uL (4.35-5.55); RED CELL DISTRIBUTION WIDTH 14.7 % (11.5-14.0); SEGMENTED NEUTROPHILS % (AUTO) 88.2 % (42-78); TOTAL CELLS COUNTED % (AUTO) 100 %; WHITE BLOOD COUNT 8.8 10^3/uL (4.0-10.5)
[2019-02-28 07:22] LABS: ALANINE AMINOTRANSFERASE 38 U/L (21-72); ALBUMIN 2.6 g/dL (3.5-5.0); ALKALINE PHOSPHATASE 63 U/L (38-126); ANION GAP 5 (5-19); ASPARTATE AMINO TRANSFERASE 30 U/L (17-59); BILIRUBIN,DIRECT 0.2 mg/dL (0.0-0.4); BILIRUBIN,TOTAL 0.5 mg/dL (0.2-1.3); BLOOD UREA NITROGEN 42 mg/dL (7-20); CALCIUM 8.3 mg/dL (8.4-10.2); CARBON DIOXIDE 33 mmol/L (22-30); CHLORIDE 93 mmol/L (98-107); GLUCOSE 162 mg/dL (75-110); POTASSIUM 4.1 mmol/L (3.6-5.0); SODIUM 131.2 mmol/L (137-145); TOTAL PROTEIN 4.9 g/dL (6.3-8.2)
[2019-02-28] MEDS: ALBUTEROL SULFATE 0.083% NEB 2.5 MG/3 ML AMPUL NEB SCH (08:33)
[2019-02-28] MEDS: BUDESONIDE NEB 0.5 MG/2 ML AMPUL NEB SCH ×2 (09:09→20:10)
[2019-02-28] MEDS: DOCUSATE SODIUM 100 MG CAPSULE PO SCH ×2 (11:06→19:03)
[2019-02-28] MEDS: DILTIAZEM HCL 180 MG CAPSULE.CR PO SCH (11:06)
[2019-02-28] MEDS: ASPIRIN 81 MG TABLET, CHEWABLE PO SCH (11:07)
[2019-02-28] MEDS: FUROSEMIDE 20 MG TABLET PO SCH ×2 (11:07→19:03)
[2019-02-28] MEDS: ENOXAPARIN SODIUM INJ 40 MG/0.4 ML DISP.SYRIN SUBCUT SCH (11:11)
[2019-02-28] MEDS: METHYLPREDNISOLONE INJ 40 MG/1 ML SDV IV SCH (11:11)
[2019-02-28] MEDS: CETIRIZINE 10 MG TABLET PO SCH (11:13)
--- NOTE | 2019-02-28 12:10 | PDOC PROGRESS REPORT ---
Subjective Progress Note for:: 02/28/19 Subjective:: 84 year old male with history of COPD on 4 L oxygen at skilled nursing, chronic respiratory failure, chronic bronchitis, atrial fibrillation not on anticoagulation, history of neurogenic bladder requiring self-catheterization brought from the skilled nursing with acute respiratory distress. Patient was felt found to be in severe respiratory distress EMS was called as per the EMS report pulse ox is 82% on 6 L of oxygen. He was brought to the emergency room for further evaluation in the ER his breathing is improved with oxygen but pulse ox is still around 90-92% on 6 L. Medical consult was called for admission. On examination patient denies any other symptoms except for shortness of breath is also given the history of chronic cough without expectoration. Denies any fever denies any headaches dizzy spells denies any nausea vomiting diarrhea abdominal pains. He wants to be DNR/DNI. pt did agree to be in the hospital for further management. 02/27/[id number]-oiwz-old male with history of COPD and emphysema admitted for worsening shortness of breath. Chest x-ray was negative for pneumonia. Pulse ox is 92% on 5 L. Patient is still shortness of breath. No acute events in the last 24 hours. Letter of equal oriented communicating well. She does not want to go back to [facility] skilled nursing. He wants to go home tomorrow to stay with his . 02/28/2019-no acute events in the last 24 hours. Patient is afebrile. Denies any complaints. He said [facility] is supposed to set up everything at home including oxygen bled his machine and other stuff. He is waiting to hear from them before he goes home. He prefers to stay until tomorrow so that everything is in place. Reason For Visit: COPD EXACERBATION Physical Exam Vital Signs: Temp Pulse Resp BP Pulse Ox 97.5 F 77 20 104/55 L 90 L 02/28/19 07:40 02/28/19 09:10 02/28/19 09:10 02/28/19 07:40 02/28/19 09:10 Intake & Output 02/27/19 02/28/19 03/01/19 06:59 06:59 06:59 Intake Total 829 237 Output Total 800 Balance 29 237 Weight 70.5 kg 66.8 kg General appearance: PRESENT: mild distress, thin Head exam: PRESENT: atraumatic Eye exam: PRESENT: PERRLA Mouth exam: PRESENT: moist, tongue midline Teeth exam: PRESENT: poor dentation Neck exam: ABSENT: carotid bruit, JVD, lymphadenopathy, thyromegaly Respiratory exam: PRESENT: decreased breath sounds Cardiovascular exam: PRESENT: tachycardia GI/Abdominal exam: PRESENT: normal bowel sounds, soft. ABSENT: distended, guarding, mass, organolmegaly, rebound, tenderness Extremities exam: PRESENT: full ROM. ABSENT: calf tenderness, clubbing, pedal edema Neurological exam: PRESENT: alert, awake, oriented to person, oriented to place, oriented to time, oriented to situation, CN II-XII grossly intact. ABSENT: mot or sensory deficit Psychiatric exam: PRESENT: appropriate affect, normal mood. ABSENT: homicidal ideation, suicidal ideation Results Laboratory Results: 02/28/19 06:40 02/28/19 06:40 02/28/19 02/28/19 06:40 06:40 WBC 8.8 RBC 2.83 L Hgb 8.7 L Hct 25.4 L MCV 90 MCH 30.9 MCHC 34.4 RDW 14.7 H Plt Count 369 Seg Neutrophils % 88.2 H Lymphocytes % 6.8 L Monocytes % 4.7 Eosinophils % 0.0 Basophils % 0.3 Absolute Neutrophils 7.8 Absolute Lymphocytes 0.6 Absolute Monocytes 0.4 Absolute Eosinophils 0.0 Absolute Basophils 0.0 Sodium 131.2 L Potassium 4.1 Chloride 93 L Carbon Dioxide 33 H Anion Gap 5 BUN 42 H Creatinine 0.84 Est GFR ( Amer) > 60 Est GFR (Non-Af Amer) > 60 Glucose 162 H Calcium 8.3 L Magnesium 2.3 Total Bilirubin 0.5 AST 30 ALT 38 Alkaline Phosphatase 63 Total Protein 4.9 L Albumin 2.6 L 02/26/19 02/26/19 02/26/19 12:15 12:15 21:26 Creatine Kinase 28 L 38 L CK-MB (CK-2) 0.86 Troponin I 0.015 NT-Pro-B Natriuret Pep 02/26/19 02/27/19 02/27/19 21:26 03:40 03:40 Creatine Kinase 34 L CK-MB (CK-2) 0.67 0.68 Troponin I 0.018 0.013 NT-Pro-B Natriuret Pep 462 H 02/27/19 02/27/19 02/28/19 09:33 09:33 06:40 Creatine Kinase 32 L CK-MB (CK-2) 0.80 Troponin I 0.012 NT-Pro-B Natriuret Pep 655 H Impressions: Chest X-Ray 02/26/19 12:44 IMPRESSION: Extensive emphysematous change and parenchymal scarring without definite superimposed cardiopulmonary process. Assessment and Plan - Diagnosis (1) Acute and chronic respiratory failure with hypoxia Is this a current diagnosis for this admission?: Yes Plan: 02/26/[id number]-slgb-old male came from the skilled nursing with history of worsening shortness of breath. He has chronic respiratory failure on 4-6 L of oxygen at skilled nursing. EMS recorded the pulse oxes of 82%. Emergency room with oxygen supplementation and breathing treatments pulse ox is improved to 90-90% on 6 L of oxygen. Medical consult was called for admission he wants to be DNR/DNI. Plan to put him in telemetry. Restarted home medications. To start an IV Solu-Medrol 40 mg every 12 hours, Xopenex nebulizations every 6 as needed. GI prophylaxis DVT prophylaxis was provided. To repeat the chest x-ray and ABG tomorrow. Chest physical therapy was requested. X-ray was personally reviewed by me that shows emphysema no evidence of pneumonia. BiPAP requested placed on as-needed basis. Patient was presently on 6 L of oxygen plan to continue the present management. Antibiotics is initiated because of no evidence of any infection or sepsis. 02/27/2019-no acute events in the last 24 hours. Pulse ox is 92% on 5 L oxygen. Presently on IV Solu-Medrol 40 mg every 8 hours Xopenex nebulizations and albuterol nebulizations also on Pulmicort. Plan is to continue the present management probably discharge back home tomorrow. 02/28/[id number]-xwth-old male admitted for acute on chronic respiratory failure with hypoxia. Presently pulse ox is 92% on 5 L. On IV Solu-Medrol 40 mg daily. He is also receiving Xopenex and albuterol nebulizations and also Pulmicort. He is receiving chest physical therapy. Patient is waiting for the [facility] to set up equipment at home. Plan is to continue the present management. (2) Neurogenic bladder Is this a current diagnosis for this admission?: No (3) Atrial fibrillation Qualifiers: Atrial fibrillation type: chronic Qualified Code(s): I48.2 - Chronic atrial fibrillation Is this a current diagnosis for this admission?: No Plan: 02/26/2019-patient has history of chronic atrial fibrillation. He is on diltiazem 360 mg p.o. daily at skilled nursing. Which was restarted. Patient is only on aspirin not on anticoagulation. He was placed on Lovenox 40 mg subcu was daily and aspirin is restarted. 02/27/2019-patient has history of atrial fibrillation heart rate is 71 rate controlled. Patient is presently on aspirin and Lovenox for DVT prophylaxis. 02/28/2019-patient has atrophic atrial fibrillation not on Coumadin not on anticoagulation heart rate is well controlled 77. (4) Anemia Is this a current diagnosis for this admission?: No Plan: 02/26/2019-patient has history of anemia of chronic disease. Hemoglobin is 10.5 stable. Plan is to check the labs on daily basis. 02/27/2019-patient has history of anemia of chronic disease. Hemoglobin is 9.2. Plan is to recheck labs tomorrow. 02/28/2019-patient has history of anemia chronic disease. Hemoglobin is 8.7 stable. Plan to repeat the labs tomorrow. (5) CHF (congestive heart failure) Is this a current diagnosis for this admission?: No Plan: 02/26/2019-patient has echocardiogram was done on 02/04/2019 suggested normal left ventricular ejection fraction but the patient has a grade 1/grade 4 mild diastolic dysfunction. Patient on Lasix 40 mg twice daily in the skilled nursing plan is to resume the medication here in the hospital. Patient is not in fluid overload. 02/27/2019-patient has history of congestive heart failure. Latest echocardiogram suggestive of chronic mild diastolic heart failure. Presently on Lasix 40 mg IV twice a day and no signs of any fluid overload. Pressure is 113/56 plan is to decrease the Lasix to 20 mg twice a day today. 02/28/2019-patient has chronic mild diastolic heart failure. He is on Lasix 20 mg p.o. twice a day. No evidence of fluid overload. Plan is to continue the present management. (6) Hypertension Is this a current diagnosis for this admission?: No Plan: 02/26/2019-patient has history of hypertension blood pressure is 112/60. Plan is to continue his skilled nursing medications in the hospital. 02/27/2019-patient blood pressure today is 113/56 with heart rate of 71. Stable. Presently on Lasix 40mg p.o. twice a day and the dose is decreased to 20 mg p.o. twice daily. 02/28/2019-patient's blood pressure is 101/64. Borderline low blood pressure. It is asymptomatic. Presently on Lasix 20 mg p.o. twice daily plan is to con tinue the present management. (7) Hyponatremia Is this a current diagnosis for this admission?: No Plan: 02/26/2019-patient serum sodium level today is 133.8. Hyponatremia may be secondary to diuretics. Recheck the labs tomorrow. 02/27/2019-serum sodium is 131.5 today. With the blood sugars of 259. Corrected serum sodium is probably around 134. Borderline hyponatremia may be secondary to diuretic use. 02/28/2019-patient serum sodium is 131.2. Hyponatremia most likely secondary to diuretic use. (8) DNR (do not resuscitate) Is this a current diagnosis for this admission?: Yes - Time Time Spent with patient: 15-24 minutes Medications reviewed and adjusted accordingly: Yes Anticipated discharge: Home with Homehealth
[2019-02-28] MEDS: ATORVASTATIN CALCIUM 10 MG TABLET PO SCH (21:03)
[2019-03-01] MEDS: LEVALBUTEROL HCL NEB 0.63 MG/3 ML AMPUL NEB SCH ×6 (00:07→20:05)
[2019-03-01 04:19] LABS: HEMATOCRIT 24.7 % (37.9-51.0); HEMOGLOBIN 8.7 g/dL (13.5-17.0); MEAN CORPUSCULAR HEMOGLOBIN 31.5 pg (27.0-33.4); MEAN CORPUSCULAR HGB CONC 35.1 g/dL (32.0-36.0); MEAN CORPUSCULAR VOLUME 90 fl (80-97); PLATELET COUNT 406 10^3/uL (150-450); RED BLOOD COUNT 2.75 10^6/uL (4.35-5.55); RED CELL DISTRIBUTION WIDTH 14.5 % (11.5-14.0); WHITE BLOOD COUNT 9.2 10^3/uL (4.0-10.5)
[2019-03-01 04:40] LABS: ABSOLUTE LYMPHOCYTES# (MANUAL) 0.5 10^3/uL (0.5-4.7); ABSOLUTE MONOCYTES # (MANUAL) 0.3 10^3/uL (0.1-1.4); ABSOLUTE NEUTROPHILS# (MANUAL) 8.5 10^3/uL (1.7-8.2); BASOPHILS % (MANUAL) 0 % (0-2); EOSINOPHILS % (MANUAL) 0 % (0-6); LYMPHOCYTES % (MANUAL) 5 % (13-45); MONOCYTES % (MANUAL) 3 % (3-13); SEGMENTED NEUTROPHILS % (MAN) 92 % (42-78); TOTAL CELLS COUNTED 100; TOXIC GRANULATION 1+
[2019-03-01 04:41] LABS: ANISOCYTOSIS SLIGHT; PLATELET COMMENT ADEQUATE
[2019-03-01 04:43] LABS: ALANINE AMINOTRANSFERASE 40 U/L (21-72); ALBUMIN 2.6 g/dL (3.5-5.0); ALKALINE PHOSPHATASE 70 U/L (38-126); ANION GAP 9 (5-19); ASPARTATE AMINO TRANSFERASE 23 U/L (17-59); BILIRUBIN,DIRECT 0.3 mg/dL (0.0-0.4); BILIRUBIN,TOTAL 0.3 mg/dL (0.2-1.3); BLOOD UREA NITROGEN 35 mg/dL (7-20); CALCIUM 7.8 mg/dL (8.4-10.2); CARBON DIOXIDE 33 mmol/L (22-30); CHLORIDE 91 mmol/L (98-107); GLUCOSE 240 mg/dL (75-110); SODIUM 132.9 mmol/L (137-145); TOTAL PROTEIN 4.8 g/dL (6.3-8.2)
[2019-03-01] MEDS: FAMOTIDINE 20 MG TABLET PO SCH ×2 (05:53→17:56)
[2019-03-01] MEDS: BUDESONIDE NEB 0.5 MG/2 ML AMPUL NEB SCH ×2 (08:37→20:04)
[2019-03-01] MEDS: METHYLPREDNISOLONE INJ 40 MG/1 ML SDV IV SCH (10:08)
[2019-03-01] MEDS: ENOXAPARIN SODIUM INJ 40 MG/0.4 ML DISP.SYRIN SUBCUT SCH (10:08)
[2019-03-01] MEDS: DILTIAZEM HCL 180 MG CAPSULE.CR PO SCH (10:09)
[2019-03-01] MEDS: CETIRIZINE 10 MG TABLET PO SCH (10:09)
[2019-03-01] MEDS: ASPIRIN 81 MG TABLET, CHEWABLE PO SCH (10:09)
[2019-03-01] MEDS: DOCUSATE SODIUM 100 MG CAPSULE PO SCH ×2 (10:09→17:56)
[2019-03-01] MEDS: FUROSEMIDE 20 MG TABLET PO SCH ×2 (10:09→17:56)
--- NOTE | 2019-03-01 10:46 | PDOC PROGRESS REPORT ---
Subjective Progress Note for:: 03/01/19 Subjective:: 84 year old male with history of COPD on 4 L oxygen at senior care, chronic respiratory failure, chronic bronchitis, atrial fibrillation not on anticoagulation, history of neurogenic bladder requiring self-catheterization brought from the senior care with acute respiratory distress. Patient was felt found to be in severe respiratory distress EMS was called as per the EMS report pulse ox is 82% on 6 L of oxygen. He was brought to the emergency room for further evaluation in the ER his breathing is improved with oxygen but pulse ox is still around 90-92% on 6 L. Medical consult was called for admission. On examination patient denies any other symptoms except for shortness of breath is also given the history of chronic cough without expectoration. Denies any fever denies any headaches dizzy spells denies any nausea vomiting diarrhea abdominal pains. He wants to be DNR/DNI. pt did agree to be in the hospital for further management. 02/27/[id number]-mfuv-old male with history of COPD and emphysema admitted for worsening shortness of breath. Chest x-ray was negative for pneumonia. Pulse ox is 92% on 5 L. Patient is still shortness of breath. No acute events in the last 24 hours. Letter of equal oriented communicating well. She does not want to go back to [facility]. He wants to go home tomorrow to stay with his . 02/28/2019-no acute events in the last 24 hours. Patient is afebrile. Denies any complaints. He said Mallika is supposed to set up everything at home including oxygen bled his machine and other stuff. He is waiting to hear from them before he goes home. He prefers to stay until tomorrow so that everything is in place. 03/01/2019-no acute events in the last 24 hours. Patient is afebrile. No complaints. Comfortable in the bed. His family came yesterday they think patient needs to go back to rehab facility. Patient may need to go back to rehab facility. Reason For Visit: COPD EXACERBATION Physical Exam Vital Signs: Temp Pulse Resp BP Pulse Ox 97.7 F 79 18 118/49 L 92 03/01/19 08:17 03/01/19 08:17 03/01/19 08:17 03/01/19 08:17 04/20/19 08:17 Intake & Output 02/28/19 03/01/19 03/02/19 06:59 06:59 06:59 Intake Total 829 237 Output Total 800 Balance 29 237 Weight 66.8 kg 67 kg General appearance: PRESENT: mild distress, thin Head exam: PRESENT: atraumatic Eye exam: PRESENT: PERRLA Mouth exam: PRESENT: moist, tongue midline Neck exam: ABSENT: carotid bruit, JVD, lymphadenopathy, thyromegaly Respiratory exam: PRESENT: decreased breath sounds Cardiovascular exam: PRESENT: tachycardia GI/Abdominal exam: PRESENT: normal bowel sounds, soft. ABSENT: distended, guarding, mass, organolmegaly, rebound, tenderness Extremities exam: PRESENT: full ROM. ABSENT: calf tenderness, clubbing, pedal edema Neurological exam: PRESENT: alert, awake, oriented to person, oriented to place, oriented to time, oriented to situation, CN II-XII grossly intact. ABSENT: motor sensory deficit Psychiatric exam: PRESENT: appropriate affect, normal mood. ABSENT: homicidal ideation, suicidal ideation Results Laboratory Results: 03/01/19 03:57 03/01/19 03:57 03/01/19 03/01/19 03:57 03:57 WBC 9.2 RBC 2.75 L Hgb 8.7 L Hct 24.7 L MCV 90 MCH 31.5 MCHC 35.1 RDW 14.5 H Plt Count 406 Seg Neutrophils % Not Reportable Lymphocytes % Not Reportable Monocytes % Not Reportable Eosinophils % Not Reportable Basophils % Not Reportable Absolute Neutrophils Not Reportable Absolute Lymphocytes Not Reportable Absolute Monocytes Not Reportable Absolute Eosinophils Not Reportable Absolute Basophils Not Reportable Sodium 132.9 L Potassium 4.0 Chloride 91 L Carbon Dioxide 33 H Anion Gap 9 BUN 35 H Creatinine 0.94 Est GFR ( Amer) > 60 Est GFR (Non-Af Amer) > 60 Glucose 240 H Calcium 7.8 L Magnesium 2.3 Total Bilirubin 0.3 AST 23 ALT 40 Alkaline Phosphatase 70 Total Protein 4.8 L Albumin 2.6 L 02/26/19 02/26/19 02/26/19 12:15 12:15 21:26 Creatine Kinase 28 L 38 L CK-MB (CK-2) 0.86 Troponin I 0.015 NT-Pro-B Natriuret Pep 04/17/19 04/18/19 04/18/19 21:26 03:40 03:40 Creatine Kinase 34 L CK-MB (CK-2) 0.67 0.68 Troponin I 0.018 0.013 NT-Pro-B Natriuret Pep 462 H 02/27/19 02/27/19 02/28/19 09:33 09:33 06:40 Creatine Kinase 32 L CK-MB (CK-2) 0.80 Troponin I 0.012 NT-Pro-B Natriuret Pep 655 H Impressions: Chest X-Ray 02/26/19 12:44 IMPRESSION: Extensive emphysematous change and parenchymal scarring without definite superimposed cardiopulmonary process. Assessment and Plan - Diagnosis (1) Acute and chronic respiratory failure with hypoxia Is this a current diagnosis for this admission?: Yes Plan: 02/[id number]-sutb-old male came from the senior care with history of worsening shortness of breath. He has chronic respiratory failure on 4-6 L of oxygen at senior care. EMS recorded the pulse oxes of 82%. Emergency room with oxygen supplementation and breathing treatments pulse ox is improved to 90-90% on 6 L of oxygen. Medical consult was called for admission he wants to be DNR/DNI. Pl an to put him in telemetry. Restarted home medications. To start an IV Solu- Medrol 40 mg every 12 hours, Xopenex nebulizations every 6 as needed. GI prophylaxis DVT prophylaxis was provided. To repeat the chest x-ray and ABG tomorrow. Chest physical therapy was requested. X-ray was personally reviewed by me that shows emphysema no evidence of pneumonia. BiPAP requested placed on as-needed basis. Patient was presently on 6 L of oxygen plan to continue the present management. Antibiotics is initiated because of no evidence of any infection or sepsis. 02/27/2019-no acute events in the last 24 hours. Pulse ox is 92% on 5 L oxygen. Presently on IV Solu-Medrol 40 mg every 8 hours Xopenex nebulizations and albuterol nebulizations also on Pulmicort. Plan is to continue the present man agement probably discharge back home tomorrow. 02/28/[id number]-mqkc-old male admitted for acute on chronic respiratory failure with hypoxia. Presently pulse ox is 92% on 5 L. On IV Solu-Medrol 40 mg daily. He is also receiving Xopenex and albuterol nebulizations and also Pulmicort. He is receiving chest physical therapy. Patient is waiting for the [facility] to set up equipment at home. Plan is to continue the present management. 03/01/[id number]-gsah-old male admitted with acute on chronic respiratory failure with hypoxia. Presently on 5 L of oxygen pulse ox is 92 to 93%. On IV Solu- Medrol 40 mg daily. To change it to p.o. prednisone from today. He is also receiving xopenex nebulizations every 6 hours. (2) Neurogenic bladder Is this a current diagnosis for this admission?: No (3) Atrial fibrillation Qualifiers: Atrial fibrillation type: chronic Qualified Code(s): I48.2 - Chronic atrial fibrillation Is this a current diagnosis for this admission?: No Plan: 02/26/2019-patient has history of chronic atrial fibrillation. He is on diltiazem 360 mg p.o. daily at senior care. Which was restarted. Patient is only on aspirin not on anticoagulation. He was placed on Lovenox 40 mg subcu was daily and aspirin is restarted. 02/27/2019-patient has history of atrial fibrillation heart rate is 71 rate controlled. Patient is presently on aspirin and Lovenox for DVT prophylaxis. 02/28/2019-patient has chronic atrial fibrillation not on Coumadin not on anticoagulation heart rate is well controlled 77. 03/01/2019-patient has a history of chronic atrial fibrillation not on anticoagulation. Heart rate is well controlled,heart rate in the 70s . (4) Anemia Is this a current diagnosis for this admission?: No Plan: 02/26/2019-patient has history of anemia of chronic disease. Hemoglobin is 10.5 stable. Plan is to check the labs on daily basis. 02/27/2019-patient has history of anemia of chronic disease. Hemoglobin is 9.2. Plan is to recheck labs tomorrow. 02/28/2019-patient has history of anemia chronic disease. Hemoglobin is 8.7 stable. Plan to repeat the labs tomorrow. 03/01/2019-patient has anemia of chronic disease. Hemoglobin is 8.7 stable. Plan is to continue the present management. (5) CHF (congestive heart failure) Is this a current diagnosis for this admission?: No Plan: 02/26/2019-patient has echocardiogram was done on 02/04/2019 suggested normal left ventricular ejection fraction but the patient has a grade 1/grade 4 mild diastolic dysfunction. Patient on Lasix 40 mg twice daily in the senior care plan is to resume the medication here in the hospital. Patient is not in fluid overload. 02/27/2019-patient has history of congestive heart failure. Latest echocardiogram suggestive of chronic mild diastolic heart failure. Presently on Lasix 40 mg IV twice a day and no signs of any fluid overload. Pressure is 113/56 plan is to decrease the Lasix to 20 mg twice a day today. 02/28/2019-patient has chronic mild diastolic heart failure. He is on Lasix 20 mg p.o. twice a day. No evidence of fluid overload. Plan is to continue the present management. (6) Hypertension Is this a current diagnosis for this admission?: No Plan: 02/26/2019-patient has history of hypertension blood pressure is 112/60. Plan is to continue his senior care medications in the hospital. 02/27/2019-patient blood pressure today is 113/56 with heart rate of 71. Stable. Presently on Lasix 40mg p.o. twice a day and the dose is decreased to 20 mg p.o. twice daily. 02/28/2019-patient's blood pressure is 101/64. Borderline low blood pressure. It is asymptomatic. Presently on Lasix 20 mg p.o. twice daily plan is to continue the present management. 03/01/2019-patient blood pressure today is 118/56. Stable. Plan to continue Lasix 20 mg p.o. twice a day. (7) Hyponatremia Is this a current diagnosis for this admission?: No Plan: 02/26/2019-patient serum sodium level today is 133.8. Hyponatremia may be secondary to diuretics. Recheck the labs tomorrow. 02/27/2019-serum sodium is 131.5 today. With the blood sugars of 259. Corrected serum sodium is probably around 134. Borderline hyponatremia may be secondary to diuretic use. 02/28/2019-patient serum sodium is 131.2. Hyponatremia most likely secondary to diuretic use. 03/01/2019-patient's serum sodium is 132.9. Hyponatremia is resolving. Most likely secondary to diuretic therapy. (8) DNR (do not resuscitate) Is this a current diagnosis for this admission?: Yes - Time Time Spent with patient: 15-24 minutes Smoking Cessation Education: 3 to 10 minutes Medications reviewed and adjusted accordingly: Yes Anticipated discharge: SNF
[2019-03-01] MEDS ORDERED: LEVALBUTEROL HCL NEB 0.63 MG/3 ML AMPUL NEB SCH ×2 (12:00→14:00)
[2019-03-01] MEDS: PREDNISONE 10 MG TABLET PO SCH (17:56)
[2019-03-01] MEDS: ATORVASTATIN CALCIUM 10 MG TABLET PO SCH (21:21)
[2019-03-02] MEDS: LEVALBUTEROL HCL NEB 0.63 MG/3 ML AMPUL NEB SCH ×4 (01:46→19:49)
[2019-03-02] MEDS: FAMOTIDINE 20 MG TABLET PO SCH ×2 (06:04→18:45)
[2019-03-02] MEDS: BUDESONIDE NEB 0.5 MG/2 ML AMPUL NEB SCH ×2 (08:45→19:49)
[2019-03-02 09:22] LABS: ABSOLUTE LYMPHOCYTES (AUTO) 0.7 10^3/uL (0.5-4.7); ABSOLUTE MONOCYTES (AUTO) 0.6 10^3/uL (0.1-1.4); ABSOLUTE NEUT (AUTO) 9.9 10^3/uL (1.7-8.2); BASOPHILS % (AUTO) 0.1 % (0-2); HEMATOCRIT 28.1 % (37.9-51.0); HEMOGLOBIN 9.6 g/dL (13.5-17.0); LYMPHOCYTES % (AUTO) 6.1 % (13-45); MEAN CORPUSCULAR HGB CONC 34.3 g/dL (32.0-36.0); MEAN CORPUSCULAR VOLUME 91 fl (80-97); MONOCYTES % (AUTO) 5.7 % (3-13); PLATELET COUNT 442 10^3/uL (150-450); RED CELL DISTRIBUTION WIDTH 14.7 % (11.5-14.0); SEGMENTED NEUTROPHILS % (AUTO) 88.1 % (42-78); TOTAL CELLS COUNTED % (AUTO) 100 %; WHITE BLOOD COUNT 11.3 10^3/uL (4.0-10.5)
[2019-03-02 09:24] LABS: ALANINE AMINOTRANSFERASE 34 U/L (21-72); ALBUMIN 2.6 g/dL (3.5-5.0); ALKALINE PHOSPHATASE 67 U/L (38-126); ASPARTATE AMINO TRANSFERASE 18 U/L (17-59); BILIRUBIN,DIRECT 0.3 mg/dL (0.0-0.4); BILIRUBIN,TOTAL 0.5 mg/dL (0.2-1.3); BLOOD UREA NITROGEN 32 mg/dL (7-20); CALCIUM 7.9 mg/dL (8.4-10.2); GLUCOSE 182 mg/dL (75-110); POTASSIUM 4.2 mmol/L (3.6-5.0); TOTAL PROTEIN 4.4 g/dL (6.3-8.2)
[2019-03-02 09:29] LABS: CARBON DIOXIDE 35 mmol/L (22-30); CHLORIDE 94 mmol/L (98-107); SODIUM 132.9 mmol/L (137-145)
[2019-03-02 09:30] LABS: ANION GAP 4 (5-19)
[2019-03-02] MEDS: FUROSEMIDE 20 MG TABLET PO SCH ×2 (11:14→18:45)
[2019-03-02] MEDS: DOCUSATE SODIUM 100 MG CAPSULE PO SCH ×2 (11:14→18:45)
[2019-03-02] MEDS: ASPIRIN 81 MG TABLET, CHEWABLE PO SCH (11:14)
[2019-03-02] MEDS: CETIRIZINE 10 MG TABLET PO SCH (11:14)
[2019-03-02] MEDS: ENOXAPARIN SODIUM INJ 40 MG/0.4 ML DISP.SYRIN SUBCUT SCH (11:14)
[2019-03-02] MEDS: PREDNISONE 10 MG TABLET PO SCH ×2 (11:14→18:45)
--- NOTE | 2019-03-02 11:20 | PDOC PROGRESS REPORT ---
Subjective Progress Note for:: 03/02/19 Subjective:: 84 year old male with history of COPD on 4 L oxygen at skilled nursing, chronic respiratory failure, chronic bronchitis, atrial fibrillation not on anticoagulation, history of neurogenic bladder requiring self-catheterization brought from the skilled nursing with acute respiratory distress. Patient was felt found to be in severe respiratory distress EMS was called as per the EMS report pulse ox is 82% on 6 L of oxygen. He was brought to the emergency room for further evaluation in the ER his breathing is improved with oxygen but pulse ox is still around 90-92% on 6 L. Medical consult was called for admission. On examination patient denies any other symptoms except for shortness of breath is also given the history of chronic cough without expectoration. Denies any fever denies any headaches dizzy spells denies any nausea vomiting diarrhea abdominal pains. He wants to be DNR/DNI. pt did agree to be in the hospital for further management. 02/27/[id number]-zcyd-old male with history of COPD and emphysema admitted for worsening shortness of breath. Chest x-ray was negative for pneumonia. Pulse ox is 92% on 5 L. Patient is still shortness of breath. No acute events in the last 24 hours. Letter of equal oriented communicating well. She does not want to go back to [facility] skilled nursing. He wants to go home tomorrow to stay with his . 02/28/2019-no acute events in the last 24 hours. Patient is afebrile. Denies any complaints. He said Mallika is supposed to set up everything at home including oxygen bled his machine and other stuff. He is waiting to hear from them before he goes home. He prefers to stay until tomorrow so that everything is in place. 03/01/2019-no acute events in the last 24 hours. Patient is afebrile. No complaints. Comfortable in the bed. His family came yesterday they think patient needs to go back to rehab facility. Patient may need to go back to rehab facility. 03/02/2019-no acute events in last 24 hours. Patient is afebrile. Blood cultures came back positive for Staphylococcus hominis. Want to start the patient on IV Rocephin 2 g daily. Patient is comfortably in the bed communicating very well. Reason For Visit: COPD EXACERBATION Physical Exam Vital Signs: Temp Pulse Resp BP Pulse Ox 97.7 F 66 18 120/57 L 97 03/02/19 08:08 03/02/19 08:08 03/02/19 08:08 03/02/19 08:08 03/02/19 08:08 Intake & Output 03/01/19 03/02/19 03/03/19 06:59 06:59 06:59 Intake Total 237 556 Output Total 900 Balance 237 -344 Weight 67 kg 66.7 kg General appearance: PRESENT: no acute distress, thin Head exam: PRESENT: atraumatic Eye exam: PRESENT: PERRLA Mouth exam: PRESENT: moist, tongue midline Neck exam: ABSENT: carotid bruit, JVD, lymphadenopathy, thyromegaly Respiratory exam: PRESENT: decreased breath sounds Cardiovascular exam: PRESENT: RRR. ABSENT: diastolic murmur, rubs, systolic murmur GI/Abdominal exam: PRESENT: normal bowel sounds, soft. ABSENT: distended, guarding, mass, organolmegaly, rebound, tenderness Rectal exam: PRESENT: deferred Extremities exam: PRESENT: full ROM. ABSENT: calf tenderness, clubbing, pedal edema Neurological exam: PRESENT: alert, awake, oriented to person, oriented to place, oriented to time, oriented to situation, CN II-XII grossly intact. ABSENT: motor sensory deficit Psychiatric exam: PRESENT: appropriate affect, normal mood. ABSENT: homicidal ideation, suicidal ideation Results Laboratory Results: 03/02/19 08:53 03/02/19 08:53 03/02/19 03/02/19 08:53 08:53 WBC 11.3 H RBC 3.10 L Hgb 9.6 L Hct 28.1 L MCV 91 MCH 31.0 MCHC 34.3 RDW 14.7 H Plt Count 442 Seg Neutrophils % 88.1 H Lymphocytes % 6.1 L Monocytes % 5.7 Eosinophils % 0.0 Basophils % 0.1 Absolute Neutrophils 9.9 H Absolute Lymphocytes 0.7 Absolute Monocytes 0.6 Absolute Eosinophils 0.0 Absolute Basophils 0.0 Sodium 132.9 L Potassium 4.2 Chloride 94 L Carbon Dioxide 35 H Anion Gap 4 L BUN 32 H Creatinine 0.66 Est GFR ( Amer) > 60 Est GFR (Non-Af Amer) > 60 Glucose 182 H Calcium 7.9 L Magnesium 2.2 Total Bilirubin 0.5 AST 18 ALT 34 Alkaline Phosphatase 67 Total Protein 4.4 L Albumin 2.6 L 02/26/19 12:15 Blood Blood Culture - Final Staphylococcus Hominis 02/26/19 14:29 Ramirez Catheter Urine Culture - Final Staph Coagulase Negative 02/26/19 02/26/19 02/26/19 12:15 12:15 21:26 Creatine Kinase 28 L 38 L CK-MB (CK-2) 0.86 Troponin I 0.015 NT-Pro-B Natriuret Pep 02/26/19 02/27/19 02/27/19 21:26 03:40 03:40 Creatine Kinase 34 L CK-MB (CK-2) 0.67 0.68 Troponin I 0.018 0.013 NT-Pro-B Natriuret Pep 462 H 02/27/19 02/27/19 02/28/19 09:33 09:33 06:40 Creatine Kinase 32 L CK-MB (CK-2) 0.80 Troponin I 0.012 NT-Pro-B Natriuret Pep 655 H Impressions: Chest X-Ray 02/26/19 12:44 IMPRESSION: Extensive emphysematous change and parenchymal scarring without definite superimposed cardiopulmonary process. Assessment and Plan - Diagnosis (1) Acute and chronic respiratory failure with hypoxia Is this a current diagnosis for this admission?: Yes Plan: 02/26/[id number]-mzuf-old male came from the skilled nursing with history of worsening shortness of breath. He has chronic respiratory failure on 4-6 L of oxygen at skilled nursing. EMS recorded the pulse oxes of 82%. Emergency room with oxygen supplementation and breathing treatments pulse ox is improved to 90-90% on 6 L of oxygen. Medical consult was called for admission he wants to be DNR/DNI. Plan to put him in telemetry. Restarted home medications. To start an IV Solu- Medrol 40 mg every 12 hours, Xopenex nebulizations every 6 as needed. GI prophylaxis DVT prophylaxis was provided. To repeat the chest x-ray and ABG tomorrow. Chest physical therapy was requested. X-ray was personally reviewed by me that shows emphysema no evidence of pneumonia. BiPAP requested placed on as-needed basis. Patient was presently on 6 L of oxygen plan to continue the present management. Antibiotics is initiated because of no evidence of any infection or sepsis. 02/27/2019-no acute events in the last 24 hours. Pulse ox is 92% on 5 L oxygen. Presently on IV Solu-Medrol 40 mg every 8 hours Xopenex nebulizations and albuterol nebulizations also on Pulmicort. Plan is to continue the present management probably discharge back home tomorrow. 02/28/[id number]-yoer-old male admitted for acute on chronic respiratory failure with hypoxia. Presently pulse ox is 92% on 5 L. On IV Solu-Medrol 40 mg daily. He is also receiving Xopenex and albuterol nebulizations and also Pulmicort. He is receiving chest physical therapy. Patient is waiting for the [facility] to set up equipment at home. Plan is to continue the present management. 03/01/[id number]-qkab-old male admitted with acute on chronic respiratory failure w ith hypoxia. Presently on 5 L of oxygen pulse ox is 92 to 93%. On IV Solu- Medrol 40 mg daily. To change it to p.o. prednisone from today. He is also receiving xopenex nebulizations every 6 hours. 03/02/2019-patient's pulse ox today is 94% on 5 L. His oxygen requirements are baseline. Presently on p.o. prednisone. Also receiving Xopenex nebulizations every 6 hours. Plan is to continue the present management. (2) Neurogenic bladder Is this a current diagnosis for this admission?: No (3) Atrial fibrillation Qualifiers: Atrial fibrillation type: chronic Qualified Code(s): I48.2 - Chronic atrial fibrillation Is this a current diagnosis for this admission?: No Plan: 02/26/2019-patient has history of chronic atrial fibrillation. He is on diltiazem 360 mg p.o. daily at skilled nursing. Which was restarted. Patient is only on aspirin not on anticoagulation. He was placed on Lovenox 40 mg subcu was daily and aspirin is restarted. 02/27/2019-patient has history of atrial fibrillation heart rate is 71 rate controlled. Patient is presently on aspirin and Lovenox for DVT prophylaxis. 02/28/2019-patient has chronic atrial fibrillation not on Coumadin not on anticoagulation heart rate is well controlled 77. 03/01/2019-patient has a history of chronic atrial fibrillation not on anticoagulation. Heart rate is well controlled,heart rate in the 70s . 03/02/2019-patient has a chronic atrial fibrillation. Heart rate is 66. Presently on Cardizem 360 mg p.o. daily, to decrease the dose to 180 mg daily. (4) Anemia Is this a current diagnosis for this admission?: No Plan: 02/26/2019-patient has history of anemia of chronic disease. Hemoglobin is 10.5 stable. Plan is to check the labs on daily basis. 02/27/2019-patient has history of anemia of chronic disease. Hemoglobin is 9.2. Plan is to recheck labs tomorrow. 02/28/2019-patient has history of anemia chronic disease. Hemoglobin is 8.7 stable. Plan to repeat the labs tomorrow. 03/01/2019-patient has anemia of chronic disease. Hemoglobin is 8.7 stable. Plan is to continue the present management. 03/02/2019-patient has history of anemia of chronic disease. Latest hemoglobin is 9.6 stable. Plan is to continue the present management. (5) CHF (congestive heart failure) Is this a current diagnosis for this admission?: No Plan: 02/26/2019-patient has echocardiogram was done on 02/04/2019 suggested normal left ventricular ejection fraction but the patient has a grade 1/grade 4 mild diastolic dysfunction. Patient on Lasix 40 mg twice daily in the skilled nursing plan is to resume the medication here in the hospital. Patient is not in fluid overload. 02/27/2019-patient has history of congestive heart failure. Latest echocardiogram suggestive of chronic mild diastolic heart failure. Presently on Lasix 40 mg IV twice a day and no signs of any fluid overload. Pressure is 113/56 plan is to decrease the Lasix to 20 mg twice a day today. 02/28/2019-patient has chronic mild diastolic heart failure. He is on Lasix 20 mg p.o. twice a day. No evidence of fluid overload. Plan is to continue the present management. 03/02/2019-patient has a chronic diastolic heart failure and is on Lasix 20 mg p.o. twice a day. Patient is euvolemic. (6) Hypertension Is this a current diagnosis for this admission?: No Plan: 02/26/2019-patient has history of hypertension blood pressure is 112/60. Plan is to continue his skilled nursing medications in the hospital. 02/27/2019-patient blood pressure today is 113/56 with heart rate of 71. Stable. Presently on Lasix 40mg p.o. twice a day and the dose is decreased to 20 mg p.o. twice daily. 02/28/2019-patient's blood pressure is 101/64. Borderline low blood pressure. It is asymptomatic. Presently on Lasix 20 mg p.o. twice daily plan is to continue the present management. 03/01/2019-patient blood pressure today is 118/56. Stable. Plan to continue Lasix 20 mg p.o. twice a day. 03/02/2019- Patient blood pressure today is 104/55 stable. Plan is to continue the present management. (7) Hyponatremia Is this a current diagnosis for this admission?: No Plan: 02/26/2019-patient serum sodium level today is 133.8. Hyponatremia may be secondary to diuretics. Recheck the labs tomorrow. 02/27/2019-serum sodium is 131.5 today. With the blood sugars of 259. Corrected serum sodium is probably around 134. Borderline hyponatremia may be secondary to diuretic use. 02/28/2019-patient serum sodium is 131.2. Hyponatremia most likely secondary to diuretic use. 03/01/2019-patient's serum sodium is 132.9. Hyponatremia is resolving. Most likely secondary to diuretic therapy. 03/02/2019-serum sodium is 133. Improving. hyponatremia most likely secondary to diuretic therapy. (8) DNR (do not resuscitate) Is this a current diagnosis for this admission?: Yes - Time Time Spent with patient: 15-24 minutes Medications reviewed and adjusted accordingly: Yes Anticipated discharge: SNF
[2019-03-02] MEDS: CEFTRIAXONE 2 GM/D5W RTU 2 GM/50 ML RTUPB IV SCH (12:26)
[2019-03-02] MEDS: DILTIAZEM HCL 180 MG CAPSULE.CR PO SCH (12:27)
[2019-03-02] MEDS: ATORVASTATIN CALCIUM 10 MG TABLET PO SCH (22:16)
[2019-03-03] MEDS: LEVALBUTEROL HCL NEB 0.63 MG/3 ML AMPUL NEB SCH ×3 (02:22→13:30)
[2019-03-03] MEDS: FAMOTIDINE 20 MG TABLET PO SCH ×2 (05:11→19:22)
[2019-03-03 05:45] LABS: HEMATOCRIT 28.4 % (37.9-51.0); HEMOGLOBIN 9.8 g/dL (13.5-17.0); MEAN CORPUSCULAR HEMOGLOBIN 31.2 pg (27.0-33.4); MEAN CORPUSCULAR HGB CONC 34.6 g/dL (32.0-36.0); MEAN CORPUSCULAR VOLUME 90 fl (80-97); PLATELET COUNT 435 10^3/uL (150-450); RED BLOOD COUNT 3.16 10^6/uL (4.35-5.55); RED CELL DISTRIBUTION WIDTH 14.5 % (11.5-14.0)
[2019-03-03 06:09] LABS: ABSOLUTE LYMPHOCYTES# (MANUAL) 0.4 10^3/uL (0.5-4.7); ABSOLUTE NEUTROPHILS# (MANUAL) 9.6 10^3/uL (1.7-8.2); ALANINE AMINOTRANSFERASE 37 U/L (21-72); ALBUMIN 2.5 g/dL (3.5-5.0); ALKALINE PHOSPHATASE 72 U/L (38-126); ASPARTATE AMINO TRANSFERASE 16 U/L (17-59); BASOPHILS % (MANUAL) 0 % (0-2); BILIRUBIN,DIRECT 0.2 mg/dL (0.0-0.4); BILIRUBIN,TOTAL 0.2 mg/dL (0.2-1.3); BLOOD UREA NITROGEN 29 mg/dL (7-20); CARBON DIOXIDE 37 mmol/L (22-30); EOSINOPHILS % (MANUAL) 0 % (0-6); GLUCOSE 124 mg/dL (75-110); LYMPHOCYTES % (MANUAL) 4 % (13-45); MONOCYTES % (MANUAL) 9 % (3-13); POTASSIUM 4.2 mmol/L (3.6-5.0); SEGMENTED NEUTROPHILS % (MAN) 84 % (42-78); TOTAL CELLS COUNTED 100; TOTAL PROTEIN 4.7 g/dL (6.3-8.2)
[2019-03-03 06:12] LABS: ANISOCYTOSIS SLIGHT; HYPOCHROMASIA SLIGHT; OVALOCYTES 1+; PLATELET CLUMPS PRESENT; POIKILOCYTOSIS SLIGHT
[2019-03-03 06:13] LABS: MYELOCYTES % (MANUAL) 2 % (0); PROMYELOCYTES % (MANUAL) 1 % (0)
[2019-03-03 06:14] LABS: CHLORIDE 94 mmol/L (98-107); SODIUM 135.8 mmol/L (137-145)
[2019-03-03 06:20] LABS: ANION GAP 5 (5-19)
[2019-03-03] MEDS: BUDESONIDE NEB 0.5 MG/2 ML AMPUL NEB SCH (07:39)
[2019-03-03] MEDS: DILTIAZEM HCL 180 MG CAPSULE.CR PO SCH (11:54)
[2019-03-03] MEDS: CEFTRIAXONE 2 GM/D5W RTU 2 GM/50 ML RTUPB IV SCH (12:31)
[2019-03-03] MEDS: ASPIRIN 81 MG TABLET, CHEWABLE PO SCH (12:31)
[2019-03-03] MEDS: FUROSEMIDE 20 MG TABLET PO SCH ×2 (12:31→19:24)
[2019-03-03] MEDS: ENOXAPARIN SODIUM INJ 40 MG/0.4 ML DISP.SYRIN SUBCUT SCH (12:31)
[2019-03-03] MEDS: DOCUSATE SODIUM 100 MG CAPSULE PO SCH ×2 (12:31→19:24)
[2019-03-03] MEDS: PREDNISONE 10 MG TABLET PO SCH ×2 (12:32→19:22)
[2019-03-03] MEDS: CETIRIZINE 10 MG TABLET PO SCH (12:36)
[2019-03-03 13:38] LABS: PATH REVIEW PATHOLOGIST REVIEWED
--- NOTE | 2019-03-03 18:16 | PDOC TRANSFER SUMMARY ---
General - Admit/Disc Date/PCP Admission Date/Primary Care Provider: 02/26/19 16:41 Discharge Date: 03/03/19 - Discharge Diagnosis (1) Acute and chronic respiratory failure with hypoxia Is this a current diagnosis for this admission?: Yes Summary: 02/26/[id number]-tzas-old male [facility] from [facility] with history of worsening shortness of breath. He has chronic respiratory failure on 4-6 L of oxygen at [facility]. EMS recorded the pulse oxes of 82%. Emergency room with oxygen supplementation and breathing treatments pulse ox is improved to 90-90% on 6 L of oxygen. Medical consult was called for admission he wants to be DNR/DNI. Plan to put him in telemetry. Restarted home medications. To start an IV Solu- Medrol 40 mg every 12 hours, Xopenex nebulizations every 6 as needed. GI prophylaxis DVT prophylaxis was provided. To repeat the chest x-ray and ABG tomorrow. Chest physical therapy was requested. X-ray was personally reviewed by me that shows emphysema no evidence of pneumonia. BiPAP requested placed on as-needed basis. Patient was presently on 6 L of oxygen plan to continue the present management. Antibiotics is initiated because of no evidence of any infection or sepsis. 02/27/2019-no acute events in the last 24 hours. Pulse ox is 92% on 5 L oxygen. Presently on IV Solu-Medrol 40 mg every 8 hours Xopenex nebulizations and albuterol nebulizations also on Pulmicort. Plan is to continue the present management probably discharge back home tomorrow. 02/28/[id number]-coxw-old male admitted for acute on chronic respiratory failure with hypoxia. Presently pulse ox is 92% on 5 L. On IV Solu-Medrol 40 mg daily. He is also receiving Xopenex and albuterol nebulizations and also Pulmicort. He is receiving chest physical therapy. Patient is waiting for the [facility] to set up equipment at home. Plan is to continue the present management. 03/01/[id number]-mdok-old male admitted with acute on chronic respiratory failure with hypoxia. Presently on 5 L of oxygen pulse ox is 92 to 93%. On IV Solu- Medrol 40 mg daily. To change it to p.o. prednisone from today. He is also receiving xopenex nebulizations every 6 hours. 03/02/2019-patient's pulse ox today is 94% on 5 L. His oxygen requirements are baseline. Presently on p.o. prednisone. Also receiving Xopenex nebulizations every 6 hours. Plan is to continue the present management. 03/03/2019-patient pulse ox today is 94% on 4 L. Patient is usually on 3 to 4 L of oxygen at home. Oxygen requirements at her baseline. Acute on chronic respiratory failure with hypoxia is resolving. (2) Neurogenic bladder Is this a current diagnosis for this admission?: No (3) Atrial fibrillation Is this a current diagnosis for this admission?: No Summary: 02/26/2019-patient has history of chronic atrial fibrillation. He is on diltiazem 360 mg p.o. daily at [facility]. Which was restarted. Patient is only on aspirin not on anticoagulation. He was placed on Lovenox 40 mg subcu was daily and aspirin is restarted. 02/27/2019-patient has history of atrial fibrillation heart rate is 71 rate controlled. Patient is presently on aspirin and Lovenox for DVT prophylaxis. 02/28/2019-patient has chronic atrial fibrillation not on Coumadin not on anticoagulation heart rate is well controlled 77. 03/01/2019-patient has a history of chronic atrial fibrillation not on anticoagulation. Heart rate is well controlled,heart rate in the 70s . 03/02/2019-patient has a chronic atrial fibrillation. Heart rate is 66. Presently on Cardizem 360 mg p.o. daily, to decrease the dose to 180 mg daily. 03/03/2019-patient has a history of chronic A. fib heart rate today is around 77. Patient is not on anticoagulation presently on a Cardizem 180 mg p.o. daily. Plan is to continue the present management. (4) Anemia Is this a current diagnosis for this admission?: No Summary: 02/26/2019-patient has history of anemia of chronic disease. Hemoglobin is 10.5 stable. Plan is to check the labs on daily basis. 02/27/2019-patient has history of anemia of chronic disease. Hemoglobin is 9.2. Plan is to recheck labs tomorrow. 02/28/2019-patient has history of anemia chronic disease. Hemoglobin is 8.7 stable. Plan to repeat the labs tomorrow. 03/01/2019-patient has anemia of chronic disease. Hemoglobin is 8.7 stable. Plan is to continue the present management. 03/02/2019-patient has history of anemia of chronic disease. Latest hemoglobin is 9.6 stable. Plan is to continue the present management. 03/03/2019-patient has history of anemia of chronic disease but is 9.8. Stable. (5) CHF (congestive heart failure) Is this a current diagnosis for this admission?: No Summary: 02/26/2019-patient has echocardiogram was done on 02/04/2019 suggested normal left ventricular ejection fraction but the patient has a grade 1/grade 4 mild diastolic dysfunction. Patient on Lasix 40 mg twice daily in the [facility] plan is to resume the medication here in the hospital. Patient is not in fluid overload. 02/27/2019-patient has history of congestive heart failure. Latest echocardiogram suggestive of chronic mild diastolic heart failure. Presently on Lasix 40 mg IV twice a day and no signs of any fluid overload. Pressure is 113/56 plan is to decrease the Lasix to 20 mg twice a day today. 02/28/2019-patient has chronic mild diastolic heart failure. He is on Lasix 20 mg p.o. twice a day. No evidence of fluid overload. Plan is to continue the present management. 03/02/2019-patient has a chronic diastolic heart failure and is on Lasix 20 mg p.o. twice a day. Patient is euvolemic. 03/01/2019-patient has history of chronic diastolic heart failure patient is euvolemic presently on Lasix 20 mg p.o. twice daily plan is to continue the present management. (6) Hypertension Is this a current diagnosis for this admission?: No Summary: 02/26/2019-patient has history of hypertension blood pressure is 112/60. Plan is to continue his [facility] medications in the hospital. 02/27/2019-patient blood pressure today is 113/56 with heart rate of 71. Stable. Presently on Lasix 40mg p.o. twice a day and the dose is decreased to 20 mg p.o. twice daily. 02/28/2019-patient's blood pressure is 101/64. Borderline low blood pressure. It is asymptomatic. Presently on Lasix 20 mg p.o. twice daily plan is to continue the present management. 03/01/2019-patient blood pressure today is 118/56. Stable. Plan to continue Lasix 20 mg p.o. twice a day. 03/02/2019- Patient blood pressure today is 104/55 stable. Plan is to continue the present management. 03/03/2019-patient blood pressure today is 118/51. Stable. Plan is to continue the Lasix. (7) Hyponatremia Is this a current diagnosis for this admission?: No Summary: 02/26/2019-patient serum sodium level today is 133.8. Hyponatremia may be secondary to diuretics. Recheck the labs tomorrow. 02/27/2019-serum sodium is 131.5 today. With the blood sugars of 259. Corrected serum sodium is probably around 134. Borderline hyponatremia may be secondary to diuretic use. 02/28/2019-patient serum sodium is 131.2. Hyponatremia most likely secondary to diuretic use. 03/01/2019-patient's serum sodium is 132.9. Hyponatremia is resolving. Most likely secondary to diuretic therapy. 03/02/2019-serum sodium is 133. Improving. hyponatremia most likely secondary to diuretic therapy. 03/03/2019-parents since serum sodium is 135.8. Patient is on Lasix hyponatremia probably secondary to diuretic therapy. hyponatremia has been resolved now. (8) DNR (do not resuscitate) Is this a current diagnosis for this admission?: Yes - Additional Information Resuscitation Status: Do Not Resuscitate Discharge Diet: Cardiac Discharge Activity: Activity As Tolerated Home Medications: Acetaminophen [Tylenol 325 mg Tablet] 650 mg PO Q4HP PRN 02/26/19 Albuterol Sulfate [Ventolin 0.083% Neb 2.5 mg/3 mL Ampul] 3 ml NEB [facility] 02/26/19 Arformoterol Tartrate [Brovana Inhalation Solution 15 mcg/2 mL] 2 ml NEB Q12@0800,199902/26/19 Budesonide [Pulmicort Neb 0.5 mg/2 ml Ampul] 2 ml NEB Q12@0800,199902/26/19 Calcium Carbonate/Vitamin D3 [Calcium 500-Vit D3 200 Caplet] 2 tab PO [facility] 02/26/19 Cetirizine HCl [Zyrtec 10 mg Tablet] 10 mg PO [facility] 02/26/19 Fluticasone Propionate [Flonase Nasal [place]aa[place] 50 Mcg/[place] 16 gm] 2 spray NASL Q12@08,199902/26/19 Guaifenesin [Robitussin Syrup 200 mg/10 ml Ud Cup] 10 ml PO Q4HP PRN 02/26/19 Levalbuterol HCl [Levalbuterol Concentrate] 0.5 ml NEB Q4HP PRN 02/26/19 Montelukast Sodium [Singulair 10 mg Tablet] 10 mg PO QHS@199902/26/19 Potassium Chloride [K-Tab ER] 10 meq PO QAM 02/26/19 Acetaminophen [Tylenol 325 mg Tablet] 650 mg PO Q4HP PRN tablet 03/03/19 Aspirin [Aspirin 81 mg Chewable Tablet] 81 mg PO DAILY tab.chew 03/03/19 Atorvastatin Calcium [Lipitor 10 mg Tablet] 10 mg PO QHS tablet 03/03/19 Budesonide [Pulmicort Neb 0.5 mg/2 ml Ampul] 0.5 mg NEB RTQ12 ampul.neb 03/03/19 Diltiazem HCl [Cardizem Cd 180 mg Capsule] 180 mg PO DAILY capsule.cr 03/03/19 Docusate Sodium [Colace 100 mg Capsule] 100 mg PO BID capsule 03/03/19 Famotidine [Pepcid 20 mg Tablet] 20 mg PO Q12A tablet 03/03/19 Furosemide [Lasix 20 mg Tablet] 20 mg PO BID tablet 03/03/19 Levalbuterol HCl [Xopenex Neb 0.63 mg/3 ml Ampul] 0.63 mg NEB RTQ6 vial.neb 03/03/19 History of Present Illness Admission Date/PCP: 02/26/19 16:41 History of Present Illness: MARY HAWKINS is a 84 year old male with history of COPD on 4 L oxygen at [facility], chronic respiratory failure, chronic bronchitis, atrial fibrillation not on anticoagulation, history of neurogenic bladder requiring self-catheterization brought from the [facility] with acute respiratory distress. Patient was felt found to be in severe respiratory distress EMS was called as per the EMS report pulse ox is 82% on 6 L of oxygen. He was brought to the emergency room for further evaluation in the ER his breathing is improved with oxygen but pulse ox is still around 90-92% on 6 L. Medical consult was called for admission. On examination patient denies any other symptoms except for shortness of breath is also given the history of chronic cough without expectoration. Denies any fever denies any headaches dizzy spells denies any nausea vomiting diarrhea abdominal pains. He wants to be DNR/DNI. pt did agree to be in the hospital for further management. Hospital Course Hospital Course: 84-year-old male with history of COPD on 4 L of oxygen [facility], chronic respiratory failure, chronic bronchitis atrial fibrillation not on anticoagulation admitted for worsening shortness of breath. As per the EMS pulse ox is 82% on 6 L. He was admitted with a diagnosis of acute on chronic respiratory failure. No acute events during the hospital stay. Initially was on BiPAP and he no longer requires BiPAP during the hospital stay. Presently on 4 L oxygen pulse ox is 94%. Asymptomatic. Patient can go back to [facility] today. Physical Exam Vital Signs: Temp Pulse Resp BP Pulse Ox 97.7 F 93 17 110/60 94 03/03/19 16:00 03/03/19 16:00 03/03/19 16:00 03/03/19 16:00 03/03/19 16:00 Intake & Output 03/02/19 03/03/19 03/04/19 06:59 06:59 06:59 Intake Total 556 490 Output Total 900 1120 Balance -344 -630 Weight 66.7 kg 66.8 kg General appearance: PRESENT: no acute distress Head exam: PRESENT: atraumatic Eye exam: PRESENT: PERRLA Mouth exam: PRESENT: moist, tongue midline Teeth exam: PRESENT: poor dentation Neck exam: ABSENT: carotid bruit, JVD, lymphadenopathy, thyromegaly Respiratory exam: PRESENT: decreased breath sounds Cardiovascular exam: PRESENT: irregular rhythm GI/Abdominal exam: PRESENT: normal bowel sounds, soft. ABSENT: distended, guarding, mass, organolmegaly, rebound, tenderness Extremities exam: PRESENT: full ROM. ABSENT: calf tenderness, clubbing, pedal edema Neurological exam: PRESENT: alert, awake, oriented to person, oriented to place, oriented to time, oriented to situation, CN II-XII grossly intact. ABSENT: motor sensory deficit Psychiatric exam: PRESENT: appropriate affect, normal mood. ABSENT: homicidal ideation, suicidal ideation Results Laboratory Results: 03/03/19 05:10 03/03/19 05:10 03/03/19 03/03/19 05:10 05:10 WBC 11.0 H RBC 3.16 L Hgb 9.8 L Hct 28.4 L MCV 90 MCH 31.2 MCHC 34.6 RDW 14.5 H Plt Count 435 Seg Neutrophils % Not Reportable Lymphocytes % Not Reportable Monocytes % Not Reportable Eosinophils % Not Reportable Basophils % Not Reportable Absolute Neutrophils Not Reportable Absolute Lymphocytes Not Reportable Absolute Monocytes Not Reportable Absolute Eosinophils Not Reportable Absolute Basophils Not Reportable Sodium 135.8 L Potassium 4.2 Chloride 94 L Carbon Dioxide 37 H Anion Gap 5 BUN 29 H Creatinine 0.71 Est GFR ( Amer) > 60 Est GFR (Non-Af Amer) > 60 Glucose 124 H Calcium 8.0 L Magnesium 2.2 Total Bilirubin 0.2 AST 16 L ALT 37 Alkaline Phosphatase 72 Total Protein 4.7 L Albumin 2.5 L 02/26/19 14:29 Ramirez Catheter Urine Culture - Final Staph Coagulase Negative 02/26/19 13:20 Blood Blood Culture - Final NO GROWTH IN 5 DAYS 02/26/19 02/26/19 02/26/19 12:15 12:15 21:26 Creatine Kinase 28 L 38 L CK-MB (CK-2) 0.86 Troponin I 0.015 NT-Pro-B Natriuret Pep 02/26/19 02/27/19 02/27/19 21:26 03:40 03:40 Creatine Kinase 34 L CK-MB (CK-2) 0.67 0.68 Troponin I 0.018 0.013 NT-Pro-B Natriuret Pep 462 H 02/27/19 02/27/19 02/28/19 09:33 09:33 06:40 Creatine Kinase 32 L CK-MB (CK-2) 0.80 Troponin I 0.012 NT-Pro-B Natriuret Pep 655 H Impressions: Chest X-Ray 02/26/19 12:44 IMPRESSION: Extensive emphysematous change and parenchymal scarring without definite superimposed cardiopulmonary process. Transfer Plan - Disposition Transfer Plan: Patient is going to [facility] today. - Time Spent with Patient Time spent with patient: Greater than 30 Minutes Qualifiers - * PATIENT BEING DISCHARGED WITH ANY OF THE FOLLOWING DIAGNOSIS: No VTE patient discharged on overlapping Therapy?: No
[2019-03-03 20:43] VITALS: BP 119/73
== END 2019-03-03 20:30 | DRG 189 ==
LOC: ER 11:40 → EH 16:41 → 4W 23:20
PROVIDERS: ADMIT Internal Medicine; ATTEND Internal Medicine
PROC: 5A09457 Assistance with Respiratory Ventilation, 24-96 Consecutive Hours, Continuous Positive Airway Pressure (ICD-10-PCS; principal; 2019-02-28)
DX: J96.21 Acute and chronic respiratory failure with hypoxia (principal); E87.1 Hypo-osmolality and hyponatremia; I50.32 Chronic diastolic (congestive) heart failure; J43.9 Emphysema, unspecified; I11.0 Hypertensive heart disease with heart failure; J96.22 Acute and chronic respiratory failure with hypercapnia; N31.9 Neuromuscular dysfunction of bladder, unspecified; I25.10 Atherosclerotic heart disease of native coronary artery without angina pectoris; E78.5 Hyperlipidemia, unspecified; I48.2 Chronic atrial fibrillation; D64.9 Anemia, unspecified; Z87.891 Personal history of nicotine dependence; Z99.81 Dependence on supplemental oxygen; Z79.82 Long term (current) use of aspirin
CPT/HCPCS: 36415; 36600; 71045; 80053; 80061; 81001; 82550; 82553; 82803; 83605; 83735; 83880; 84443; 84484; 85025; 87040; 87077; 87086; 87186; 93005; 93010; 94640; 94660; 94667; 94668; 99285; J0696; J1650; J2920; J3490; J7512; J7614; J7620

== ENCOUNTER 2019-09-12 12:56 | Inpatient (IN) | payer MEDICARE ==
[2019-09-12] MEDS ORDERED: IPRATROPIUM/ALBUTEROL 0.5-2.5 MG/3 ML AMPUL NEB ONE (13:13)
[2019-09-12 13:14] LABS: HEMATOCRIT 39.2 % (37.9-51.0); MEAN CORPUSCULAR HEMOGLOBIN 28.2 pg (27.0-33.4); MEAN CORPUSCULAR HGB CONC 33.2 g/dL (32.0-36.0); MEAN CORPUSCULAR VOLUME 85 fl (80-97); PLATELET COUNT 265 10^3/uL (150-450); RED BLOOD COUNT 4.62 10^6/uL (4.35-5.55); RED CELL DISTRIBUTION WIDTH 15.6 % (11.5-14.0); WHITE BLOOD COUNT 22.9 10^3/uL (4.0-10.5)
--- NOTE | 2019-09-12 13:16 | ER Document Report ---
ED General - General Chief Complaint: Breathing Difficulty Stated Complaint: RESPIRATORY DISTRESS Time Seen by Provider: 09/12/19 13:13 TRAVEL OUTSIDE OF THE [place] IN LAST 30 DAYS: No - Related Data Allergies/Adverse Reactions: roflumilast Allergy (Unknown, Verified 08/08/18 07:05) Past Medical History - Social History Family History: Reviewed & Not Pertinent, COPD, Hypertension - Past Medical History Cardiac Medical History: Reports: Hx Coronary Artery Disease, Hx Hypercholesterolemia, Hx Hypertension Denies: Hx Atrial Fibrillation, Hx Congestive Heart Failure, Hx Heart Attack, Hx Peripheral Vascular Disease, Hx Pulmonary Embolism, Hx Heart Murmur Pulmonary Medical History: Reports: Hx Asthma, Hx Bronchitis, Hx COPD, Hx Pneumonia, Hx Respiratory Failure Denies: Hx Sleep Apnea, Hx Tuberculosis Neurological Medical History: Denies: Hx Cerebrovascular Accident - heat exhaustion in 1992, Hx Seizures Renal/ Medical History: Denies: Hx Benign Prostatic Hyperplasia, Hx End Stage Renal Disease, Hx Kidney Stones, Hx Peritoneal Dialysis Malignancy Medical History: Denies Hx Lung Cancer GI Medical History: Denies: Hx Hepatitis, Hx Hiatal Hernia, Hx Ulcer Musculoskeletal Medical History: Denies Hx Arthritis, Denies Hx Fibromyalgia, Denies Hx Muscular Dystrophy Psychiatric Medical History: Denies: Hx Depression Traumatic Medical History: Denies: Hx Fractures, Hx Traumatic Brain Injury Infectious Medical History: Denies: Hx Hepatitis, Hx HIV Past Surgical History: Reports: Hx Herniorrhaphy - nov 2007. Denies: Hx Appendectomy, Hx Bowel Surgery, Hx Cholecystectomy, Hx Coronary Artery Bypass Graft, Hx Gastric Bypass Surgery, Hx Open Heart Surgery, Hx Pacemaker, Hx Tonsillectomy - Immunizations Hx Diphtheria, Pertussis, Tetanus Vaccination: Yes Hx Pneumococcal Vaccination: 11/12/11 Physical Exam - Vital signs Vitals: Pulse Ox 92 09/12/19 12:58 Course - Vital Signs Vital signs: Temp Pulse Resp BP Pulse Ox 20 102/62 90 L 09/12/19 14:01 09/12/19 14:00 09/12/19 14:01 - Laboratory Result Diagrams: 09/12/19 13:00 09/12/19 13:00 Laboratory results interpreted by me: 09/12/19 09/12/19 13:00 13:42 WBC 22.9 H Hgb 13.0 L RDW 15.6 H Seg Neuts % (Manual) 87 H Band Neutrophils % 9 H Lymphocytes % (Manual) 2 L Monocytes % (Manual) 2 L Abs Neuts (Manual) 22.0 H Urine Blood SMALL H Urine Nitrite POSITIVE H Ur Leukocyte Esterase LARGE H - EKG Interpretation by Me Additional EKG results interpreted by me: 09/12/19 13:14 EKG compared to last prior in our system on 02/27/2019 today is sinus tachycardia rate 102 overall low voltages unchanged intervals are within normal limits does have some nonspecific T wave morphology changes in all leads no specific anatomic changes. ST segments are unchanged and it based on Discharge - Discharge Clinical Impression: COPD (chronic obstructive pulmonary disease), Acute exacerbation of chronic obstructive pulmonary disease (COPD) Condition: Poor Disposition: ADMITTED INPATIENT Unit Admitted: [facility]
[2019-09-12] MEDS: IPRATROPIUM/ALBUTEROL 0.5-2.5 MG/3 ML AMPUL NEB PRN ×3 (13:42→14:35)
[2019-09-12 13:43] LABS: ABSOLUTE LYMPHOCYTES# (MANUAL) 0.5 10^3/uL (0.5-4.7); ABSOLUTE MONOCYTES # (MANUAL) 0.5 10^3/uL (0.1-1.4); BAND NEUTROPHILS % (MANUAL) 9 % (3-5); BASOPHILS % (MANUAL) 0 % (0-2); EOSINOPHILS % (MANUAL) 0 % (0-6); LYMPHOCYTES % (MANUAL) 2 % (13-45); MONOCYTES % (MANUAL) 2 % (3-13); SEGMENTED NEUTROPHILS % (MAN) 87 % (42-78); TOTAL CELLS COUNTED 100
[2019-09-12 13:44] LABS: ANISOCYTOSIS SLIGHT; PLATELET COMMENT ADEQUATE
--- NOTE | 2019-09-12 13:53 | RADIOLOGY REPORT (SQ) ---
EXAM DESCRIPTION: CHEST SINGLE VIEW COMPLETED DATE/TIME: 09/12/2019 1:15 pm REASON FOR STUDY: SOB COMPARISON: 02/26/2019 NUMBER OF VIEWS: One view. TECHNIQUE: Single frontal radiographic image of the chest acquired. LIMITATIONS: None. FINDINGS: LUNGS AND PLEURA: COPD. Subsegmental airspace disease lateral to the left heart border. MEDIASTINUM AND HEART: Stable heart size and mediastinal structures. BONY STRUCTURES: No acute findings. HARDWARE: None. OTHER: No other significant finding. IMPRESSION: Atelectasis or developing infiltrate left lower lobe. TECHNICAL DOCUMENTATION: JOB ID: [id number] Reading location - IP/workstation name: [email or web address]
[2019-09-12] MEDS ORDERED: AZITHROMYCIN INJ 500 MG VIAL IV ONE (14:08)
[2019-09-12] MEDS ORDERED: CEFTRIAXONE 1 GM/D5W RTU 1 GM/50 ML RTUPB IV ONE (14:15)
[2019-09-12 14:18] LABS: APPEARANCE,URINE SLIGHTLY-CLOUDY; BILIRUBIN,URINE NEGATIVE (NEGATIVE); COLOR,URINE YELLOW; GLUCOSE, URINE NEGATIVE (NEGATIVE); KETONES,URINE NEGATIVE (NEGATIVE); LEUKOCYTE ESTERASE,URINE LARGE (NEGATIVE); NITRITE,URINE POSITIVE (NEGATIVE); PROTEIN,URINE NEGATIVE (NEGATIVE); UROBILINOGEN,URINE NEGATIVE mg/dL (<2.0)
[2019-09-12 14:21] LABS: VENOUS BLOOD BASE EXCESS 4.7 mmol/L; VENOUS BLOOD HCO3 29.6 mmol/L (20-32); VENOUS BLOOD PCO2 44.8 mmHg (35-63); VENOUS BLOOD PH 7.44 (7.30-7.42)
[2019-09-12 14:35] LABS: ALBUMIN 3.6 g/dL (3.5-5.0); ALKALINE PHOSPHATASE 59 U/L (38-126); ANION GAP 9 (5-19); ASPARTATE AMINO TRANSFERASE 22 U/L (17-59); BILIRUBIN,DIRECT 0.1 mg/dL (0.0-0.4); BILIRUBIN,TOTAL 1.8 mg/dL (0.2-1.3); BLOOD UREA NITROGEN 23 mg/dL (7-20); CALCIUM 8.9 mg/dL (8.4-10.2); CARBON DIOXIDE 29 mmol/L (22-30); CHLORIDE 95 mmol/L (98-107); GLUCOSE 156 mg/dL (75-110); POTASSIUM 4.1 mmol/L (3.6-5.0); TOTAL PROTEIN 6.2 g/dL (6.3-8.2)
[2019-09-12 15:24] LABS: A TYPE INFLUENZA AG NEGATIVE (NEGATIVE); B INFLUENZA AG NEGATIVE (NEGATIVE)
[2019-09-12] MEDS ORDERED: LEVALBUTEROL HCL NEB 1.25 MG/3 ML AMPUL NEB PRN (17:03)
[2019-09-12] MEDS ORDERED: ACETAMINOPHEN 650 MG SUPP.RECT PR PRN (17:03)
[2019-09-12] MEDS ORDERED: MAG HYDROX/AL HYDROX/SIMETH SUSP 30 ML UDCUP PO PRN (17:03)
[2019-09-12] MEDS ORDERED: ACETAMINOPHEN 325 MG TABLET PO PRN (17:03)
--- NOTE | 2019-09-12 17:03 | PDOC H&P ---
History of Present Illness Admission Date/PCP: 09/12/19 14:38 Patient complains of: Shortness of breath History of Present Illness: MARY HAWKINS is a 84 year old male who is well-known to the hospitalist service. He was last here in February. He states that over the past 4 to 5 days he is becoming increasingly shortness of breath. EMS found him to be quite hyp oxic at home. In the emergency department he required BiPAP. With BiPAP his oxygenation improved. He never had hypercapnia. In addition to his hypoxia he did have hyperbilirubinemia and lactic acidemia. This in fact qualifies him for sepsis. Evaluation included a chest x-ray with showed possible left lower lobe infiltrate. He had an elevated white blood cell count as well. He was referred to the hospital service for admission. Past Medical History Cardiac Medical History: Reports: Coronary Artery Disease, Hyperlipidema, Hypertension Denies: Atrial Fibrillation, Congestive Heart Failure, Myocardial Infarction, Peripheral Vascular Disease, Pulmonary Embolism, Heart Murmur Pulmonary Medical History: Reports: Asthma, Bronchitis, Chronic Obstructive Pulmonary Disease (COPD), Pneumonia, Respiratory Failure Denies: Sleep Apnea, Tuberculosis Neurological Medical History: Denies: Seizures Renal/ Medical History: Denies: End Stage Renal Disease Malignancy Medical History: Denies: Lung Cancer GI Medical History: Denies: Hepatitis, Hiatal Hernia Musculoskeltal Medical History: Denies: Arthritis, Fibromyalgia Psychiatric Medical History: Denies: Depression Traumatic Medical History: Denies: Traumatic Brain Injury Hematology: Denies: Anemia, Sickle Cell Disease Infectious Medical History: Denies: HIV Past Surgical History Past Surgical History: Reports: Herniorrhaphy - nov 2007 Denies: Appendectomy, Cholecystectomy, Coronary Artery Bypass Graft, Gastric Bypass Surgery, Pacemaker, Tonsillectomy Social History Information Source: Patient, REPLACED BY [facility] Records Lives with: Family Smoking Status: Former Smoker Electronic Cigarette use?: No Frequency of Alcohol Use: None Hx Recreational Drug Use: No Drugs: None Hx Prescription Drug Abuse: No - Advance Directive Resuscitation Status: Do Not Resuscitate Family History Family History: Reviewed & Not Pertinent, COPD, Hypertension Parental Family History Reviewed: Yes Children Family History Reviewed: Yes Sibling(s) Family History Reviewed.: Yes Medication/Allergy Home Medications: Albuterol Sulfate [Ventolin 0.083% Neb 2.5 mg/3 mL Ampul] 3 ml NEB RTDAILY 02/26/19 Arformoterol Tartrate [Brovana Inhalation Solution 15 mcg/2 mL] 2 ml NEB RTQ12 02/26/19 Cetirizine HCl [Zyrtec 10 mg Tablet] 10 mg PO QAM 02/26/19 Montelukast Sodium [Singulair 10 mg Tablet] 10 mg PO QHS 02/26/19 Potassium Chloride [K-Tab ER] 10 meq PO QAM 02/26/19 Atorvastatin Calcium [Lipitor 10 mg Tablet] 10 mg PO QHS tablet 03/03/19 Budesonide [Pulmicort Neb 0.5 mg/2 ml Ampul] 0.5 mg NEB RTQ12 ampul.neb 03/03/19 Diltiazem HCl [Cardizem Cd 180 mg Capsule] 180 mg PO DAILY capsule.cr 03/03/19 Furosemide [Lasix 20 mg Tablet] 20 mg PO BID tablet 03/03/19 Famotidine [Pepcid 20 mg Tablet] 20 mg PO Q12 09/12/19 Levalbuterol HCl [Xopenex Neb 0.63 mg/3 ml Ampul] 3 ml NEB RTQ4HP PRN 09/12/19 Allergies/Adverse Reactions: roflumilast Allergy (Unknown, Verified 08/08/18 07:05) Review of Systems ROS unobtainable: Other - Due to BiPAP mask Constitutional: ABSENT: chills, fever(s) Cardiovascular: PRESENT: dyspnea on exertion. ABSENT: chest pain Respiratory: PRESENT: cough, dyspnea. ABSENT: sputum Psychiatric: PRESENT: anxiety Physical Exam Vital Signs: Temp Pulse Resp BP Pulse Ox 23 H 113/97 H 95 09/12/19 16:01 09/12/19 16:00 09/12/19 16:01 Intake & Output 09/11/19 09/12/19 09/13/19 06:59 06:59 06:59 Intake Total 50 Balance 50 Weight 70.2 kg General appearance: PRESENT: cooperative, mild distress - Mild to moderate distress, well-developed Head exam: PRESENT: atraumatic, normocephalic Eye exam: PRESENT: conjunctiva pink, EOMI. ABSENT: scleral icterus Ear exam: PRESENT: normal external ear exam. ABSENT: bleeding, drainage Mouth exam: PRESENT: other - Unable to assess due to BiPAP mask Respiratory exam: PRESENT: accessory muscle use, rhonchi - Left face, symmetrical, tachypnea, wheezes - Sporadic Cardiovascular exam: PRESENT: RRR, +S1, +S2 GI/Abdominal exam: PRESENT: normal bowel sounds, soft. ABSENT: distended, tenderness Extremities exam: ABSENT: joint swelling, pedal edema Musculoskeletal exam: PRESENT: normal inspection Neurological exam: PRESENT: alert, awake, oriented to person, oriented to place, oriented to time, oriented to situation, CN II-XII grossly intact Psychiatric exam: PRESENT: anxious. ABSENT: agitated Focused psych exam: ABSENT: delusional, restlessness Skin exam: PRESENT: dry, normal color, warm. ABSENT: rash Results Laboratory Results: 09/12/19 13:00 09/12/19 13:42 09/12/19 09/12/19 09/12/19 13:00 13:00 13:42 WBC 22.9 H RBC 4.62 Hgb 13.0 L Hct 39.2 MCV 85 MCH 28.2 MCHC 33.2 RDW 15.6 H Plt Count 265 Seg Neutrophils % Not Reportable VBG pH VBG pCO2 VBG HCO3 VBG Base Excess Sodium Cancelled 133.0 L Potassium Cancelled 4.1 Chloride Cancelled 95 L Carbon Dioxide Cancelled 29 Anion Gap Cancelled 9 BUN Cancelled 23 H Creatinine Cancelled 1.28 H Est GFR ( Amer) Cancelled > 60 Est GFR (Non-Af Amer) Cancelled Glucose Cancelled 156 H Calcium Cancelled 8.9 Total Bilirubin Cancelled 1.8 H AST Cancelled 22 Alkaline Phosphatase Cancelled 59 Total Protein Cancelled 6.2 L Albumin Cancelled 3.6 Urine Color Urine Appearance Urine pH Ur Specific [place] Urine Protein Urine Glucose (UA) Urine Ketones Urine Blood Urine Nitrite Ur Leukocyte Esterase Urine WBC (Auto) Urine RBC (Auto) 09/12/19 09/12/19 13:42 13:42 WBC RBC Hgb Hct MCV MCH MCHC RDW Plt Count Seg Neutrophils % VBG pH 7.44 H VBG pCO2 44.8 VBG HCO3 29.6 VBG Base Excess 4.7 Sodium Potassium Chloride Carbon Dioxide Anion Gap BUN Creatinine Est GFR ( Amer) Est GFR (Non-Af Amer) Glucose Calcium Total Bilirubin AST Alkaline Phosphatase Total Protein Albumin Urine Color YELLOW Urine Appearance SLIGHTLY-CLOUDY Urine pH 7.0 Ur Specific [place] 1.010 Urine Protein NEGATIVE Urine Glucose (UA) NEGATIVE Urine Ketones NEGATIVE Urine Blood SMALL H Urine Nitrite POSITIVE H Ur Leukocyte Esterase LARGE H Urine WBC (Auto) 106 Urine RBC (Auto) 5 09/12/19 13:42 NT-Pro-B Natriuret Pep 2190 H Impressions: Chest X-Ray 09/12/19 12:58 IMPRESSION: Atelectasis or developing infiltrate left lower lobe. Assessment and Plan - Diagnosis (1) Acute and chronic respiratory failure with hypoxia Is this a current diagnosis for this admission?: Yes Plan: 09/12/2019-the patient is requiring BiPAP. We will try to keep his oxygen satur ation between 90 and 94% and wean from BiPAP as tolerated (2) Sepsis due to pneumonia Is this a current diagnosis for this admission?: Yes Plan: 09/12/2019-patient meets sepsis criteria due to hypoxia and acute kidney injury. He will get IV fluids. We will need to be very careful not to fluid overload considering his history of heart failure. (3) Pneumonia Qualifiers: Pneumonia type: due to unspecified organism Laterality: left Lung locatio n: lower lobe of lung Qualified Code(s): J18.1 - Lobar pneumonia, unspecified organism Is this a current diagnosis for this admission?: Yes Plan: 09/12/2019-no sputum was available for culture. With his underlying chronic lung disease the patient most likely has bacterial pneumonia with pneumococcus or Haemophilus. Continue dual antibiotic therapy. (4) COPD (chronic obstructive pulmonary disease) Qualifiers: COPD type: COPD with acute exacerbation Qualified Code(s): J44.1 - Chronic obstructive pulmonary disease with (acute) exacerbation Is this a current diagnosis for this admission?: Yes Plan: 09/12/2019-aggressive regimen including inhaled steroid, inhaled ipratropium and albuterol as well as montelukast and oxygen supplementation (5) Lactic acidosis Is this a current diagnosis for this admission?: Yes Plan: 09/12/2019-serum lactic acid is elevated. The patient is getting IV fluids and we will recheck his lactic acid. As noted above we need to be careful with regard to fluid overload which can easily happen with this patient. (6) Leukocytosis Qualifiers: Leukocytosis type: bandemia Qualified Code(s): D72.825 - Bandemia Is this a current diagnosis for this admission?: Yes Plan: 09/12/2019-secondary to pneumonia. Continue to monitor. Should improve with ant ibiotics. (7) Hyponatremia Is this a current diagnosis for this admission?: Yes Plan: 09/12/2019-this is chronic for this patient. It has been noted on many admissions. This is likely his baseline secondary to his chronic lung disease. (8) Acute kidney injury (BAYRON) with acute tubular necrosis (ATN) Is this a current diagnosis for this admission?: Yes Plan: 09/12/2019-review of previous admission shows normal serum creatinine. Today he is slightly elevated. IV fluids as above and we will continue to monitor. We will hold his furosemide for today. (9) Chronic diastolic heart failure Is this a current diagnosis for this admission?: Yes Plan: 09/12/2019-we will need to monitor the patient closely including intake and output. He requires fluids for the sepsis and we will need to reevaluate in the morning. - Time Time Spent with patient: 35 or more minutes Medications reviewed and adjusted accordingly: Yes Anticipated discharge: Home - Inpatient Certification Based on my medical assessment, after consideration of the patient's comorbidities, presenting symptoms, or acuity I expect that the services needed warrant INPATIENT care.: Yes I certify that my determination is in accordance with my understanding of Medicare's requirements for reasonable and necessary INPATIENT services [42 CFR 412.3e].: Yes Medical Necessity: Need For IV Fluids, Need For Continuous Telemetry Monitoring, Need for Nebulizer Therapy and Monitoring of Response, Need for IV Antibiotics, Risk of Complication if Not Cared For in Hospital Post 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
--- NOTE | 2019-09-12 18:10 | EKG REPORT ---
SEVERITY:- ABNORMAL ECG - SINUS TACHYCARDIA ATRIAL PREMATURE COMPLEX LOW VOLTAGE IN FRONTAL LEADS DIFFUSE NONSPECIFIC ST-T CHANGES : Confirmed by: Daniel Roman MD 12-Sep-2019 18:09:49
[2019-09-12] MEDS: NORMAL SALINE 1000 ML 1,000 ML IV PRN (18:26)
[2019-09-12] MEDS ORDERED: RINGERS SOLUTION,LACTATED 1,000 ML IV ONE (18:42)
[2019-09-12] MEDS: BUDESONIDE NEB 0.5 MG/2 ML AMPUL NEB SCH (20:13)
[2019-09-12] MEDS: IPRATROPIUM/ALBUTEROL 0.5-2.5 MG/3 ML AMPUL NEB SCH (20:13)
[2019-09-12] MEDS: HEPARIN SOD (PORCINE) 5,000 UNIT/ML 1 ML VIAL SUBCUT SCH (21:18)
[2019-09-12] MEDS: FAMOTIDINE 20 MG TABLET PO SCH (21:18)
[2019-09-12] MEDS: ATORVASTATIN CALCIUM 10 MG TABLET PO SCH (21:18)
[2019-09-12] MEDS: MONTELUKAST SODIUM 10 MG TABLET PO SCH (21:18)
[2019-09-12] MEDS ORDERED: FAMOTIDINE 20 MG TABLET PO SCH (22:00)
[2019-09-13] MEDS: IPRATROPIUM/ALBUTEROL 0.5-2.5 MG/3 ML AMPUL NEB SCH ×4 (02:05→20:34)
[2019-09-13 04:53] LABS: HEMATOCRIT 32.3 % (37.9-51.0); MEAN CORPUSCULAR HEMOGLOBIN 27.5 pg (27.0-33.4); MEAN CORPUSCULAR HGB CONC 32.8 g/dL (32.0-36.0); MEAN CORPUSCULAR VOLUME 84 fl (80-97); PLATELET COUNT 155 10^3/uL (150-450); RED BLOOD COUNT 3.87 10^6/uL (4.35-5.55); RED CELL DISTRIBUTION WIDTH 15.8 % (11.5-14.0); WHITE BLOOD COUNT 16.5 10^3/uL (4.0-10.5)
[2019-09-13] MEDS: NORMAL SALINE 1000 ML 1,000 ML IV PRN (05:14)
[2019-09-13] MEDS: HEPARIN SOD (PORCINE) 5,000 UNIT/ML 1 ML VIAL SUBCUT SCH ×3 (05:16→22:18)
[2019-09-13 05:22] LABS: ABSOLUTE LYMPHOCYTES# (MANUAL) 0.5 10^3/uL (0.5-4.7); ABSOLUTE MONOCYTES # (MANUAL) 0.3 10^3/uL (0.1-1.4); BAND NEUTROPHILS % (MANUAL) 9 % (3-5); BASOPHILS % (MANUAL) 0 % (0-2); EOSINOPHILS % (MANUAL) 0 % (0-6); LYMPHOCYTES % (MANUAL) 3 % (13-45); MONOCYTES % (MANUAL) 2 % (3-13); SEGMENTED NEUTROPHILS % (MAN) 86 % (42-78); TOTAL CELLS COUNTED 100
[2019-09-13 05:23] LABS: ANISOCYTOSIS 1+; PLATELET COMMENT ADEQUATE; POLYCHROMASIA 1+
[2019-09-13 05:26] LABS: HEMOGLOBIN 10.6 g/dL (13.5-17.0)
[2019-09-13 06:43] LABS: ARTERIAL BLOOD BASE EXCESS 3.2 mmol/L; ARTERIAL BLOOD H2CO3 1.18 mmol/L (1.05-1.35); ARTERIAL BLOOD HCO3 27.2 mmol/L (20-24); ARTERIAL BLOOD O2 SATURATION 96.4 % (94-98); ARTERIAL BLOOD PCO2 39.1 mmHg (35-45); ARTERIAL BLOOD PH 7.46 (7.35-7.45); ARTERIAL BLOOD PO2 80.3 mmHg (80-100); ARTERIAL BLOOD TOTAL CO2 28.4 mmol/L (23-27)
[2019-09-13 06:44] LABS: ARTERIAL BLOOD FIO2 35%
[2019-09-13 07:03] LABS: ALBUMIN 2.7 g/dL (3.5-5.0); ALKALINE PHOSPHATASE 39 U/L (38-126); ANION GAP 8 (5-19); ASPARTATE AMINO TRANSFERASE 15 U/L (17-59); BILIRUBIN,DIRECT 0.1 mg/dL (0.0-0.4); BILIRUBIN,TOTAL 0.8 mg/dL (0.2-1.3); BLOOD UREA NITROGEN 29 mg/dL (7-20); CALCIUM 7.9 mg/dL (8.4-10.2); CARBON DIOXIDE 28 mmol/L (22-30); CHLORIDE 101 mmol/L (98-107); GLUCOSE 149 mg/dL (75-110); POTASSIUM 3.9 mmol/L (3.6-5.0)
[2019-09-13] MEDS: CETIRIZINE 10 MG TABLET PO SCH (08:25)
[2019-09-13] MEDS: BUDESONIDE NEB 0.5 MG/2 ML AMPUL NEB SCH ×2 (08:36→20:32)
--- NOTE | 2019-09-13 08:43 | PDOC PROGRESS REPORT ---
Subjective Progress Note for:: 09/13/19 Subjective:: 09/13/2019-no complaints at this time. Reason For Visit: ACUTE ON CHRONIC HYPOXIC RESPIRATORY FAILURE, Physical Exam Vital Signs: Temp Pulse Resp BP Pulse Ox 97.6 F 80 14 110/57 L 96 09/13/19 04:50 09/13/19 04:50 09/13/19 04:50 09/13/19 04:50 09/13/19 04:50 Intake & Output 09/12/19 09/13/19 09/14/19 06:59 06:59 05:59 Intake Total 1550 Output Total 500 Balance 1050 Weight 68.5 kg General appearance: PRESENT: no acute distress, well-developed, well-nourished Neck exam: ABSENT: carotid bruit, JVD, lymphadenopathy, thyromegaly Respiratory exam: PRESENT: clear to auscultation eboni, decreased breath sounds, rhonchi, symmetrical, unlabored. ABSENT: rales, wheezes Cardiovascular exam: PRESENT: RRR. ABSENT: diastolic murmur, rubs, systolic murmur Pulses: PRESENT: +1 pedal pulses bilateral Vascular exam: PRESENT: normal capillary refill Extremities exam: PRESENT: full ROM. ABSENT: calf tenderness, clubbing, pedal edema Neurological exam: PRESENT: alert, awake, oriented to person, oriented to place, oriented to time, oriented to situation, CN II-XII grossly intact. ABSENT: motor sensory deficit Psychiatric exam: PRESENT: appropriate affect, normal mood. ABSENT: homicidal ideation, suicidal ideation Skin exam: PRESENT: dry, intact, warm. ABSENT: cyanosis, rash Results Laboratory Results: 09/13/19 04:29 09/13/19 06:11 09/12/19 09/12/19 09/12/19 13:00 13:00 13:42 WBC 22.9 H RBC 4.62 Hgb 13.0 L Hct 39.2 MCV 85 MCH 28.2 MCHC 33.2 RDW 15.6 H Plt Count 265 Seg Neutrophils % Not Reportable Carbonic Acid HCO3/H2CO3 Ratio ABG pH ABG pCO2 ABG pO2 ABG HCO3 ABG O2 Saturation ABG Base Excess VBG pH VBG pCO2 VBG HCO3 VBG Base Excess FiO2 Sodium Cancelled 133.0 L Potassium Cancelled 4.1 Chloride Cancelled 95 L Carbon Dioxide Cancelled 29 Anion Gap Cancelled 9 BUN Cancelled 23 H Creatinine Cancelled 1.28 H Est GFR ( Amer) Cancelled > 60 Est GFR (Non-Af Amer) Cancelled Glucose Cancelled 156 H Lactic Acid Calcium Cancelled 8.9 Magnesium Total Bilirubin Cancelled 1.8 H AST Cancelled 22 Alkaline Phosphatase Cancelled 59 Total Protein Cancelled 6.2 L Albumin Cancelled 3.6 Urine Color Urine Appearance Urine pH Ur Specific Waldo Urine Protein Urine Glucose (UA) Urine Ketones Urine Blood Urine Nitrite Ur Leukocyte Esterase Urine WBC (Auto) Urine RBC (Auto) 09/12/19 09/12/19 09/12/19 13:42 13:42 17:53 WBC RBC Hgb Hct MCV MCH MCHC RDW Plt Count Seg Neutrophils % Carbonic Acid HCO3/H2CO3 Ratio ABG pH ABG pCO2 ABG pO2 ABG HCO3 ABG O2 Saturation ABG Base Excess VBG pH 7.44 H VBG pCO2 44.8 VBG HCO3 29.6 VBG Base Excess 4.7 FiO2 Sodium Potassium Chloride Carbon Dioxide Anion Gap BUN Creatinine Est GFR ( Amer) Est GFR (Non-Af Amer) Glucose Lactic Acid 3.7 H Calcium Magnesium Total Bilirubin AST Alkaline Phosphatase Total Protein Albumin Urine Color YELLOW Urine Appearance SLIGHTLY-CLOUDY Urine pH 7.0 Ur Specific [place] 1.010 Urine Protein NEGATIVE Urine Glucose (UA) NEGATIVE Urine Ketones NEGATIVE Urine Blood SMALL H Urine Nitrite POSITIVE H Ur Leukocyte Esterase LARGE H Urine WBC (Auto) 106 Urine RBC (Auto) 5 09/12/19 09/13/19 09/13/19 22:57 04:29 04:29 WBC 16.5 H RBC 3.87 L Hgb 10.6 L D Hct 32.3 L MCV 84 MCH 27.5 MCHC 32.8 RDW 15.8 H Plt Count 155 Seg Neutrophils % Not Reportable Carbonic Acid HCO3/H2CO3 Ratio ABG pH ABG pCO2 ABG pO2 ABG HCO3 ABG O2 Saturation ABG Base Excess VBG pH VBG pCO2 VBG HCO3 VBG Base Excess FiO2 Sodium Cancelled Potassium Cancelled Chloride Cancelled Carbon Dioxide Cancelled Anion Gap Cancelled BUN Cancelled Creatinine Cancelled Est GFR ( Amer) Cancelled Est GFR (Non-Af Amer) Cancelled Glucose Cancelled Lactic Acid 2.7 H Calcium Cancelled Magnesium Cancelled Total Bilirubin Cancelled AST Cancelled Alkaline Phosphatase Cancelled Total Protein Cancelled Albumin Cancelled Urine Color Urine Appearance Urine pH Ur Specific [place] Urine Protein Urine Glucose (UA) Urine Ketones Urine Blood Urine Nitrite Ur Leukocyte Esterase Urine WBC (Auto) Urine RBC (Auto) 09/13/19 09/13/19 09/13/19 04:29 06:11 06:20 WBC RBC Hgb Hct MCV MCH MCHC RDW Plt Count Seg Neutrophils % Carbonic Acid 1.18 HCO3/H2CO3 Ratio 23:1 ABG pH 7.46 H ABG pCO2 39.1 ABG pO2 80.3 ABG HCO3 27.2 H ABG O2 Saturation 96.4 ABG Base Excess 3.2 VBG pH VBG pCO2 VBG HCO3 VBG Base Excess FiO2 35% Sodium 136.5 L Potassium 3.9 Chloride 101 Carbon Dioxide 28 Anion Gap 8 BUN 29 H Creatinine 1.20 Est GFR ( Amer) > 60 Est GFR (Non-Af Amer) Glucose 149 H Lactic Acid 1.4 Calcium 7.9 L Magnesium 1.9 Total Bilirubin 0.8 AST 15 L Alkaline Phosphatase 39 Total Protein 5.0 L Albumin 2.7 L Urine Color Urine Appearance Urine pH Ur Specific [place] Urine Protein Urine Glucose (UA) Urine Ketones Urine Blood Urine Nitrite Ur Leukocyte Esterase Urine WBC (Auto) Urine RBC (Auto) 09/12/19 14:30 Blood Blood Culture (PCR) - Final Streptococcus Pneumoniae 09/12/19 13:42 NT-Pro-B Natriuret Pep 2190 H Impressions: Chest X-Ray 09/12/19 12:58 IMPRESSION: Atelectasis or developing infiltrate left lower lobe. Assessment and Plan - Diagnosis (1) Acute and chronic respiratory failure with hypoxia Is this a current diagnosis for this admission?: Yes Plan: 09/12/2019-the patient is requiring BiPAP. We will try to keep his oxygen saturation between 90 and 94% and wean from BiPAP as tolerated 09/13/2019-on nasal cannula at this time talking full sentences. Sats are low to mid 90s. Patient will continue BiPAP at night. (2) Sepsis due to pneumonia Is this a current diagnosis for this admission?: Yes Plan: 09/12/2019-patient meets sepsis criteria due to hypoxia and acute kidney injury. He will get IV fluids. We will need to be very careful not to fluid overload considering his history of heart failure. 09/13/2019-improved at this time. Patient did receive IV fluids overnight. Patient does have a history of heart failure will try not to overload but patient is not having an acute exacerbation at this time. (3) Pneumonia Qualifiers: Pneumonia type: due to unspecified organism Laterality: right Lung location: lower lobe of lung Qualified Code(s): J18.1 - Lobar pneumonia, unspecified organism Is this a current diagnosis for this admission?: Yes Plan: 09/13/2019-improved at this time continue IV Rocephin and azithromycin. (4) Acute exacerbation of chronic obstructive pulmonary disease (COPD) Is this a current diagnosis for this admission?: Yes Plan: 05/13/2019-improved at this time continue to follow. Patient will remain on bronchodilators, steroids and supplemental oxygen. (5) Lactic acidosis Is this a current diagnosis for this admission?: Yes Plan: 09/12/2019-serum lactic acid is elevated. The patient is getting IV fluids and we will recheck his lactic acid. As noted above we need to be careful with regard to fluid overload which can easily happen with this patient. 09/13/2019-stable at this time continue to follow (6) Hyponatremia Is this a current diagnosis for this admission?: Yes Plan: 09/12/2019-this is chronic for this patient. It has been noted on many admissions. This is likely his baseline secondary to his chronic lung disease. 09/13/2019-improved. Stable continue to follow daily BMP (7) Chronic diastolic heart failure Is this a current diagnosis for this admission?: Yes Plan: 09/12/2019-we will need to monitor the patient closely including intake and output. He requires fluids for the sepsis and we will need to reevaluate in the morning. 09/13/2019-no acute exacerbations time. Continue to follow - Time Time Spent with patient: 15-24 minutes - Inpatient Certification Based on my medical assessment, after consideration of the patient's comorbidi ties, presenting symptoms, or acuity I expect that the services needed warrant INPATIENT care.: Yes I certify that my determination is in accordance with my understanding of Millie olivera's requirements for reasonable and necessary INPATIENT services [42 CFR 412.3e].: Yes Medical Necessity: Significant Comorbidiites Make Outpatient Treatment Too Risky, Need Close Monitoring Due to Risk of Patient Decompensation, Need for IV Antibiotics
[2019-09-13] MEDS ORDERED: CEFTRIAXONE 1 GM/D5W RTU 1 GM/50 ML RTUPB IV SCH (10:00)
[2019-09-13] MEDS: DILTIAZEM HCL 180 MG CAPSULE.CR PO SCH (10:04)
[2019-09-13] MEDS: AZITHROMYCIN 500 MG in DEXTROSE 5%-WATER 250 ML IV SCH (12:18)
[2019-09-13] MEDS: MONTELUKAST SODIUM 10 MG TABLET PO SCH (22:17)
[2019-09-13] MEDS: FAMOTIDINE 20 MG TABLET PO SCH (22:17)
[2019-09-13] MEDS: ATORVASTATIN CALCIUM 10 MG TABLET PO SCH (22:17)
[2019-09-14] MEDS: IPRATROPIUM/ALBUTEROL 0.5-2.5 MG/3 ML AMPUL NEB SCH ×4 (02:18→20:02)
[2019-09-14] MEDS: HEPARIN SOD (PORCINE) 5,000 UNIT/ML 1 ML VIAL SUBCUT SCH ×3 (06:04→21:58)
[2019-09-14] MEDS: BUDESONIDE NEB 0.5 MG/2 ML AMPUL NEB SCH ×2 (07:34→20:02)
--- NOTE | 2019-09-14 08:02 | PDOC PROGRESS REPORT ---
Subjective Progress Note for:: 09/14/19 Subjective:: 09/13/2019-no complaints at this time. 09/14/2019-no complaints Reason For Visit: ACUTE ON CHRONIC HYPOXIC RESPIRATORY FAILURE, Physical Exam Vital Signs: Temp Pulse Resp BP Pulse Ox 97.9 F 75 20 104/53 L 91 L 09/14/19 03:35 09/14/19 03:35 09/14/19 03:35 09/14/19 03:35 09/14/19 03:35 Intake & Output 09/13/19 09/14/19 09/15/19 07:59 06:59 06:59 Intake Total Output Total Balance Weight General appearance: PRESENT: no acute distress, well-developed, well-nourished Neck exam: ABSENT: carotid bruit, JVD, lymphadenopathy, thyromegaly Respiratory exam: PRESENT: clear to auscultation eboni, decreased breath sounds, symmetrical, unlabored. ABSENT: rales, rhonchi, wheezes Cardiovascular exam: PRESENT: RRR. ABSENT: diastolic murmur, rubs, systolic murmur Pulses: PRESENT: normal dorsalis pedis pul GI/Abdominal exam: PRESENT: normal bowel sounds, soft. ABSENT: distended, guarding, mass, organolmegaly, rebound, tenderness Extremities exam: PRESENT: full ROM. ABSENT: calf tenderness, clubbing, pedal edema Neurological exam: PRESENT: alert, awake, oriented to person, oriented to place, oriented to time, oriented to situation, CN II-XII grossly intact. ABSENT: motor sensory deficit Psychiatric exam: PRESENT: appropriate affect, normal mood. ABSENT: homicidal ideation, suicidal ideation Skin exam: PRESENT: dry, intact, warm. ABSENT: cyanosis, rash Results Laboratory Results: 09/13/19 04:29 09/13/19 06:11 09/12/19 14:30 Blood Blood Culture (PCR) - Final Streptococcus Pneumoniae 09/12/19 14:30 Blood Blood Culture - Final Streptococcus Pneumoniae 09/12/19 13:42 NT-Pro-B Natriuret Pep 2190 H Impressions: Chest X-Ray 09/12/19 12:58 IMPRESSION: Atelectasis or developing infiltrate left lower lobe. Assessment and Plan - Diagnosis (1) Acute and chronic respiratory failure with hypoxia Is this a current diagnosis for this admission?: Yes Plan: 09/12/2019-the patient is requiring BiPAP. We will try to keep his oxygen saturation between 90 and 94% and wean from BiPAP as tolerated 09/13/2019-on nasal cannula at this time talking full sentences. Sats are low to mid 90s. Patient will continue BiPAP at night. 09/14/2019-stable patient continues to show improvement. Continue to follow (2) Sepsis due to pneumonia Is this a current diagnosis for this admission?: Yes Plan: 09/12/2019-patient meets sepsis criteria due to hypoxia and acute kidney injury. He will get IV fluids. We will need to be very careful not to fluid overload considering his history of heart failure. 09/13/2019-improved at this time. Patient did receive IV fluids overnight. Patient does have a history of heart failure will try not to overload but patien t is not having an acute exacerbation at this time. 09/14/2019-improved. Patient did grow out strep pneumoniae susceptible to azithromycin. We will continue azithromycin at this time. (3) Pneumonia Qualifiers: Pneumonia type: due to unspecified organism Laterality: right Lung location: lower lobe of lung Qualified Code(s): J18.1 - Lobar pneumonia, unspecified organism Is this a current diagnosis for this admission?: Yes Plan: 09/13/2019-improved at this time continue IV Rocephin and azithromycin. 09/14/2019-continue azithromycin. (4) Acute exacerbation of chronic obstructive pulmonary disease (COPD) Is this a current diagnosis for this admission?: Yes Plan: 09/13/2019-improved at this time continue to follow. Patient will remain on bronchodilators, steroids and supplemental oxygen. 09/14/2019-continue to show improvement. Continue bronchodilator steroids supple oxygen. (5) Lactic acidosis Is this a current diagnosis for this admission?: Yes Plan: 09/12/2019-serum lactic acid is elevated. The patient is getting IV fluids and we will recheck his lactic acid. As noted above we need to be careful with regard to fluid overload which can easily happen with this patient. 09/13/2019-stable at this time continue to follow 09/14/2019-stable (6) Hyponatremia Is this a current diagnosis for this admission?: Yes Plan: 09/12/2019-this is chronic for this patient. It has been noted on many admissions. This is likely his baseline secondary to his chronic lung disease. 09/13/2019-improved. Stable continue to follow daily BMP 09/14/2019-stable (7) Chronic diastolic heart failure Is this a current diagnosis for this admission?: Yes Plan: 09/12/2019-we will need to monitor the patient closely including intake and output. He requires fluids for the sepsis and we will need to reevaluate in the morning. 09/13/2019-no acute exacerbations time. Continue to follow 09/14/2019-not in an acute exacerbation at this time. - Time Time Spent with patient: 15-24 minutes - Inpatient Certification Based on my medical assessment, after consideration of the patient's com orbidities, presenting symptoms, or acuity I expect that the services needed warrant INPATIENT care.: Yes I certify that my determination is in accordance with my understanding of Medicare's requirements for reasonable and necessary INPATIENT services [42 CFR 412.3e].: Yes Medical Necessity: Need for IV Antibiotics
[2019-09-14] MEDS: DILTIAZEM HCL 180 MG CAPSULE.CR PO SCH (09:29)
[2019-09-14] MEDS: CETIRIZINE 10 MG TABLET PO SCH (09:29)
[2019-09-14] MEDS: AZITHROMYCIN 500 MG in DEXTROSE 5%-WATER 250 ML IV SCH (12:15)
[2019-09-14] MEDS: FAMOTIDINE 20 MG TABLET PO SCH (21:57)
[2019-09-14] MEDS: ATORVASTATIN CALCIUM 10 MG TABLET PO SCH (21:57)
[2019-09-14] MEDS: MONTELUKAST SODIUM 10 MG TABLET PO SCH (21:57)
[2019-09-15] MEDS: IPRATROPIUM/ALBUTEROL 0.5-2.5 MG/3 ML AMPUL NEB SCH ×3 (02:07→14:09)
[2019-09-15 05:24] LABS: HEMATOCRIT 31.1 % (37.9-51.0); HEMOGLOBIN 10.4 g/dL (13.5-17.0); MEAN CORPUSCULAR HEMOGLOBIN 28.3 pg (27.0-33.4); MEAN CORPUSCULAR HGB CONC 33.5 g/dL (32.0-36.0); MEAN CORPUSCULAR VOLUME 85 fl (80-97); PLATELET COUNT 186 10^3/uL (150-450); RED BLOOD COUNT 3.67 10^6/uL (4.35-5.55); RED CELL DISTRIBUTION WIDTH 15.8 % (11.5-14.0); WHITE BLOOD COUNT 8.5 10^3/uL (4.0-10.5)
[2019-09-15] MEDS: HEPARIN SOD (PORCINE) 5,000 UNIT/ML 1 ML VIAL SUBCUT SCH ×2 (05:41→15:55)
[2019-09-15 05:52] LABS: ANION GAP 8 (5-19); BLOOD UREA NITROGEN 21 mg/dL (7-20); CALCIUM 8.3 mg/dL (8.4-10.2); CARBON DIOXIDE 25 mmol/L (22-30); CHLORIDE 107 mmol/L (98-107); GLUCOSE 104 mg/dL (75-110); POTASSIUM 3.7 mmol/L (3.6-5.0)
[2019-09-15] MEDS: BUDESONIDE NEB 0.5 MG/2 ML AMPUL NEB SCH (08:56)
--- NOTE | 2019-09-15 08:59 | PDOC DISCHARGE SUMMARY ---
Impression - Admit/DC Date/PCP Admission Date/Primary Care Provider: 09/12/19 14:38 Discharge Date: 09/15/19 - Discharge Diagnosis (1) Acute and chronic respiratory failure with hypoxia Is this a current diagnosis for this admission?: Yes (2) Sepsis due to pneumonia Is this a current diagnosis for this admission?: Yes (3) Pneumonia Is this a current diagnosis for this admission?: Yes (4) Acute exacerbation of chronic obstructive pulmonary disease (COPD) Is this a current diagnosis for this admission?: Yes (5) Lactic acidosis Is this a current diagnosis for this admission?: Yes (6) Hyponatremia Is this a current diagnosis for this admission?: Yes (7) Chronic diastolic heart failure Is this a current diagnosis for this admission?: Yes - Additional Information Resuscitation Status: Do Not Resuscitate Discharge Diet: As Tolerated Discharge Activity: Activity As Tolerated Prescriptions: Levofloxacin [Levaquin 500 mg Tablet] 500 mg PO DAILY #10 tablet Home Medications: Albuterol Sulfate [Ventolin 0.083% Neb 2.5 mg/3 mL Ampul] 3 ml NEB RTDAILY 02/26/19 Arformoterol Tartrate [Brovana Inhalation Solution 15 mcg/2 mL] 2 ml NEB RTQ12 02/26/19 Cetirizine HCl [Zyrtec 10 mg Tablet] 10 mg PO QAM 02/26/19 Montelukast Sodium [Singulair 10 mg Tablet] 10 mg PO QHS 02/26/19 Potassium Chloride [K-Tab ER] 10 meq PO QAM 02/26/19 Atorvastatin Calcium [Lipitor 10 mg Tablet] 10 mg PO QHS tablet 03/03/19 Budesonide [Pulmicort Neb 0.5 mg/2 ml Ampul] 0.5 mg NEB RTQ12 ampul.neb 03/03/19 Diltiazem HCl [Cardizem Cd 180 mg Capsule] 180 mg PO DAILY capsule.cr 03/03/19 Furosemide [Lasix 20 mg Tablet] 20 mg PO BID tablet 03/03/19 Famotidine [Pepcid 20 mg Tablet] 20 mg PO Q12 09/12/19 Levalbuterol HCl [Xopenex Neb 0.63 mg/3 ml Ampul] 3 ml NEB RTQ4HP PRN 09/12/19 Levofloxacin [Levaquin 500 mg Tablet] 500 mg PO DAILY #10 tablet 09/15/19 History of Present Illiness History of Present Illness: MARY HAWKINS is a 84 year old male who presented to the ER with shortness of breath Hospital Course Hospital Course: Patient admitted to the emergency department with increased shortness of breath. He stated that over the last 4 to 5 days before coming to the ER he had grown increasingly short of breath. EMS found patient to be hypoxic at home. In the emergency department required BiPAP and showed improvement. He never had hypercapnia but he did have hypoxia. Patient was admitted to [facility] treated aggressively with IV antibiotics and BiPAP. Over the course of patient's stay patient did show gradual improvement and is found to be able to return home today. Patient will require Levaquin 500 mg p.o. daily for 10 days this will cover his feet acquired pneumonia as well as a UTI. Patient will follow-up with his primary care practitioner in 1 week. Physical Exam Vital Signs: Temp Pulse Resp BP Pulse Ox 98.0 F 84 17 140/71 H 91 L 09/15/19 07:48 09/15/19 07:48 09/15/19 07:48 09/15/19 07:48 09/15/19 07:48 Intake & Output 09/14/19 09/15/19 09/16/19 06:59 06:59 06:59 Intake Total 1060 Output Total 1700 Balance -640 Weight 68.2 kg General appearance: PRESENT: no acute distress, well-developed, well-nourished Neck exam: ABSENT: carotid bruit, JVD, lymphadenopathy, thyromegaly Respiratory exam: PRESENT: clear to auscultation eboni. ABSENT: rales, rhonchi, wheezes Cardiovascular exam: PRESENT: RRR. ABSENT: diastolic murmur, rubs, systolic murmur Vascular exam: PRESENT: normal capillary refill GI/Abdominal exam: PRESENT: normal bowel sounds, soft. ABSENT: distended, guarding, mass, organolmegaly, rebound, tenderness Extremities exam: PRESENT: full ROM. ABSENT: calf tenderness, clubbing, pedal edema Neurological exam: PRESENT: alert, awake, oriented to person, oriented to place, oriented to time, oriented to situation, CN II-XII grossly intact. ABSENT: motor sensory deficit Psychiatric exam: PRESENT: appropriate affect, normal mood. ABSENT: homicidal ideation, suicidal ideation Skin exam: PRESENT: dry, intact, warm. ABSENT: cyanosis, rash Results Laboratory Results: WBC 8.5 10^3/uL (4.0-10.5) 09/15/19 04:57 RBC 3.67 10^6/uL (4.35-5.55) L 09/15/19 04:57 Hgb 10.4 g/dL (13.5-17.0) L 09/15/19 04:57 Hct 31.1 % (37.9-51.0) L 09/15/19 04:57 MCV 85 fl (80-97) 09/15/19 04:57 MCH 28.3 pg (27.0-33.4) 09/15/19 04:57 MCHC 33.5 g/dL (32.0-36.0) 09/15/19 04:57 RDW 15.8 % (11.5-14.0) H 09/15/19 04:57 Plt Count 186 10^3/uL (150-450) 09/15/19 04:57 Lymph % (Auto) Not Reportable 09/13/19 04:29 [place] % (Auto) Not Reportable 09/13/19 04:29 Eos % (Auto) Not Reportable 09/13/19 04:29 Baso % (Auto) Not Reportable 09/13/19 04:29 Absolute Neuts (auto) Not Reportable 09/13/19 04:29 Absolute Lymphs (auto) Not Reportable 09/13/19 04:29 Absolute Monos (auto) Not Reportable 09/13/19 04:29 Absolute Eos (auto) Not Reportable 09/13/19 04:29 Absolute Basos (auto) Not Reportable 09/13/19 04:29 Total Counted 100 09/13/19 04:29 Seg Neutrophils % Not Reportable 09/13/19 04:29 Seg Neuts % (Manual) 86 % (42-78) H 09/13/19 04:29 Band Neutrophils % 9 % (3-5) H 09/13/19 04:29 Lymphocytes % (Manual) 3 % (13-45) L 09/13/19 04:29 Monocytes % (Manual) 2 % (3-13) L 09/13/19 04:29 Eosinophils % (Manual) 0 % (0-6) 09/13/19 04:29 Basophils % (Manual) 0 % (0-2) 09/13/19 04:29 Abs Neuts (Manual) 15.7 10^3/uL (1.7-8.2) H 09/13/19 04:29 Abs Lymphs (Manual) 0.5 10^3/uL (0.5-4.7) 09/13/19 04:29 Abs Monocytes (Manual) 0.3 10^3/uL (0.1-1.4) 09/13/19 04:29 Absolute Eos (Manual) 0.0 10^3/uL (0.0-0.6) 09/13/19 04:29 Abs Basophils (Manual) 0.0 10^3/uL (0.0-0.2) 09/13/19 04:29 Platelet Comment ADEQUATE 09/13/19 04:29 Polychromasia 1+ 09/13/19 04:29 Anisocytosis 1+ 09/13/19 04:29 Carbonic Acid 1.18 mmol/L (1.05-1.35) 09/13/19 06:20 HCO3/H2CO3 Ratio 23:1 09/13/19 06:20 ABG pH 7.46 (7.35-7.45) H 09/13/19 06:20 ABG pCO2 39.1 mmHg (35-45) 09/13/19 06:20 ABG pO2 80.3 mmHg (80-100) 09/13/19 06:20 ABG HCO3 27.2 mmol/L (20-24) H 09/13/19 06:20 ABG Total CO2 28.4 mmol/L (23-27) H 09/13/19 06:20 ABG O2 Saturation 96.4 % (94-98) 09/13/19 06:20 ABG Base Excess 3.2 mmol/L 09/13/19 06:20 VBG pH 7.44 (7.30-7.42) H 09/12/19 13:42 VBG pCO2 44.8 mmHg (35-63) 09/12/19 13:42 VBG HCO3 29.6 mmol/L (20-32) 09/12/19 13:42 VBG Base Excess 4.7 mmol/L 09/12/19 13:42 FiO2 35% 09/13/19 06:20 Sodium 139.9 mmol/L (137-145) 09/15/19 04:57 Potassium 3.7 mmol/L (3.6-5.0) 09/15/19 04:57 Chloride 107 mmol/L (98-107) 09/15/19 04:57 Carbon Dioxide 25 mmol/L (22-30) 09/15/19 04:57 Anion Gap 8 (5-19) 09/15/19 04:57 BUN 21 mg/dL (7-20) H 09/15/19 04:57 Creatinine 0.93 mg/dL (0.52-1.25) 09/15/19 04:57 Est GFR ( Amer) > 60 (>60) 09/15/19 04:57 Est GFR (Non-Af Amer) Cancelled 09/13/19 04:29 Est GFR (MDRD) Non-Af > 60 (>60) 09/15/19 04:57 Glucose 104 mg/dL (75-110) 09/15/19 04:57 Lactic Acid 1.4 mmol/L (0.7-2.1) 09/13/19 04:29 Calcium 8.3 mg/dL (8.4-10.2) L 09/15/19 04:57 Magnesium 1.9 mg/dL (1.6-2.3) 09/13/19 06:11 Total Bilirubin 0.8 mg/dL (0.2-1.3) 09/13/19 06:11 Direct Bilirubin 0.1 mg/dL (0.0-0.4) 09/13/19 06:11 Neonat Total Bilirubin Not Reportable 09/13/19 06:11 Neonat Direct Bilirubin Not Reportable 09/13/19 06:11 Neonat Indirect Bili Not Reportable 09/13/19 06:11 AST 15 U/L (17-59) L 09/13/19 06:11 ALT 10 U/L (<50) 09/13/19 06:11 Alkaline Phosphatase 39 U/L (38-126) 09/13/19 06:11 NT-Pro-B Natriuret Pep 2190 pg/mL (<450) H 09/12/19 13:42 Total Protein 5.0 g/dL (6.3-8.2) L 09/13/19 06:11 Albumin 2.7 g/dL (3.5-5.0) L 09/13/19 06:11 EGFR Cancelled 09/13/19 04:29 Urine Color YELLOW 09/12/19 13:42 Urine Appearance SLIGHTLY-CLOUDY 09/12/19 13:42 Urine pH 7.0 (5.0-9.0) 09/12/19 13:42 Ur Specific [place] 1.010 09/12/19 13:42 Urine Protein NEGATIVE mg/dL (NEGATIVE) 09/12/19 13:42 Urine Glucose (UA) NEGATIVE mg/dL (NEGATIVE) 09/12/19 13:42 Urine Ketones NEGATIVE mg/dL (NEGATIVE) 09/12/19 13:42 Urine Blood SMALL (NEGATIVE) H 09/12/19 13:42 Urine Nitrite POSITIVE (NEGATIVE) H 09/12/19 13:42 Urine Bilirubin NEGATIVE (NEGATIVE) 09/12/19 13:42 Urine Urobilinogen NEGATIVE mg/dL (<2.0) 09/12/19 13:42 Ur Leukocyte Esterase LARGE (NEGATIVE) H 09/12/19 13:42 Urine WBC (Auto) 106 /HPF 09/12/19 13:42 Urine RBC (Auto) 5 /HPF 09/12/19 13:42 Urine WBC Clumps FEW /HPF 09/12/19 13:42 Squamous Epi Cells Auto 2 /HPF 09/12/19 13:42 Urine Mucus (Auto) RARE /LPF 09/12/19 13:42 Urine Ascorbic Acid NEGATIVE (NEGATIVE) 09/12/19 13:42 Influenza A (Rapid) NEGATIVE (NEGATIVE) 09/12/19 14:51 Influenza B (Rapid) NEGATIVE (NEGATIVE) 09/12/19 14:51 09/12/19 13:42 NT-Pro-B Natriuret Pep 2190 H Impressions: Chest X-Ray 09/12/19 12:58 IMPRESSION: Atelectasis or developing infiltrate left lower lobe. Plan Time Spent: Greater than 30 Minutes Stroke Is this a Stroke Patient?: No Acute Heart Failure - Is this a Heart Failure Patient?: No
[2019-09-15] MEDS: CETIRIZINE 10 MG TABLET PO SCH (09:44)
[2019-09-15] MEDS: DILTIAZEM HCL 180 MG CAPSULE.CR PO SCH (09:44)
[2019-09-15] MEDS ORDERED: INFLUENZA QUAD (6MOS+) 2019-20 VAC 0.5 ML SYR IM ONE (11:12)
[2019-09-15] MEDS: AZITHROMYCIN 500 MG in DEXTROSE 5%-WATER 250 ML IV SCH (12:34)
[2019-09-15 16:01] VITALS: BP 110/61
== END 2019-09-15 16:11 | disposition home or self-care (01) | DRG 871 ==
LOC: ER 12:56 → EH 14:38 → 3S 17:14
PROVIDERS: ADMIT Hospitalist; ATTEND Hospitalist
PROC: 5A09357 Assistance with Respiratory Ventilation, Less than 24 Consecutive Hours, Continuous Positive Airway Pressure (ICD-10-PCS; principal; 2019-09-12)
PROC: 3E02340 Introduction of Influenza Vaccine into Muscle, Percutaneous Approach (ICD-10-PCS; 2019-09-15)
DX: A41.9 Sepsis, unspecified organism (principal); J96.21 Acute and chronic respiratory failure with hypoxia; J18.1 Lobar pneumonia, unspecified organism; J44.0 Chronic obstructive pulmonary disease with (acute) lower respiratory infection; J44.1 Chronic obstructive pulmonary disease with (acute) exacerbation; E87.1 Hypo-osmolality and hyponatremia; I50.32 Chronic diastolic (congestive) heart failure; N17.9 Acute kidney failure, unspecified; I11.0 Hypertensive heart disease with heart failure; Z66 Do not resuscitate; I25.10 Atherosclerotic heart disease of native coronary artery without angina pectoris; E78.5 Hyperlipidemia, unspecified; Z87.891 Personal history of nicotine dependence; Z83.6 Family history of other diseases of the respiratory system; Z82.49 Family history of ischemic heart disease and other diseases of the circulatory system; Z88.8 Allergy status to other drugs, medicaments and biological substances; Z23 Encounter for immunization
CPT/HCPCS: 36415; 36600; 71045; 80048; 80053; 81001; 82803; 83605; 83735; 83880; 85025; 85027; 87040; 87077; 87086; 87150; 87186; 87804; 90686; 93005; 93010; 94660; C1758; J0456; J0696; J1644; J3490; J7030; J7060; J7120; J7620

== ENCOUNTER 2020-09-01 14:12 | Inpatient (IN) | payer MEDICARE, OTHER ==
[2020-09-01 14:44] LABS: VENOUS BLOOD BASE EXCESS 25.4 mmol/L; VENOUS BLOOD HCO3 56.3 mmol/L (20-32); VENOUS BLOOD PH 7.38 (7.30-7.42)
[2020-09-01 14:51] LABS: VENOUS BLOOD PCO2 97.4 mmHg (35-63)
[2020-09-01 15:01] LABS: ABSOLUTE EOSINOPHILS # (AUTO) 0.1 10^3/uL (0.0-0.6); ABSOLUTE LYMPHOCYTES (AUTO) 1.1 10^3/uL (0.5-4.7); ABSOLUTE MONOCYTES (AUTO) 1.2 10^3/uL (0.1-1.4); ABSOLUTE NEUT (AUTO) 7.4 10^3/uL (1.7-8.2); BASOPHILS % (AUTO) 0.3 % (0-2); EOSINOPHILS % (AUTO) 1.2 % (0-6); HEMATOCRIT 35.7 % (37.9-51.0); HEMOGLOBIN 11.9 g/dL (13.5-17.0); LYMPHOCYTES % (AUTO) 11.3 % (13-45); MEAN CORPUSCULAR HEMOGLOBIN 29.9 pg (27.0-33.4); MEAN CORPUSCULAR HGB CONC 33.5 g/dL (32.0-36.0); MEAN CORPUSCULAR VOLUME 89 fl (80-97); MONOCYTES % (AUTO) 12.6 % (3-13); PLATELET COUNT 220 10^3/uL (150-450); SEGMENTED NEUTROPHILS % (AUTO) 74.6 % (42-78); TOTAL CELLS COUNTED % (AUTO) 100 %; WHITE BLOOD COUNT 9.9 10^3/uL (4.0-10.5)
--- NOTE | 2020-09-01 15:05 | RADIOLOGY REPORT (SQ) ---
EXAM DESCRIPTION: CHEST SINGLE VIEW IMAGES COMPLETED DATE/TIME: 09/01/2020 2:47 pm REASON FOR STUDY: shortness of breath COMPARISON: AP view of the chest from 06/25/2020. EXAM PARAMETERS: NUMBER OF VIEWS: One view. TECHNIQUE: An AP view of the chest was obtained. RADIATION DOSE: NA LIMITATIONS: None. FINDINGS: LUNGS AND PLEURA: COPD without a superimposed consolidation, pleural effusion or pneumotho rax. MEDIASTINUM AND HILAR STRUCTURES: No mediastinal or hilar contour abnormality. HEART AND VASCULAR STRUCTURES: The cardiac silhouette and pulmonary vasculature are within normal rodriguez its. BONES: No acute findings. HARDWARE: None in the chest. OTHER: No other finding. IMPRESSION: COPD without a superimposed acute cardiopulmonary process. TECHNICAL DOCUMENTATION: JOB ID: [id number] 2010 [employer]- All Rights Reserved Reading location - IP/workstation name: [email or web address]
[2020-09-01 15:15] LABS: ALBUMIN 3.9 g/dL (3.5-5.0); ALKALINE PHOSPHATASE 75 U/L (38-126); ASPARTATE AMINO TRANSFERASE 29 U/L (17-59); BILIRUBIN,DIRECT 0.2 mg/dL (0.0-0.4); BILIRUBIN,TOTAL 0.8 mg/dL (0.2-1.3); BLOOD UREA NITROGEN 34 mg/dL (7-20); CALCIUM 9.7 mg/dL (8.4-10.2); CHLORIDE 76 mmol/L (98-107); GLUCOSE 142 mg/dL (75-110); POTASSIUM 3.4 mmol/L (3.6-5.0); TOTAL PROTEIN 6.5 g/dL (6.3-8.2)
[2020-09-01 15:26] LABS: ANION GAP 7 (5-19)
[2020-09-01 15:27] LABS: CARBON DIOXIDE 53 mmol/L (22-30)
--- NOTE | 2020-09-01 16:25 | EKG REPORT ---
SEVERITY:- ABNORMAL ECG - SINUS RHYTHM MULTIFORM VENTRICULAR PREMATURE COMPLEXES PROBABLE ANTEROSEPTAL INFARCT, AGE INDETERM ABNORMAL T, CONSIDER ISCHEMIA, INFERIOR LEADS : Confirmed by: Manish Atkinson MD 01-Sep-2020 16:25:38
[2020-09-01] MEDS ORDERED: IPRATROPIUM/ALBUTEROL 0.5-2.5 MG/3 ML AMPUL NEB ONE (16:35)
[2020-09-01] MEDS: MAGNESIUM SULFATE/D5W 1 GM/100 ML RTUPB IV SCH ×2 (16:53→18:10)
--- NOTE | 2020-09-01 16:54 | ER Document Report ---
ED Respiratory Problem - General Chief Complaint: Breathing Difficulty Stated Complaint: DIFFICULTY BREATHING Time Seen by Provider: 09/01/20 14:54 Notes: Patient is an 85-year-old male who comes in with difficulty breathing. He usually wears 3.5 L at home at baseline due to his history of COPD. Patient states that he went outside for a few minutes and he thinks that the warm air made his breathing worse. Denies increased cough or fever. No chest pain or abdominal pain. Patient is a difficult historian but thinks that his breathing is worse today than usual and thinks that he is having a hard time functioning at home. He is more concerned about a lesion on his left forearm which he was told was skin cancer but is not sure what the plan is for him. Patient received Solu-Medrol and 2 nebulizer treatments prior to arrival. TRAVEL OUTSIDE OF THE [place] IN LAST 30 DAYS: No - HPI Patient complains to provider of: Short of breath - Related Data Allergies/Adverse Reactions: roflumilast Allergy (Unknown, Verified 09/01/20 15:27) Home Medications: multivitamin. potassium chloride. atorvastatin. famotidine. furosemide. docusate. diltiazem. metolazone. calcium. aspirin Past Medical History - Social History Smoking Status: Never Smoker Family History: Reviewed & Not Pertinent, COPD, Hypertension - Past Medical History Cardiac Medical History: Reports: Hx Coronary Artery Disease, Hx Hypercholesterolemia, Hx Hypertension Denies: Hx Atrial Fibrillation, Hx Congestive Heart Failure, Hx Heart Attack, Hx Peripheral Vascular Disease, Hx Pulmonary Embolism, Hx Heart Murmur Pulmonary Medical History: Reports: Hx Asthma, Hx Bronchitis, Hx COPD, Hx Pneumonia, Hx Respiratory Failure Denies: Hx Sleep Apnea, Hx Tuberculosis Neurological Medical History: Denies: Hx Cerebrovascular Accident - heat exhaustion in 1992, Hx Seizures Renal/ Medical History: Denies: Hx Benign Prostatic Hyperplasia, Hx End Stage Renal Disease, Hx Kidney Stones, Hx Peritoneal Dialysis Malignancy Medical History: Denies Hx Lung Cancer GI Medical History: Denies: Hx Hepatitis, Hx Hiatal Hernia, Hx Ulcer Musculoskeletal Medical History: Denies Hx Arthritis, Denies Hx Fibromyalgia, Denies Hx Muscular Dystrophy Psychiatric Medical History: Denies: Hx Depression Traumatic Medical History: Denies: Hx Fractures, Hx Traumatic Brain Injury Infectious Medical History: Denies: Hx Hepatitis, Hx HIV Past Surgical History: Reports: Hx Herniorrhaphy - nov 2007. Denies: Hx Appendectomy, Hx Bowel Surgery, Hx Cholecystectomy, Hx Coronary Artery Bypass Graft, Hx Gastric Bypass Surgery, Hx Open Heart Surgery, Hx Pacemaker, Hx Tonsillectomy - Immunizations Hx Diphtheria, Pertussis, Tetanus Vaccination: Yes Hx Pneumococcal Vaccination: 11/12/11 Review of Systems - Review of Systems -: Yes All other systems reviewed and negative Physical Exam - Vital signs Vitals: Resp Pulse Ox 22 H 100 09/01/20 14:29 09/01/20 14:29 Interpretation: Normal - General General appearance: Appears well, Alert - HEENT Head: Normocephalic, Atraumatic Eyes: Normal Pupils: PERRL - Respiratory Respiratory status: No respiratory distress - At rest. With minimal movement, patient becomes tachypneic and dropped his oxygen saturation to the 70s. Chest status: Nontender Breath sounds: Wheezing Chest palpation: Normal - Cardiovascular Rhythm: Regular Heart sounds: Normal auscultation Murmur: No - Abdominal Inspection: Normal Distension: No distension Bowel sounds: Normal Tenderness: Nontender Organomegaly: No organomegaly - Back Back: Normal, Nontender - Extremities General upper extremity: Nontender, Normal color, Normal ROM, Normal temperature General lower extremity: Normal inspection, Nontender, Normal color, Normal ROM, Normal temperature, Normal weight bearing. No: Edu's sign Shoulder: Normal Arm: Normal Forearm: Other - Mass with open wound to left dorsal forearm with foul discharge. - Neurological Neuro grossly intact: Yes Cognition: Normal Orientation: AAOx4 [place] Coma Scale Eye Opening: Spontaneous [place] Coma Scale Verbal: Oriented [place] Coma Scale Motor: Obeys Commands Nal[place] Coma Scale Total: 15 Speech: Normal Motor strength normal: LUE, RUE, LLE, RLE Sensory: Normal - Psychological Associated symptoms: Normal affect, Normal mood - Skin Skin Temperature: Warm Skin Moisture: Dry Skin Color: Normal Course - Re-evaluation Re-evalutation: 09/01/20 Patient was discussed with the hospitalist, Dr. Smith who will be down to evaluate the patient. Patient with respiratory distress with minimal exertion and SpO2 drops to 70s. Also with wound to L forearm: there is a pathology report from 07/27/[address] 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 Asked that I call the oncologist bacon skinner to consult on the patient. Spoke with Dr. Ocampo from oncology. Advised that they would not consult on this patient unless it is metastatic or there is other involvement. Advised that general surgery be called back. Spoke with Dr. Garcia from general surgery. They will see the patient while he is admitted. Informed Dr. Smith of this. He will admit the patient to telemetry. Patient is agreeable to this plan and stable at the time of admission. Of note, no acute findings on chest x-ray other than COPD. Patient with BAYRON as well. 09/01/20 21:51 - Vital Signs Vital signs: Temp Pulse Resp BP Pulse Ox 98.0 F 17 127/68 H 93 09/01/20 19:36 09/01/20 19:36 09/01/20 19:36 09/01/20 19:36 - Laboratory Result Diagrams: 09/01/20 14:29 09/01/20 14:29 Laboratory results interpreted by me: 09/01/20 09/01/20 09/01/20 14:29 14:29 14:29 RBC 4.00 L Hgb 11.9 L Hct 35.7 L Lymph % (Auto) 11.3 L VBG pCO2 97.4 H* VBG HCO3 56.3 H Sodium 136.3 L Potassium 3.4 L Chloride 76 L Carbon Dioxide 53 H* BUN 34 H Creatinine 1.27 H Est GFR (MDRD) Non-Af 54 L Glucose 142 H - Diagnostic Test Radiology reviewed: Reports reviewed - EKG Interpretation by Me EKG shows normal: Sinus rhythm When compared to previous EKG there are: No significant change Additional EKG results interpreted by me: PVCs Critical Care Note - Critical Care Note Total time excluding time spent on procedures (mins): 35 - Evaluation and management of respiratory distress, diagnosis and management of COPD exacerbation, consultation with specialist, coordination of admission, counseling of patient Discharge - Discharge Clinical Impression: COPD exacerbation, Wound infection, BAYRON (acute kidney injury) Condition: Stable Disposition: ADMITTED INPATIENT Admitting Provider: Luis (Hospitalist) Unit Admitted: Telemetry
[2020-09-01] MEDS ORDERED: NORMAL SALINE 500 ML IV ONE (16:58)
[2020-09-01] MEDS ORDERED: ALBUTEROL SULFATE 0.083% NEB 2.5 MG/3 ML AMPUL NEB PRN (17:56)
[2020-09-01] MEDS ORDERED: ACETAMINOPHEN 325 MG TABLET PO PRN (17:56)
[2020-09-01] MEDS ORDERED: ONDANSETRON HCL INJ/PF 4 MG/2 ML SDV IV PRN (17:56)
[2020-09-01] MEDS ORDERED: MAG HYDROX/AL HYDROX/SIMETH SUSP 30 ML UDCUP PO PRN (17:56)
--- NOTE | 2020-09-01 18:32 | PDOC H&P ---
History of Present Illness Admission Date/PCP: 09/01/20 18:02 Patient complains of: Shortness of breath, left leg swelling, left arm mass History of Present Illness: MARY HAWKINS is a 85 year old male with history of COPD on 3 to 4 L nasal cannula, CAD, hyperlipidemia hypertension, who was brought into the hospital by EMS. According to ER provider, EMS reported that patient was short of breath and had poor air movement with wheezing on presentation and was given a treatment of steroids and nebulizer. Patient however currently states that he does not have any significant shortness of breath. Not the optimal historian but able to give a pretty decent history. He states he came in because he was really bothered by the swelling in his left leg which has been going on now for the past several months and also to be evaluated for the mass in his left arm. He does use oxygen at home but does not use any BiPAP or NIPPV device at night. Denies any sick contacts. He states he was biopsied in his left arm and was told it was cancer. Since his biopsy last month, he has not had any treatment of this. In the ER, patient received magnesium, duo nebs, and ABG shows CO2 retention which appears chronic with adequate compensation. Past Medical History Cardiac Medical History: Reports: Coronary Artery Disease, Hyperlipidema, Hypertension Denies: Atrial Fibrillation, Congestive Heart Failure, Myocardial Infarction, Peripheral Vascular Disease, Pulmonary Embolism, Heart Murmur Pulmonary Medical History: Reports: Asthma, Bronchitis, Chronic Obstructive Pulmonary Disease (COPD), Pneumonia, Respiratory Failure Denies: Sleep Apnea, Tuberculosis Neurological Medical History: Denies: Seizures Renal/ Medical History: Denies: End Stage Renal Disease Malignancy Medical History: Denies: Lung Cancer GI Medical History: Denies: Hepatitis, Hiatal Hernia Musculoskeltal Medical History: Denies: Arthritis, Fibromyalgia Psychiatric Medical History: Denies: Depression Traumatic Medical History: Denies: Traumatic Brain Injury Hematology: Denies: Anemia, Sickle Cell Disease Infectious Medical History: Denies: HIV Past Surgical History Past Surgical History: Reports: Herniorrhaphy - nov 2007 Denies: Appendectomy, Cholecystectomy, Coronary Artery Bypass Graft, Gastric Bypass Surgery, Pacemaker, Tonsillectomy Social History Smoking Status: Never Smoker Frequency of Alcohol Use: None Hx Recreational Drug Use: No Drugs: None Hx Prescription Drug Abuse: No - Advance Directive Resuscitation Status: Full Code Family History Family History: Reviewed & Not Pertinent, COPD, Hypertension Parental Family History Reviewed: Yes Children Family History Reviewed: Yes Sibling(s) Family History Reviewed.: Yes Medication/Allergy Home Medications: Albuterol Sulfate [Ventolin 0.083% Neb 2.5 mg/3 mL Ampul] 3 ml NEB RTDAILY 02/26/19 Arformoterol Tartrate [Brovana Inhalation Solution 15 mcg/2 mL] 2 ml NEB RTQ12 02/26/19 Cetirizine HCl [Zyrtec 10 mg Tablet] 10 mg PO QAM 02/26/19 Montelukast Sodium [Singulair 10 mg Tablet] 10 mg PO QHS 02/26/19 Potassium Chloride [K-Tab ER] 10 meq PO QAM 02/26/19 Atorvastatin Calcium [Lipitor 10 mg Tablet] 10 mg PO QHS tablet 03/03/19 Budesonide [Pulmicort Neb 0.5 mg/2 ml Ampul] 0.5 mg NEB RTQ12 ampul.neb 03/03/19 Diltiazem HCl [Cardizem Cd 180 mg Capsule] 180 mg PO DAILY capsule.cr 03/03/19 Furosemide [Lasix 20 mg Tablet] 20 mg PO BID tablet 03/03/19 Famotidine [Pepcid 20 mg Tablet] 20 mg PO Q12 09/12/19 Levalbuterol HCl [Xopenex Neb 0.63 mg/3 ml Ampul] 3 ml NEB RTQ4HP PRN 09/12/19 Levofloxacin [Levaquin 500 mg Tablet] 500 mg PO DAILY #10 tablet 09/15/19 Dexamethasone [Decadron 4 Mg Tablet] 4 mg PO DAILY #5 tablet 06/25/20 Levofloxacin [Levaquin 500 mg Tablet] 500 mg PO DAILY #10 tablet 06/25/20 Allergies/Adverse Reactions: roflumilast Allergy (Unknown, Verified 09/01/20 15:27) Review of Systems Constitutional: ABSENT: chills, fatigue, fever(s), night sweats Eyes: ABSENT: visual disturbances Ears: ABSENT: hearing changes Nose, Mouth, and Throat: ABSENT: headache(s) Cardiovascular: PRESENT: edema. ABSENT: chest pain, orthropnea Respiratory: PRESENT: dyspnea. ABSENT: sputum Gastrointestinal: ABSENT: abdominal pain, nausea, vomiting Genitourinary: ABSENT: dysuria Musculoskeletal: PRESENT: joint swelling - Left ankle Neurological: ABSENT: dizziness, frequent falls Endocrine: ABSENT: polyuria Allergic/Immunologic: PRESENT: other - Denies rhinorrhea Physical Exam Vital Signs: Temp Pulse Resp BP Pulse Ox 98.0 F 20 114/60 97 09/01/20 15:00 09/01/20 17:01 09/01/20 17:00 09/01/20 17:01 Intake & Output 08/31/20 09/01/20 09/02/20 06:59 06:59 06:59 Intake Total 100 Balance 100 Weight 65.1 kg General appearance: PRESENT: no acute distress, cooperative Head exam: PRESENT: normocephalic Eye exam: PRESENT: EOMI Neck exam: ABSENT: tracheal deviation Respiratory exam: PRESENT: decreased breath sounds, symmetrical, unlabored. ABSENT: accessory muscle use, crackles, rales, retraction, rhonchi, stridor, tachypnea, wheezes Cardiovascular exam: PRESENT: RRR, +S1, +S2. ABSENT: tachycardia GI/Abdominal exam: PRESENT: soft. ABSENT: rebound, rigid, tenderness Extremities exam: PRESENT: pedal edema - Seems to be worse in the left leg than right leg Neurological exam: PRESENT: alert, awake, oriented to person, oriented to place, oriented to time Psychiatric exam: ABSENT: agitated, anxious Focused psych exam: ABSENT: pressured speech Skin exam: PRESENT: other - Patient has large foul-smelling indurated mass in his left forearm with significant drainage and erythema surrounding it Results Laboratory Results: 09/01/20 14:29 09/01/20 14:29 09/01/20 09/01/20 09/01/20 14:29 14:29 14:29 WBC 9.9 RBC 4.00 L Hgb 11.9 L Hct 35.7 L MCV 89 MCH 29.9 MCHC 33.5 RDW 14.0 Plt Count 220 Seg Neutrophils % 74.6 VBG pH 7.38 VBG pCO2 97.4 H* VBG HCO3 56.3 H VBG Base Excess 25.4 Sodium 136.3 L Potassium 3.4 L Chloride 76 L Carbon Dioxide 53 H* Anion Gap 7 BUN 34 H Creatinine 1.27 H Est GFR ( Amer) > 60 Glucose 142 H Calcium 9.7 Total Bilirubin 0.8 AST 29 Alkaline Phosphatase 75 Total Protein 6.5 Albumin 3.9 10/21/20 10/21/20 14:29 14:29 Troponin I 0.018 NT-Pro-B Natriuret Pep 347 Impressions: Chest X-Ray 09/01/20 14:34 IMPRESSION: COPD without a superimposed acute cardiopulmonary process. Assessment and Plan - Diagnosis (1) COPD exacerbation Is this a current diagnosis for this admission?: Yes Plan: We will treat with duo nebs, Solu-Medrol, budesonide, and azithromycin Chest x-ray not showing any evidence of pneumonia. 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 Pain control as needed (3) Chronic respiratory failure with hypoxia and hypercapnia Is this a current diagnosis for this admission?: Yes Plan: Blood gas is consistent with adequately compensated chronic respiratory acidosis. Likely secondary to chronic COPD. We will give breathing treatments. BiPAP nocturnally. Will check VBG in the morning. Chronic hypoxia on 3-4 L NC at home. Will titrate between 2-4 L to achieve goal SPO2 of 89-92% (4) Swelling of lower extremity Is this a current diagnosis for this admission?: Yes Plan: L>R BNP is normal. Echocardiogram last year shows normal systolic and only grade 1 diastolic dysfunction. Doubt patient is a heart failure. We will check venous Dopplers Notably takes Lasix and metolazone at home (5) BAYRON (acute kidney injury) Is this a current diagnosis for this admission?: Yes Plan: Received IV fluids in ER. Will monitor renal function. Hold diuretics for now. - Time Time Spent with patient: 35 or more minutes Anticipated Discharge Disposition: Home, Self Care Anticipated Discharge Timeframe: within 72 hours
[2020-09-01] MEDS ORDERED: POTASSIUM CHLORIDE 10 MEQ TABLET.ER PO ONE (18:45)
[2020-09-01] MEDS ORDERED: AZITHROMYCIN 250 MG TABLET PO ONE (19:30)
[2020-09-01] MEDS: IPRATROPIUM/ALBUTEROL 0.5-2.5 MG/3 ML AMPUL NEB SCH (20:05)
[2020-09-01] MEDS: BUDESONIDE NEB 0.25 MG/2 ML AMPUL NEB SCH (20:05)
[2020-09-01] MEDS: MONTELUKAST SODIUM 10 MG TABLET PO SCH (22:18)
[2020-09-01] MEDS: HEPARIN SOD (PORCINE) 5,000 UNIT/ML 1 ML VIAL SUBCUT SCH (22:19)
[2020-09-02 00:21] LABS: APPEARANCE,URINE SLIGHTLY-CLOUDY; BILIRUBIN,URINE NEGATIVE (NEGATIVE); COLOR,URINE YELLOW; GLUCOSE, URINE NEGATIVE (NEGATIVE); KETONES,URINE NEGATIVE (NEGATIVE); LEUKOCYTE ESTERASE,URINE TRACE (NEGATIVE); NITRITE,URINE NEGATIVE (NEGATIVE); PROTEIN,URINE NEGATIVE (NEGATIVE); UROBILINOGEN,URINE NEGATIVE mg/dL (<2.0)
--- NOTE | 2020-09-02 01:03 | RADIOLOGY REPORT (SQ) ---
INDICATION: LE swelling. PROCEDURE: Real-time grayscale, color, and pulse Doppler ultrasound imaging of the bilateral lower extremity deep venous system was performed. 81 images. COMPARISON: None FINDINGS: The common femoral, superficial femoral, and popliteal veins demonstrate normal compressibility, phasic flow, augmentation and davies scale evaluation. There is no evidence of intraluminal thrombus . The visualized deep calf veins appear patent. Chronic nonocclusive thrombus identified within the left lesser saphenous and distal greater saphenous veins IMPRESSION: No evidence for acute deep venous thrombus from the common femoral to the popliteal veins. Chronic nonocclusive superficial thrombophlebitis within the left greater and lesser saphenous veins
[2020-09-02] MEDS: IPRATROPIUM/ALBUTEROL 0.5-2.5 MG/3 ML AMPUL NEB SCH ×4 (02:48→19:52)
[2020-09-02 06:17] LABS: VENOUS BLOOD BASE EXCESS 22.1 mmol/L; VENOUS BLOOD HCO3 50.3 mmol/L (20-32); VENOUS BLOOD PH 7.45 (7.30-7.42)
[2020-09-02 06:19] LABS: HEMATOCRIT 33.1 % (37.9-51.0); HEMOGLOBIN 10.9 g/dL (13.5-17.0); MEAN CORPUSCULAR HEMOGLOBIN 29.1 pg (27.0-33.4); MEAN CORPUSCULAR VOLUME 88 fl (80-97); PLATELET COUNT 197 10^3/uL (150-450); RED BLOOD COUNT 3.76 10^6/uL (4.35-5.55); RED CELL DISTRIBUTION WIDTH 13.8 % (11.5-14.0); WHITE BLOOD COUNT 7.4 10^3/uL (4.0-10.5)
[2020-09-02 06:22] LABS: INTERNATIONAL RATION (INR) 0.89; PROTHROMBIN TIME 12.3 SEC (11.4-15.4)
[2020-09-02 06:23] LABS: PARTIAL THROMBOPLASTIN TIME 29.5 SEC (23.5-35.8)
[2020-09-02] MEDS: HEPARIN SOD (PORCINE) 5,000 UNIT/ML 1 ML VIAL SUBCUT SCH ×3 (06:34→21:11)
[2020-09-02 06:38] LABS: BLOOD UREA NITROGEN 40 mg/dL (7-20); CALCIUM 9.1 mg/dL (8.4-10.2); CHLORIDE 81 mmol/L (98-107); GLUCOSE 149 mg/dL (75-110); PHOSPHORUS 3.6 mg/dL (2.5-4.5); POTASSIUM 4.1 mmol/L (3.6-5.0)
--- NOTE | 2020-09-02 06:39 | PDOC CONSULTATION ---
Consultation Consult Date: 09/02/20 Provider Consulted: SURGICAL SURGICALIST MD Consult reason:: Large squamous cell skin cancer on the left forearm History of Present Illness Admission Date/PCP: 09/01/20 18:02 History of Present Illness: MARY HAWKINS is a 85 year old male admitted with COPD exacerbation. The patient saw Dr. Cruz in the office last week, and underwent incisional biopsy of a large mass of the left forearm. The biopsy has returned a squamous cell cancer. The mass is large, approximately 4 to 5 cm, encompassing the entire width of the forearm. There are also skip lesions proximal to the original tumor. The patient reports that the lesion has been present for many years. He reports that it has recently begun to ooze and give off a foul odor. The patient does report shortness of breath and cough. He denies chest pain, nausea, vomiting, abdominal pain, melena, hematochezia, hematemesis, dizziness, orthostasis, blurry vision. Past Medical History Cardiac Medical History: Reports: Coronary Artery Disease, Hyperlipidema, Hypertension Denies: Atrial Fibrillation, Congestive Heart Failure, Myocardial Infarction, Peripheral Vascular Disease, Pulmonary Embolism, Heart Murmur Pulmonary Medical History: Reports: Asthma, Bronchitis, Chronic Obstructive Pulmonary Disease (COPD), Pneumonia, Respiratory Failure Denies: Sleep Apnea, Tuberculosis Neurological Medical History: Denies: Seizures Renal/ Medical History: Denies: End Stage Renal Disease Malignancy Medical History: Denies: Lung Cancer GI Medical History: Denies: Hepatitis, Hiatal Hernia Musculoskeltal Medical History: Denies: Arthritis, Fibromyalgia Psychiatric Medical History: Denies: Depression Traumatic Medical History: Denies: Traumatic Brain Injury Hematology: Denies: Anemia, Sickle Cell Disease Infectious Medical History: Denies: HIV Past Surgical History Past Surgical History: Reports: Herniorrhaphy - nov 2007 Denies: Appendectomy, Cholecystectomy, Coronary Artery Bypass Graft, Gastric Bypass Surgery, Pacemaker, Tonsillectomy Social History Smoking Status: Never Smoker Frequency of Alcohol Use: None Hx Recreational Drug Use: No Drugs: None Hx Prescription Drug Abuse: No - Advance Directive Resuscitation Status: Full Code Family History Family History: Reviewed & Not Pertinent, COPD, Hypertension Parental Family History Reviewed: Yes Children Family History Reviewed: Yes Sibling(s) Family History Reviewed.: Yes Medication/Allergy Home Medications: Albuterol Sulfate [Ventolin 0.083% Neb 2.5 mg/3 mL Ampul] 3 ml NEB BID 02/26/19 Arformoterol Tartrate [Brovana Inhalation Solution 15 mcg/2 mL] 2 ml NEB DAILY 02/26/19 Potassium Chloride [K-Tab ER] 10 meq PO TID 02/26/19 Atorvastatin Calcium [Lipitor 10 mg Tablet] 10 mg PO QHS tablet 03/03/19 Budesonide [Pulmicort Neb 0.5 mg/2 ml Ampul] 0.5 mg NEB RTQ12 ampul.neb 03/03/19 Diltiazem HCl [Cardizem Cd 180 mg Capsule] 180 mg PO DAILY capsule.cr 03/03/19 Furosemide [Lasix 20 mg Tablet] 20 mg PO BID tablet 03/03/19 Famotidine [Pepcid 20 mg Tablet] 20 mg PO Q12 09/12/19 Levalbuterol HCl [Xopenex Neb 0.63 mg/3 ml Ampul] 3 ml NEB BIDP PRN 09/12/19 Albuterol Sulfate [Proair Hfa Inhalation Aerosol 8.5 gm Mdi] 2 puff IH Q4HP PRN 09/01/20 Aspirin [Ecotrin 81 mg EC Tablet] 81 mg PO DAILY 09/01/20 Calcium Carbonate [Calcium] 500 mg PO DAILY 09/01/20 Docusate Sodium [Colace] 100 mg PO BID 09/01/20 Metolazone [Zaroxolyn 2.5 Mg Tablet] 2.5 mg PO DAILY 09/01/20 Multivitamin [Tab-A-Iesha] 1 each PO DAILY 09/01/20 Allergies/Adverse Reactions: roflumilast Allergy (Unknown, Verified 09/01/20 15:27) Review of Systems Constitutional: PRESENT: fatigue. ABSENT: anorexia, chills Eyes: ABSENT: visual disturbances Ears: ABSENT: hearing changes Nose, Mouth, and Throat: ABSENT: sore throat Cardiovascular: ABSENT: chest pain Respiratory: PRESENT: cough, dyspnea Gastrointestinal: ABSENT: abdominal pain, constipation Genitourinary: ABSENT: dysuria Musculoskeletal: ABSENT: back pain Integumentary: PRESENT: other - Large skin cancer to the left forearm. ABSENT: pruritus Neurological: ABSENT: confusion, convulsions, dizziness Psychiatric: ABSENT: anxiety, depression Endocrine: ABSENT: cold intolerance, heat intolerance Hematologic/Lymphatic: ABSENT: easy bleeding, easy bruising Physical Exam Vital Signs: Temp Pulse Resp BP Pulse Ox 97.8 F 97 17 138/64 H 96 09/02/20 03:14 09/02/20 03:14 09/02/20 03:14 09/02/20 03:14 09/02/20 03:14 Intake & Output 08/31/20 09/01/20 09/02/20 06:59 06:59 06:59 Intake Total 1350 Balance 1350 Weight 71.9 kg General appearance: PRESENT: no acute distress, cooperative Head exam: PRESENT: atraumatic, normocephalic Eye exam: PRESENT: EOMI, PERRLA. ABSENT: scleral icterus Mouth exam: PRESENT: moist, neck supple Neck exam: ABSENT: meningismus, tenderness, thyromegaly, tracheal deviation Respiratory exam: PRESENT: unlabored, wheezes. ABSENT: tachypnea Cardiovascular exam: ABSENT: tachycardia Pulses: PRESENT: normal radial pulses Vascular exam: PRESENT: normal capillary refill GI/Abdominal exam: PRESENT: soft. ABSENT: distended, tenderness Rectal exam: PRESENT: deferred Extremities exam: ABSENT: clubbing Musculoskeletal exam: ABSENT: deformity Neurological exam: PRESENT: alert, awake, oriented to person, oriented to place Psychiatric exam: ABSENT: agitated, anxious, depressed Focused psych exam: ABSENT: delusional Skin exam: PRESENT: other - Large, 4 to 5 cm, distal left arm mass. There are 3 smaller cutaneous lesions extending proximally, that appeared to be skip lesions. There is some necrosis of the tissue with foul smelling drainage. Results Laboratory Results: 09/01/20 09/01/20 09/01/20 14:29 14:29 14:29 WBC 9.9 RBC 4.00 L Hgb 11.9 L Hct 35.7 L MCV 89 MCH 29.9 MCHC 33.5 RDW 14.0 Plt Count 220 Seg Neutrophils % 74.6 VBG pH 7.38 VBG pCO2 97.4 H* VBG HCO3 56.3 H VBG Base Excess 25.4 Sodium 136.3 L Potassium 3.4 L Chloride 76 L Carbon Dioxide 53 H* Anion Gap 7 BUN 34 H Creatinine 1.27 H Est GFR ( Amer) > 60 Glucose 142 H Calcium 9.7 Total Bilirubin 0.8 AST 29 Alkaline Phosphatase 75 Total Protein 6.5 Albumin 3.9 Urine Color Urine Appearance Urine pH Ur Specific Pinch Urine Protein Urine Glucose (UA) Urine Ketones Urine Blood Urine Nitrite Ur Leukocyte Esterase Urine WBC (Auto) Urine RBC (Auto) 09/01/20 09/02/20 23:50 05:45 WBC RBC Hgb Hct MCV MCH MCHC RDW Plt Count Seg Neutrophils % VBG pH 7.45 H VBG pCO2 74.0 H* VBG HCO3 50.3 H VBG Base Excess 22.1 Sodium Potassium Chloride Carbon Dioxide Anion Gap BUN Creatinine Est GFR ( Amer) Glucose Calcium Total Bilirubin AST Alkaline Phosphatase Total Protein Albumin Urine Color YELLOW Urine Appearance SLIGHTLY-CLOUDY Urine pH 7.0 Ur Specific [place] 1.010 Urine Protein NEGATIVE Urine Glucose (UA) NEGATIVE Urine Ketones NEGATIVE Urine Blood NEGATIVE Urine Nitrite NEGATIVE Ur Leukocyte Esterase TRACE H Urine WBC (Auto) 2 Urine RBC (Auto) 0 09/01/20 09/01/20 14:29 14:29 Troponin I 0.018 NT-Pro-B Natriuret Pep 347 Impressions: Venous Doppler Study 09/01/20 00:00 IMPRESSION: No evidence for acute deep venous thrombus from the common femoral to the popliteal veins. Chronic nonocclusive superficial thrombophlebitis within the left greater and lesser saphenous veins Chest X-Ray 09/01/20 14:34 IMPRESSION: COPD without a superimposed acute cardiopulmonary process. Assessment & Plan - Diagnosis (1) Squamous cell cancer of skin of forearm Qualifiers: Laterality: left Qualified Code(s): C44.629 - Squamous cell carcinoma of skin of left upper limb, including shoulder Is this a current diagnosis for this admission?: Yes - Plan Summary Plan Summary: 85-year-old male with a large squamous cell skin cancer of the left forearm. The patient was seen in the office by Dr. Cruz last week where an incisional biopsy was performed. Squamous cell cancer has been identified on pathology. The mass is incredibly large, occupying the entire dorsal surface of the distal left forearm. The patient will likely require a free tissue transfer and/or skin grafting to cover the area after resection. A plastic surgery referral/consultation should be obtained. He will likely need transfer to [place] for this. There is no acute surgical issue that needs to be addressed today. The patient should wash the left forearm with soap and water daily. He may place a dry dressing daily. I will have our office arrange for further treatment. Surgery will see again on an as-needed basis. Have him follow-up with [facility] after discharge. Please renotify the surgicalist with any questions or concerns.
[2020-09-02 06:40] LABS: ABSOLUTE LYMPHOCYTES# (MANUAL) 0.5 10^3/uL (0.5-4.7); ABSOLUTE MONOCYTES # (MANUAL) 0.1 10^3/uL (0.1-1.4); BASOPHILS % (MANUAL) 0 % (0-2); EOSINOPHILS % (MANUAL) 0 % (0-6); LYMPHOCYTES % (MANUAL) 7 % (13-45); MONOCYTES % (MANUAL) 2 % (3-13); SEGMENTED NEUTROPHILS % (MAN) 91 % (42-78); TOTAL CELLS COUNTED 100
[2020-09-02 06:41] LABS: PLATELET COMMENT ADEQUATE; RBC MORPHOLOGY COMMENT NORMO-CYTIC/CHROMIC
[2020-09-02 06:50] LABS: ANION GAP 7 (5-19); CARBON DIOXIDE 45 mmol/L (22-30)
[2020-09-02] MEDS: BUDESONIDE NEB 0.25 MG/2 ML AMPUL NEB SCH ×2 (08:59→19:51)
[2020-09-02] MEDS: DILTIAZEM HCL 180 MG CAPSULE.CR PO SCH (10:00)
[2020-09-02] MEDS: METHYLPREDNISOLONE INJ 40 MG/1 ML SDV IV SCH (10:00)
[2020-09-02] MEDS ORDERED: POTASSIUM CHLORIDE 10 MEQ TABLET.ER PO SCH (10:00)
[2020-09-02] MEDS ORDERED: FUROSEMIDE 20 MG TABLET PO SCH (10:00)
[2020-09-02] MEDS: TAMSULOSIN HCL 0.4 MG CAP.SR.24H PO SCH (13:07)
--- NOTE | 2020-09-02 16:52 | PDOC PROGRESS REPORT ---
Subjective Progress Note for:: 09/02/20 Subjective:: Feels well in terms of his breathing.Having urinary retention. Straight caths for over a year almost 6 times day. Reason For Visit: COPD,EXACERBATION,WOUND INFECTION,BAYRON Physical Exam Vital Signs: Temp Pulse Resp BP Pulse Ox 97.9 F 42 L 24 H 112/80 98 09/02/20 16:20 09/02/20 16:20 09/02/20 16:20 09/02/20 16:20 09/02/20 16:20 Intake & Output 09/01/20 09/02/20 09/03/20 06:59 06:59 06:59 Intake Total 1350 664 Balance 1350 664 Weight 71.9 kg General appearance: PRESENT: no acute distress, cooperative Neck exam: ABSENT: JVD Respiratory exam: PRESENT: decreased breath sounds, symmetrical, unlabored. ABSENT: tachypnea, wheezes Cardiovascular exam: PRESENT: RRR, +S1, +S2. ABSENT: tachycardia GI/Abdominal exam: PRESENT: soft. ABSENT: rebound, rigid, tenderness Neurological exam: PRESENT: alert, awake, oriented to person, oriented to place, oriented to time, oriented to situation Psychiatric exam: ABSENT: agitated, anxious Results Laboratory Results: 09/02/20 05:45 09/02/20 05:45 09/01/20 09/02/20 09/02/20 23:50 05:45 05:45 WBC 7.4 RBC 3.76 L Hgb 10.9 L Hct 33.1 L MCV 88 MCH 29.1 MCHC 33.0 RDW 13.8 Plt Count 197 Seg Neutrophils % Not Reportable VBG pH VBG pCO2 VBG HCO3 VBG Base Excess Sodium 132.6 L Potassium 4.1 Chloride 81 L Carbon Dioxide 45 H* Anion Gap 7 BUN 40 H Creatinine 1.09 Est GFR ( Amer) > 60 Glucose 149 H Calcium 9.1 Phosphorus 3.6 Magnesium 2.5 H Urine Color YELLOW Urine Appearance SLIGHTLY-CLOUDY Urine pH 7.0 Ur Specific [place] 1.010 Urine Protein NEGATIVE Urine Glucose (UA) NEGATIVE Urine Ketones NEGATIVE Urine Blood NEGATIVE Urine Nitrite NEGATIVE Ur Leukocyte Esterase TRACE H Urine WBC (Auto) 2 Urine RBC (Auto) 0 09/02/20 05:45 WBC RBC Hgb Hct MCV MCH MCHC RDW Plt Count Seg Neutrophils % VBG pH 7.45 H VBG pCO2 74.0 H* VBG HCO3 50.3 H VBG Base Excess 22.1 Sodium Potassium Chloride Carbon Dioxide Anion Gap BUN Creatinine Est GFR ( Amer) Glucose Calcium Phosphorus Magnesium Urine Color Urine Appearance Urine pH Ur Specific [place] Urine Protein Urine Glucose (UA) Urine Ketones Urine Blood Urine Nitrite Ur Leukocyte Esterase Urine WBC (Auto) Urine RBC (Auto) 09/01/20 09/01/20 14:29 14:29 Troponin I 0.018 NT-Pro-B Natriuret Pep 347 Impressions: Venous Doppler Study 09/01/20 00:00 IMPRESSION: No evidence for acute deep venous thrombus from the common femoral to the popliteal veins. Chronic nonocclusive superficial thrombophlebitis within the left greater and lesser saphenous veins Chest X-Ray 09/01/20 14:34 IMPRESSION: COPD without a superimposed acute cardiopulmonary process. Assessment and Plan - Diagnosis (1) COPD exacerbation Is this a current diagnosis for this admission?: Yes Plan: We will treat with duo nebs, Solu-Medrol, budesonide, and azithromycin Chest x-ray not showing any evidence of pneumonia. 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 Inthe meantime, surgery recommending washing the area daily with soap and water and applying dry dressing. I discussed with patient's today who states that patient was meant to see Dr. Alfaro in the clinic today so I will discuss with Dr. Alfaro as well. (3) Chronic respiratory failure with hypoxia and hypercapnia Is this a current diagnosis for this admission?: Yes Plan: Blood gas is consistent with adequately compensated chronic respiratory acidosis. Likely secondary to chronic COPD. We will give breathing treatments. BiPAP nocturnally while inpatient. Outpt f/u with his admissions coordinator Dr. Buckley. Chronic hypoxia on 3-4 L NC at home. Will titrate between 2-4 L to achieve goal SPO2 of 89-92% (4) Phlebitis and thrombophlebitis of superficial vessels of left lower extremity Is this a current diagnosis for this admission?: Yes Plan: Noted on venous doppler. Chronic involving Greater and lesser saphenous. Treat with warm compresses TID and leg elevation. AC not indicated. (5) BAYRON (acute kidney injury) Is this a current diagnosis for this admission?: Yes Plan: Resolved. We will keep diuretics on hold for now. Chronic urinary retention may also be contributing to this. (6) Urinary retention Is this a current diagnosis for this admission?: Yes Plan: Apparently patient has been using a straight cath at home up to 6 times a day sometimes. Follows with urologist Dr. Bourgeois at [facility]. Retaining over 500 cc today and required straight cath last night. We will put patient on Flomax Check postvoid residual every 8 hours and straight cath as needed - Time Time Spent with patient: 15-24 minutes Anticipated Discharge Disposition: Home, Self Care Anticipated Discharge Timeframe: within 36 hours
[2020-09-02] MEDS: AZITHROMYCIN 250 MG TABLET PO SCH (18:24)
[2020-09-02] MEDS: DOCUSATE SODIUM 100 MG CAPSULE PO SCH (18:24)
[2020-09-02] MEDS: BUDESONIDE NEB 0.5 MG/2 ML AMPUL NEB SCH (19:52)
[2020-09-02] MEDS: ATORVASTATIN CALCIUM 10 MG TABLET PO SCH (21:11)
[2020-09-02] MEDS: FAMOTIDINE 20 MG TABLET PO SCH (21:11)
[2020-09-02] MEDS: MONTELUKAST SODIUM 10 MG TABLET PO SCH (21:11)
[2020-09-03] MEDS: IPRATROPIUM/ALBUTEROL 0.5-2.5 MG/3 ML AMPUL NEB SCH ×4 (01:36→20:31)
[2020-09-03] MEDS: HEPARIN SOD (PORCINE) 5,000 UNIT/ML 1 ML VIAL SUBCUT SCH ×3 (06:12→22:26)
--- NOTE | 2020-09-03 07:55 | PDOC CONSULTATION ---
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 Initially it was a small lesion and patient was resected by Dr. Cruz, margins were positive and upon follow-up visit there was regrowth of the lesion and growth of new lesions. He had progressive disease but given his comorbidities he was felt to be a poor extensive surgical candidate, in terms of requiring a large plastics surgery, with skin graft. Therefore, as patient was not a surgical candidate he was referred to us, as we do have immunotherapy now available for patients who are not surgical candidates for progressive squamous cell carcinoma, post surgical approach. Also, given the extent of disease, we felt that radiation therapy would not be well-tolerated either, so we felt that immunotherapy would be the best approach. He presented with severe shortness of breath, COPD exacerbation and has been treated as such. His oxygen was turned down overnight and he seems to be at more of the baseline in terms of his breathing. Past Medical History Cardiac Medical History: Reports: Coronary Artery Disease, Hyperlipidema, Hypertension Denies: Atrial Fibrillation, Congestive Heart Failure, Myocardial Infarction, Peripheral Vascular Disease, Pulmonary Embolism, Heart Murmur Pulmonary Medical History: Reports: Asthma, Bronchitis, Chronic Obstructive Pulmonary Disease (COPD), Pneumonia, Respiratory Failure Denies: Sleep Apnea, Tuberculosis Neurological Medical History: Denies: Seizures Renal/ Medical History: Denies: End Stage Renal Disease Malignancy Medical History: Reports: Skin Cancer - Progressive squamous cell carcinoma of the skin Denies: Lung Cancer GI Medical History: Denies: Hepatitis, Hiatal Hernia Musculoskeltal Medical History: Denies: Arthritis, Fibromyalgia Psychiatric Medical History: Denies: Depression Traumatic Medical History: Denies: Traumatic Brain Injury Hematology: Denies: Anemia, Sickle Cell Disease Infectious Medical History: Denies: HIV Past Surgical History Past Surgical History: Reports: Herniorrhaphy - nov 2007 Denies: Appendectomy, Cholecystectomy, Coronary Artery Bypass Graft, Gastric Bypass Surgery, Pacemaker, Tonsillectomy Social History Smoking Status: Never Smoker Frequency of Alcohol Use: None Hx Recreational Drug Use: No Drugs: None Hx Prescription Drug Abuse: No - Advance Directive Resuscitation Status: Full Code Family History Family History: Reviewed & Not Pertinent, COPD, Hypertension Parental Family History Reviewed: Yes Children Family History Reviewed: Yes Sibling(s) Family History Reviewed.: Yes Medication/Allergy Home Medications: Albuterol Sulfate [Ventolin 0.083% Neb 2.5 mg/3 mL Ampul] 3 ml NEB BID 02/26/19 Arformoterol Tartrate [Brovana Inhalation Solution 15 mcg/2 mL] 2 ml NEB DAILY 02/26/19 Potassium Chloride [K-Tab ER] 10 meq PO TID 02/26/19 Atorvastatin Calcium [Lipitor 10 mg Tablet] 10 mg PO QHS tablet 03/03/19 Budesonide [Pulmicort Neb 0.5 mg/2 ml Ampul] 0.5 mg NEB RTQ12 ampul.neb 03/03/19 Diltiazem HCl [Cardizem Cd 180 mg Capsule] 180 mg PO DAILY capsule.cr 03/03/19 Furosemide [Lasix 20 mg Tablet] 20 mg PO BID tablet 03/03/19 Famotidine [Pepcid 20 mg Tablet] 20 mg PO Q12 09/12/19 Levalbuterol HCl [Xopenex Neb 0.63 mg/3 ml Ampul] 3 ml NEB BIDP PRN 09/12/19 Albuterol Sulfate [Proair Hfa Inhalation Aerosol 8.5 gm Mdi] 2 puff IH Q4HP PRN 09/01/20 Aspirin [Ecotrin 81 mg EC Tablet] 81 mg PO DAILY 09/01/20 Calcium Carbonate [Calcium] 500 mg PO DAILY 09/01/20 Docusate Sodium [Colace] 100 mg PO BID 09/01/20 Metolazone [Zaroxolyn 2.5 Mg Tablet] 2.5 mg PO DAILY 09/01/20 Multivitamin [Tab-A-Iesha] 1 each PO DAILY 09/01/20 Allergies/Adverse Reactions: roflumilast Allergy (Unknown, Verified 09/01/20 15:27) Review of Systems Constitutional: ABSENT: chills, fever(s), headache(s), weight gain, weight loss Eyes: ABSENT: visual disturbances Ears: ABSENT: hearing changes Cardiovascular: ABSENT: chest pain, dyspnea on exertion, edema, orthropnea, palpitations Respiratory: ABSENT: cough, hemoptysis Gastrointestinal: ABSENT: abdominal pain, constipation, diarrhea, hematemesis, hematochezia, nausea, vomiting Genitourinary: ABSENT: dysuria, hematuria Musculoskeletal: ABSENT: joint swelling Integumentary: ABSENT: rash, wounds Neurological: ABSENT: abnormal gait, abnormal speech, confusion, dizziness, focal weakness, syncope Psychiatric: ABSENT: anxiety, depression, homidical ideation, suicidal ideation Endocrine: ABSENT: cold intolerance, heat intolerance, polydipsia, polyuria Hematologic/Lymphatic: ABSENT: easy bleeding, easy bruising Physical Exam Vital Signs: Temp Pulse Resp BP Pulse Ox 97.8 F 102 H 18 116/52 L 94 09/03/20 00:15 09/03/20 02:00 09/03/20 01:38 09/03/20 00:15 09/03/20 01:38 Intake & Output 09/02/20 09/03/20 09/04/20 06:59 06:59 06:59 Intake Total 1350 1141 Output Total 1550 Balance 1350 -409 Weight 71.9 kg 70.8 kg General appearance: PRESENT: no acute distress, well-developed, well-nourished Head exam: PRESENT: atraumatic, normocephalic Eye exam: PRESENT: conjunctiva pink, EOMI, PERRLA. ABSENT: scleral icterus Ear exam: PRESENT: normal external ear exam Mouth exam: PRESENT: moist, tongue midline Neck exam: ABSENT: carotid bruit, JVD, lymphadenopathy, thyromegaly Respiratory exam: PRESENT: clear to auscultation eboni. ABSENT: rales, rhonchi, wheezes Cardiovascular exam: PRESENT: RRR. ABSENT: diastolic murmur, rubs, systolic murmur Pulses: PRESENT: normal dorsalis pedis pul Vascular exam: PRESENT: normal capillary refill GI/Abdominal exam: PRESENT: normal bowel sounds, soft. ABSENT: distended, guarding, mass, organolmegaly, rebound, tenderness Rectal exam: PRESENT: deferred Extremities exam: PRESENT: full ROM. ABSENT: calf tenderness, clubbing, pedal edema Neurological exam: PRESENT: alert, awake, oriented to person, oriented to place, oriented to time, oriented to situation, CN II-XII grossly intact. ABSENT: motor sensory deficit Psychiatric exam: PRESENT: appropriate affect, normal mood. ABSENT: homicidal ideation, suicidal ideation Skin exam: PRESENT: dry, intact, warm. ABSENT: cyanosis, rash Results Laboratory Results: 09/02/20 05:45 09/02/20 05:45 09/01/20 09/01/20 14:29 14:29 Troponin I 0.018 NT-Pro-B Natriuret Pep 347 Impressions: Venous Doppler Study 09/01/20 00:00 IMPRESSION: No evidence for acute deep venous thrombus from the common femoral to the popliteal veins. Chronic nonocclusive superficial thrombophlebitis within the left greater and lesser saphenous veins Chest X-Ray 09/01/20 14:34 IMPRESSION: COPD without a superimposed acute cardiopulmonary process. 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 He would not be a candidate for an extensive plastics operation, skin graft, etc. given his poor health and comorbidities. He would be a candidate however for consideration of immunotherapy as side effect profile would be much less than radiation or surgery. We will plan for LIBTAYO as outpatient. - Time Time Spent: Greater than 70 Minutes - Inpatient Certification Based on my medical assessment, after consideration of the patient's comorbidities, presenting symptoms, or acuity I expect that the services needed warrant INPATIENT care.: Yes I certify that my determination is in accordance with my understanding of Medicare's requirements for reasonable and necessary INPATIENT services [42 CFR 412.3e].: Yes Medical Necessity: Need For Continuous Telemetry Monitoring, Need for Nebulizer Therapy and Monitoring of Response, Need for IV Antibiotics, Risk of Complication if Not Cared For in Hospital
[2020-09-03] MEDS: BUDESONIDE NEB 0.5 MG/2 ML AMPUL NEB SCH ×2 (09:03→20:31)
[2020-09-03] MEDS: BUDESONIDE NEB 0.25 MG/2 ML AMPUL NEB SCH ×2 (09:06→20:32)
[2020-09-03] MEDS: METHYLPREDNISOLONE INJ 40 MG/1 ML SDV IV SCH (09:33)
[2020-09-03] MEDS: ASPIRIN 81 MG TABLET, ENT COATED PO SCH (09:33)
[2020-09-03] MEDS: MULTIVITAMIN TABLET PO SCH (09:33)
[2020-09-03] MEDS: TAMSULOSIN HCL 0.4 MG CAP.SR.24H PO SCH (09:33)
[2020-09-03] MEDS: FAMOTIDINE 20 MG TABLET PO SCH ×2 (09:34→22:27)
[2020-09-03] MEDS: DILTIAZEM HCL 180 MG CAPSULE.CR PO SCH (09:34)
[2020-09-03] MEDS: DOCUSATE SODIUM 100 MG CAPSULE PO SCH ×2 (09:34→17:53)
[2020-09-03] MEDS: CALCIUM CARBONATE 600 MG TABLET PO SCH (09:42)
--- NOTE | 2020-09-03 16:26 | PDOC PROGRESS REPORT ---
Subjective Progress Note for:: 09/03/20 Subjective:: Patient ambulated with physical therapy today. Was able to do about 40 feet [id number]. Did have moments where he had to take a break. I have discussed SNF for rehab versus home health with him. I discussed with physical therapist recommends that if patient is being discharged home, he will require supervision. He said he lives with his and his daughter usually cover up to 90% of daily hours in terms of supervision and that he will be okay going [facility]. He wants to go home and start immunotherapy soon as possible for his squamous cell cancer. We will work on getting him set up with home health. Reason For Visit: COPD,EXACERBATION,WOUND INFECTION,BAYRON Physical Exam Vital Signs: Temp Pulse Resp BP Pulse Ox 97.7 F 86 22 H 129/57 H 94 09/03/20 12:00 09/03/20 14:25 09/03/20 14:25 09/03/20 12:00 09/03/20 14:25 Intake & Output 09/02/20 09/03/20 09/04/20 06:59 06:59 06:59 Intake Total 1350 1141 360 Output Total 1550 575 Balance 1350 -409 -215 Weight 71.9 kg 70.8 kg General appearance: PRESENT: no acute distress, cooperative Neck exam: ABSENT: JVD Respiratory exam: PRESENT: decreased breath sounds, prolonged expiratory phas, symmetrical, unlabored. ABSENT: crackles, tachypnea, wheezes Cardiovascular exam: PRESENT: RRR, +S1, +S2. ABSENT: tachycardia GI/Abdominal exam: PRESENT: soft. ABSENT: rebound, rigid, tenderness Neurological exam: PRESENT: alert, awake, oriented to person, oriented to place, oriented to time Results Laboratory Results: 09/02/20 05:45 09/02/20 05:45 09/01/20 09/01/20 14:29 14:29 Troponin I 0.018 NT-Pro-B Natriuret Pep 347 Impressions: Venous Doppler Study 09/01/20 00:00 IMPRESSION: No evidence for acute deep venous thrombus from the common femoral to the popliteal veins. Chronic nonocclusive superficial thrombophlebitis within the left greater and lesser saphenous veins Chest X-Ray 09/01/20 14:34 IMPRESSION: COPD without a superimposed acute cardiopulmonary process. Assessment and Plan - Diagnosis (1) COPD exacerbation Is this a current diagnosis for this admission?: Yes Plan: We will treat with duo nebs, Solu-Medrol, budesonide, and azithromycin Chest x-ray not showing any evidence of pneumonia. 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 Alfaro, Dr. Alfaro recommends that patient will most benefit from immunotherapy as opposed to surgical intervention and plans to initiate patient on treatment with Libtayo. Surgery recommending washing the area daily with soap and water and applying dry dressing. We will try to facilitate discharge home with home health with PT and OT so the patient can follow-up in the oncology office to initiate treatment. (3) Chronic respiratory failure with hypoxia and hypercapnia Is this a current diagnosis for this admission?: Yes Plan: Patient with advanced COPD with chronic hypoxia requiring 3 to 4 L nasal cannula at home. Goal SPO2 89 to 92%. 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 Buckley for evaluation for nocturnal BiPAP qualification. (4) Phlebitis and thrombophlebitis of superficial vessels of left lower e xtremity Is this a current diagnosis for this admission?: Yes Plan: Noted on venous doppler. Chronic involving Greater and lesser saphenous. Treat with warm compresses TID and leg elevation. Anticoagulation not indicated. (5) BAYRON (acute kidney injury) Is this a current diagnosis for this admission?: Yes Plan: Resolved. We will keep diuretics on hold for now. Chronic urinary retention may also be contributing to this. (6) Urinary retention Is this a current diagnosis for this admission?: Yes Plan: Apparently patient has been using a straight cath at home up to 6 times a day sometimes. Follows with urologist Dr. Bourgeois at [facility]. Notably having urinary retention here and we have continued straight caths as needed every 8 hours. Initiated on Flomax yesterday - Time Time Spent with patient: 15-24 minutes Anticipated Discharge Disposition: Home with Home Health Anticipated Discharge Timeframe: within 24 hours
[2020-09-03] MEDS: AZITHROMYCIN 250 MG TABLET PO SCH (17:53)
[2020-09-03] MEDS: ATORVASTATIN CALCIUM 10 MG TABLET PO SCH (22:27)
[2020-09-03] MEDS: MONTELUKAST SODIUM 10 MG TABLET PO SCH (22:27)
[2020-09-04] MEDS: IPRATROPIUM/ALBUTEROL 0.5-2.5 MG/3 ML AMPUL NEB SCH ×4 (01:40→20:53)
[2020-09-04] MEDS: HEPARIN SOD (PORCINE) 5,000 UNIT/ML 1 ML VIAL SUBCUT SCH ×3 (05:51→21:43)
[2020-09-04] MEDS: BUDESONIDE NEB 0.25 MG/2 ML AMPUL NEB SCH ×2 (08:23→20:54)
[2020-09-04] MEDS: BUDESONIDE NEB 0.5 MG/2 ML AMPUL NEB SCH ×2 (08:23→20:53)
[2020-09-04] MEDS: DILTIAZEM HCL 180 MG CAPSULE.CR PO SCH (09:40)
[2020-09-04] MEDS: CALCIUM CARBONATE 600 MG TABLET PO SCH (09:40)
[2020-09-04] MEDS: MULTIVITAMIN TABLET PO SCH (09:41)
[2020-09-04] MEDS: ASPIRIN 81 MG TABLET, ENT COATED PO SCH (09:41)
[2020-09-04] MEDS: TAMSULOSIN HCL 0.4 MG CAP.SR.24H PO SCH (09:41)
[2020-09-04] MEDS: METHYLPREDNISOLONE INJ 40 MG/1 ML SDV IV SCH (09:41)
[2020-09-04] MEDS: FAMOTIDINE 20 MG TABLET PO SCH ×2 (09:41→21:43)
[2020-09-04] MEDS: DOCUSATE SODIUM 100 MG CAPSULE PO SCH ×2 (09:41→17:30)
--- NOTE | 2020-09-04 11:02 | PDOC PROGRESS REPORT ---
Subjective Progress Note for:: 09/04/20 Subjective:: Patient feels like his breathing is better when he was at rest. However he is quite debilitated and when he is ambulating, he gets quite out of breath even with short distances. His oxygenation also drops as he has advanced COPD on 4 L baseline. However at rest he seems very comfortable. Seems to be physically deconditioned as well. Reason For Visit: COPD,EXACERBATION,WOUND INFECTION,BAYRON Physical Exam Vital Signs: Temp Pulse Resp BP Pulse Ox 97.8 F 84 18 133/93 H 95 09/04/20 08:12 09/04/20 08:25 09/04/20 08:25 09/04/20 08:12 09/04/20 08:25 Intake & Output 09/03/20 09/04/20 09/05/20 06:59 06:59 06:59 Intake Total 1141 1337 Output Total 1550 1575 Balance -409 -238 Weight 70.8 kg 72.5 kg General appearance: PRESENT: no acute distress, cooperative Neck exam: ABSENT: JVD Respiratory exam: PRESENT: decreased breath sounds, prolonged expiratory phas, symmetrical, tachypnea. ABSENT: wheezes Cardiovascular exam: PRESENT: RRR, +S1, +S2. ABSENT: tachycardia GI/Abdominal exam: PRESENT: soft. ABSENT: rebound, rigid, tenderness Neurological exam: PRESENT: alert, awake, oriented to person, oriented to place, oriented to time Psychiatric exam: ABSENT: agitated, anxious Results Laboratory Results: 09/02/20 05:45 09/02/20 05:45 09/01/20 09/01/20 14:29 14:29 Troponin I 0.018 NT-Pro-B Natriuret Pep 347 Impressions: Venous Doppler Study 09/01/20 00:00 IMPRESSION: No evidence for acute deep venous thrombus from the common femoral to the popliteal veins. Chronic nonocclusive superficial thrombophlebitis within the left greater and lesser saphenous veins Chest X-Ray 09/01/20 14:34 IMPRESSION: COPD without a superimposed acute cardiopulmonary process. Assessment and Plan - Diagnosis (1) COPD exacerbation Is this a current diagnosis for this admission?: Yes Plan: We will treat with duo nebs, Solu-Medrol, budesonide, and azithromycin Chest x-ray not showing any evidence of pneumonia. We will send patient to SNF/rehab upon discharge due to physical deconditioning with contribution from his COPD. He is agreeable to this. 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 Alfaro, Dr. Alfaro recommends that patient will most benefit from immunotherapy as opposed to surgical intervention and plans to initiate patient on treatment with Libtayo. Surgery recommending washing the area daily with soap and water and applying dry dressing. (3) Chronic respiratory failure with hypoxia and hypercapnia Is this a current diagnosis for this admission?: Yes Plan: Patient with advanced COPD with chronic hypoxia requiring 3 to 4 L nasal cannula at home. Goal SPO2 89 to 92%. 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 Buckley for evaluation for nocturnal BiPAP qualification. We will get a chest x-ray today as patient still gets significantly hypoxic on 4 L when he ambulates short distances in the hallway. (4) Phlebitis and thrombophlebitis of superficial vessels of left lower extremity Is this a current diagnosis for this admission?: Yes Plan: Noted on venous doppler. Chronic involving Greater and lesser saphenous. Treat with warm compresses TID and leg elevation. Anticoagulation not indicated. (5) BAYRON (acute kidney injury) Is this a current diagnosis for this admission?: Yes Plan: Resolved. We will keep diuretics on hold for now. Chronic urinary retention may also be contributing to this. Check BMP in the morning. (6) Urinary retention Is this a current diagnosis for this admission?: Yes Plan: Apparently patient has been using a straight cath at home up to 6 times a day sometimes. Follows with urologist Dr. Bourgeois at [facility]. Notably having urinary retention here and we have continued straight caths as needed every 8 hours. Tamsulosin - Time Time Spent with patient: 15-24 minutes Anticipated Discharge Disposition: [facility] Facility Anticipated Discharge Timeframe: when bed available
--- NOTE | 2020-09-04 13:34 | PDOC PROGRESS REPORT ---
Subjective Progress Note for:: 09/04/20 Subjective:: No acute events overnight, patient still very weak, high oxygen needs. He is being worked up for rehab placement. Reason For Visit: COPD,EXACERBATION,WOUND INFECTION,BAYRON Physical Exam Vital Signs: Temp Pulse Resp BP Pulse Ox 97.8 F 84 18 133/93 H 95 09/04/20 08:12 09/04/20 08:25 09/04/20 08:25 09/04/20 08:12 09/04/20 08:25 Intake & Output 09/03/20 09/04/20 09/05/20 06:59 06:59 06:59 Intake Total 1141 1337 Output Total 1550 1575 Balance -409 -238 Weight 70.8 kg 72.5 kg General appearance: PRESENT: no acute distress, well-developed, well-nourished Head exam: PRESENT: atraumatic, normocephalic Eye exam: PRESENT: conjunctiva pink, EOMI, PERRLA. ABSENT: scleral icterus Ear exam: PRESENT: normal external ear exam Mouth exam: PRESENT: moist, tongue midline Neck exam: ABSENT: carotid bruit, JVD, lymphadenopathy, thyromegaly Respiratory exam: PRESENT: clear to auscultation eboni. ABSENT: rales, rhonchi, wheezes Cardiovascular exam: PRESENT: RRR. ABSENT: diastolic murmur, rubs, systolic murmur Pulses: PRESENT: normal dorsalis pedis pul Vascular exam: PRESENT: normal capillary refill GI/Abdominal exam: PRESENT: normal bowel sounds, soft. ABSENT: distended, guarding, mass, organolmegaly, rebound, tenderness Rectal exam: PRESENT: deferred Extremities exam: PRESENT: full ROM. ABSENT: calf tenderness, clubbing, pedal edema Neurological exam: PRESENT: alert, awake, oriented to person, oriented to place, oriented to time, oriented to situation, CN II-XII grossly intact. ABSENT: motor sensory deficit Psychiatric exam: PRESENT: appropriate affect, normal mood. ABSENT: homicidal ideation, suicidal ideation Skin exam: PRESENT: dry, intact, warm. ABSENT: cyanosis, rash Results Laboratory Results: 09/02/20 05:45 09/02/20 05:45 09/01/20 09/01/20 14:29 14:29 Troponin I 0.018 NT-Pro-B Natriuret Pep 347 Impressions: Venous Doppler Study 09/01/20 00:00 IMPRESSION: No evidence for acute deep venous thrombus from the common femoral to the popliteal veins. Chronic nonocclusive superficial thrombophlebitis within the left greater and lesser saphenous veins Assessment & Plan - Diagnosis (1) Squamous cell cancer of skin of forearm Qualifiers: Laterality: left Qualified Code(s): C44.629 - Squamous cell carcinoma of skin of left upper limb, including shoulder Is this a current diagnosis for this admission?: Yes Plan: We were planning on initiating immunotherapy as an outpatient. But since patient is too weak to go home he would be too weak to receive therapy right now. He would need to complete rehab stay and come back to us and we could then try initiate immunotherapy as an outpatient. We would not try and treat while patient was in rehab/custodial setting. - Time Time Spent with patient: 35 or more minutes
[2020-09-04] MEDS ORDERED: FUROSEMIDE INJ/PF 20 MG/2 ML SDV IV ONE (17:06)
[2020-09-04] MEDS: AZITHROMYCIN 250 MG TABLET PO SCH (17:30)
--- NOTE | 2020-09-04 18:55 | RADIOLOGY REPORT (SQ) ---
EXAM DESCRIPTION: CHEST 2 VIEWS IMAGES COMPLETED DATE/TIME: 09/04/2020 1:18 pm REASON FOR STUDY: sob, HYPOXIA, COPD COMPARISON: 09/01/2020 EXAM PARAMETERS: NUMBER OF VIEWS: two views TECHNIQUE: Digital Frontal and Lateral radiographic views of the chest acquired. RADIATION DOSE: NA LIMITATIONS: none FINDINGS: LUNGS AND PLEURA: No opacities, masses or pneumothorax. No pleural effusion. MEDIASTINUM AND HILAR STRUCTURES: No masses or contour abnormalities. HEART AND VASCULAR STRUCTURES: Heart normal size. No evidence for failure. BONES: No acute findings. HARDWARE: None in the chest. OTHER: No other significant finding. IMPRESSION: NO ACUTE RADIOGRAPHIC FINDING IN THE CHEST. TECHNICAL DOCUMENTATION: JOB ID: [id number] 2010 [employer]- All Rights Reserved Reading location - IP/workstation name: [email or web address]
[2020-09-04 19:20] LABS: ANION GAP 12 (5-19); BLOOD UREA NITROGEN 41 mg/dL (7-20); CALCIUM 9.5 mg/dL (8.4-10.2); CARBON DIOXIDE 39 mmol/L (22-30); CHLORIDE 81 mmol/L (98-107); GLUCOSE 190 mg/dL (75-110); POTASSIUM 4.7 mmol/L (3.6-5.0)
[2020-09-04] MEDS: ATORVASTATIN CALCIUM 10 MG TABLET PO SCH (21:42)
[2020-09-04] MEDS: MONTELUKAST SODIUM 10 MG TABLET PO SCH (21:43)
[2020-09-05] MEDS: IPRATROPIUM/ALBUTEROL 0.5-2.5 MG/3 ML AMPUL NEB SCH ×3 (02:12→16:08)
[2020-09-05] MEDS: HEPARIN SOD (PORCINE) 5,000 UNIT/ML 1 ML VIAL SUBCUT SCH ×3 (06:26→22:18)
[2020-09-05 07:11] LABS: BLOOD UREA NITROGEN 44 mg/dL (7-20); CHLORIDE 84 mmol/L (98-107); GLUCOSE 106 mg/dL (75-110)
[2020-09-05 07:14] LABS: VENOUS BLOOD BASE EXCESS 17.4 mmol/L; VENOUS BLOOD HCO3 46.6 mmol/L (20-32); VENOUS BLOOD PH 7.39 (7.30-7.42)
[2020-09-05 07:18] LABS: VENOUS BLOOD PCO2 78.8 mmHg (35-63)
[2020-09-05 07:23] LABS: ANION GAP 8 (5-19)
[2020-09-05 07:24] LABS: CARBON DIOXIDE 41 mmol/L (22-30); POTASSIUM 3.7 mmol/L (3.6-5.0)
[2020-09-05] MEDS: BUDESONIDE NEB 0.5 MG/2 ML AMPUL NEB SCH ×2 (07:55→20:28)
[2020-09-05] MEDS: DILTIAZEM HCL 180 MG CAPSULE.CR PO SCH (12:17)
[2020-09-05] MEDS: METHYLPREDNISOLONE INJ 40 MG/1 ML SDV IV SCH (12:18)
[2020-09-05] MEDS: FUROSEMIDE 20 MG TABLET PO SCH ×2 (12:18→17:06)
[2020-09-05] MEDS: CALCIUM CARBONATE 600 MG TABLET PO SCH (12:18)
[2020-09-05] MEDS: TAMSULOSIN HCL 0.4 MG CAP.SR.24H PO SCH (12:18)
[2020-09-05] MEDS: MULTIVITAMIN TABLET PO SCH (12:18)
[2020-09-05] MEDS: FAMOTIDINE 20 MG TABLET PO SCH ×2 (12:18→22:18)
[2020-09-05] MEDS: DOCUSATE SODIUM 100 MG CAPSULE PO SCH ×2 (12:18→17:06)
[2020-09-05] MEDS: ASPIRIN 81 MG TABLET, ENT COATED PO SCH (12:18)
[2020-09-05] MEDS: BUDESONIDE NEB 0.25 MG/2 ML AMPUL NEB SCH ×2 (13:56→23:09)
--- NOTE | 2020-09-05 14:11 | PDOC PROGRESS REPORT ---
Subjective Progress Note for:: 09/05/20 Subjective:: Patient states he feels well today. He denies any shortness of breath while resting. He still very limited in terms of his functional status. Pleasant in bed. I was informed by nurse that patient refuses BiPAP at night. However patient tells me that he did not refuse it. Currently awaiting been set up with SNF. Reason For Visit: COPD,EXACERBATION,WOUND INFECTION,BAYRON Physical Exam Vital Signs: Temp Pulse Resp BP Pulse Ox 97.9 F 62 19 139/72 H 100 09/05/20 12:00 09/05/20 12:00 09/05/20 12:00 09/05/20 12:00 09/05/20 12:00 Intake & Output 09/04/20 09/05/20 09/06/20 06:59 06:59 06:59 Intake Total 1337 472 496 Output Total 1575 1225 700 Balance -238 -753 -204 Weight 72.5 kg 70.1 kg General appearance: PRESENT: no acute distress, cooperative Neck exam: ABSENT: JVD Respiratory exam: PRESENT: prolonged expiratory phas, unlabored. ABSENT: wheezes Cardiovascular exam: PRESENT: +S1, +S2 Neurological exam: PRESENT: alert, awake, oriented to person, oriented to place, oriented to time Results Laboratory Results: 09/02/20 05:45 09/05/20 06:23 09/04/20 09/05/20 09/05/20 18:00 06:23 06:23 VBG pH 7.39 VBG pCO2 78.8 H* VBG HCO3 46.6 H VBG Base Excess 17.4 Sodium 131.7 L 132.8 L Potassium 4.7 3.7 D Chloride 81 L 84 L Carbon Dioxide 39 H 41 H* Anion Gap 12 8 BUN 41 H 44 H Creatinine 1.16 0.98 Est GFR ( Amer) > 60 > 60 Glucose 190 H 106 Calcium 9.5 9.0 Magnesium 2.3 09/01/20 09/01/20 14:29 14:29 Troponin I 0.018 NT-Pro-B Natriuret Pep 347 Impressions: Venous Doppler Study 09/01/20 00:00 IMPRESSION: No evidence for acute deep venous thrombus from the common femoral to the popliteal veins. Chronic nonocclusive superficial thrombophlebitis within the left greater and lesser saphenous veins Chest X-Ray 09/04/20 00:00 IMPRESSION: NO ACUTE RADIOGRAPHIC FINDING IN THE CHEST. Assessment and Plan - Diagnosis (1) COPD exacerbation Is this a current diagnosis for this admission?: Yes Plan: Chest CT from prior years show widespread emphysematous lungs. Patient with advanced COPD with chronic hypoxia requiring 3 to 4 L nasal cannula at home. duo nebs frequency decreased, switch to prednisone, continue budesonide and azithromycin. Start trelegy tomorrow. Noted allergy to roflumilast. Chest x-ray not showing any evidence of pneumonia. Has history of pulmonary hypertension associated with advanced COPD We will send patient to SNF/rehab upon discharge due to physical deconditioning with contribution from his COPD. He is agreeable to this. Outpt f/u with Dr. Buckley. Appointment has been set up by . 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 Alfaro, Dr. Alfaro recommends that patient will most benefit from immunotherapy as opposed to surgical intervention and plans to initiate patient on treatment with [facility] outpatient. Surgery recommending washing the area daily with soap and water and applying dry dressing. (3) Chronic respiratory failure with hypoxia and hypercapnia Is this a current diagnosis for this admission?: Yes Plan: Goal SPO2 89 to 92%. Chest x-ray yesterday was unchanged. Has chronic inter stitial findings. Outpt f/u with his warehouse distribution associate Dr. Buckley for evaluation for nocturnal BiPAP qualification. (4) Phlebitis and thrombophlebitis of superficial vessels of left lower extremity Is this a current diagnosis for this admission?: Yes Plan: Noted on venous doppler. Chronic involving Greater and lesser saphenous. Treat with warm compresses TID and leg elevation. Anticoagulation not indicated. (5) BAYRON (acute kidney injury) Is this a current diagnosis for this admission?: Yes Plan: Resolved. Chronic urinary retention may also be contributing to this. Diuretics resumed yesterday. Monitor BMP. (6) Urinary retention Is this a current diagnosis for this admission?: Yes Plan: Apparently patient has been using a straight cath at home up to 6 times a day sometimes. Follows with urologist Dr. Bourgeois at [facility]. Notably having urinary retention here and we have continued straight caths as needed every 8 hours. Tamsulosin - Time Time Spent with patient: 15-24 minutes Anticipated Discharge Disposition: Senior Care Facility Anticipated Discharge Timeframe: when bed available
[2020-09-05] MEDS: AZITHROMYCIN 250 MG TABLET PO SCH (17:05)
[2020-09-05] MEDS: ATORVASTATIN CALCIUM 10 MG TABLET PO SCH (22:18)
[2020-09-05] MEDS: MONTELUKAST SODIUM 10 MG TABLET PO SCH (22:18)
[2020-09-06] MEDS: IPRATROPIUM/ALBUTEROL 0.5-2.5 MG/3 ML AMPUL NEB SCH ×3 (00:12→16:18)
[2020-09-06] MEDS: HEPARIN SOD (PORCINE) 5,000 UNIT/ML 1 ML VIAL SUBCUT SCH ×3 (05:45→21:41)
[2020-09-06 07:31] LABS: BLOOD UREA NITROGEN 45 mg/dL (7-20); CALCIUM 9.3 mg/dL (8.4-10.2); CHLORIDE 83 mmol/L (98-107); GLUCOSE 113 mg/dL (75-110)
[2020-09-06 07:38] LABS: ANION GAP 10 (5-19)
[2020-09-06 07:42] LABS: CARBON DIOXIDE 40 mmol/L (22-30)
[2020-09-06] MEDS: BUDESONIDE NEB 0.5 MG/2 ML AMPUL NEB SCH (08:54)
[2020-09-06] MEDS: BUDESONIDE NEB 0.25 MG/2 ML AMPUL NEB SCH (08:54)
[2020-09-06] MEDS: FUROSEMIDE 20 MG TABLET PO SCH ×2 (09:19→18:36)
[2020-09-06] MEDS: DILTIAZEM HCL 180 MG CAPSULE.CR PO SCH (09:19)
[2020-09-06] MEDS: MULTIVITAMIN TABLET PO SCH (09:19)
[2020-09-06] MEDS: ASPIRIN 81 MG TABLET, ENT COATED PO SCH (09:20)
[2020-09-06] MEDS: CALCIUM CARBONATE 600 MG TABLET PO SCH (09:20)
[2020-09-06] MEDS: DOCUSATE SODIUM 100 MG CAPSULE PO SCH ×2 (09:20→18:36)
[2020-09-06] MEDS: PREDNISONE 20 MG TABLET PO SCH (09:20)
[2020-09-06] MEDS: FAMOTIDINE 20 MG TABLET PO SCH ×2 (09:20→21:42)
[2020-09-06] MEDS: TAMSULOSIN HCL 0.4 MG CAP.SR.24H PO SCH (09:20)
[2020-09-06] MEDS ORDERED: FLUTICASONE/UMECLIDIN/VILANTER 100-62.5-25 MCG/DOSE IH SCH (10:00)
--- NOTE | 2020-09-06 10:25 | PDOC PROGRESS REPORT ---
Subjective Progress Note for:: 09/06/20 Subjective:: Patient feels well today. He has no complaints this morning. Informed that he only wore his BiPAP last night for about 70 minutes. Awaiting Covid test result for placement at SNF. Follow-up appointments have been set up with specialists. Reason For Visit: COPD,EXACERBATION,WOUND INFECTION,BAYRON Physical Exam Vital Signs: Temp Pulse Resp BP Pulse Ox 97.9 F 77 18 118/98 H 92 09/06/20 08:25 09/06/20 08:54 09/06/20 08:54 09/06/20 08:00 09/06/20 08:54 Intake & Output 09/05/20 09/06/20 09/07/20 06:59 06:59 06:59 Intake Total 472 1056 Output Total 1225 1700 Balance -753 -644 Weight 70.1 kg 71 kg General appearance: PRESENT: no acute distress, cooperative Neck exam: ABSENT: JVD Respiratory exam: PRESENT: decreased breath sounds, unlabored. ABSENT: tachypnea, wheezes Cardiovascular exam: PRESENT: +S1, +S2 Neurological exam: PRESENT: alert, awake, oriented to person, oriented to place, oriented to time Psychiatric exam: ABSENT: agitated, anxious Results Laboratory Results: 09/02/20 05:45 09/06/20 06:33 09/06/20 06:33 Sodium 133.2 L Potassium 4.0 Chloride 83 L Carbon Dioxide 40 H* Anion Gap 10 BUN 45 H Creatinine 1.00 Est GFR ( Amer) > 60 Glucose 113 H Calcium 9.3 Magnesium 2.2 09/01/20 09/01/20 14:29 14:29 Troponin I 0.018 NT-Pro-B Natriuret Pep 347 Impressions: Venous Doppler Study 09/01/20 00:00 IMPRESSION: No evidence for acute deep venous thrombus from the common femoral to the popliteal veins. Chronic nonocclusive superficial thrombophlebitis within the left greater and lesser saphenous veins Chest X-Ray 09/04/20 00:00 IMPRESSION: NO ACUTE RADIOGRAPHIC FINDING IN THE CHEST. Assessment and Plan - Diagnosis (1) COPD exacerbation Is this a current diagnosis for this admission?: Yes Plan: Chest CT from 2019 widespread emphysematous lungs. Acute exacerbation is mostly resolved. duo nebs, prednisone -may benefit from a gentle taper. Completed 5 days of azithromycin. Patient has advanced COPD, pulomonary hypertension, with chronic hypoxia requiring 3 to 4 L nasal cannula at home. COPD GOLD Stage D - Trelegy. Noted allergy to roflumilast. Chest x-ray not showing any evidence of pneumonia. We will send patient to SNF/rehab upon discharge due to physical deconditioning with contribution from his COPD. He is agreeable to this. Outpt f/u with Dr. Buckley. Appointment has been set up by . 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 Alfaro, Dr. Alfaro recommends that patient will most benefit from immunotherapy as opposed to surgical intervention and plans to initiate patient on treatment with [facility] outpatient once done with rehab. Surgery recommending washing the area daily with soap and water and applying dry dressing. (3) Chronic respiratory failure with hypoxia and hypercapnia Is this a current diagnosis for this admission?: Yes Plan: C/w baseline NC 3-4L. Goal SPO2 89 to 92%. Has chronic interstitial findings. Not complying with nocturnal bipap use. (4) Phlebitis and thrombophlebitis of superficial vessels of left lower extremity Is this a current diagnosis for this admission?: Yes Plan: Noted on venous doppler. Chronic involving Greater and lesser saphenous. Treat with warm compresses TID and leg elevation. Anticoagulation not indicated. (5) BAYRON (acute kidney injury) Is this a current diagnosis for this admission?: Yes Plan: Resolved. (6) Urinary retention Is this a current diagnosis for this admission?: Yes Plan: Apparently patient has been using a straight cath at home up to 6 times a day sometimes. Follows with urologist Dr. Bourgeois at [facility]. Notably having urinary retention here and we have continued straight caths as needed every 8 hours. Tamsulosin Has been set up for urology follow up - Plan Summary Summary: Discharge ready. Pending COVID screen and SNF placement. - Time Time Spent with patient: Less than 15 minutes Anticipated Discharge Disposition: [facility] Facility Anticipated Discharge Timeframe: when bed available
[2020-09-06] MEDS: FLUTICASONE/UMECLIDIN/VILANTER 100-62.5-25 MCG/DOSE IH SCH (13:49)
[2020-09-06] MEDS: MONTELUKAST SODIUM 10 MG TABLET PO SCH (21:41)
[2020-09-06] MEDS: ATORVASTATIN CALCIUM 10 MG TABLET PO SCH (21:41)
[2020-09-07] MEDS: IPRATROPIUM/ALBUTEROL 0.5-2.5 MG/3 ML AMPUL NEB SCH ×3 (00:57→15:53)
[2020-09-07] MEDS: HEPARIN SOD (PORCINE) 5,000 UNIT/ML 1 ML VIAL SUBCUT SCH ×3 (06:04→22:48)
[2020-09-07] MEDS: ASPIRIN 81 MG TABLET, ENT COATED PO SCH (09:47)
[2020-09-07] MEDS: TAMSULOSIN HCL 0.4 MG CAP.SR.24H PO SCH (09:47)
[2020-09-07] MEDS: MULTIVITAMIN TABLET PO SCH (09:47)
[2020-09-07] MEDS: CALCIUM CARBONATE 600 MG TABLET PO SCH (09:47)
[2020-09-07] MEDS: PREDNISONE 20 MG TABLET PO SCH (09:47)
[2020-09-07] MEDS: DOCUSATE SODIUM 100 MG CAPSULE PO SCH ×2 (09:47→17:55)
[2020-09-07] MEDS: FUROSEMIDE 20 MG TABLET PO SCH ×2 (09:48→17:55)
[2020-09-07] MEDS: DILTIAZEM HCL 180 MG CAPSULE.CR PO SCH (09:48)
[2020-09-07] MEDS: FAMOTIDINE 20 MG TABLET PO SCH ×2 (09:48→22:48)
[2020-09-07] MEDS: FLUTICASONE/UMECLIDIN/VILANTER 100-62.5-25 MCG/DOSE IH SCH (13:10)
--- NOTE | 2020-09-07 16:02 | PDOC PROGRESS REPORT ---
Subjective Progress Note for:: 09/07/20 Subjective:: Patient feels that his breathing is better. Reason For Visit: COPD,EXACERBATION,WOUND INFECTION,BAYRON Physical Exam Vital Signs: Temp Pulse Resp BP Pulse Ox 98.2 F 87 20 134/63 H 92 09/07/20 11:37 09/07/20 11:37 09/07/20 11:37 09/07/20 11:37 09/07/20 11:37 Intake & Output 09/06/20 09/07/20 09/08/20 06:59 06:59 06:59 Intake Total 1056 1620 120 Output Total 1700 2700 Balance -644 -1080 120 Weight 71 kg 70.3 kg General appearance: PRESENT: no acute distress, thin, other - cachectic Head exam: PRESENT: atraumatic, normocephalic Eye exam: PRESENT: conjunctiva pink, EOMI, PERRLA. ABSENT: scleral icterus Ear exam: PRESENT: normal external ear exam Mouth exam: PRESENT: moist, tongue midline Neck exam: ABSENT: carotid bruit, JVD, lymphadenopathy, thyromegaly Respiratory exam: PRESENT: decreased breath sounds, tachypnea. ABSENT: rales, rhonchi, wheezes Cardiovascular exam: PRESENT: RRR, +S1, +S2. ABSENT: diastolic murmur, rubs, systolic murmur Pulses: PRESENT: normal dorsalis pedis pul Vascular exam: PRESENT: normal capillary refill GI/Abdominal exam: PRESENT: normal bowel sounds, soft. ABSENT: distended, guarding, mass, organolmegaly, rebound, tenderness Rectal exam: PRESENT: deferred Extremities exam: PRESENT: full ROM. ABSENT: calf tenderness, clubbing, pedal edema Neurological exam: PRESENT: alert, awake, oriented to person, oriented to place, oriented to time, oriented to situation, CN II-XII grossly intact. ABSENT: motor sensory deficit Psychiatric exam: PRESENT: appropriate affect, normal mood. ABSENT: homicidal ideation, suicidal ideation Skin exam: PRESENT: dry, intact, warm. ABSENT: cyanosis, rash Results Laboratory Results: 09/02/20 05:45 09/06/20 06:33 09/01/20 15:15 Blood Blood Culture - Final NO GROWTH IN 5 DAYS 09/01/20 14:29 Blood Blood Culture - Final NO GROWTH IN 5 DAYS 09/01/20 09/01/20 14:29 14:29 Troponin I 0.018 NT-Pro-B Natriuret Pep 347 Impressions: Venous Doppler Study 09/01/20 00:00 IMPRESSION: No evidence for acute deep venous thrombus from the common femoral to the popliteal veins. Chronic nonocclusive superficial thrombophlebitis within the left greater and lesser saphenous veins Chest X-Ray 09/04/20 00:00 IMPRESSION: NO ACUTE RADIOGRAPHIC FINDING IN THE CHEST. Assessment and Plan - Diagnosis (1) BAYRON (acute kidney injury) Is this a current diagnosis for this admission?: Yes Plan: Resolved. (2) COPD exacerbation Is this a current diagnosis for this admission?: Yes Plan: Chest CT from 2019 widespread emphysematous lungs. Acute exacerbation is mostly resolved. duo nebs, prednisone -may benefit from a gentle taper. Completed 5 days of azithromycin. Patient has advanced COPD, pulomonary hypertension, with chronic hypoxia requiring 3 to 4 L nasal cannula at home. COPD GOLD Stage D - Trelegy. Noted allergy to roflumilast. Chest x-ray not showing any evidence of pneumonia. We will send patient to SNF/rehab upon discharge due to physical deconditioning with contribution from his COPD. He is agreeable to this. Outpt f/u with Dr. Buckley. Appointment has been set up by . Will likely dc in am (3) Chronic respiratory failure with hypoxia and hypercapnia Is this a current diagnosis for this admission?: Yes Plan: C/w baseline NC 3-4L. Goal SPO2 89 to 92%. Has chronic interstitial findings. Not complying with nocturnal bipap use. (4) Urinary retention Is this a current diagnosis for this admission?: Yes Plan: Apparently patient has been using a straight cath at home up to 6 times a day sometimes. Follows with urologist Dr. Bourgeois at [facility]. Notably having urinary retention here and we have continued straight caths as needed every 8 hours. Tamsulosin Has been set up for urology follow up as outpatient - Plan Summary Summary: Discharge ready. Pending COVID screen and SNF placement. - Time Medications reviewed and adjusted accordingly: Yes Anticipated Discharge Disposition: Senior Living Facility Anticipated Discharge Timeframe: within 24 hours
[2020-09-07] MEDS: MONTELUKAST SODIUM 10 MG TABLET PO SCH (22:48)
[2020-09-07] MEDS: ATORVASTATIN CALCIUM 10 MG TABLET PO SCH (22:48)
[2020-09-08] MEDS: IPRATROPIUM/ALBUTEROL 0.5-2.5 MG/3 ML AMPUL NEB SCH ×2 (00:23→08:42)
[2020-09-08] MEDS: HEPARIN SOD (PORCINE) 5,000 UNIT/ML 1 ML VIAL SUBCUT SCH ×2 (05:54→13:08)
[2020-09-08] MEDS: DILTIAZEM HCL 180 MG CAPSULE.CR PO SCH (10:26)
[2020-09-08] MEDS: FLUTICASONE/UMECLIDIN/VILANTER 100-62.5-25 MCG/DOSE IH SCH (10:26)
[2020-09-08] MEDS: FAMOTIDINE 20 MG TABLET PO SCH (10:26)
[2020-09-08] MEDS: DOCUSATE SODIUM 100 MG CAPSULE PO SCH (10:26)
[2020-09-08] MEDS: TAMSULOSIN HCL 0.4 MG CAP.SR.24H PO SCH (10:26)
[2020-09-08] MEDS: PREDNISONE 20 MG TABLET PO SCH (10:26)
[2020-09-08] MEDS: FUROSEMIDE 20 MG TABLET PO SCH (10:26)
[2020-09-08] MEDS: MULTIVITAMIN TABLET PO SCH (10:26)
[2020-09-08] MEDS: ASPIRIN 81 MG TABLET, ENT COATED PO SCH (10:26)
[2020-09-08] MEDS: CALCIUM CARBONATE 600 MG TABLET PO SCH (10:26)
--- NOTE | 2020-09-08 11:49 | PDOC TRANSFER SUMMARY ---
Impression - Admit/DC Date/PCP Admission Date/Primary Care Provider: 09/01/20 18:02 Discharge Date: 09/08/20 - Discharge Diagnosis (1) BAYRON (acute kidney injury) Is this a current diagnosis for this admission?: Yes (2) COPD exacerbation Is this a current diagnosis for this admission?: Yes (3) Chronic respiratory failure with hypoxia and hypercapnia Is this a current diagnosis for this admission?: Yes (4) Urinary retention Is this a current diagnosis for this admission?: Yes - Additional Information Resuscitation Status: Full Code Discharge Diet: Cardiac Discharge Activity: Activity As Tolerated Referrals: JONATHAN BUCKNER MD [ACTIVE STAFF] - 09/15/20 11:00 am ANGELA BRAGG DO [NO LOCAL MD] - 09/10/20 10:00 am () MARTIR LAWRENCE MD [NO LOCAL MD] - 09/23/20 11:45 am (pt need to be there by 1130 for his apt with Dr. Lawrence and the apt will be in [address] ) Prescriptions: Prednisone [Deltasone 20 mg Tablet] 40 mg PO DAILY #4 tablet Tamsulosin HCl [Flomax 0.4 mg Cap.sr] 0.4 mg PO DAILY #30 cap.sr.24h Home Medications: Albuterol Sulfate [Ventolin 0.083% Neb 2.5 mg/3 mL Ampul] 3 ml NEB BID 02/26/19 Arformoterol Tartrate [Brovana Inhalation Solution 15 mcg/2 mL] 2 ml NEB DAILY 02/26/19 Potassium Chloride [K-Tab ER] 10 meq PO TID 02/26/19 Atorvastatin Calcium [Lipitor 10 mg Tablet] 10 mg PO QHS tablet 03/03/19 Budesonide [Pulmicort Neb 0.5 mg/2 ml Ampul] 0.5 mg NEB RTQ12 ampul.neb 03/03/19 Diltiazem HCl [Cardizem Cd 180 mg Capsule] 180 mg PO DAILY capsule.cr 03/03/19 Furosemide [Lasix 20 mg Tablet] 20 mg PO BID tablet 03/03/19 Famotidine [Pepcid 20 mg Tablet] 20 mg PO Q12 09/12/19 Levalbuterol HCl [Xopenex Neb 0.63 mg/3 ml Ampul] 3 ml NEB BIDP PRN 09/12/19 Albuterol Sulfate [Proair HFA Inhalation Aerosol 8.5 gm MDI] 2 puff IH Q4HP PRN 09/01/20 Aspirin [Ecotrin 81 mg EC Tablet] 81 mg PO DAILY 09/01/20 Calcium Carbonate [Calcium] 500 mg PO DAILY 09/01/20 Docusate Sodium [Colace] 100 mg PO BID 09/01/20 Multivitamin [Tab-A-Iesha] 1 each PO DAILY 09/01/20 Metolazone [Zaroxolyn 2.5 mg Tablet] 2.5 mg PO Q2DAYS #0 09/08/20 Montelukast Sodium [Singulair 10 mg Tablet] 10 mg PO QHS tablet 09/08/20 Prednisone [Deltasone 20 mg Tablet] 40 mg PO DAILY #4 tablet 09/08/20 Tamsulosin HCl [Flomax 0.4 mg Cap.sr] 0.4 mg PO DAILY #30 cap.sr.24h 09/08/20 History of Present Illiness History of Present Illness: MARY HAWKINS is a 85 year old male Patient presents emergency room with complaints of difficulty breathing, wheezing and shortness of breath. He also complained of left leg pain. He was admitted for COPD exacerbation with hypercapnia Hospital Course Hospital Course: Patient was treated with steroids, bronchodilators and oxygen. He does have chronic respiratory failure. 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 Monk on September 15 Patient also has a history of urinary retention for which he self cath and this is to be continued as per patient schedule Patient was treated with bronchodilators and he is completing his course of steroids over the next 48 hours. His breathing has improved and he appears to be close to his baseline chronic respiratory failure. Patient is on 3 to 4 L of oxygen chronically 3 admission and this is to be continued Physical Exam Vital Signs: Temp Pulse Resp BP Pulse Ox 97.7 F 80 16 120/63 96 09/08/20 10:00 09/08/20 08:42 09/08/20 08:42 09/08/20 08:37 09/08/20 08:42 Intake & Output 10/27/20 10/28/20 10/29/20 06:59 06:59 06:59 Intake Total 1620 1096 Output Total 9110 8600 Balance -1080 -354 Weight 70.3 kg 69.3 kg General appearance: PRESENT: no acute distress, other - Cachectic Head exam: PRESENT: atraumatic, normocephalic Eye exam: PRESENT: conjunctiva pink, EOMI, PERRLA. ABSENT: scleral icterus Ear exam: PRESENT: normal external ear exam Mouth exam: PRESENT: moist, tongue midline Neck exam: ABSENT: carotid bruit, JVD, lymphadenopathy, thyromegaly Respiratory exam: PRESENT: decreased breath sounds, other - pursed lipss. ABSENT: rales, rhonchi, wheezes Cardiovascular exam: PRESENT: RRR, +S1, +S2. ABSENT: diastolic murmur, rubs, systolic murmur Pulses: PRESENT: normal dorsalis pedis pul Vascular exam: PRESENT: normal capillary refill GI/Abdominal exam: PRESENT: normal bowel sounds, soft. ABSENT: distended, guarding, mass, organolmegaly, rebound, tenderness Rectal exam: PRESENT: deferred Extremities exam: PRESENT: full ROM. ABSENT: calf tenderness, clubbing, pedal edema Musculoskeletal exam: PRESENT: other - kyphotic Neurological exam: PRESENT: alert, awake, oriented to person, oriented to place, oriented to time, oriented to situation, CN II-XII grossly intact. ABSENT: motor sensory deficit Psychiatric exam: PRESENT: appropriate affect, normal mood. ABSENT: homicidal ideation, suicidal ideation Skin exam: PRESENT: dry, intact, warm. ABSENT: cyanosis, rash Results Laboratory Results: WBC 7.4 10^3/uL (4.0-10.5) 09/02/20 05:45 RBC 3.76 10^6/uL (4.35-5.55) L 09/02/20 05:45 Hgb 10.9 g/dL (13.5-17.0) L 09/02/20 05:45 Hct 33.1 % (37.9-51.0) L 09/02/20 05:45 MCV 88 fl (80-97) 09/02/20 05:45 MCH 29.1 pg (27.0-33.4) 09/02/20 05:45 MCHC 33.0 g/dL (32.0-36.0) 09/02/20 05:45 RDW 13.8 % (11.5-14.0) 09/02/20 05:45 Plt Count 197 10^3/uL (150-450) 09/02/20 05:45 Lymph % (Auto) Not Reportable 09/02/20 05:45 [place] % (Auto) Not Reportable 09/02/20 05:45 Eos % (Auto) Not Reportable 09/02/20 05:45 Baso % (Auto) Not Reportable 09/02/20 05:45 Absolute Neuts (auto) Not Reportable 09/02/20 05:45 Absolute Lymphs (auto) Not Reportable 09/02/20 05:45 Absolute Monos (auto) Not Reportable 09/02/20 05:45 Absolute Eos (auto) Not Reportable 09/02/20 05:45 Absolute Basos (auto) Not Reportable 09/02/20 05:45 Total Counted 100 09/02/20 05:45 Seg Neutrophils % Not Reportable 09/02/20 05:45 Seg Neuts % (Manual) 91 % (42-78) H 09/02/20 05:45 Lymphocytes % (Manual) 7 % (13-45) L 09/02/20 05:45 Monocytes % (Manual) 2 % (3-13) L 09/02/20 05:45 Eosinophils % (Manual) 0 % (0-6) 09/02/20 05:45 Basophils % (Manual) 0 % (0-2) 09/02/20 05:45 Abs Neuts (Manual) 6.7 10^3/uL (1.7-8.2) 09/02/20 05:45 Abs Lymphs (Manual) 0.5 10^3/uL (0.5-4.7) 09/02/20 05:45 Abs Monocytes (Manual) 0.1 10^3/uL (0.1-1.4) 09/02/20 05:45 Absolute Eos (Manual) 0.0 10^3/uL (0.0-0.6) 09/02/20 05:45 Abs Basophils (Manual) 0.0 10^3/uL (0.0-0.2) 09/02/20 05:45 Platelet Comment ADEQUATE 09/02/20 05:45 RBC Morph Comment NORMO-CYTIC/CHROMIC 09/02/20 05:45 PT 12.3 SEC (11.4-15.4) 09/02/20 05:45 INR 0.89 09/02/20 05:45 APTT 29.5 SEC (23.5-35.8) 09/02/20 05:45 VBG pH 7.39 (7.30-7.42) 09/05/20 06:23 VBG pCO2 78.8 mmHg (35-63) H* 09/05/20 06:23 VBG HCO3 46.6 mmol/L (20-32) H 09/05/20 06:23 VBG Base Excess 17.4 mmol/L 09/05/20 06:23 Sodium 133.2 mmol/L (137-145) L 09/06/20 06:33 Potassium 4.0 mmol/L (3.6-5.0) 09/06/20 06:33 Chloride 83 mmol/L (98-107) L 09/06/20 06:33 Carbon Dioxide 40 mmol/L (22-30) H* 09/06/20 06:33 Anion Gap 10 (5-19) 09/06/20 06:33 BUN 45 mg/dL (7-20) H 09/06/20 06:33 Creatinine 1.00 mg/dL (0.52-1.25) 09/06/20 06:33 Est GFR ( Amer) > 60 (>60) 09/06/20 06:33 Est GFR (MDRD) Non-Af > 60 (>60) 09/06/20 06:33 Glucose 113 mg/dL (75-110) H 09/06/20 06:33 Calcium 9.3 mg/dL (8.4-10.2) 09/06/20 06:33 Phosphorus 3.6 mg/dL (2.5-4.5) 09/02/20 05:45 Magnesium 2.2 mg/dL (1.6-2.3) 09/06/20 06:33 Total Bilirubin 0.8 mg/dL (0.2-1.3) 09/01/20 14:29 Direct Bilirubin 0.2 mg/dL (0.0-0.4) 09/01/20 14:29 Neonat Total Bilirubin Not Reportable 09/01/20 14:29 Neonat Direct Bilirubin Not Reportable 09/01/20 14:29 Neonat Indirect Bili Not Reportable 09/01/20 14:29 AST 29 U/L (17-59) 09/01/20 14:29 ALT 17 U/L (<50) 09/01/20 14:29 Alkaline Phosphatase 75 U/L (38-126) 09/01/20 14:29 Troponin I 0.018 ng/mL 09/01/20 14:29 NT-Pro-B Natriuret Pep 347 pg/mL (<450) 09/01/20 14:29 Total Protein 6.5 g/dL (6.3-8.2) 09/01/20 14:29 Albumin 3.9 g/dL (3.5-5.0) 09/01/20 14:29 Urine Color YELLOW 09/01/20 23:50 Urine Appearance SLIGHTLY-CLOUDY 09/01/20 23:50 Urine pH 7.0 (5.0-9.0) 09/01/20 23:50 Ur Specific [place] 1.010 09/01/20 23:50 Urine Protein NEGATIVE mg/dL (NEGATIVE) 09/01/20 23:50 Urine Glucose (UA) NEGATIVE mg/dL (NEGATIVE) 09/01/20 23:50 Urine Ketones NEGATIVE mg/dL (NEGATIVE) 09/01/20 23:50 Urine Blood NEGATIVE (NEGATIVE) 09/01/20 23:50 Urine Nitrite NEGATIVE (NEGATIVE) 09/01/20 23:50 Urine Bilirubin NEGATIVE (NEGATIVE) 09/01/20 23:50 Urine Urobilinogen NEGATIVE mg/dL (<2.0) 09/01/20 23:50 Ur Leukocyte Esterase TRACE (NEGATIVE) H 09/01/20 23:50 Urine WBC (Auto) 2 /HPF 09/01/20 23:50 Urine RBC (Auto) 0 /HPF 09/01/20 23:50 Urine Bacteria (Auto) TRACE /HPF 09/01/20 23:50 Squamous Epi Cells Auto <1 /HPF 09/01/20 23:50 Urine Mucus (Auto) RARE /LPF 09/01/20 23:50 Urine Ascorbic Acid NEGATIVE (NEGATIVE) 09/01/20 23:50 COVID-19 Source See comment 09/05/20 03:45 COVID-19 (RODDY) Not Detected (Not Detect) 09/05/20 03:45 09/01/20 09/01/20 14:29 14:29 Troponin I 0.018 NT-Pro-B Natriuret Pep 347 Impressions: Venous Doppler Study 09/01/20 00:00 IMPRESSION: No evidence for acute deep venous thrombus from the common femoral to the popliteal veins. Chronic nonocclusive superficial thrombophlebitis within the left greater and lesser saphenous veins Chest X-Ray 09/01/20 14:34 IMPRESSION: COPD without a superimposed acute cardiopulmonary process. Chest X-Ray 09/04/20 00:00 IMPRESSION: NO ACUTE RADIOGRAPHIC FINDING IN THE CHEST. Plan Health Concerns: Squamous cell carcinoma of the skin of left upper lip to be followed up with oncologist for further management as outpatient. Patient also to follow-up with Dr. Lawrence urologist for his chronic urinary retention Time Spent: Greater than 30 Minutes Stroke Is this a Stroke Patient?: No Acute Heart Failure Is this a Heart Failure Patient?: No
[2020-09-08 14:02] VITALS: BP 130/85
== END 2020-09-08 15:47 | DRG 191 ==
LOC: ER 14:12 → EH 18:02 → 4S 18:54
PROVIDERS: ADMIT Internal Medicine; ATTEND Internal Medicine
PROC: 5A09357 Assistance with Respiratory Ventilation, Less than 24 Consecutive Hours, Continuous Positive Airway Pressure (ICD-10-PCS; principal; 2020-09-01)
DX: J44.1 Chronic obstructive pulmonary disease with (acute) exacerbation (principal); J96.12 Chronic respiratory failure with hypercapnia; J96.11 Chronic respiratory failure with hypoxia; N17.9 Acute kidney failure, unspecified; Z99.81 Dependence on supplemental oxygen; I25.10 Atherosclerotic heart disease of native coronary artery without angina pectoris; E78.5 Hyperlipidemia, unspecified; C44.629 Squamous cell carcinoma of skin of left upper limb, including shoulder; R33.9 Retention of urine, unspecified; I80.02 Phlebitis and thrombophlebitis of superficial vessels of left lower extremity; I27.20 Pulmonary hypertension, unspecified; Z79.51 Long term (current) use of inhaled steroids; Z79.899 Other long term (current) drug therapy; Z20.828 Contact with and (suspected) exposure to other viral communicable diseases; Z88.8 Allergy status to other drugs, medicaments and biological substances; S40.022A Contusion of left upper arm, initial encounter; S40.021A Contusion of right upper arm, initial encounter; X58.XXXA Exposure to other specified factors, initial encounter
CPT/HCPCS: 36415; 71045; 71046; 80048; 80053; 81001; 82803; 83735; 83880; 84100; 84484; 85025; 85610; 85730; 87040; 87635; 93005; 93010; 93970; 94640; 94660; 96365; 99285; C9803; J1644; J1940; J2920; J3475; J3490; J7040; J7512; J7613